=== PATIENT | male | born 1930 | race African-American/Black ===

== ENCOUNTER 2018-09-24 10:24 | Inpatient (IN) | payer MEDICARE, MEDICAID ==
[~2018-09-24] VITALS: Ht 175.3 cm; Wt 75.7 kg
[~2018-09-24 10:24] MED LIST: ALPHAGAN1 DROP BOTH EYES; ASPIRIN81 MG ORAL; ATENOLOL25 MG ORAL; AZOPT10 ML RIGHT EYE; COLACE100 MG ORAL; COMBIGAN EYE DRO5 ML OP; GLUCOPHAGE500 MG ORAL; PROTONIX40 MG ORAL; TIMOPTIC 0.5%1 DRO1 BOTH EYES; UNOBMED; ZESTRIL10 M1 ORAL
[2018-09-24 10:37] VITALS: BP 174/72
[2018-09-24] MEDS ORDERED: Sodium Chloride 500ML 500 ML IV ONE (10:48)
--- NOTE | 2018-09-24 10:51 | Emergency Room Report ---
History of Present Illness General Chief Complaint: Multiple Trauma/Fall Source: Patient, EMS Present Illness HPI Patient presents after he sustained a fall And had pain to the right hip area Patient reports this happened last night He is not able to report specifics of the incident Patient is blind He reports that he ambulate with a walker Currently denies any chest pain denies any abdominal pain Pain is localized to the right hip 8 out of 10 with attempts of movement Allergies: Coded Allergies: No Known Allergies (Verified , 04/05/09) Patient History Past Medical History: see triage record Pertinent Family History: none Reviewed Nursing Documentation: PMH: Agreed; PSxH: Agreed Nursing Documentation-PMH Past Medical History: No History, Except For Hx Hypertension: Yes Hx Pacemaker: No Hx Asthma: No Hx COPD: No Hx Diabetes: No Hx Cancer: No Hx Gastrointestinal Problems: No Hx Dialysis: No Hx Neurological Problems: Yes - Blind Hx Cerebrovascular Accident: No Hx Seizures: No Review of Systems All Other Systems: negative except mentioned in HPI Physical Exam Vital Signs Date Time Temp Pulse Resp B/P (MAP) Pulse Ox O2 Delivery O2 Flow Rate FiO2 09/24/18 10:18 98.1 88 16 168/80 97 Room Air Sp02 EP Interpretation: reviewed, normal General Appearance: no apparent distress Head: normocephalic, atraumatic Eyes: bilateral eye other - Blind in both eyes ENT: normal pharynx, no angioedema Neck: supple Respiratory: lungs clear, no respiratory distress, no retraction Cardiovascular #1: regular rate, rhythm Gastrointestinal: non tender, soft Musculoskeletal: other - Some swelling to the right proximal hip, tender on palpation, right leg appears to be externally rotated Neurologic: alert, oriented x3, responsive Skin: normal color, no rash Lymphatic: no adenopathy Medical Decision Making Diagnostic Impression: Primary Impression: Hip fracture Additional Impression: Legally blind ER Course Given the patient's history exam and presentation multiple differentials are considered blood work and imaging is initiated patient has evidence of right- sided hip fracture appears to be intertrochanteric Further preoperative workup is also initiated Patient remains nothing by mouth Pain is well-controlled did not require any initial medications and emergency room this was addressed with the patient Otherwise stable for further inpatient care Labs Test 09/24/18 11:30 09/24/18 12:51 09/25/18 05:05 White Blood Count 11.6 K/UL (4.8-10.8) Red Blood Count 4.37 M/UL (4.70-6.10) Hemoglobin 13.8 G/DL (14.2-18.0) Hematocrit 41.0 % (42.0-52.0) Mean Corpuscular Volume 94 FL (80-99) Mean Corpuscular Hemoglobin 31.6 PG (27.0-31.0) Mean Corpuscular Hemoglobin Concent 33.7 G/DL (32.0-36.0) Red Cell Distribution Width 11.5 % (11.6-14.8) Platelet Count 137 K/UL (150-450) Mean Platelet Volume 11.9 FL (6.5-10.1) Neutrophils (%) (Auto) % (45.0-75.0) Lymphocytes (%) (Auto) % (20.0-45.0) Monocytes (%) (Auto) % (1.0-10.0) Eosinophils (%) (Auto) % (0.0-3.0) Basophils (%) (Auto) % (0.0-2.0) Differential Total Cells Counted 100 Neutrophils % (Manual) 85 % (45-75) Lymphocytes % (Manual) 8 % (20-45) Monocytes % (Manual) 5 % (1-10) Eosinophils % (Manual) 0 % (0-3) Basophils % (Manual) 0 % (0-2) Band Neutrophils 2 % (0-8) Platelet Estimate Decreased Platelet Morphology Normal Ovalocytes Occasional Troponin I 0.007 ng/mL (0.000-0.056) Sodium Level 140 MMOL/L (136-145) Potassium Level 3.9 MMOL/L (3.5-5.1) Chloride Level 107 MMOL/L (98-107) Carbon Dioxide Level 25 MMOL/L (21-32) Anion Gap 9 mmol/L (5-15) Blood Urea Nitrogen 12 mg/dL (7-18) Creatinine 0.9 MG/DL (0.55-1.30) Estimat Glomerular Filtration Rate mL/min (>60) Glucose Level 148 MG/DL (74-106) Calcium Level 9.2 MG/DL (8.5-10.1) Total Bilirubin 1.8 MG/DL (0.2-1.0) Direct Bilirubin 0.5 MG/DL (0.0-0.3) Aspartate Amino Transf (AST/SGOT) 40 U/L (15-37) Alanine Aminotransferase (ALT/SGPT) 23 U/L (12-78) Alkaline Phosphatase 79 U/L (46-116) Total Creatine Kinase 214 U/L (26-308) Creatine Kinase MB 1.8 NG/ML (0.0-3.6) Creatine Kinase MB Relative Index 0.8 Total Protein 7.6 G/DL (6.4-8.2) Albumin 3.2 G/DL (3.4-5.0) Globulin 4.4 g/dL Albumin/Globulin Ratio 0.7 (1.0-2.7) Prothrombin Time 14.1 SEC (9.30-11.50) Prothromb Time International Ratio 1.4 (0.9-1.1) Activated Partial Thromboplast Time 27 SEC (23-33) Rhythm Strip Diag. Results EP Interpretation: yes Rate: 67 Rhythm: NSR, no PVC's, no ectopy Chest X-Ray Diagnostic Results Chest X-Ray Diagnostic Results : Chest X-Ray Ordered: Yes # of Views/Limited/Complete: 1 View Indication: Chest Pain EP Interpretation: Yes Interpretation: no consolidation, no effusion, no pneumothorax Impression: No acute disease Electronically Signed by: Quyen Stanley DO Other X-Ray Diagnostic Results Other X-Ray Diagnostic Results : X-Ray ordered: Pelvic # of Views/Limited Vs Complete: 1 View Indication: Pain EP Interpretation: Yes Interpretation: no soft tissue swelling, no sbo, other - Right-sided intertrochanteric fracture Impression: Other - Acute fracture, right hip, intertrochanteric Last Vital Signs Date Time Temp Pulse Resp B/P (MAP) Pulse Ox O2 Delivery O2 Flow Rate FiO2 09/24/18 10:37 97.9 79 15 174/72 99 Room Air Status: improved Disposition: ADMITTED INPATIENT Condition: Serious Quyen Stanley DO Sep 24, 2018 10:51
[2018-09-24] MEDS ORDERED: Morphine Sulfate 2mg/ml Inj IVP ONE (11:00)
[2018-09-24 11:50] LABS: HEMOGLOBIN 13.8 G/DL (14.2-18.0); MEAN CORPUSCULAR VOLUME 94 FL (80-99); PLATELET COUNT 137 K/UL (150-450); RED BLOOD COUNT 4.37 M/UL (4.70-6.10); RED CELL DISTRIBUTION WIDTH 11.5 % (11.6-14.8); WHITE BLOOD COUNT 11.6 K/UL (4.8-10.8)
[2018-09-24 12:00] VITALS: BP 118/56
[2018-09-24] MEDS ORDERED: Morphine Sulfate 2mg/ml Inj IVP PRN (13:00)
[2018-09-24] MEDS ORDERED: Mylanta II UD 30ml ORAL PRN (13:00)
[2018-09-24] MEDS ORDERED: Zolpidem 5mg tab ORAL PRN (13:00)
[2018-09-24] MEDS ORDERED: Miralax 17gm pkt ORAL PRN (13:00)
[2018-09-24] MEDS ORDERED: LORazepam Inj 2mg/ml 1ml IV PRN (13:00)
[2018-09-24] MEDS ORDERED: Morphine Sulfate 4mg/ml Inj (IV/IM USE ONLY) IVP PRN (13:00)
[2018-09-24 13:10] LABS: ANION GAP 9 mmol/L (5-15); BLOOD UREA NITROGEN 12 mg/dL (7-18); CALCIUM 9.2 MG/DL (8.5-10.1); CARBON DIOXIDE 25 MMOL/L (21-32); CHLORIDE 107 MMOL/L (98-107); CREATININE 0.9 MG/DL (0.55-1.30); POTASSIUM 3.9 MMOL/L (3.5-5.1); SODIUM 140 MMOL/L (136-145)
[2018-09-24 13:20] VITALS: BP 121/76
[2018-09-24 13:29] LABS: ALANINE AMINOTRANSFERASE 23 U/L (12-78); ALBUMIN 3.2 G/DL (3.4-5.0); ALBUMIN/GLOBULIN RATIO 0.7 (1.0-2.7); ALKALINE PHOSPHATASE 79 U/L (46-116); ASPARTATE AMINO TRANSFERASE 40 U/L (15-37); BILIRUBIN,TOTAL 1.8 MG/DL (0.2-1.0); CKMB 1.8 NG/ML (0.0-3.6); CREATINE KINASE 214 U/L (26-308)
[2018-09-24 13:33] LABS: BILIRUBIN,DIRECT 0.5 MG/DL (0.0-0.3)
--- NOTE | 2018-09-24 13:50 | Consultation ---
History of Present Illness General Chief Complaint: Multiple Trauma/Fall Present Illness Allergies: Coded Allergies: No Known Allergies (Verified , 04/05/09) Medication History Scheduled Aspirin* (Aspirin*), 81 MG ORAL DAILY Atenolol* (Tenormin*), 25 MG ORAL Q12HR Brimonidine Tartrate (Brimonidine Tartrate), 1 DROP BOTH EYES BID Brinzolamide (Azopt), 1 DROP RIGHT EYE THREE TIMES A DAY Docusate Sodium* (Colace*), 100 MG ORAL DAILY Lisinopril* (Zestril*), 5 MG ORAL DAILY Metformin Hcl* (Glucophage*), 500 MG ORAL DAILY Pantoprazole* (Protonix*), 40 MG ORAL DAILY Timolol Maleate (Timolol Maleate), 1 DROP BOTH EYES BID Miscellaneous Medications Brimonidine Tartrate/Timolol (Combigan Eye Drops), 1 DROP OP, (Reported) Patient History Healthcare decision maker Resuscitation status Advanced Directive on File Physical Exam Last 24 Hour Vital Signs Date Time Temp Pulse Resp B/P (MAP) Pulse Ox O2 Delivery O2 Flow Rate FiO2 09/24/18 13:20 98.6 72 16 121/76 100 Room Air 09/24/18 12:00 98.7 78 18 118/56 100 Room Air 09/24/18 10:37 97.9 79 15 174/72 99 Room Air 09/24/18 10:37 79 16 Room Air 09/24/18 10:18 98.1 88 16 168/80 97 Room Air Laboratory Tests Test 09/24/18 11:30 09/24/18 12:51 White Blood Count 11.6 K/UL (4.8-10.8) H Red Blood Count 4.37 M/UL (4.70-6.10) L Hemoglobin 13.8 G/DL (14.2-18.0) L Hematocrit 41.0 % (42.0-52.0) L Mean Corpuscular Volume 94 FL (80-99) Mean Corpuscular Hemoglobin 31.6 PG (27.0-31.0) H Mean Corpuscular Hemoglobin Concent 33.7 G/DL (32.0-36.0) Red Cell Distribution Width 11.5 % (11.6-14.8) L Platelet Count 137 K/UL (150-450) L Mean Platelet Volume 11.9 FL (6.5-10.1) H Neutrophils (%) (Auto) % (45.0-75.0) Lymphocytes (%) (Auto) % (20.0-45.0) Monocytes (%) (Auto) % (1.0-10.0) Eosinophils (%) (Auto) % (0.0-3.0) Basophils (%) (Auto) % (0.0-2.0) Differential Total Cells Counted 100 Neutrophils % (Manual) 85 % (45-75) H Lymphocytes % (Manual) 8 % (20-45) L Monocytes % (Manual) 5 % (1-10) Eosinophils % (Manual) 0 % (0-3) Basophils % (Manual) 0 % (0-2) Band Neutrophils 2 % (0-8) Platelet Estimate Decreased L Platelet Morphology Normal Ovalocytes Occasional Troponin I 0.007 ng/mL (0.000-0.056) Sodium Level 140 MMOL/L (136-145) Potassium Level 3.9 MMOL/L (3.5-5.1) Chloride Level 107 MMOL/L (98-107) Carbon Dioxide Level 25 MMOL/L (21-32) Anion Gap 9 mmol/L (5-15) Blood Urea Nitrogen 12 mg/dL (7-18) Creatinine 0.9 MG/DL (0.55-1.30) Estimat Glomerular Filtration Rate mL/min (>60) Glucose Level 148 MG/DL (74-106) H Calcium Level 9.2 MG/DL (8.5-10.1) Total Bilirubin 1.8 MG/DL (0.2-1.0) H Direct Bilirubin 0.5 MG/DL (0.0-0.3) H Aspartate Amino Transf (AST/SGOT) 40 U/L (15-37) H Alanine Aminotransferase (ALT/SGPT) 23 U/L (12-78) Alkaline Phosphatase 79 U/L (46-116) Total Creatine Kinase 214 U/L (26-308) Creatine Kinase MB 1.8 NG/ML (0.0-3.6) Creatine Kinase MB Relative Index 0.8 Total Protein 7.6 G/DL (6.4-8.2) Albumin 3.2 G/DL (3.4-5.0) L Globulin 4.4 g/dL Albumin/Globulin Ratio 0.7 (1.0-2.7) L Height (Feet): 6 Weight (Pounds): 168 Medications Current Medications Medications (Trade) Dose Ordered Sig/Tariq Route PRN Reason Start Time Stop Time Status Last Admin Dose Admin Acetaminophen (Tylenol) 650 mg Q4H PRN ORAL fever 09/24/18 13:00 10/24/18 12:59 Al Hydroxide/Mg Hydroxide (Mylanta II) 30 ml Q6H PRN ORAL dyspepsia 09/24/18 13:00 10/24/18 12:59 Atenolol (Tenormin) 25 mg Q12HR ORAL 09/24/18 21:00 10/24/18 20:59 Brimonidine Tartrate (Alphagan) 1 drop BID BOTH EYES 09/24/18 18:00 10/24/18 17:59 Dextrose (Dextrose 50%) 25 ml Q30M PRN IV Hypoglycemia 09/24/18 13:00 10/24/18 12:59 Dextrose (Dextrose 50%) 50 ml Q30M PRN IV Hypoglycemia 09/24/18 13:00 10/24/18 12:59 Dextrose/Sodium Chloride 1,000 ml @ 50 mls/hr Q20H IV 09/24/18 13:35 10/24/18 13:34 Heparin Sodium (Porcine) (Heparin 5000 units/ml) 5,000 units EVERY 12 HOURS SUBQ 09/24/18 21:00 10/24/18 20:59 Insulin Aspart (NovoLOG) BEFORE MEALS AND HS SUBQ 09/24/18 16:30 10/24/18 16:29 Lisinopril (Zestril) 5 mg DAILY ORAL 09/25/18 09:00 10/25/18 08:59 Lorazepam (Ativan 2mg/ml 1ml) 0.5 mg Q4H PRN IV For Anxiety 09/24/18 13:00 10/01/18 12:59 Morphine Sulfate (Morphine Sulfate) 2 mg Q4H PRN IVP For Pain 4-6 09/24/18 13:00 10/01/18 12:59 Morphine Sulfate (Morphine Sulfate) 4 mg Q4H PRN IVP For Pain 7-10 09/24/18 13:00 10/01/18 12:59 Ondansetron HCl (Zofran) 4 mg Q6H PRN IVP Nausea & Vomiting 09/24/18 13:00 10/24/18 12:59 Pantoprazole (Protonix) 40 mg DAILY ORAL 09/25/18 09:00 10/25/18 08:59 Polyethylene Glycol (Miralax) 17 gm HSPRN PRN ORAL Constipation 09/24/18 13:00 10/24/18 12:59 Timolol Maleate (Timoptic 0.5% Op Soln) 1 drop BID BOTH EYES 09/24/18 18:00 10/24/18 17:59 Zolpidem Tartrate (Ambien) 5 mg HSPRN PRN ORAL Insomnia 09/24/18 13:00 10/01/18 12:59 Moises Dennis MD Sep 24, 2018 13:50
[2018-09-24 14:00] VITALS: BP 141/66
[2018-09-24] MEDS: D5 1/2NS 1,000 ML IV SCH (15:01)
--- NOTE | 2018-09-24 15:44 | Diagnostic Imaging Report ---
Indication: Pain, status post fall Technique: One view of the pelvis Comparison: none Findings: There is slightly angulated right hip intertrochanteric fracture. There is a comminuted trochanter fracture of the right hip, mildly angulated. No associated pelvic fracture. No left hip fracture. Joint spaces are preserved. There are degenerative changes of the lumbosacral junction Impression: Positive for right hip intertrochanteric fracture This agrees with the findings reported by the emergency room physician in the electronic medical record
--- NOTE | 2018-09-24 15:45 | Diagnostic Imaging Report ---
Indication: Chest pain Technique: One view of the chest Comparison: 11/22/2015 Findings: No acute infiltrates, effusions, or congestion. Tortuous calcified aorta. Normal heart size. Upper mediastinum unremarkable. Impression: No acute process.
[2018-09-24 16:00] VITALS: BP 140/70
[2018-09-24] MEDS: NovoLOG Insulin Flexpen SUBQ SCH ×2 (16:30→21:00)
[2018-09-24] MEDS: Timolol 0.5% Op Soln 2.5ml BOTH EYES SCH (17:38)
[2018-09-24] MEDS: Brimonidine 0.2% Opth Sol BOTH EYES SCH (17:38)
--- NOTE | 2018-09-24 18:37 | History & Physical ---
History and Physical History & Physicial Dictated for Int Med-Dr Sanz no. [id number]. Jw Mills MD Sep 24, 2018 18:37
[2018-09-24 20:00] VITALS: BP 135/68
[2018-09-24] MEDS: Heparin 5000 units/ml inj SUBQ SCH (21:00)
[2018-09-24] MEDS: Atenolol 25mg tab ORAL SCH (21:00)
--- NOTE | 2018-09-24 21:30 | History and Physical Report ---
DATE OF ADMISSION: 09/24/2018 CHIEF COMPLAINT: The patient is a 88-year-old male who presents with chief complaint of right hip pain. HISTORY OF PRESENT ILLNESS: The patient states he was at home earlier today. The patient went to the bathroom and no witnessed him . The patient then went to go sit on the couch. The patient then heard a noise and was trying to get up from the couch. The patient fell. The patient states he did not lose consciousness. He just slipped and fell. The patient presented to [facility] emergency room. The patient was complaining of right hip pain. An x-ray demonstrated a right femoral intertrochanteric fracture. The patient is admitted with right femur intertrochanteric fracture. REVIEW OF SYSTEMS: CONSTITUTIONAL: The patient denies weight loss or weight gain. The patient denies fevers or chills. HEENT: The patient denies ear or throat pain. The patient denies headache. CARDIOVASCULAR: The patient denies palpitations or chest pain. CHEST: The patient denies wheezes or shortness of breath. ABDOMINAL: The patient denies nausea, vomiting, diarrhea, or constipation. GENITOURINARY: The patient denies dysuria or increased frequency of urination. NEUROMUSCULAR: The patient complains of right hip pain as above. The patient denies seizures or generalized weakness. PAST MEDICAL HISTORY: Significant for: 1. Prediabetes. 2. Legally blind. 3. Diabetes type 2. 4. Hypertension. 5. Glaucoma. PAST SURGICAL HISTORY: The patient denies. CURRENT MEDICATIONS: 1. Aspirin 81 mg p.o. daily. 2. Atenolol 25 mg p.o. twice daily. 3. Brimonidine one drop in both eyes twice daily. 4. Azopt one drop in the right eye three times daily. 5. Lisinopril 5 mg p.o. daily. 6. Metformin 500 mg p.o. daily. 7. Protonix 40 mg p.o. daily. 8. Timolol one drop in both eyes twice daily. ALLERGIES: No known drug allergies. SOCIAL HISTORY: The patient is single and lives alone. The patient denies tobacco use having quit 10 years ago. The patient admits to alcohol use of one drink daily. PHYSICAL EXAMINATION: VITAL SIGNS: Temperature 98.7, respirations 18, pulse 78, blood pressure 118/56. GENERAL: The patient is well-developed and well-nourished male, who is in moderate pain. HEENT: Eyes, pupils are equal and responsive to light and accommodation. Extraocular movements are intact. NECK: Supple without lymphadenopathy. CHEST: Lungs are clear to auscultation bilaterally without wheezes or rales. CARDIOVASCULAR: Regular rate. S1 and S2 normal without murmurs, rubs, or gallops. ABDOMEN: Soft, nontender, nondistended. Positive bowel sounds. No evidence of hepatosplenomegaly. Currently, no rebound or guarding noted. EXTREMITIES: Pain to palpation in right hip otherwise without clubbing or cyanosis. RECTAL/GENITAL: Refused. NEUROLOGIC: Cranial nerves II through XII are grossly intact without focal deficits. Motor strength is 5/5 bilaterally. Deep tendon reflexes are 2+ plantar. LABORATORY AND DIAGNOSTIC DATA: An x-ray of the pelvis revealed an angulated right hip intertrochanteric fracture. Laboratory studies, WBC 11.6, hemoglobin 13.8, hematocrit 41.0, platelets 137,000. Sodium 140, potassium 3.9, chloride 107, CO2 25, BUN 12, creatinine 0.9, glucose 148. Direct bilirubin elevated 0.5, total bilirubin elevated 1.8, AST elevated at 40. ASSESSMENT: This is an 88-year-old male. 1. Intertrochanteric fracture of the right femur. 2. Hypertension. 3. Diabetes type 2. 4. Glaucoma. 5. 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 TREATMENT: 1. Intertrochanteric fracture of the right femur. An Orthopedic consultation obtained with Dr. Mao Arrington. We will follow recommendations of Orthopedics. The patient will require right total hip arthroscopy. 2. Diabetes type 2. Continue metformin as above. A regular insulin sliding scale has been instituted. 3. Hypertension. Continue lisinopril and atenolol as above. 4. Blindness. 5. Glaucoma. Continue eye drops as above. Jw Mills M.D. DR: Karen JOB#: [id number] CC:
--- NOTE | 2018-09-24 23:07 | Consultation ---
History of Present Illness General Date patient seen: Sep 24, 2018 Chief Complaint: Multiple Trauma/Fall Present Illness HPI 88-year-old male who presents with chief complaint of right hip pain. the pt is restless and confused waxing and waning of consciousness Allergies: Coded Allergies: No Known Allergies (Verified , 04/05/09) Medication History Scheduled Aspirin* (Aspirin*), 81 MG ORAL DAILY Atenolol* (Tenormin*), 25 MG ORAL Q12HR Brimonidine Tartrate (Brimonidine Tartrate), 1 DROP BOTH EYES BID Brinzolamide (Azopt), 1 DROP RIGHT EYE THREE TIMES A DAY Docusate Sodium* (Colace*), 100 MG ORAL DAILY Lisinopril* (Zestril*), 5 MG ORAL DAILY Metformin Hcl* (Glucophage*), 500 MG ORAL DAILY Pantoprazole* (Protonix*), 40 MG ORAL DAILY Timolol Maleate (Timolol Maleate), 1 DROP BOTH EYES BID Miscellaneous Medications Brimonidine Tartrate/Timolol (Combigan Eye Drops), 1 DROP OP, (Reported) Patient History Limited by: medical condition History Provided By: Patient, Medical Record, PMD Healthcare decision maker patient Resuscitation status Full Code Advanced Directive on File pt does not have one Past Medical/Surgical History Past Medical/Surgical History: (1) Dizziness (2) Dizziness (3) Dizziness (4) ACS (acute coronary syndrome) (5) Syncope (6) Hypertension, accelerated (7) Blind left eye (8) Prediabetes (9) GERD (gastroesophageal reflux disease) (10) Diabetes (11) Hypercholesteremia (12) Constipation (13) Problem (14) Encounter for generalized patient complaints (15) Near syncope (16) Abdominal pain (17) Dizziness (18) Fracture (19) Multiple injuries due to trauma (20) Legally blind (21) Hip fracture (22) Blindness (23) Diabetes mellitus, type II (24) Glaucoma (25) HTN (hypertension) (26) Femur neck fracture (27) Right hip pain Review of Systems Psychiatric: Reports: anxiety, depressed feelings, emotional problems Physical Exam General Appearance: alert, confused, moderate distress, agitated Last 24 Hour Vital Signs Date Time Temp Pulse Resp B/P (MAP) Pulse Ox O2 Delivery O2 Flow Rate FiO2 09/24/18 21:00 Room Air 09/24/18 21:00 63 135/64 09/24/18 20:00 97.3 63 18 135/68 (90) 100 09/24/18 16:00 98.3 77 20 140/70 (93) 99 77 09/24/18 15:30 Room Air 09/24/18 14:00 97.3 71 18 141/66 (91) 99 71 09/24/18 13:50 98.6 72 16 121/76 100 Room Air 09/24/18 13:20 98.6 72 16 121/76 100 Room Air 09/24/18 12:00 98.7 78 18 118/56 100 Room Air 09/24/18 10:37 97.9 79 15 174/72 99 Room Air 09/24/18 10:37 79 16 Room Air 09/24/18 10:18 98.1 88 16 168/80 97 Room Air Laboratory Tests Test 09/24/18 11:30 09/24/18 12:51 White Blood Count 11.6 K/UL (4.8-10.8) H Red Blood Count 4.37 M/UL (4.70-6.10) L Hemoglobin 13.8 G/DL (14.2-18.0) L Hematocrit 41.0 % (42.0-52.0) L Mean Corpuscular Volume 94 FL (80-99) Mean Corpuscular Hemoglobin 31.6 PG (27.0-31.0) H Mean Corpuscular Hemoglobin Concent 33.7 G/DL (32.0-36.0) Red Cell Distribution Width 11.5 % (11.6-14.8) L Platelet Count 137 K/UL (150-450) L Mean Platelet Volume 11.9 FL (6.5-10.1) H Neutrophils (%) (Auto) % (45.0-75.0) Lymphocytes (%) (Auto) % (20.0-45.0) Monocytes (%) (Auto) % (1.0-10.0) Eosinophils (%) (Auto) % (0.0-3.0) Basophils (%) (Auto) % (0.0-2.0) Differential Total Cells Counted 100 Neutrophils % (Manual) 85 % (45-75) H Lymphocytes % (Manual) 8 % (20-45) L Monocytes % (Manual) 5 % (1-10) Eosinophils % (Manual) 0 % (0-3) Basophils % (Manual) 0 % (0-2) Band Neutrophils 2 % (0-8) Platelet Estimate Decreased L Platelet Morphology Normal Ovalocytes Occasional Troponin I 0.007 ng/mL (0.000-0.056) Sodium Level 140 MMOL/L (136-145) Potassium Level 3.9 MMOL/L (3.5-5.1) Chloride Level 107 MMOL/L (98-107) Carbon Dioxide Level 25 MMOL/L (21-32) Anion Gap 9 mmol/L (5-15) Blood Urea Nitrogen 12 mg/dL (7-18) Creatinine 0.9 MG/DL (0.55-1.30) Estimat Glomerular Filtration Rate mL/min (>60) Glucose Level 148 MG/DL (74-106) H Calcium Level 9.2 MG/DL (8.5-10.1) Total Bilirubin 1.8 MG/DL (0.2-1.0) H Direct Bilirubin 0.5 MG/DL (0.0-0.3) H Aspartate Amino Transf (AST/SGOT) 40 U/L (15-37) H Alanine Aminotransferase (ALT/SGPT) 23 U/L (12-78) Alkaline Phosphatase 79 U/L (46-116) Total Creatine Kinase 214 U/L (26-308) Creatine Kinase MB 1.8 NG/ML (0.0-3.6) Creatine Kinase MB Relative Index 0.8 Total Protein 7.6 G/DL (6.4-8.2) Albumin 3.2 G/DL (3.4-5.0) L Globulin 4.4 g/dL Albumin/Globulin Ratio 0.7 (1.0-2.7) L Height (Feet): 5 Height (Inches): 10.00 Weight (Pounds): 167 Medications Current Medications Medications (Trade) Dose Ordered Sig/Tariq Route PRN Reason Start Time Stop Time Status Last Admin Dose Admin Acetaminophen (Tylenol) 650 mg Q4H PRN ORAL fever 09/24/18 13:00 10/24/18 12:59 Al Hydroxide/Mg Hydroxide (Mylanta II) 30 ml Q6H PRN ORAL dyspepsia 09/24/18 13:00 10/24/18 12:59 Atenolol (Tenormin) 25 mg Q12HR ORAL 09/24/18 21:00 10/24/18 20:59 Brimonidine Tartrate (Alphagan) 1 drop BID BOTH EYES 09/24/18 18:00 10/24/18 17:59 09/24/18 17:38 Dextrose (Dextrose 50%) 25 ml Q30M PRN IV Hypoglycemia 09/24/18 13:00 10/24/18 12:59 Dextrose (Dextrose 50%) 50 ml Q30M PRN IV Hypoglycemia 09/24/18 13:00 10/24/18 12:59 Dextrose/Sodium Chloride 1,000 ml @ 50 mls/hr Q20H IV 09/24/18 13:35 10/24/18 13:34 09/24/18 15:01 Heparin Sodium (Porcine) (Heparin 5000 units/ml) 5,000 units EVERY 12 HOURS SUBQ 09/24/18 21:00 10/24/18 20:59 Insulin Aspart (NovoLOG) BEFORE MEALS AND HS SUBQ 09/24/18 16:30 10/24/18 16:29 Lisinopril (Zestril) 5 mg DAILY ORAL 09/25/18 09:00 10/25/18 08:59 Lorazepam (Ativan 2mg/ml 1ml) 0.5 mg Q4H PRN IV For Anxiety 09/24/18 13:00 10/01/18 12:59 Morphine Sulfate (Morphine Sulfate) 2 mg Q4H PRN IVP For Pain 4-6 09/24/18 13:00 10/01/18 12:59 Morphine Sulfate (Morphine Sulfate) 4 mg Q4H PRN IVP For Pain 7-10 09/24/18 13:00 10/01/18 12:59 Ondansetron HCl (Zofran) 4 mg Q6H PRN IVP Nausea & Vomiting 09/24/18 13:00 10/24/18 12:59 Pantoprazole (Protonix) 40 mg DAILY ORAL 09/25/18 09:00 10/25/18 08:59 Polyethylene Glycol (Miralax) 17 gm HSPRN PRN ORAL Constipation 09/24/18 13:00 10/24/18 12:59 Timolol Maleate (Timoptic 0.5% Op Soln) 1 drop BID BOTH EYES 09/24/18 18:00 12/29/18 17:59 09/24/18 17:38 Zolpidem Tartrate (Gilma) 5 mg HSPRN PRN ORAL Insomnia 09/24/18 13:00 10/01/18 12:59 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
[2018-09-25] VITALS (13 sets, daily range): BP systolic 112–153; BP diastolic 54–84
[2018-09-25] MEDS: NovoLOG Insulin Flexpen SUBQ SCH ×4 (06:30→20:44)
[2018-09-25 06:35] LABS: INR 1.4 (0.9-1.1)
[2018-09-25 07:28] LABS: ALANINE AMINOTRANSFERASE 22 U/L (12-78); ALBUMIN 2.7 G/DL (3.4-5.0); ALBUMIN/GLOBULIN RATIO 0.7 (1.0-2.7); ALKALINE PHOSPHATASE 62 U/L (46-116); ANION GAP 6 mmol/L (5-15); ASPARTATE AMINO TRANSFERASE 35 U/L (15-37); BILIRUBIN,TOTAL 1.8 MG/DL (0.2-1.0); BLOOD UREA NITROGEN 16 mg/dL (7-18); CALCIUM 8.5 MG/DL (8.5-10.1); CARBON DIOXIDE 26 MMOL/L (21-32); CHLORIDE 106 MMOL/L (98-107); CREATININE 0.9 MG/DL (0.55-1.30); POTASSIUM 4.4 MMOL/L (3.5-5.1); SODIUM 138 MMOL/L (136-145)
[2018-09-25 07:29] LABS: BILIRUBIN,DIRECT 0.4 MG/DL (0.0-0.3)
--- NOTE | 2018-09-25 08:16 | Consultation ---
Consult Note Consult Note 88 yo male with fall at home and rt hip IT fracture. ortho consult called from the ER. Dr. Arrington has already seen pt via Dr. 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 Will defer tx to Dr. Arrington who has already spoken to pt regarding recommendations. Dr. Arrington has consented pt for Rt hip ORIF which is appropriate. Further care to be provided by Dr. Arrington. Thank you Veronica Ricks Sep 25, 2018 08:16
[2018-09-25] MEDS: Lisinopril 2.5mg tab ORAL SCH (08:57)
[2018-09-25] MEDS: Timolol 0.5% Op Soln 2.5ml BOTH EYES SCH ×2 (08:57→18:34)
[2018-09-25] MEDS: Brimonidine 0.2% Opth Sol BOTH EYES SCH ×2 (08:58→18:33)
[2018-09-25] MEDS: Heparin 5000 units/ml inj SUBQ SCH ×2 (09:00→20:37)
[2018-09-25] MEDS: Atenolol 25mg tab ORAL SCH ×2 (09:01→20:38)
--- NOTE | 2018-09-25 09:09 | Consultation ---
History of Present Illness General Date patient seen: Sep 25, 2018 Present Illness Allergies: Coded Allergies: No Known Allergies (Verified , 04/05/09) Medication History Scheduled Aspirin* (Aspirin*), 81 MG ORAL DAILY Atenolol* (Tenormin*), 25 MG ORAL Q12HR Brimonidine Tartrate (Brimonidine Tartrate), 1 DROP BOTH EYES BID Brinzolamide (Azopt), 1 DROP RIGHT EYE THREE TIMES A DAY Docusate Sodium* (Colace*), 100 MG ORAL DAILY Lisinopril* (Zestril*), 5 MG ORAL DAILY Metformin Hcl* (Glucophage*), 500 MG ORAL DAILY Pantoprazole* (Protonix*), 40 MG ORAL DAILY Timolol Maleate (Timolol Maleate), 1 DROP BOTH EYES BID Miscellaneous Medications Brimonidine Tartrate/Timolol (Combigan Eye Drops), 1 DROP OP, (Reported) Patient History Healthcare decision maker patient Resuscitation status Full Code Advanced Directive on File pt does not have one Physical Exam Last 24 Hour Vital Signs Date Time Temp Pulse Resp B/P (MAP) Pulse Ox O2 Delivery O2 Flow Rate FiO2 09/25/18 09:01 81 143/84 09/25/18 08:57 143/84 09/25/18 08:42 97.3 81 18 143/84 (103) 99 09/25/18 03:58 98.4 74 20 144/68 (93) 96 09/25/18 00:00 99.4 73 19 147/66 (93) 96 09/24/18 21:00 Room Air 09/24/18 21:00 63 135/64 09/24/18 20:00 97.3 63 18 135/68 (90) 100 09/24/18 16:00 98.3 77 20 140/70 (93) 99 77 09/24/18 15:30 Room Air 09/24/18 14:00 97.3 71 18 141/66 (91) 99 71 09/24/18 13:50 98.6 72 16 121/76 100 Room Air 09/24/18 13:20 98.6 72 16 121/76 100 Room Air 09/24/18 12:00 98.7 78 18 118/56 100 Room Air 09/24/18 10:37 97.9 79 15 174/72 99 Room Air 09/24/18 10:37 79 16 Room Air 09/24/18 10:18 98.1 88 16 168/80 97 Room Air Intake and Output 09/24/18 09/25/18 19:00 07:00 Intake Total 700 ml 600 ml Output Total 450 ml Balance 700 ml 150 ml IV Total 700 ml 600 ml Output Urine Total 450 ml # Voids 1 2 Laboratory Tests Test 09/24/18 11:30 09/24/18 12:51 09/25/18 05:05 White Blood Count 11.6 K/UL (4.8-10.8) H Pending Red Blood Count 4.37 M/UL (4.70-6.10) L Pending Hemoglobin 13.8 G/DL (14.2-18.0) L Pending Hematocrit 41.0 % (42.0-52.0) L Pending Mean Corpuscular Volume 94 FL (80-99) Pending Mean Corpuscular Hemoglobin 31.6 PG (27.0-31.0) H Pending Mean Corpuscular Hemoglobin Concent 33.7 G/DL (32.0-36.0) Pending Red Cell Distribution Width 11.5 % (11.6-14.8) L Pending Platelet Count 137 K/UL (150-450) L Pending Mean Platelet Volume 11.9 FL (6.5-10.1) H Pending Neutrophils (%) (Auto) % (45.0-75.0) Pending Lymphocytes (%) (Auto) % (20.0-45.0) Pending Monocytes (%) (Auto) % (1.0-10.0) Pending Eosinophils (%) (Auto) % (0.0-3.0) Pending Basophils (%) (Auto) % (0.0-2.0) Pending Differential Total Cells Counted 100 Neutrophils % (Manual) 85 % (45-75) H Lymphocytes % (Manual) 8 % (20-45) L Monocytes % (Manual) 5 % (1-10) Eosinophils % (Manual) 0 % (0-3) Basophils % (Manual) 0 % (0-2) Band Neutrophils 2 % (0-8) Platelet Estimate Decreased L Platelet Morphology Normal Ovalocytes Occasional Troponin I 0.007 ng/mL (0.000-0.056) Sodium Level 140 MMOL/L (136-145) 138 MMOL/L (136-145) Potassium Level 3.9 MMOL/L (3.5-5.1) 4.4 MMOL/L (3.5-5.1) Chloride Level 107 MMOL/L (98-107) 106 MMOL/L (98-107) Carbon Dioxide Level 25 MMOL/L (21-32) 26 MMOL/L (21-32) Anion Gap 9 mmol/L (5-15) 6 mmol/L (5-15) Blood Urea Nitrogen 12 mg/dL (7-18) 16 mg/dL (7-18) Creatinine 0.9 MG/DL (0.55-1.30) 0.9 MG/DL (0.55-1.30) Estimat Glomerular Filtration Rate mL/min (>60) mL/min (>60) Glucose Level 148 MG/DL (74-106) H 198 MG/DL (74-106) H Calcium Level 9.2 MG/DL (8.5-10.1) 8.5 MG/DL (8.5-10.1) Total Bilirubin 1.8 MG/DL (0.2-1.0) H 1.8 MG/DL (0.2-1.0) H Direct Bilirubin 0.5 MG/DL (0.0-0.3) H 0.4 MG/DL (0.0-0.3) H Aspartate Amino Transf (AST/SGOT) 40 U/L (15-37) H 35 U/L (15-37) Alanine Aminotransferase (ALT/SGPT) 23 U/L (12-78) 22 U/L (12-78) Alkaline Phosphatase 79 U/L (46-116) 62 U/L (46-116) Total Creatine Kinase 214 U/L (26-308) Creatine Kinase MB 1.8 NG/ML (0.0-3.6) Creatine Kinase MB Relative Index 0.8 Total Protein 7.6 G/DL (6.4-8.2) 6.7 G/DL (6.4-8.2) Albumin 3.2 G/DL (3.4-5.0) L 2.7 G/DL (3.4-5.0) L Globulin 4.4 g/dL 4.0 g/dL Albumin/Globulin Ratio 0.7 (1.0-2.7) L 0.7 (1.0-2.7) L Prothrombin Time 14.1 SEC (9.30-11.50) H Prothromb Time International Ratio 1.4 (0.9-1.1) H Activated Partial Thromboplast Time 27 SEC (23-33) Thyroid Stimulating Hormone (TSH) 0.428 uiU/mL (0.358-3.740) Height (Feet): 5 Height (Inches): 10.00 Weight (Pounds): 167 Medications Current Medications Medications (Trade) Dose Ordered Sig/Tariq Route PRN Reason Start Time Stop Time Status Last Admin Dose Admin Acetaminophen (Tylenol) 650 mg Q4H PRN ORAL fever 09/24/18 13:00 10/24/18 12:59 Al Hydroxide/Mg Hydroxide (Mylanta II) 30 ml Q6H PRN ORAL dyspepsia 09/24/18 13:00 10/24/18 12:59 Atenolol (Tenormin) 25 mg Q12HR ORAL 09/24/18 21:00 10/24/18 20:59 09/25/18 09:01 Brimonidine Tartrate (Alphagan) 1 drop BID BOTH EYES 09/24/18 18:00 10/24/18 17:59 09/25/18 08:58 Dextrose (Dextrose 50%) 25 ml Q30M PRN IV Hypoglycemia 09/24/18 13:00 10/24/18 12:59 Dextrose (Dextrose 50%) 50 ml Q30M PRN IV Hypoglycemia 09/24/18 13:00 10/24/18 12:59 Dextrose/Sodium Chloride 1,000 ml @ 50 mls/hr Q20H IV 09/24/18 13:35 10/24/18 13:34 09/24/18 15:01 Heparin Sodium (Porcine) (Heparin 5000 units/ml) 5,000 units EVERY 12 HOURS SUBQ 09/24/18 21:00 10/24/18 20:59 Insulin Aspart (NovoLOG) BEFORE MEALS AND HS SUBQ 09/24/18 16:30 10/24/18 16:29 Lisinopril (Zestril) 5 mg DAILY ORAL 09/25/18 09:00 10/25/18 08:59 09/25/18 08:57 Lorazepam (Ativan 2mg/ml 1ml) 0.5 mg Q4H PRN IV For Anxiety 09/24/18 13:00 10/01/18 12:59 Morphine Sulfate (Morphine Sulfate) 2 mg Q4H PRN IVP For Pain 4-6 09/24/18 13:00 10/01/18 12:59 Morphine Sulfate (Morphine Sulfate) 4 mg Q4H PRN IVP For Pain 7-10 09/24/18 13:00 10/01/18 12:59 Ondansetron HCl (Zofran) 4 mg Q6H PRN IVP Nausea & Vomiting 09/24/18 13:00 10/24/18 12:59 Pantoprazole (Protonix) 40 mg DAILY ORAL 09/25/18 09:00 10/25/18 08:59 09/25/18 08:57 Polyethylene Glycol (Miralax) 17 gm HSPRN PRN ORAL Constipation 09/24/18 13:00 10/24/18 12:59 Timolol Maleate (Timoptic 0.5% Op Soln) 1 drop BID BOTH EYES 09/24/18 18:00 10/24/18 17:59 09/25/18 08:57 Zolpidem Tartrate (Ambien) 5 mg HSPRN PRN ORAL Insomnia 09/24/18 13:00 10/01/18 12:59 Assessment/Plan Assessment/Plan (1) Right hip pain (2) Right hip fracture (3) S/p fall seen dictated Vijay Shirley Sep 25, 2018 09:09
[2018-09-25] MEDS: D5 1/2NS 1,000 ML IV SCH (10:15)
[2018-09-25 11:33] LABS: HEMATOCRIT 25.6 % (42.0-52.0); HEMOGLOBIN 8.7 G/DL (14.2-18.0); MEAN CORPUSCULAR VOLUME 94 FL (80-99); PLATELET COUNT 95 K/UL (150-450); RED BLOOD COUNT 2.72 M/UL (4.70-6.10); WHITE BLOOD COUNT 8.7 K/UL (4.8-10.8)
--- NOTE | 2018-09-25 13:10 | Pulmonology Progress Note ---
Assessment/Plan Problems: (1) Femur neck fracture (2) Legally blind (3) Diabetes mellitus, type II (4) HTN (hypertension) Assessment/Plan dvt prophylaxis symptomatic treatment ortho f/u sliding scale diabetic diet monitor BP Subjective ROS Limited/Unobtainable: No Constitutional: Reports: no symptoms HEENT: Repors: no symptoms Allergies: Coded Allergies: No Known Allergies (Verified , 04/05/09) Objective Last 24 Hour Vital Signs Date Time Temp Pulse Resp B/P (MAP) Pulse Ox O2 Delivery O2 Flow Rate FiO2 09/25/18 09:01 81 143/84 09/25/18 09:00 Room Air 09/25/18 08:57 143/84 09/25/18 08:42 97.3 81 18 143/84 (103) 99 09/25/18 03:58 98.4 74 20 144/68 (93) 96 09/25/18 00:00 99.4 73 19 147/66 (93) 96 09/24/18 21:00 Room Air 09/24/18 21:00 63 135/64 09/24/18 20:00 97.3 63 18 135/68 (90) 100 09/24/18 16:00 98.3 77 20 140/70 (93) 99 77 09/24/18 15:30 Room Air 09/24/18 14:00 97.3 71 18 141/66 (91) 99 71 09/24/18 13:50 98.6 72 16 121/76 100 Room Air 09/24/18 13:20 98.6 72 16 121/76 100 Room Air Intake and Output 09/24/18 09/25/18 18:59 06:59 Intake Total 650 ml 600 ml Output Total 450 ml Balance 650 ml 150 ml IV Total 650 ml 600 ml Output Urine Total 450 ml # Voids 1 2 General Appearance: WD/WN HEENT: normocephalic Respiratory/Chest: chest wall non-tender, lungs clear Cardiovascular: normal peripheral pulses, normal rate Abdomen: normal bowel sounds, soft, non tender Laboratory Tests 09/25/18 05:05: Prothrombin Time 14.1H, Prothromb Time International Ratio 1.4H, Activated Partial Thromboplast Time 27, Sodium Level 138, Potassium Level 4.4, Chloride Level 106, Carbon Dioxide Level 26, Anion Gap 6, Blood Urea Nitrogen 16, Creatinine 0.9, Estimat Glomerular Filtration Rate , Glucose Level 198H, Calcium Level 8.5, Total Bilirubin 1.8H, Direct Bilirubin 0.4H, Aspartate Amino Transf (AST/SGOT) 35, Alanine Aminotransferase (ALT/SGPT) 22, Alkaline Phosphatase 62, Total Protein 6.7, Albumin 2.7L, Globulin 4.0, Albumin/Globulin Ratio 0.7L, Thyroid Stimulating Hormone (TSH) 0.428 09/25/18 11:10: White Blood Count 8.7, Red Blood Count 2.72L, Hemoglobin 8.7#L, Hematocrit 25.6# L, Mean Corpuscular Volume 94, Mean Corpuscular Hemoglobin 31.9H, Mean Corpuscular Hemoglobin Concent 33.9, Red Cell Distribution Width 12.0, Platelet Count 95L, Mean Platelet Volume 10.0, Neutrophils (%) (Auto) , Lymphocytes (%) ( Auto) , Monocytes (%) (Auto) , Eosinophils (%) (Auto) , Basophils (%) (Auto) , Differential Total Cells Counted 100, Neutrophils % (Manual) 71, Lymphocytes % ( Manual) 16L, Monocytes % (Manual) 13H, Eosinophils % (Manual) 0, Basophils % ( Manual) 0, Band Neutrophils 0, Platelet Estimate DecreasedL, Platelet Morphology Normal, Ovalocytes 3+ Current Medications Medications (Trade) Dose Ordered Sig/Tariq Route PRN Reason Start Time Stop Time Status Last Admin Dose Admin Acetaminophen (Tylenol) 650 mg Q4H PRN ORAL fever 09/24/18 13:00 10/24/18 12:59 Al Hydroxide/Mg Hydroxide (Mylanta II) 30 ml Q6H PRN ORAL dyspepsia 09/24/18 13:00 10/24/18 12:59 Atenolol (Tenormin) 25 mg Q12HR ORAL 09/24/18 21:00 10/24/18 20:59 09/25/18 09:01 Brimonidine Tartrate (Alphagan) 1 drop BID BOTH EYES 09/24/18 18:00 10/24/18 17:59 09/25/18 08:58 Dextrose (Dextrose 50%) 25 ml Q30M PRN IV Hypoglycemia 09/24/18 13:00 10/24/18 12:59 Dextrose (Dextrose 50%) 50 ml Q30M PRN IV Hypoglycemia 09/24/18 13:00 10/24/18 12:59 Dextrose/Sodium Chloride 1,000 ml @ 50 mls/hr Q20H IV 09/24/18 13:35 10/24/18 13:34 09/25/18 10:15 Heparin Sodium (Porcine) (Heparin 5000 units/ml) 5,000 units EVERY 12 HOURS SUBQ 09/24/18 21:00 10/24/18 20:59 Insulin Aspart (NovoLOG) BEFORE MEALS AND HS SUBQ 09/24/18 16:30 10/24/18 16:29 09/25/18 12:35 Lisinopril (Zestril) 5 mg DAILY ORAL 09/25/18 09:00 10/25/18 08:59 09/25/18 08:57 Lorazepam (Ativan 2mg/ml 1ml) 0.5 mg Q4H PRN IV For Anxiety 09/24/18 13:00 10/01/18 12:59 Morphine Sulfate (Morphine Sulfate) 2 mg Q4H PRN IVP For Pain 4-6 09/24/18 13:00 10/01/18 12:59 Morphine Sulfate (Morphine Sulfate) 4 mg Q4H PRN IVP For Pain 7-10 09/24/18 13:00 10/01/18 12:59 Ondansetron HCl (Zofran) 4 mg Q6H PRN IVP Nausea & Vomiting 09/24/18 13:00 10/24/18 12:59 Pantoprazole (Protonix) 40 mg DAILY ORAL 09/25/18 09:00 10/25/18 08:59 09/25/18 08:57 Polyethylene Glycol (Miralax) 17 gm HSPRN PRN ORAL Constipation 09/24/18 13:00 10/24/18 12:59 Timolol Maleate (Timoptic 0.5% Op Soln) 1 drop BID BOTH EYES 09/24/18 18:00 10/24/18 17:59 09/25/18 08:57 Zolpidem Tartrate (Ambien) 5 mg HSPRN PRN ORAL Insomnia 09/24/18 13:00 10/01/18 12:59 Moises Dennis MD Sep 25, 2018 13:10
[2018-09-25] MEDS ORDERED: LR 1000ml 1,000 ML IVLG SCH (14:08)
[2018-09-25] MEDS ORDERED: Propofol 1,000mg/ 100ml btl IV ONE (14:10)
[2018-09-25] MEDS ORDERED: LORazepam Inj 2mg/ml 1ml IV PRN (14:15)
[2018-09-25] MEDS ORDERED: Midazolam 2mg/2ml Inj IVP PRN (14:15)
[2018-09-25] MEDS ORDERED: fentaNYL 100 mcg/2 mL IV PRN (14:15)
[2018-09-25] MEDS ORDERED: Meperidine 50mg/ml Inj(FOR RIGORS ONLY) IVP PRN (14:15)
[2018-09-25] MEDS ORDERED: Metoclopramide 10mg/2ml Inj IVP PRN (14:15)
[2018-09-25] MEDS ORDERED: Hydromorphone 0.5mg/0.5ml inj IVP PRN (14:15)
[2018-09-25] MEDS ORDERED: oxyCODONE HCL/Acetaminophen 5/325mg ORAL PRN (14:15)
[2018-09-25] MEDS ORDERED: Atropine Sulfate 0.4mg/ml inj IVP PRN (14:15)
[2018-09-25] MEDS ORDERED: HYDROcodone/Acetamin 7.5/325 tab ORAL PRN (14:15)
[2018-09-25] MEDS ORDERED: DiphenhydrAMINE 50mg/ml Inj IVP PRN (14:15)
[2018-09-25] MEDS ORDERED: Norco 5mg/325mg tab ORAL PRN ×2 (14:15→16:30)
--- NOTE | 2018-09-25 14:16 | Anethesia Preoperative Eval ---
Anesthesia Pre-op PMH/ROS General Date of Evaluation: Sep 25, 2018 Time of Evaluation: 09:57 Anesthesiologist: Chris ASA Score: ASA 3 - Emergency Mallampati Score Class I : Soft palate, uvula, fauces, pillars visible Class II: Soft palate, uvula, fauces visible Class III: Soft palate, base of uvula visible Class IV: Only hard plate visible Mallampati Classification: Class II Surgeon: Murphy Diagnosis: R Hip Fx Surgical Procedure: R Hip ORIF Anesthesia History: none Social History: alcohol use - Abuse Family History: no anesthesia problems Allergies: Coded Allergies: No Known Allergies (Verified , 04/05/09) Medications: see eMAR Patient NPO?: Yes Past Medical History Cardiovascular: Reports: HTN, arrhythmia - Syncope, other - HL Gastrointestinal/Genitourinary: Reports: GERD Endocrine: Reports: DM HEENT: Reports: glaucoma, other - Blind Hematology/Immune: Reports: anemia Musculoskeletal/Integumentary: Reports: other - R Hip Fx Anesthesia Pre-op Phys. Exam Physician Exam Last Vital Signs Date Time Temp Pulse Resp B/P (MAP) Pulse Ox O2 Delivery O2 Flow Rate FiO2 09/25/18 12:00 99.7 66 18 123/62 (82) 100 09/25/18 09:00 Room Air Constitutional: NAD Neurologic: CN 2-12 intact Cardiovascular: RRR Respiratory: CTA Gastrointestinal: S/NT/ND Airway Exam Mallampati Score: Class II MO: limited ROM: limited Teeth: missing, intact Anesthesia Pre-op A/P Labs Hematology Test 09/25/18 11:10 09/25/18 13:10 White Blood Count 8.7 K/UL (4.8-10.8) Pending Red Blood Count 2.72 M/UL (4.70-6.10) L Pending Hemoglobin 8.7 G/DL (14.2-18.0) #L Pending Hematocrit 25.6 % (42.0-52.0) #L Pending Mean Corpuscular Volume 94 FL (80-99) Pending Mean Corpuscular Hemoglobin 31.9 PG (27.0-31.0) H Pending Mean Corpuscular Hemoglobin Concent 33.9 G/DL (32.0-36.0) Pending Red Cell Distribution Width 12.0 % (11.6-14.8) Pending Platelet Count 95 K/UL (150-450) L Pending Mean Platelet Volume 10.0 FL (6.5-10.1) Pending Neutrophils (%) (Auto) % (45.0-75.0) Pending Lymphocytes (%) (Auto) % (20.0-45.0) Pending Monocytes (%) (Auto) % (1.0-10.0) Pending Eosinophils (%) (Auto) % (0.0-3.0) Pending Basophils (%) (Auto) % (0.0-2.0) Pending Differential Total Cells Counted 100 Neutrophils % (Manual) 71 % (45-75) Lymphocytes % (Manual) 16 % (20-45) L Monocytes % (Manual) 13 % (1-10) H Eosinophils % (Manual) 0 % (0-3) Basophils % (Manual) 0 % (0-2) Band Neutrophils 0 % (0-8) Platelet Estimate Decreased L Platelet Morphology Normal Ovalocytes 3+ Coagulation Test 09/25/18 05:05 Prothrombin Time 14.1 SEC (9.30-11.50) H Prothromb Time International Ratio 1.4 (0.9-1.1) H Activated Partial Thromboplast Time 27 SEC (23-33) Chemistry Test 09/25/18 05:05 Sodium Level 138 MMOL/L (136-145) Potassium Level 4.4 MMOL/L (3.5-5.1) Chloride Level 106 MMOL/L (98-107) Carbon Dioxide Level 26 MMOL/L (21-32) Anion Gap 6 mmol/L (5-15) Blood Urea Nitrogen 16 mg/dL (7-18) Creatinine 0.9 MG/DL (0.55-1.30) Estimat Glomerular Filtration Rate mL/min (>60) Glucose Level 198 MG/DL (74-106) H Calcium Level 8.5 MG/DL (8.5-10.1) Total Bilirubin 1.8 MG/DL (0.2-1.0) H Direct Bilirubin 0.4 MG/DL (0.0-0.3) H Aspartate Amino Transf (AST/SGOT) 35 U/L (15-37) Alanine Aminotransferase (ALT/SGPT) 22 U/L (12-78) Alkaline Phosphatase 62 U/L (46-116) Total Protein 6.7 G/DL (6.4-8.2) Albumin 2.7 G/DL (3.4-5.0) L Globulin 4.0 g/dL Albumin/Globulin Ratio 0.7 (1.0-2.7) L Thyroid Stimulating Hormone (TSH) 0.428 uiU/mL (0.358-3.740) Risk Assessment & Plan Assessment: ASA 3E Plan: GA, Spinal Status Change Before Surgery: No Pre-Antibiotics Drug: Roberto García MD Sep 25, 2018 14:16
[2018-09-25 14:34] LABS: HEMOGLOBIN 9.2 G/DL (14.2-18.0); MEAN CORPUSCULAR VOLUME 94 FL (80-99); PLATELET COUNT 88 K/UL (150-450); RED BLOOD COUNT 2.87 M/UL (4.70-6.10); RED CELL DISTRIBUTION WIDTH 11.9 % (11.6-14.8); WHITE BLOOD COUNT 8.3 K/UL (4.8-10.8)
[2018-09-25] MEDS ORDERED: Midazolam 2mg/2ml Inj ONE (15:29)
[2018-09-25] MEDS ORDERED: Lidocaine 1% Plain 30 ml INJ ONE (15:29)
[2018-09-25] MEDS ORDERED: Sodium Chloride 10ml vial INJ ONE (15:33)
[2018-09-25] MEDS ORDERED: Bacitracin 50000 Units Vial ONE (15:35)
[2018-09-25] MEDS ORDERED: Bupivacaine w/Epi 0.25% 30ml Vial INJ ONE (15:35)
[2018-09-25] MEDS ORDERED: NeoSporin Gu Irrig 1ml Amp IRRIG ONE (15:35)
[2018-09-25] MEDS ORDERED: cloNIDine 1000mcg/10ml inj ONE (15:36)
[2018-09-25] MEDS ORDERED: Bupivacaine 0.5% Inj 30 ml vial INJ ONE (15:37)
[2018-09-25] MEDS ORDERED: EPINEPHrine 1mg/1ml Amp ONE (15:38)
[2018-09-25] MEDS ORDERED: LR 1000ml ONE (16:00)
[2018-09-25] MEDS ORDERED: NS Irrig 1000ml ONE (16:00)
[2018-09-25] MEDS ORDERED: Sterile Water Irrig 1000ml IRRIG ONE (16:00)
--- NOTE | 2018-09-25 16:00 | Consultation ---
DATE OF CONSULTATION: 09/25/2018 PAIN MANAGEMENT CONSULTATION CONSULTING PHYSICIAN: Marta Sun M.D. REFERRING PHYSICIAN: Moises Dennis M.D. PHYSICIAN ROOFING SUPERINTENDENT: OLAMIDE Pappas. CHIEF COMPLAINT: Right hip pain. HISTORY OF PRESENT ILLNESS: This is an 88-year-old male who has been seen on the Med/Surg floor of [facility] for initial pain management consultation. The patient has been complaining of right hip pain status post fall at home, found to have a right trochanteric fracture on x-ray in the emergency room. He has been admitted under the care of Dr. Sanz, was seen by Dr. Arrington who recommends an ORIF. At this time, the patient is on morphine 2 to 4 mg IV every 4 hours as needed for [id number] pain. He is comfortable and has not used any morphine since the ER and would like to discuss the surgery with the surgeon before signing consent. PAST MEDICAL HISTORY: Hypertension. PAST SURGICAL HISTORY: Denies. SOCIAL HISTORY: History of smoking tobacco. Denies alcohol abuse and IV drug abuse. ALLERGIES: No known drug allergies. MEDICATIONS: Aspirin, Tenormin, Azopt, Colace, Zestril, Glucophage, Protonix, and timolol. REVIEW OF SYSTEMS: Denies rash, fever, chills, sweating, dizziness, drowsiness, blurred vision, sore throat, or change in weight. No shortness of breath or chest pain. No nausea, vomiting, diarrhea, or blood in the stool or urine. No bowel or bladder incontinence. No dysuria. He is complaining of right hip pain. PHYSICAL EXAMINATION: GENERAL: Alert, awake, and oriented x3. VITAL SIGNS: Blood pressure 143/84, heart rate 81, oxygen saturation 99%, respiratory rate 18, temperature is 97.3 degrees Fahrenheit. HEENT: Nonreactive. NECK: Range of motion is full in all directions. No tenderness to paracervical muscles. No adenopathy. LUNGS: Decreased breath sounds bilaterally. HEART: S1 and S2, regular. ABDOMEN: Soft, nontender. BACK: Range of motion is decreased in flexion and extension due to the patient's condition. EXTREMITIES: Upper extremity range of motion is full in all directions. No cyanosis. No clubbing. No edema. Sensory is intact. Reflexes are not obtainable. No adenopathy. Lower extremity range of motion is decreased due to the patient's condition with tenderness to palpation of the right hip. No cyanosis. No clubbing. Sensory is intact. Reflexes are not obtainable. No adenopathy. ASSESSMENT AND PLAN: This is an 88-year-old male with right hip fracture, right hip pain, status post fall, scheduled for ORIF. The patient will continue morphine as needed. The patient was discussed with Dr. Sun and Dr. Sun concurred. We will follow up with the patient. Thank you very much for the courtesy of this consultation. Marta Sun M.D. OLAMIDE Alegria DR: Tera JOB#: [id number] CC:
--- NOTE | 2018-09-25 16:27 | Operative Note - PDOC ---
Operative Note Operative Note Pre-op Diagnosis: right hip fx Procedure: right hip orif Post-op Diagnosis: same as pre-op plus Operative Findings: consistent w/pre-op dx studies Anesthesia: general Specimen: none Complications: none Condition: stable Estimated Blood Loss: none Implant(s) used?: Yes Mao Arrington MD Sep 25, 2018 16:27
--- NOTE | 2018-09-25 16:27 | Pre-Procedure Note/Attestation ---
Pre-Procedure Note/Attestation Complete Prior to Procedure Planned Procedure: right Procedure Narrative: hip orif Indications for Procedure Pre-Operative Diagnosis: right hip fx Attestation I attest that I discussed the nature of the procedure; its benefits; risks and complications; and alternatives (and the risks and benefits of such alternatives ), prior to the procedure, with the patient (or the patient's legal assisted sales representative). I attest that, if there was a reasonable possibility of needing a blood transfusion, the patient (or the patient's legal assisted sales representative) was given the [facility] standardized written summary, pursuant to the Mathieu Ann Blood Safety Act ([place] Health and Safety Code # 1645, as amended). I attest that I re-evaluated the patient just prior to the surgery and that there has been no change in the patient's H&P, except as documented below: Mao Arrington MD Sep 25, 2018 16:27
[2018-09-25] MEDS ORDERED: Milk of Magnesia 30ml Ud ORAL PRN (16:30)
[2018-09-25] MEDS ORDERED: Morphine Sulfate 2mg/ml Inj IVP PRN ×2 (16:30)
[2018-09-25] MEDS ORDERED: ePHEDrine 50mg/ml Inj ONE (16:56)
--- NOTE | 2018-09-25 17:26 | Immediate Post-Op Evaluation ---
Immediate Post-Op Evalulation Immediate Post-Op Evalulation Procedure: ORIF R Hip Date of Evaluation: Sep 25, 2018 Time of Evaluation: 17:38 IV Fluids: 300 LR Blood Products: 0 Estimated Blood Loss: 50 Urinary Output: 250 Blood Pressure Systolic: 153 Blood Pressure Diastolic: 80 Pulse Rate: 73 Respiratory Rate: 16 O2 Sat by Pulse Oximetry: 100 Temperature (Fahrenheit): 97.7 Pain Score (1-10): 0 Nausea: No Vomiting: No Complications 0 Patient Status: awake, reacts, patent, none Hydration Status: adequate Dru gram Ancef IV Given Within 1 Hr of Incision: Yes Time Given: 17:37 Roberto Perez MD Sep 25, 2018 17:26
--- NOTE | 2018-09-25 18:31 | Internal Med Progress Note ---
Subjective Date of Service: Sep 25, 2018 Physician Name MillsJw Attending Physician Joshua Sanz MD Current Medications Medications (Trade) Dose Ordered Sig/Tariq Route PRN Reason Start Time Stop Time Status Last Admin Dose Admin Acetaminophen (Tylenol) 650 mg Q4H PRN ORAL fever 09/24/18 13:00 10/24/18 12:59 Acetaminophen/ Hydrocodone Bitart ([place] 5/325) 1 tab Q1H PRN ORAL Mild Pain (Pain Scale 1-3) 09/25/18 14:15 09/25/18 20:00 Acetaminophen/ Hydrocodone Bitart ([place] 5/325) 2 tab Q6H PRN ORAL Severe Pain (Pain Scale 7-10) 09/25/18 16:30 10/02/18 16:29 Acetaminophen/ Hydrocodone Bitart ([place] 7.5/325) 1 tab Q1H PRN ORAL Moderate Pain (Pain Scale 4-6) 09/25/18 14:15 09/25/18 20:00 Acetaminophen/ Hydrocodone Bitart ([place] 7.5/325) 1 tab Q4H PRN ORAL Moderate Pain (Pain Scale 4-6) 09/25/18 16:30 10/02/18 16:29 Al Hydroxide/Mg Hydroxide (Mylanta II) 30 ml Q6H PRN ORAL dyspepsia 09/24/18 13:00 10/24/18 12:59 Al Hydroxide/Mg Hydroxide (Mylanta) 15 ml Q1H PRN ORAL gi upset 09/25/18 14:15 09/25/18 20:00 Atenolol (Tenormin) 25 mg Q12HR ORAL 09/24/18 21:00 10/24/18 20:59 09/25/18 09:01 Atropine Sulfate (Atropine 0.4mg/ ml) 0.5 mg Q5M PRN IVP HR<40 09/25/18 14:15 09/25/18 20:00 Brimonidine Tartrate (Alphagan) 1 drop BID BOTH EYES 09/24/18 18:00 10/24/18 17:59 09/25/18 08:58 Cefazolin Sodium 2 gm/Dextrose 110 ml @ 220 mls/hr EVERY 8 HOURS IV 09/25/18 22:00 09/26/18 06:29 UNV Dextrose (Dextrose 50%) 25 ml Q30M PRN IV Hypoglycemia 09/24/18 13:00 10/24/18 12:59 Dextrose (Dextrose 50%) 50 ml Q30M PRN IV Hypoglycemia 09/24/18 13:00 10/24/18 12:59 Dextrose/ Electrolytes 1,000 ml @ 75 mls/hr [id number] IV 09/25/18 17:00 10/25/18 16:59 Dextrose/Sodium Chloride 1,000 ml @ 50 mls/hr Q20H IV 09/24/18 13:35 10/24/18 13:34 09/25/18 10:15 Diphenhydramine HCl (Benadryl) 25 mg Q15M PRN IVP Itching 09/25/18 14:15 09/25/18 20:00 Docusate Sodium (Colace) 100 mg THREE TIMES A DAY ORAL 09/25/18 18:00 10/25/18 17:59 Fentanyl Citrate (Sublimaze 100 mcg/2 mL) 25 mcg Q10M PRN IV Moderate Pain (Pain Scale 4-6) 09/25/18 14:15 09/25/18 20:00 Heparin Sodium (Porcine) (Heparin 5000 units/ml) 5,000 units EVERY 12 HOURS SUBQ 09/24/18 21:00 10/24/18 20:59 Hydralazine HCl (Apresoline) 5 mg Q30M PRN IV SBP>160 / DBP>90 09/25/18 14:15 09/25/18 20:00 Hydromorphone HCl (Dilaudid) 0.5 mg Q15M PRN IVP Severe Pain (Pain Scale 7-10) 09/25/18 14:15 09/25/18 20:00 Insulin Aspart (NovoLOG) BEFORE MEALS AND HS SUBQ 09/24/18 16:30 10/24/18 16:29 09/25/18 12:35 Lisinopril (Zestril) 5 mg DAILY ORAL 09/25/18 09:00 10/25/18 08:59 09/25/18 08:57 Lorazepam (Ativan 2mg/ml 1ml) 0.5 mg Q4H PRN IV For Anxiety 09/24/18 13:00 10/01/18 12:59 Lorazepam (Ativan 2mg/ml 1ml) 1 mg Q15M PRN IV For Anxiety 09/25/18 14:15 09/25/18 20:00 Magnesium Hydroxide (Mom) 30 ml DAILYPRN PRN ORAL Constipation 09/25/18 16:30 10/25/18 16:29 Meperidine HCl (Demerol) 25 mg Q5M PRN IVP Shivering.May repeat x 1 09/25/18 14:15 09/25/18 20:00 Metoclopramide HCl (Reglan) 10 mg Q1H PRN IVP Nausea & Vomiting 09/25/18 14:15 09/25/18 20:00 Midazolam HCl (Versed 2mg/2ml vial) 1 mg Q15M PRN IVP For Anxiety 09/25/18 14:15 09/25/18 20:00 Morphine Sulfate (Morphine Sulfate) 1 mg Q3H PRN IVP Pain scale 1-3 09/25/18 16:30 10/02/18 16:29 Morphine Sulfate (Morphine Sulfate) 2 mg Q3H PRN IVP Moderate Pain (Pain Scale 4-6) 09/25/18 16:30 10/02/18 16:29 Morphine Sulfate (Morphine Sulfate) 2 mg Q4H PRN IVP For Pain 4-6 09/24/18 13:00 10/01/18 12:59 Morphine Sulfate (Morphine Sulfate) 4 mg Q4H PRN IVP For Pain 7-10 09/24/18 13:00 10/01/18 12:59 Ondansetron HCl (Zofran) 4 mg Q1H PRN IVP Nausea & Vomiting 09/25/18 14:15 09/25/18 20:00 Ondansetron HCl (Zofran) 4 mg Q6H PRN IVP Nausea & Vomiting 09/24/18 13:00 10/24/18 12:59 Ondansetron HCl (Zofran) 4 mg Q6H PRN IVP Nausea & Vomiting 09/25/18 16:30 10/25/18 16:29 Oxycodone/ Acetaminophen (Percocet 5-325) 1 tab Q1H PRN ORAL Severe Pain (Pain Scale 7-10) 09/25/18 14:15 09/25/18 20:00 Pantoprazole (Protonix) 40 mg DAILY ORAL 09/25/18 09:00 10/25/18 08:59 09/25/18 08:57 Polyethylene Glycol (Miralax) 17 gm HSPRN PRN ORAL Constipation 09/24/18 13:00 10/24/18 12:59 Temazepam (Restoril) 7.5 mg DAILY PRN ORAL Insomnia 09/25/18 16:30 10/02/18 16:29 Timolol Maleate (Timoptic 0.5% Op Soln) 1 drop BID BOTH EYES 09/24/18 18:00 10/24/18 17:59 09/25/18 08:57 Zolpidem Tartrate (Ambien) 5 mg HSPRN PRN ORAL Insomnia 09/24/18 13:00 10/01/18 12:59 Allergies: Coded Allergies: No Known Allergies (Verified , 04/05/09) ROS Limited/Unobtainable: No Constitutional: Reports: no symptoms HEENT: Reports: no symptoms Cardiovascular: Reports: no symptoms Respiratory: Reports: no symptoms Gastrointestinal/Abdominal: Reports: no symptoms Genitourinary: Reports: no symptoms Neurologic/Psychiatric: Reports: no symptoms Subjective 88 YO M admitted with right femur intertrochanteric fracture. S/P ORIF right hip fracture 09/25/18. Cover for Int Med-Dr Sanz Objective Last Vital Signs Date Time Temp Pulse Resp B/P (MAP) Pulse Ox O2 Delivery O2 Flow Rate FiO2 09/25/18 18:00 98.0 65 16 141/62 100 Nasal Cannula 3 General Appearance: WD/WN, no apparent distress, alert EENT: PERRL/EOMI, normal ENT inspection Neck: non-tender, normal alignment, supple, normal inspection Cardiovascular: normal peripheral pulses, normal rate, regular rhythm, no gallop/murmur, no JVD Respiratory/Chest: chest wall non-tender, lungs clear, normal breath sounds, no respiratory distress, no accessory muscle use Abdomen: normal bowel sounds, non tender, soft, no organomegaly, no mass Extremities: normal inspection Neurologic: counter tender II-XII grossly normal, no motor/sensory deficits Skin: normal pigmentation, warm/dry Laboratory Tests Test 09/25/18 05:05 09/25/18 11:10 09/25/18 13:10 Prothrombin Time 14.1 SEC (9.30-11.50) H Prothromb Time International Ratio 1.4 (0.9-1.1) H Activated Partial Thromboplast Time 27 SEC (23-33) Sodium Level 138 MMOL/L (136-145) Potassium Level 4.4 MMOL/L (3.5-5.1) Chloride Level 106 MMOL/L (98-107) Carbon Dioxide Level 26 MMOL/L (21-32) Anion Gap 6 mmol/L (5-15) Blood Urea Nitrogen 16 mg/dL (7-18) Creatinine 0.9 MG/DL (0.55-1.30) Estimat Glomerular Filtration Rate mL/min (>60) Glucose Level 198 MG/DL (74-106) H Calcium Level 8.5 MG/DL (8.5-10.1) Total Bilirubin 1.8 MG/DL (0.2-1.0) H Direct Bilirubin 0.4 MG/DL (0.0-0.3) H Aspartate Amino Transf (AST/SGOT) 35 U/L (15-37) Alanine Aminotransferase (ALT/SGPT) 22 U/L (12-78) Alkaline Phosphatase 62 U/L (46-116) Total Protein 6.7 G/DL (6.4-8.2) Albumin 2.7 G/DL (3.4-5.0) L Globulin 4.0 g/dL Albumin/Globulin Ratio 0.7 (1.0-2.7) L Thyroid Stimulating Hormone (TSH) 0.428 uiU/mL (0.358-3.740) White Blood Count 8.7 K/UL (4.8-10.8) 8.3 K/UL (4.8-10.8) Red Blood Count 2.72 M/UL (4.70-6.10) L 2.87 M/UL (4.70-6.10) L Hemoglobin 8.7 G/DL (14.2-18.0) #L 9.2 G/DL (14.2-18.0) L Hematocrit 25.6 % (42.0-52.0) #L 27.0 % (42.0-52.0) L Mean Corpuscular Volume 94 FL (80-99) 94 FL (80-99) Mean Corpuscular Hemoglobin 31.9 PG (27.0-31.0) H 32.2 PG (27.0-31.0) H Mean Corpuscular Hemoglobin Concent 33.9 G/DL (32.0-36.0) 34.2 G/DL (32.0-36.0) Red Cell Distribution Width 12.0 % (11.6-14.8) 11.9 % (11.6-14.8) Platelet Count 95 K/UL (150-450) L 88 K/UL (150-450) L Mean Platelet Volume 10.0 FL (6.5-10.1) 7.8 FL (6.5-10.1) Neutrophils (%) (Auto) % (45.0-75.0) % (45.0-75.0) Lymphocytes (%) (Auto) % (20.0-45.0) % (20.0-45.0) Monocytes (%) (Auto) % (1.0-10.0) % (1.0-10.0) Eosinophils (%) (Auto) % (0.0-3.0) % (0.0-3.0) Basophils (%) (Auto) % (0.0-2.0) % (0.0-2.0) Differential Total Cells Counted 100 100 Neutrophils % (Manual) 71 % (45-75) 79 % (45-75) H Lymphocytes % (Manual) 16 % (20-45) L 10 % (20-45) L Monocytes % (Manual) 13 % (1-10) H 11 % (1-10) H Eosinophils % (Manual) 0 % (0-3) 0 % (0-3) Basophils % (Manual) 0 % (0-2) 0 % (0-2) Band Neutrophils 0 % (0-8) 0 % (0-8) Platelet Estimate Decreased L Decreased L Platelet Morphology Normal Normal Ovalocytes 3+ 2+ Intake and Output 09/24/18 09/25/18 18:59 06:59 Intake Total 650 ml 600 ml Output Total 450 ml Balance 650 ml 150 ml IV Total 650 ml 600 ml Output Urine Total 450 ml # Voids 1 2 Assessment/Plan Problem List: (1) Diabetes mellitus, type II Assessment & Plan: Continue novolog sliding scale. (2) HTN (hypertension) Assessment & Plan: Continue lisinopril when tolerating PO (3) Blindness (4) Right hip pain Assessment & Plan: Continue IV morphine (5) Femur neck fracture Assessment & Plan: Right intertrochanteric. S/P ORIF 09/25/18-See surgery note (6) Glaucoma Status: not improved Jw Mills MD Sep 25, 2018 18:31
[2018-09-25] MEDS: Docusate 100mg cap ORAL SCH (18:33)
[2018-09-25] MEDS: D5 1/2NS w/KCl 20mEq 1,000 ML IV SCH (18:33)
--- NOTE | 2018-09-25 20:15 | Consultation ---
DATE OF CONSULTATION: 09/24/2018 ORTHOPEDIC CONSULTATION: CONSULTING PHYSICIAN: Mao Arrington M.D. CHIEF COMPLAINT: Right hip pain. HISTORY OF PRESENT ILLNESS: The patient is a pleasant 88-year-old gentleman right intertrochanteric hip fracture. Orthopedic consultation obtained for further care and recommendations. PAST MEDICAL HISTORY: Prediabetes, blindness, hypertension, and glaucoma. PAST SURGICAL HISTORY: None. MEDICATIONS: Reviewed per the intake chart. SOCIAL HISTORY: The patient lives alone at home. Does not smoke or drink. FAMILY HISTORY: Noncontributory. PHYSICAL EXAMINATION: GENERAL: The patient is alert and oriented. He is resting comfortably in exam bed. VITAL SIGNS: Afebrile. Stable vital signs. EXTREMITIES: The right leg examination shows pain with internal and external rotation. There is no significant shortening. Posterior calf is soft. Neurovascular is normal. DIAGNOSTIC DATA: Imaging study showed two-part intertrochanteric fracture. ASSESSMENT: Right two-part intertrochanteric hip fracture. DISCUSSION: We will recommend is proceed with a right hip open reduction and internal fixation. Risks, limitations, expectations, and complications of procedure were discussed in detail. All questions addressed. We are going to make him NPO after midnight in anticipation of surgery tomorrow. Risks, limitations, expectations, and complications of procedure were discussed in detail with the patient. All questions were addressed. The possibility of complications particularly his diabetes including nonhealing infection, nerve vessel damage were all discussed in detail. Mao Arrington M.D. DR: ANNE MARIE JOB#: [id number] CC:
--- NOTE | 2018-09-25 21:00 | Operative Note - Dictated ---
DATE OF OPERATION: 09/24/2018 PREOPERATIVE DIAGNOSIS: Right intertrochanteric hip fracture. POSTOPERATIVE DIAGNOSIS: Right intertrochanteric hip fracture. PROCEDURE: Open reduction internal fixation of right intertrochanteric fracture with intramedullary device. SURGEON: Mao Arrington M.D. ANESTHESIA: Spinal. INDICATION FOR PROCEDURE: The patient is a pleasant gentleman, who sustained a mechanical fall, diagnosed with right intertrochanteric hip fracture fixation. Risks, limitations, expectations, and complications of the procedure were discussed in detail. All questions addressed. DESCRIPTION OF PROCEDURE: Informed consent was obtained. The patient was brought to the operative room and placed supine under spinal anesthesia. Ancef was administered. The patient was then carefully placed on the fracture table. Reduction of the fracture using fluoroscopic imaging was performed. The right hip was prepped and draped in a sterile manner. Time-out was performed. Ancef was administered. A standard lateral skin incision was then made. Guidewire placed in the proximal aspect of the femur. Short gamma nail was then selected and placed through a second stab incision. A 95 mm cannulated screw was then placed along with 32.5 distal locking screw. Once that was done, the internal devices were removed. The skin was closed with #1 Vicryl suture, 2-0 Vicryl suture, and 3-0 Monocryl sutures. ESTIMATED BLOOD LOSS: None. COMPLICATIONS: None. SPECIMENS: None. IMPLANTS: Include [place] short gamma nail. Mao Arrington M.D. DR: KATIE JOB#: [id number] CC:
--- NOTE | 2018-09-25 21:30 | General Progress Note ---
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 Status: not improved, unchanged Assessment/Plan seroquel prn dc ativan dc vanessaien Subjective Neurologic/Psychiatric: Reports: anxiety, depressed, emotional problems Allergies: Coded Allergies: No Known Allergies (Verified , 04/05/09) Objective Last 24 Hour Vital Signs Date Time Temp Pulse Resp B/P (MAP) Pulse Ox O2 Delivery O2 Flow Rate FiO2 09/25/18 21:00 Room Air 09/25/18 20:38 68 123/67 09/25/18 20:00 97.1 68 19 123/67 (85) 97 09/25/18 18:25 97.7 68 17 112/59 (76) 100 09/25/18 18:00 98.0 65 16 141/62 100 Nasal Cannula 3 09/25/18 17:45 70 16 133/67 100 Nasal Cannula 3 09/25/18 17:42 68 16 138/68 100 Nasal Cannula 3 09/25/18 17:37 70 16 133/59 100 Nasal Cannula 3 09/25/18 17:32 72 16 144/54 100 Nasal Cannula 3 09/25/18 17:27 97.7 73 16 153/80 100 Simple Mask 8 09/25/18 17:26 73 16 100 09/25/18 15:20 97.4 66 18 141/67 (91) 100 09/25/18 12:00 99.7 66 18 123/62 (82) 100 09/25/18 09:01 81 143/84 09/25/18 09:00 Room Air 09/25/18 08:57 143/84 09/25/18 08:42 97.3 81 18 143/84 (103) 99 09/25/18 03:58 98.4 74 20 144/68 (93) 96 09/25/18 00:00 99.4 73 19 147/66 (93) 96 Intake and Output 09/24/18 09/25/18 19:00 07:00 Intake Total 700 ml 600 ml Output Total 450 ml Balance 700 ml 150 ml IV Total 700 ml 600 ml Output Urine Total 450 ml # Voids 1 2 Laboratory Tests 09/25/18 05:05: Prothrombin Time 14.1H, Prothromb Time International Ratio 1.4H, Activated Partial Thromboplast Time 27, Sodium Level 138, Potassium Level 4.4, Chloride Level 106, Carbon Dioxide Level 26, Anion Gap 6, Blood Urea Nitrogen 16, Creatinine 0.9, Estimat Glomerular Filtration Rate , Glucose Level 198H, Calcium Level 8.5, Total Bilirubin 1.8H, Direct Bilirubin 0.4H, Aspartate Amino Transf (AST/SGOT) 35, Alanine Aminotransferase (ALT/SGPT) 22, Alkaline Phosphatase 62, Total Protein 6.7, Albumin 2.7L, Globulin 4.0, Albumin/Globulin Ratio 0.7L, Thyroid Stimulating Hormone (TSH) 0.428 09/25/18 11:10: White Blood Count 8.7, Red Blood Count 2.72L, Hemoglobin 8.7#L, Hematocrit 25.6# L, Mean Corpuscular Volume 94, Mean Corpuscular Hemoglobin 31.9H, Mean Corpuscular Hemoglobin Concent 33.9, Red Cell Distribution Width 12.0, Platelet Count 95L, Mean Platelet Volume 10.0, Neutrophils (%) (Auto) , Lymphocytes (%) ( Auto) , Monocytes (%) (Auto) , Eosinophils (%) (Auto) , Basophils (%) (Auto) , Differential Total Cells Counted 100, Neutrophils % (Manual) 71, Lymphocytes % ( Manual) 16L, Monocytes % (Manual) 13H, Eosinophils % (Manual) 0, Basophils % ( Manual) 0, Band Neutrophils 0, Platelet Estimate DecreasedL, Platelet Morphology Normal, Ovalocytes 3+ 09/25/18 13:10: White Blood Count 8.3, Red Blood Count 2.87L, Hemoglobin 9.2L, Hematocrit 27.0L , Mean Corpuscular Volume 94, Mean Corpuscular Hemoglobin 32.2H, Mean Corpuscular Hemoglobin Concent 34.2, Red Cell Distribution Width 11.9, Platelet Count 88L, Mean Platelet Volume 7.8, Neutrophils (%) (Auto) , Lymphocytes (%) ( Auto) , Monocytes (%) (Auto) , Eosinophils (%) (Auto) , Basophils (%) (Auto) , Differential Total Cells Counted 100, Neutrophils % (Manual) 79H, Lymphocytes % (Manual) 10L, Monocytes % (Manual) 11H, Eosinophils % (Manual) 0, Basophils % ( Manual) 0, Band Neutrophils 0, Platelet Estimate DecreasedL, Platelet Morphology Normal, Ovalocytes 2+ Height (Feet): 5 Height (Inches): 9.00 Weight (Pounds): 167 General Appearance: alert, confused, moderate distress, agitated Ángel Clemons MD Sep 25, 2018 21:30
[2018-09-26] VITALS (7 sets, daily range): BP systolic 108–145; BP diastolic 51–73
[2018-09-26] MEDS ORDERED: ceFAZolin sod 2 GM in D5W 110 ML IV SCH (02:00)
[2018-09-26] MEDS: NovoLOG Insulin Flexpen SUBQ SCH ×4 (05:32→22:02)
[2018-09-26] MEDS: D5 1/2NS w/KCl 20mEq 1,000 ML IV SCH ×2 (05:33→19:40)
--- NOTE | 2018-09-26 08:25 | Pulmonology Progress Note ---
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 PLAN OF CARE Med Surg floor start IVF abx, continue via IM route until access established Pain management as per pain specialist recs DVT prophylaxis post hip surgery precaution IS while in the bed O2 prn titrate as needed to keep pulse ox above 90% Fall precautions PT eval and Rx BP management with CANDICE and BB BS management with metformin and SSI/sensitive Bowel regimen Supportive care Psychiatrist follow case discussed and evaluated by supervising physician Subjective Allergies: Coded Allergies: No Known Allergies (Verified , 04/05/09) Subjective no leukocytosis, no fever no signs of resp distress no IV access , missed 2 doses of abx not eating Objective Last 24 Hour Vital Signs Date Time Temp Pulse Resp B/P (MAP) Pulse Ox O2 Delivery O2 Flow Rate FiO2 09/26/18 04:00 98.0 72 19 145/69 (94) 96 09/26/18 00:00 98.5 65 18 132/73 (92) 98 09/25/18 21:00 Room Air 09/25/18 20:38 68 123/67 09/25/18 20:00 97.1 68 19 123/67 (85) 97 09/25/18 18:25 97.7 68 17 112/59 (76) 100 09/25/18 18:00 98.0 65 16 141/62 100 Nasal Cannula 3 09/25/18 17:45 70 16 133/67 100 Nasal Cannula 3 09/25/18 17:42 68 16 138/68 100 Nasal Cannula 3 09/25/18 17:37 70 16 133/59 100 Nasal Cannula 3 09/25/18 17:32 72 16 144/54 100 Nasal Cannula 3 09/25/18 17:27 97.7 73 16 153/80 100 Simple Mask 8 09/25/18 17:26 73 16 100 09/25/18 15:20 97.4 66 18 141/67 (91) 100 09/25/18 12:00 99.7 66 18 123/62 (82) 100 09/25/18 09:01 81 143/84 09/25/18 09:00 Room Air 09/25/18 08:57 143/84 09/25/18 08:42 97.3 81 18 143/84 (103) 99 Intake and Output 09/25/18 09/26/18 19:00 07:00 Intake Total 1110 ml 600 ml Output Total 300 ml 300 ml Balance 810 ml 300 ml Intake Oral 360 ml 150 ml IV Total 750 ml 450 ml Output Urine Total 250 ml 300 ml Estimated Blood Loss 50 ml General Appearance: no acute distress, other - bedridden, pooly verbally responsive HEENT: normocephalic, atraumatic, mucous membranes moist Respiratory/Chest: lungs clear - with moderate air exchange, no respiratory distress Cardiovascular: normal rate Abdomen: soft, non tender Extremities: no edema Skin: other - R hip with dressign C/D/I Neurologic/Psychiatric: abnormal gait - bedridden , other - pootly responsive Musculoskeletal: atrophy - BLE Laboratory Tests 09/25/18 11:10: White Blood Count 8.7, Red Blood Count 2.72L, Hemoglobin 8.7#L, Hematocrit 25.6# L, Mean Corpuscular Volume 94, Mean Corpuscular Hemoglobin 31.9H, Mean Corpuscular Hemoglobin Concent 33.9, Red Cell Distribution Width 12.0, Platelet Count 95L, Mean Platelet Volume 10.0, Neutrophils (%) (Auto) , Lymphocytes (%) ( Auto) , Monocytes (%) (Auto) , Eosinophils (%) (Auto) , Basophils (%) (Auto) , Differential Total Cells Counted 100, Neutrophils % (Manual) 71, Lymphocytes % ( Manual) 16L, Monocytes % (Manual) 13H, Eosinophils % (Manual) 0, Basophils % ( Manual) 0, Band Neutrophils 0, Platelet Estimate DecreasedL, Platelet Morphology Normal, Ovalocytes 3+ 09/25/18 13:10: White Blood Count 8.3, Red Blood Count 2.87L, Hemoglobin 9.2L, Hematocrit 27.0L , Mean Corpuscular Volume 94, Mean Corpuscular Hemoglobin 32.2H, Mean Corpuscular Hemoglobin Concent 34.2, Red Cell Distribution Width 11.9, Platelet Count 88L, Mean Platelet Volume 7.8, Neutrophils (%) (Auto) , Lymphocytes (%) ( Auto) , Monocytes (%) (Auto) , Eosinophils (%) (Auto) , Basophils (%) (Auto) , Differential Total Cells Counted 100, Neutrophils % (Manual) 79H, Lymphocytes % (Manual) 10L, Monocytes % (Manual) 11H, Eosinophils % (Manual) 0, Basophils % ( Manual) 0, Band Neutrophils 0, Platelet Estimate DecreasedL, Platelet Morphology Normal, Ovalocytes 2+ Current Medications Medications (Trade) Dose Ordered Sig/Tariq Route PRN Reason Start Time Stop Time Status Last Admin Dose Admin Acetaminophen (Tylenol) 650 mg Q4H PRN ORAL fever 09/24/18 13:00 10/24/18 12:59 Acetaminophen/ Hydrocodone Bitart ([place] 5/325) 2 tab Q6H PRN ORAL Severe Pain (Pain Scale 7-10) 09/25/18 16:30 10/02/18 16:29 Acetaminophen/ Hydrocodone Bitart ([place] 7.5/325) 1 tab Q4H PRN ORAL Moderate Pain (Pain Scale 4-6) 09/25/18 16:30 10/02/18 16:29 Al Hydroxide/Mg Hydroxide (Mylanta II) 30 ml Q6H PRN ORAL dyspepsia 09/24/18 13:00 10/24/18 12:59 Atenolol (Tenormin) 25 mg Q12HR ORAL 09/24/18 21:00 10/24/18 20:59 09/25/18 20:38 Brimonidine Tartrate (Alphagan) 1 drop BID BOTH EYES 09/24/18 18:00 10/24/18 17:59 09/25/18 18:33 Cefazolin Sodium 2 gm/Dextrose 110 ml @ 220 mls/hr Q8H IV 09/26/18 02:00 09/26/18 10:29 Dextrose (Dextrose 50%) 25 ml Q30M PRN IV Hypoglycemia 09/24/18 13:00 10/24/18 12:59 Dextrose (Dextrose 50%) 50 ml Q30M PRN IV Hypoglycemia 09/24/18 13:00 10/24/18 12:59 Dextrose/ Electrolytes 1,000 ml @ 75 mls/hr [id number] IV 09/25/18 17:00 10/25/18 16:59 09/25/18 18:33 Docusate Sodium (Colace) 100 mg THREE TIMES A DAY ORAL 09/25/18 18:00 10/25/18 17:59 09/25/18 18:33 Heparin Sodium (Porcine) (Heparin 5000 units/ml) 5,000 units EVERY 12 HOURS SUBQ 09/24/18 21:00 10/24/18 20:59 Insulin Aspart (NovoLOG) BEFORE MEALS AND HS SUBQ 09/24/18 16:30 10/24/18 16:29 09/26/18 05:32 Lisinopril (Zestril) 5 mg DAILY ORAL 09/25/18 09:00 10/25/18 08:59 09/25/18 08:57 Magnesium Hydroxide (Mom) 30 ml DAILYPRN PRN ORAL Constipation 09/25/18 16:30 10/25/18 16:29 Morphine Sulfate (Morphine Sulfate) 1 mg Q3H PRN IVP Pain scale 1-3 09/25/18 16:30 10/02/18 16:29 Morphine Sulfate (Morphine Sulfate) 2 mg Q3H PRN IVP Moderate Pain (Pain Scale 4-6) 09/25/18 16:30 10/02/18 16:29 Morphine Sulfate (Morphine Sulfate) 2 mg Q4H PRN IVP For Pain 4-6 09/24/18 13:00 10/01/18 12:59 Morphine Sulfate (Morphine Sulfate) 4 mg Q4H PRN IVP For Pain 7-10 09/24/18 13:00 10/01/18 12:59 Ondansetron HCl (Zofran) 4 mg Q6H PRN IVP Nausea & Vomiting 09/24/18 13:00 10/24/18 12:59 Ondansetron HCl (Zofran) 4 mg Q6H PRN IVP Nausea & Vomiting 09/25/18 16:30 10/25/18 16:29 Pantoprazole (Protonix) 40 mg DAILY ORAL 09/25/18 09:00 10/25/18 08:59 09/25/18 08:57 Polyethylene Glycol (Miralax) 17 gm HSPRN PRN ORAL Constipation 09/24/18 13:00 10/24/18 12:59 Quetiapine Fumarate (SEROquel) 25 mg Q6H PRN ORAL For Anxiety 09/25/18 21:30 10/25/18 21:29 Temazepam (Restoril) 7.5 mg DAILY PRN ORAL Insomnia 09/25/18 16:30 10/02/18 16:29 Timolol Maleate (Timoptic 0.5% Op Soln) 1 drop BID BOTH EYES 09/24/18 18:00 10/24/18 17:59 09/25/18 18:34 Linda Wing NP Sep 26, 2018 08:25
[2018-09-26] MEDS: Heparin 5000 units/ml inj SUBQ SCH ×2 (09:00→21:00)
[2018-09-26] MEDS: Atenolol 25mg tab ORAL SCH ×2 (09:33→21:00)
[2018-09-26] MEDS: Lisinopril 2.5mg tab ORAL SCH (09:33)
[2018-09-26] MEDS: Docusate 100mg cap ORAL SCH ×3 (09:33→17:43)
[2018-09-26] MEDS: Timolol 0.5% Op Soln 2.5ml BOTH EYES SCH ×2 (09:34→17:43)
[2018-09-26] MEDS: Brimonidine 0.2% Opth Sol BOTH EYES SCH ×2 (09:34→17:43)
[2018-09-26] MEDS ORDERED: ceFAZolin 2gm/50ml Premix 50 ML IV SCH (10:00)
--- NOTE | 2018-09-26 13:06 | Internal Med Progress Note ---
Subjective Date of Service: Sep 26, 2018 Physician Name Mills,Jw Attending Physician Joshua Sanz MD Current Medications Medications (Trade) Dose Ordered Sig/Tariq Route PRN Reason Start Time Stop Time Status Last Admin Dose Admin Acetaminophen (Tylenol) 650 mg Q4H PRN ORAL fever 09/24/18 13:00 10/24/18 12:59 Acetaminophen/ Hydrocodone Bitart ([place] 5/325) 2 tab Q6H PRN ORAL Severe Pain (Pain Scale 7-10) 09/25/18 16:30 10/02/18 16:29 Acetaminophen/ Hydrocodone Bitart ([place] 7.5/325) 1 tab Q4H PRN ORAL Moderate Pain (Pain Scale 4-6) 09/25/18 16:30 10/02/18 16:29 Al Hydroxide/Mg Hydroxide (Mylanta II) 30 ml Q6H PRN ORAL dyspepsia 09/24/18 13:00 10/24/18 12:59 Atenolol (Tenormin) 25 mg Q12HR ORAL 09/24/18 21:00 10/24/18 20:59 09/26/18 09:33 Brimonidine Tartrate (Alphagan) 1 drop BID BOTH EYES 09/24/18 18:00 10/24/18 17:59 09/26/18 09:34 Cefazolin Sodium (Ancef) 1 gm Q8H IM 09/26/18 12:30 09/26/18 20:31 Dextrose (Dextrose 50%) 25 ml Q30M PRN IV Hypoglycemia 09/24/18 13:00 10/24/18 12:59 Dextrose (Dextrose 50%) 50 ml Q30M PRN IV Hypoglycemia 09/24/18 13:00 10/24/18 12:59 Dextrose/ Electrolytes 1,000 ml @ 75 mls/hr [id number] IV 09/25/18 17:00 10/25/18 16:59 09/25/18 18:33 Docusate Sodium (Colace) 100 mg THREE TIMES A DAY ORAL 09/25/18 18:00 10/25/18 17:59 09/26/18 12:20 Heparin Sodium (Porcine) (Heparin 5000 units/ml) 5,000 units EVERY 12 HOURS SUBQ 09/24/18 21:00 10/24/18 20:59 Insulin Aspart (NovoLOG) BEFORE MEALS AND HS SUBQ 09/24/18 16:30 10/24/18 16:29 09/26/18 12:16 Lisinopril (Zestril) 5 mg DAILY ORAL 09/25/18 09:00 10/25/18 08:59 09/26/18 09:33 Magnesium Hydroxide (Mom) 30 ml DAILYPRN PRN ORAL Constipation 09/25/18 16:30 10/25/18 16:29 Morphine Sulfate (Morphine Sulfate) 1 mg Q3H PRN IVP Pain scale 1-3 09/25/18 16:30 10/02/18 16:29 Morphine Sulfate (Morphine Sulfate) 2 mg Q3H PRN IVP Moderate Pain (Pain Scale 4-6) 09/25/18 16:30 10/02/18 16:29 Morphine Sulfate (Morphine Sulfate) 2 mg Q4H PRN IVP For Pain 4-6 09/24/18 13:00 10/01/18 12:59 Morphine Sulfate (Morphine Sulfate) 4 mg Q4H PRN IVP For Pain 7-10 09/24/18 13:00 10/01/18 12:59 Ondansetron HCl (Zofran) 4 mg Q6H PRN IVP Nausea & Vomiting 09/24/18 13:00 10/24/18 12:59 Ondansetron HCl (Zofran) 4 mg Q6H PRN IVP Nausea & Vomiting 09/25/18 16:30 10/25/18 16:29 Pantoprazole (Protonix) 40 mg DAILY ORAL 09/25/18 09:00 10/25/18 08:59 09/26/18 09:32 Polyethylene Glycol (Miralax) 17 gm HSPRN PRN ORAL Constipation 09/24/18 13:00 10/24/18 12:59 Quetiapine Fumarate (SEROquel) 25 mg Q6H PRN ORAL For Anxiety 09/25/18 21:30 10/25/18 21:29 Sodium Chloride 1,000 ml @ 100 mls/hr Q10H IV 09/26/18 15:00 10/26/18 14:59 Temazepam (Restoril) 7.5 mg DAILY PRN ORAL Insomnia 09/25/18 16:30 10/02/18 16:29 Timolol Maleate (Timoptic 0.5% Op Soln) 1 drop BID BOTH EYES 09/24/18 18:00 10/24/18 17:59 09/26/18 09:34 Allergies: Coded Allergies: No Known Allergies (Verified , 04/05/09) ROS Limited/Unobtainable: No Constitutional: Reports: no symptoms HEENT: Reports: no symptoms Cardiovascular: Reports: no symptoms Respiratory: Reports: no symptoms Gastrointestinal/Abdominal: Reports: no symptoms Genitourinary: Reports: no symptoms Neurologic/Psychiatric: Reports: no symptoms Subjective 88 YO M admitted with right femur intertrochanteric fracture. S/P ORIF right hip fracture 09/25/18. Cover for Int Bunny-Dr Sanz Objective Last Vital Signs Date Time Temp Pulse Resp B/P (MAP) Pulse Ox O2 Delivery O2 Flow Rate FiO2 09/26/18 12:25 99.2 70 18 141/59 (86) 97 09/26/18 09:00 Room Air 09/25/18 18:00 3 Laboratory Tests Test 09/25/18 13:10 White Blood Count 8.3 K/UL (4.8-10.8) Red Blood Count 2.87 M/UL (4.70-6.10) L Hemoglobin 9.2 G/DL (14.2-18.0) L Hematocrit 27.0 % (42.0-52.0) L Mean Corpuscular Volume 94 FL (80-99) Mean Corpuscular Hemoglobin 32.2 PG (27.0-31.0) H Mean Corpuscular Hemoglobin Concent 34.2 G/DL (32.0-36.0) Red Cell Distribution Width 11.9 % (11.6-14.8) Platelet Count 88 K/UL (150-450) L Mean Platelet Volume 7.8 FL (6.5-10.1) Neutrophils (%) (Auto) % (45.0-75.0) Lymphocytes (%) (Auto) % (20.0-45.0) Monocytes (%) (Auto) % (1.0-10.0) Eosinophils (%) (Auto) % (0.0-3.0) Basophils (%) (Auto) % (0.0-2.0) Differential Total Cells Counted 100 Neutrophils % (Manual) 79 % (45-75) H Lymphocytes % (Manual) 10 % (20-45) L Monocytes % (Manual) 11 % (1-10) H Eosinophils % (Manual) 0 % (0-3) Basophils % (Manual) 0 % (0-2) Band Neutrophils 0 % (0-8) Platelet Estimate Decreased L Platelet Morphology Normal Ovalocytes 2+ Intake and Output 09/25/18 09/26/18 19:00 07:00 Intake Total 1110 ml 600 ml Output Total 300 ml 300 ml Balance 810 ml 300 ml Intake Oral 360 ml 150 ml IV Total 750 ml 450 ml Output Urine Total 250 ml 300 ml Estimated Blood Loss 50 ml Objective General Appearance: WD/WN, no apparent distress, alert EENT: PERRL/EOMI, normal ENT inspection Neck: non-tender, normal alignment, supple, normal inspection Cardiovascular: normal peripheral pulses, normal rate, regular rhythm, no gallop/murmur, no JVD Respiratory/Chest: chest wall non-tender, lungs clear, normal breath sounds, no respiratory distress, no accessory muscle use Abdomen: normal bowel sounds, non tender, soft, no organomegaly, no mass Extremities: normal inspection 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 (2) HTN (hypertension) Assessment & Plan: Continue lisinopril when tolerating PO (3) Blindness (4) Right hip pain Assessment & Plan: Continue IV morphine (5) Femur neck fracture Assessment & Plan: Right intertrochanteric. S/P ORIF 09/25/18-See surgery note (6) Glaucoma Status: progressing Assessment/Plan Discharge planning Jw Mills MD Sep 26, 2018 13:06
[2018-09-26] MEDS: HYDROcodone/Acetamin 7.5/325 tab ORAL PRN (15:17)
[2018-09-27] VITALS (7 sets, daily range): BP systolic 108–138; BP diastolic 49–65
[2018-09-27] MEDS: HYDROcodone/Acetamin 7.5/325 tab ORAL PRN (05:09)
[2018-09-27] MEDS: NovoLOG Insulin Flexpen SUBQ SCH ×4 (05:46→20:31)
[2018-09-27 08:18] LABS: HEMATOCRIT 23.2 % (42.0-52.0); HEMOGLOBIN 7.8 G/DL (14.2-18.0); MEAN CORPUSCULAR VOLUME 95 FL (80-99); PLATELET COUNT 99 K/UL (150-450); RED BLOOD COUNT 2.43 M/UL (4.70-6.10); WHITE BLOOD COUNT 11.5 K/UL (4.8-10.8)
--- NOTE | 2018-09-27 08:44 | Pulmonology Progress Note ---
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 Anemia PLAN OF CARE Med Surg floor continue IVF s/p abx, transfuse 1 u today , unable to obtain IV access will check CBC in am and if need tarmsfusion, will need PICC placement dressing C/D/I, source of bleeding not a surgical site check stool OB , CEA anemia w/up Pain management as per pain specialist recs DVT prophylaxis post hip surgery precaution IS while in the bed O2 prn titrate as needed to keep pulse ox above 90% Fall precautions PT eval and Rx BP management with CANDICE and BB BS management with metformin and SSI/sensitive Bowel regimen Supportive care Psychiatrist follow case discussed and evaluated by supervising physician Subjective Allergies: Coded Allergies: No Known Allergies (Verified , 04/05/09) Subjective mild leukocytosis, no fever no signs of resp distress sign drop in Hg to 7.8 no signs of bleeding Objective Last 24 Hour Vital Signs Date Time Temp Pulse Resp B/P (MAP) Pulse Ox O2 Delivery O2 Flow Rate FiO2 09/27/18 04:00 97.2 68 17 138/57 (84) 98 09/27/18 00:00 97.9 65 18 124/62 (82) 100 09/26/18 21:00 Room Air 09/26/18 21:00 65 108/51 09/26/18 20:00 98.1 65 17 108/51 (70) 95 09/26/18 16:00 99.6 68 18 122/57 (78) 98 09/26/18 15:47 99.2 09/26/18 12:25 99.2 70 18 141/59 (86) 97 09/26/18 09:33 139/59 09/26/18 09:33 78 139/59 09/26/18 09:00 Room Air Intake and Output 09/26/18 09/27/18 19:00 07:00 Intake Total 840 ml Output Total 295 ml 250 ml Balance -295 ml 590 ml Intake Oral 840 ml Output Urine Total 295 ml 250 ml Objective General Appearance: no acute distress, bedridden, poorly verbally responsive HEENT: normocephalic, atraumatic, mucous membranes moist Respiratory/Chest: lungs clear with moderate air exchange, no respiratory distress Cardiovascular: normal rate Abdomen: soft, non tender Extremities: no edema Skin: other - R hip with dressing C/D/I Neurologic/Psychiatric: abnormal gait - bedridden , poorly responsive Musculoskeletal: atrophy - BLE Laboratory Tests 09/27/18 06:10: White Blood Count 11.5H, Red Blood Count 2.43L, Hemoglobin 7.8L, Hematocrit 23.2L, Mean Corpuscular Volume 95, Mean Corpuscular Hemoglobin 32.0H, Mean Corpuscular Hemoglobin Concent 33.5, Red Cell Distribution Width 12.0, Platelet Count 99L, Mean Platelet Volume 9.3, Neutrophils (%) (Auto) , Lymphocytes (%) ( Auto) , Monocytes (%) (Auto) , Eosinophils (%) (Auto) , Basophils (%) (Auto) , Neutrophils % (Manual) [Pending], Lymphocytes % (Manual) [Pending], Platelet Estimate [Pending], Platelet Morphology [Pending], Sodium Level [Pending], Potassium Level [Pending], Chloride Level [Pending], Carbon Dioxide Level [ Pending], Blood Urea Nitrogen [Pending], Creatinine [Pending], Estimat Glomerular Filtration Rate [Pending], Glucose Level [Pending], Calcium Level [ Pending] Current Medications Medications (Trade) Dose Ordered Sig/Tariq Route PRN Reason Start Time Stop Time Status Last Admin Dose Admin Acetaminophen (Tylenol) 650 mg Q4H PRN ORAL fever 09/24/18 13:00 10/24/18 12:59 Acetaminophen/ Hydrocodone Bitart ([place] 5/325) 2 tab Q6H PRN ORAL Severe Pain (Pain Scale 7-10) 09/25/18 16:30 10/02/18 16:29 Acetaminophen/ Hydrocodone Bitart ([place] 7.5/325) 1 tab Q4H PRN ORAL Moderate Pain (Pain Scale 4-6) 09/25/18 16:30 10/02/18 16:29 09/27/18 05:09 Al Hydroxide/Mg Hydroxide (Mylanta II) 30 ml Q6H PRN ORAL dyspepsia 09/24/18 13:00 10/24/18 12:59 Atenolol (Tenormin) 25 mg Q12HR ORAL 09/24/18 21:00 10/24/18 20:59 09/26/18 09:33 Brimonidine Tartrate (Alphagan) 1 drop BID BOTH EYES 09/24/18 18:00 10/24/18 17:59 09/26/18 17:43 Dextrose (Dextrose 50%) 25 ml Q30M PRN IV Hypoglycemia 09/24/18 13:00 10/24/18 12:59 Dextrose (Dextrose 50%) 50 ml Q30M PRN IV Hypoglycemia 09/24/18 13:00 10/24/18 12:59 Dextrose/ Electrolytes 1,000 ml @ 75 mls/hr [id number] IV 09/25/18 17:00 10/25/18 16:59 09/25/18 18:33 Docusate Sodium (Colace) 100 mg THREE TIMES A DAY ORAL 09/25/18 18:00 10/25/18 17:59 09/26/18 17:43 Heparin Sodium (Porcine) (Heparin 5000 units/ml) 5,000 units EVERY 12 HOURS SUBQ 09/24/18 21:00 10/24/18 20:59 Insulin Aspart (NovoLOG) BEFORE MEALS AND HS SUBQ 09/24/18 16:30 10/24/18 16:29 09/27/18 05:46 Lisinopril (Zestril) 5 mg DAILY ORAL 09/25/18 09:00 10/25/18 08:59 09/26/18 09:33 Magnesium Hydroxide (Mom) 30 ml DAILYPRN PRN ORAL Constipation 09/25/18 16:30 10/25/18 16:29 Morphine Sulfate (Morphine Sulfate) 1 mg Q3H PRN IVP Pain scale 1-3 09/25/18 16:30 10/02/18 16:29 Morphine Sulfate (Morphine Sulfate) 2 mg Q3H PRN IVP Moderate Pain (Pain Scale 4-6) 09/25/18 16:30 10/02/18 16:29 Morphine Sulfate (Morphine Sulfate) 4 mg Q4H PRN IVP For Pain 7-10 09/24/18 13:00 10/01/18 12:59 Ondansetron HCl (Zofran) 4 mg Q6H PRN IVP Nausea & Vomiting 09/25/18 16:30 10/25/18 16:29 Pantoprazole (Protonix) 40 mg DAILY ORAL 09/25/18 09:00 10/25/18 08:59 12/1/18 09:32 Polyethylene Glycol (Miralax) 17 gm HSPRN PRN ORAL Constipation 09/24/18 13:00 10/24/18 12:59 Quetiapine Fumarate (SEROquel) 25 mg Q6H PRN ORAL For Anxiety 09/25/18 21:30 10/25/18 21:29 Sodium Chloride 1,000 ml @ 100 mls/hr Q10H IV 09/26/18 15:00 10/26/18 14:59 Temazepam (Restoril) 7.5 mg DAILY PRN ORAL Insomnia 09/25/18 16:30 10/02/18 16:29 Timolol Maleate (Timoptic 0.5% Op Soln) 1 drop BID BOTH EYES 09/24/18 18:00 10/24/18 17:59 09/26/18 17:43 Linda Wing NP Sep 27, 2018 08:44
[2018-09-27] MEDS: Atenolol 25mg tab ORAL SCH ×2 (08:48→20:27)
[2018-09-27] MEDS: Lisinopril 2.5mg tab ORAL SCH (08:49)
[2018-09-27] MEDS: D5 1/2NS w/KCl 20mEq 1,000 ML IV SCH ×2 (08:50→22:20)
[2018-09-27] MEDS: Heparin 5000 units/ml inj SUBQ SCH ×2 (09:00→20:42)
[2018-09-27 09:08] LABS: ANION GAP 7 mmol/L (5-15); BLOOD UREA NITROGEN 23 mg/dL (7-18); CALCIUM 8.2 MG/DL (8.5-10.1); CARBON DIOXIDE 27 MMOL/L (21-32); CHLORIDE 101 MMOL/L (98-107); POTASSIUM 3.7 MMOL/L (3.5-5.1); SODIUM 135 MMOL/L (136-145)
[2018-09-27] MEDS: Brimonidine 0.2% Opth Sol BOTH EYES SCH ×2 (09:10→18:57)
[2018-09-27] MEDS: Docusate 100mg cap ORAL SCH ×3 (09:12→18:59)
[2018-09-27] MEDS: Timolol 0.5% Op Soln 2.5ml BOTH EYES SCH ×2 (09:15→19:02)
--- NOTE | 2018-09-27 10:29 | 48 Hour Post Anesthesia Eval ---
Post Anesthesia Evaluation Procedure: ORIF R Hip Date of Evaluation: Sep 27, 2018 Time of Evaluation: 10:29 Blood Pressure Systolic: 103 0: 55 Pulse Rate: 70 Respiratory Rate: 14 O2 Sat by Pulse Oximetry: 98 Airway: patent Nausea: No Vomiting: No Pain Intensity: 5 Hydration Status: adequate Cardiopulmonary Status: stable Mental Status/LOC: patient returned to baseline Post-Anesthesia Complications: none Follow-up care needed: N/A Sherin Paredes CRNA Sep 27, 2018 10:29
[2018-09-27 12:04] LABS: FERRITIN 127 NG/ML (8-388)
--- NOTE | 2018-09-27 12:32 | General Progress Note ---
Assessment/Plan Assessment/Plan (1) Right hip pain (2) Right hip fracture (3) S/p fall and ORIF Patient to be continued on [place] 7.5/325mg Q4H PRN and Morphine 1mg IV Q3H PRN. D/w Dr. Sun and he concurred. Subjective Date patient seen: Sep 27, 2018 Time patient seen: 10:15 - am Allergies: Coded Allergies: No Known Allergies (Verified , 04/05/09) Subjective REVIEW OF SYSTEMS: Denies rash, fever, chills, sweating, dizziness, drowsiness, blurred vision, sore throat, or change in weight. No shortness of breath or chest pain. No nausea, vomiting, diarrhea, or blood in the stool or urine. No bowel or bladder incontinence. No dysuria. He is complaining of right hip pain. SUBJECTIVE: Patient is in bed s/p ORIF. No signs of pain. He reports pain is aggravated with PT. Objective Last 24 Hour Vital Signs Date Time Temp Pulse Resp B/P (MAP) Pulse Ox O2 Delivery O2 Flow Rate FiO2 09/27/18 10:29 70 14 98 09/27/18 09:18 Room Air 09/27/18 08:49 108/51 09/27/18 08:48 65 108/51 09/27/18 08:47 65 108/51 (70) 09/27/18 08:00 98.6 70 15 125/49 (74) 100 09/27/18 04:00 97.2 68 17 138/57 (84) 98 09/27/18 00:00 97.9 65 18 124/62 (82) 100 09/26/18 21:00 Room Air 09/26/18 21:00 65 108/51 09/26/18 20:00 98.1 65 17 108/51 (70) 95 09/26/18 16:00 99.6 68 18 122/57 (78) 98 09/26/18 15:47 99.2 Intake and Output 09/26/18 09/27/18 19:00 07:00 Intake Total 840 ml Output Total 295 ml 250 ml Balance -295 ml 590 ml Intake Oral 840 ml Output Urine Total 295 ml 250 ml Laboratory Tests 09/27/18 06:10: White Blood Count 11.5H, Red Blood Count 2.43L, Hemoglobin 7.8L, Hematocrit 23.2L, Mean Corpuscular Volume 95, Mean Corpuscular Hemoglobin 32.0H, Mean Corpuscular Hemoglobin Concent 33.5, Red Cell Distribution Width 12.0, Platelet Count 99L, Mean Platelet Volume 9.3, Neutrophils (%) (Auto) , Lymphocytes (%) ( Auto) , Monocytes (%) (Auto) , Eosinophils (%) (Auto) , Basophils (%) (Auto) , Differential Total Cells Counted 100, Neutrophils % (Manual) 67, Lymphocytes % ( Manual) 18L, Monocytes % (Manual) 15H, Eosinophils % (Manual) 0, Basophils % ( Manual) 0, Band Neutrophils 0, Platelet Estimate DecreasedL, Platelet Morphology Normal, Polychromasia 1+, Hypochromasia 1+, Ovalocytes Rare, Sodium Level 135L, Potassium Level 3.7, Chloride Level 101, Carbon Dioxide Level 27, Anion Gap 7, Blood Urea Nitrogen 23H, Creatinine 1.0, Estimat Glomerular Filtration Rate , Glucose Level 181H, Calcium Level 8.2L, Iron Level [Pending], Unsaturated Iron Binding [Pending], Ferritin [Pending], Carcinoembryonic Antigen [Pending], Vitamin B12 Level [Pending], Folate [Pending] Height (Feet): 5 Height (Inches): 9.00 Weight (Pounds): 167 Objective GENERAL: Alert, awake, and oriented x3. LUNGS: Decreased breath sounds bilaterally. HEART: S1 and S2, regular. ABDOMEN: Soft, nontender. EXTREMITIES: No cyanosis. No clubbing. Bandages applied to right hip. NEURO: No changes. Vijay Shirley Sep 27, 2018 12:32
[2018-09-27 13:04] LABS: % IRON SATURATION 13 % (15-50); IRON 24 ug/dL (50-175); TOTAL IRON BINDING CAPACITY 188 ug/dL (250-450)
--- NOTE | 2018-09-27 14:23 | Internal Med Progress Note ---
Subjective Date of Service: Sep 27, 2018 Physician Name Jw Mills Attending Physician Joshua Sanz MD Current Medications Medications (Trade) Dose Ordered Sig/Tariq Route PRN Reason Start Time Stop Time Status Last Admin Dose Admin Acetaminophen (Tylenol) 650 mg Q4H PRN ORAL fever 09/24/18 13:00 10/24/18 12:59 Acetaminophen/ Hydrocodone Bitart ([place] 7.5/325) 1 tab Q4H PRN ORAL Moderate Pain (Pain Scale 4-6) 09/25/18 16:30 10/02/18 16:29 09/27/18 05:09 Al Hydroxide/Mg Hydroxide (Mylanta II) 30 ml Q6H PRN ORAL dyspepsia 09/24/18 13:00 10/24/18 12:59 Atenolol (Tenormin) 25 mg Q12HR ORAL 09/24/18 21:00 10/24/18 20:59 09/26/18 09:33 Brimonidine Tartrate (Alphagan) 1 drop BID BOTH EYES 09/24/18 18:00 10/24/18 17:59 09/27/18 09:10 Dextrose (Dextrose 50%) 25 ml Q30M PRN IV Hypoglycemia 09/24/18 13:00 10/24/18 12:59 Dextrose (Dextrose 50%) 50 ml Q30M PRN IV Hypoglycemia 09/24/18 13:00 10/24/18 12:59 Dextrose/ Electrolytes 1,000 ml @ 75 mls/hr [id number] IV 09/25/18 17:00 10/25/18 16:59 09/25/18 18:33 Docusate Sodium (Colace) 100 mg THREE TIMES A DAY ORAL 09/25/18 18:00 10/25/18 17:59 09/27/18 13:34 Heparin Sodium (Porcine) (Heparin 5000 units/ml) 5,000 units EVERY 12 HOURS SUBQ 09/24/18 21:00 10/24/18 20:59 Insulin Aspart (NovoLOG) BEFORE MEALS AND HS SUBQ 09/24/18 16:30 10/24/18 16:29 09/27/18 11:59 Lisinopril (Zestril) 5 mg DAILY ORAL 09/25/18 09:00 10/25/18 08:59 09/26/18 09:33 Magnesium Hydroxide (Mom) 30 ml DAILYPRN PRN ORAL Constipation 09/25/18 16:30 10/25/18 16:29 Morphine Sulfate (Morphine Sulfate) 1 mg Q3H PRN IVP Pain scale 1-3 09/25/18 16:30 10/02/18 16:29 Ondansetron HCl (Zofran) 4 mg Q6H PRN IVP Nausea & Vomiting 09/25/18 16:30 10/25/18 16:29 Pantoprazole (Protonix) 40 mg DAILY ORAL 09/25/18 09:00 10/25/18 08:59 09/27/18 09:12 Polyethylene Glycol (Miralax) 17 gm HSPRN PRN ORAL Constipation 09/24/18 13:00 10/24/18 12:59 Quetiapine Fumarate (SEROquel) 25 mg Q6H PRN ORAL For Anxiety 09/25/18 21:30 10/25/18 21:29 Sodium Chloride 1,000 ml @ 100 mls/hr Q10H IV 09/26/18 15:00 10/26/18 14:59 Temazepam (Restoril) 7.5 mg DAILY PRN ORAL Insomnia 09/25/18 16:30 10/02/18 16:29 Timolol Maleate (Timoptic 0.5% Op Soln) 1 drop BID BOTH EYES 09/24/18 18:00 10/24/18 17:59 09/27/18 09:15 Allergies: Coded Allergies: No Known Allergies (Verified , 04/05/09) ROS Limited/Unobtainable: No Constitutional: Reports: no symptoms HEENT: Reports: no symptoms Cardiovascular: Reports: no symptoms Respiratory: Reports: no symptoms Gastrointestinal/Abdominal: Reports: no symptoms Genitourinary: Reports: no symptoms Neurologic/Psychiatric: Reports: no symptoms Subjective 88 YO M admitted with right femur intertrochanteric fracture. S/P ORIF right hip fracture 09/25/18. Cover for Javon Sanz Objective Last Vital Signs Date Time Temp Pulse Resp B/P (MAP) Pulse Ox O2 Delivery O2 Flow Rate FiO2 09/27/18 10:29 70 14 98 09/27/18 09:18 Room Air 09/27/18 08:49 108/51 09/27/18 08:00 98.6 09/25/18 18:00 3 Laboratory Tests Test 09/27/18 06:10 White Blood Count 11.5 K/UL (4.8-10.8) H Red Blood Count 2.43 M/UL (4.70-6.10) L Hemoglobin 7.8 G/DL (14.2-18.0) L Hematocrit 23.2 % (42.0-52.0) L Mean Corpuscular Volume 95 FL (80-99) Mean Corpuscular Hemoglobin 32.0 PG (27.0-31.0) H Mean Corpuscular Hemoglobin Concent 33.5 G/DL (32.0-36.0) Red Cell Distribution Width 12.0 % (11.6-14.8) Platelet Count 99 K/UL (150-450) L Mean Platelet Volume 9.3 FL (6.5-10.1) Neutrophils (%) (Auto) % (45.0-75.0) Lymphocytes (%) (Auto) % (20.0-45.0) Monocytes (%) (Auto) % (1.0-10.0) Eosinophils (%) (Auto) % (0.0-3.0) Basophils (%) (Auto) % (0.0-2.0) Differential Total Cells Counted 100 Neutrophils % (Manual) 67 % (45-75) Lymphocytes % (Manual) 18 % (20-45) L Monocytes % (Manual) 15 % (1-10) H Eosinophils % (Manual) 0 % (0-3) Basophils % (Manual) 0 % (0-2) Band Neutrophils 0 % (0-8) Platelet Estimate Decreased L Platelet Morphology Normal Polychromasia 1+ Hypochromasia 1+ Ovalocytes Rare Sodium Level 135 MMOL/L (136-145) L Potassium Level 3.7 MMOL/L (3.5-5.1) Chloride Level 101 MMOL/L (98-107) Carbon Dioxide Level 27 MMOL/L (21-32) Anion Gap 7 mmol/L (5-15) Blood Urea Nitrogen 23 mg/dL (7-18) H Creatinine 1.0 MG/DL (0.55-1.30) Estimat Glomerular Filtration Rate mL/min (>60) Glucose Level 181 MG/DL (74-106) H Calcium Level 8.2 MG/DL (8.5-10.1) L Iron Level 24 ug/dL (50-175) L Total Iron Binding Capacity 188 ug/dL (250-450) L Percent Iron Saturation 13 % (15-50) L Unsaturated Iron Binding 164 ug/dL (112-346) Ferritin 127 NG/ML (8-388) Carcinoembryonic Antigen Pending Vitamin B12 Level Pending Folate 8.1 NG/ML (8.6-58.9) L Intake and Output 09/26/18 09/27/18 19:00 07:00 Intake Total 840 ml Output Total 295 ml 250 ml Balance -295 ml 590 ml Intake Oral 840 ml Output Urine Total 295 ml 250 ml Objective General Appearance: WD/WN, no apparent distress, alert EENT: PERRL/EOMI, normal ENT inspection Neck: non-tender, normal alignment, supple, normal inspection Cardiovascular: normal peripheral pulses, normal rate, regular rhythm, no gallop/murmur, no JVD Respiratory/Chest: chest wall non-tender, lungs clear, normal breath sounds, no respiratory distress, no accessory muscle use Abdomen: normal bowel sounds, non tender, soft, no organomegaly, no mass Extremities: normal inspection 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 (2) HTN (hypertension) Assessment & Plan: Continue lisinopril when tolerating PO (3) Blindness (4) Right hip pain Assessment & Plan: Continue IV morphine (5) Femur neck fracture Assessment & Plan: Right intertrochanteric. S/P ORIF 09/25/18-See surgery note (6) Glaucoma Assessment/Plan Discharge planning [facility] [place] [facility] Jw Mills MD Sep 27, 2018 14:23
[2018-09-27 17:03] LABS: HEMATOCRIT 23.6 % (42.0-52.0); HEMOGLOBIN 8.1 G/DL (14.2-18.0); MEAN CORPUSCULAR VOLUME 94 FL (80-99); PLATELET COUNT 99 K/UL (150-450); WHITE BLOOD COUNT 10.6 K/UL (4.8-10.8)
[2018-09-27 17:05] LABS: EOSINOPHILS % (AUTO) 0.6 % (0.0-3.0); LYMPHOCYTES % (AUTO) 12.3 % (20.0-45.0); NEUTROPHILS % (AUTO) 73.5 % (45.0-75.0)
[2018-09-27 17:06] LABS: BASOPHILS % (AUTO) 1.6 % (0.0-2.0)
[2018-09-28] VITALS (7 sets, daily range): BP systolic 124–133; BP diastolic 51–84
[2018-09-28] MEDS: NovoLOG Insulin Flexpen SUBQ SCH ×5 (06:09→20:59)
[2018-09-28 07:38] LABS: BASOPHILS % (AUTO) 2.2 % (0.0-2.0); EOSINOPHILS % (AUTO) 0.9 % (0.0-3.0); HEMATOCRIT 23.5 % (42.0-52.0); HEMOGLOBIN 8.1 G/DL (14.2-18.0); LYMPHOCYTES % (AUTO) 11.8 % (20.0-45.0); MEAN CORPUSCULAR VOLUME 95 FL (80-99); MONOCYTES % (AUTO) 10.2 % (1.0-10.0); NEUTROPHILS % (AUTO) 74.9 % (45.0-75.0); PLATELET COUNT 107 K/UL (150-450); RED BLOOD COUNT 2.48 M/UL (4.70-6.10); RED CELL DISTRIBUTION WIDTH 12.4 % (11.6-14.8); WHITE BLOOD COUNT 9.4 K/UL (4.8-10.8)
[2018-09-28 07:55] LABS: ANION GAP 6 mmol/L (5-15); BLOOD UREA NITROGEN 23 mg/dL (7-18); CALCIUM 8.3 MG/DL (8.5-10.1); CARBON DIOXIDE 27 MMOL/L (21-32); CHLORIDE 101 MMOL/L (98-107); CREATININE 0.9 MG/DL (0.55-1.30); SODIUM 134 MMOL/L (136-145)
[2018-09-28] MEDS: Timolol 0.5% Op Soln 2.5ml BOTH EYES SCH ×2 (08:38→17:58)
[2018-09-28] MEDS: Brimonidine 0.2% Opth Sol BOTH EYES SCH ×2 (08:38→17:58)
[2018-09-28] MEDS: Lisinopril 2.5mg tab ORAL SCH (08:39)
[2018-09-28] MEDS: Atenolol 25mg tab ORAL SCH ×2 (08:39→20:57)
[2018-09-28] MEDS: Docusate 100mg cap ORAL SCH ×3 (08:39→17:58)
[2018-09-28] MEDS: Heparin 5000 units/ml inj SUBQ SCH ×2 (08:43→20:58)
--- NOTE | 2018-09-28 08:55 | General Progress Note ---
Assessment/Plan Assessment/Plan (1) Right hip pain (2) Right hip fracture (3) S/p fall and ORIF Patient to be continued on [place] and Morphine. D/w Dr. Sun and he concurred. Subjective Date patient seen: Sep 28, 2018 Time patient seen: 07:30 - am Allergies: Coded Allergies: No Known Allergies (Verified , 04/05/09) Subjective REVIEW OF SYSTEMS: Denies rash, fever, chills, sweating, dizziness, drowsiness, blurred vision, sore throat, or change in weight. No shortness of breath or chest pain. No nausea, vomiting, diarrhea, or blood in the stool or urine. No bowel or bladder incontinence. No dysuria. He is complaining of right hip pain. SUBJECTIVE: Patient is in bed reports pain with repositioning and PT. It has been tolerated on the [place] 2 doses in the last 24hrs. No new complaints at this time. Objective Last 24 Hour Vital Signs Date Time Temp Pulse Resp B/P (MAP) Pulse Ox O2 Delivery O2 Flow Rate FiO2 09/28/18 08:39 132/64 09/28/18 08:39 69 132/64 09/28/18 04:35 98.6 72 18 132/61 (84) 100 09/28/18 00:12 98.2 70 18 131/57 (81) 100 09/27/18 21:00 Room Air 09/27/18 20:27 72 132/61 09/27/18 19:49 98.6 72 18 132/61 (84) 100 09/27/18 16:00 98.3 69 18 135/56 (82) 100 09/27/18 12:00 98.1 65 14 120/65 (83) 100 09/27/18 10:29 70 14 98 09/27/18 09:18 Room Air Intake and Output 09/27/18 09/28/18 19:00 07:00 Output Total 250 ml 200 ml Balance -250 ml -200 ml Output Urine Total 250 ml 200 ml Laboratory Tests 09/27/18 16:15: White Blood Count 10.6, Red Blood Count 2.50L, Hemoglobin 8.1L, Hematocrit 23.6L , Mean Corpuscular Volume 94, Mean Corpuscular Hemoglobin 32.3H, Mean Corpuscular Hemoglobin Concent 34.3, Red Cell Distribution Width 12.0, Platelet Count 99L, Mean Platelet Volume 7.0, Neutrophils (%) (Auto) 73.5, Lymphocytes (% ) (Auto) 12.3L, Monocytes (%) (Auto) 12.0H, Eosinophils (%) (Auto) 0.6, Basophils (%) (Auto) 1.6 09/28/18 07:00: White Blood Count 9.4, Red Blood Count 2.48L, Hemoglobin 8.1L, Hematocrit 23.5L , Mean Corpuscular Volume 95, Mean Corpuscular Hemoglobin 32.6H, Mean Corpuscular Hemoglobin Concent 34.3, Red Cell Distribution Width 12.4, Platelet Count 107L, Mean Platelet Volume 7.5, Neutrophils (%) (Auto) 74.9, Lymphocytes ( %) (Auto) 11.8L, Monocytes (%) (Auto) 10.2H, Eosinophils (%) (Auto) 0.9, Basophils (%) (Auto) 2.2H, Sodium Level 134L, Potassium Level 4.0, Chloride Level 101, Carbon Dioxide Level 27, Anion Gap 6, Blood Urea Nitrogen 23H, Creatinine 0.9, Estimat Glomerular Filtration Rate , Glucose Level 151H, Calcium Level 8.3L Height (Feet): 5 Height (Inches): 9.00 Weight (Pounds): 167 Objective GENERAL: Alert, awake, and oriented x3. LUNGS: Decreased breath sounds bilaterally. HEART: S1 and S2, regular. ABDOMEN: Soft, nontender. EXTREMITIES: No cyanosis. No clubbing. Bandages applied to right hip. NEURO: No changes. Vijay Shirley Sep 28, 2018 08:55
[2018-09-28] MEDS: D5 1/2NS w/KCl 20mEq 1,000 ML IV SCH (11:40)
[2018-09-28] MEDS: HYDROcodone/Acetamin 7.5/325 tab ORAL PRN (13:23)
--- NOTE | 2018-09-28 13:40 | Pulmonology Progress Note ---
Assessment/Plan Problems: (1) Femur neck fracture (2) Legally blind (3) Diabetes mellitus, type II (4) HTN (hypertension) Assessment/Plan dc planning in [place] dvt prophylaxis symptomatic treatment ortho f/u sliding scale diabetic diet monitor BP Subjective ROS Limited/Unobtainable: No Constitutional: Reports: no symptoms HEENT: Repors: no symptoms Respiratory: Reports: wheezing Allergies: Coded Allergies: No Known Allergies (Verified , 04/05/09) Objective Last 24 Hour Vital Signs Date Time Temp Pulse Resp B/P (MAP) Pulse Ox O2 Delivery O2 Flow Rate FiO2 09/28/18 11:56 97.6 65 18 124/51 (75) 97 09/28/18 09:19 98.4 69 18 132/64 (86) 100 09/28/18 09:00 Room Air 09/28/18 08:39 132/64 09/28/18 08:39 69 132/64 09/28/18 08:00 98.4 69 18 132/64 (86) 100 09/28/18 04:35 98.6 72 18 132/61 (84) 100 09/28/18 00:12 98.2 70 18 131/57 (81) 100 09/27/18 21:00 Room Air 09/27/18 20:27 72 132/61 09/27/18 19:49 98.6 72 18 132/61 (84) 100 09/27/18 16:00 98.3 69 18 135/56 (82) 100 Intake and Output 09/27/18 09/28/18 19:00 07:00 Output Total 250 ml 200 ml Balance -250 ml -200 ml Output Urine Total 250 ml 200 ml General Appearance: WD/WN HEENT: normocephalic, mucous membranes moist Respiratory/Chest: chest wall non-tender, normal breath sounds Cardiovascular: normal rate, regular rhythm Abdomen: normal bowel sounds, soft, non tender, no organomegaly Laboratory Tests 09/27/18 16:15: White Blood Count 10.6, Red Blood Count 2.50L, Hemoglobin 8.1L, Hematocrit 23.6L , Mean Corpuscular Volume 94, Mean Corpuscular Hemoglobin 32.3H, Mean Corpuscular Hemoglobin Concent 34.3, Red Cell Distribution Width 12.0, Platelet Count 99L, Mean Platelet Volume 7.0, Neutrophils (%) (Auto) 73.5, Lymphocytes (% ) (Auto) 12.3L, Monocytes (%) (Auto) 12.0H, Eosinophils (%) (Auto) 0.6, Basophils (%) (Auto) 1.6 09/28/18 07:00: White Blood Count 9.4, Red Blood Count 2.48L, Hemoglobin 8.1L, Hematocrit 23.5L , Mean Corpuscular Volume 95, Mean Corpuscular Hemoglobin 32.6H, Mean Corpuscular Hemoglobin Concent 34.3, Red Cell Distribution Width 12.4, Platelet Count 107L, Mean Platelet Volume 7.5, Neutrophils (%) (Auto) 74.9, Lymphocytes ( %) (Auto) 11.8L, Monocytes (%) (Auto) 10.2H, Eosinophils (%) (Auto) 0.9, Basophils (%) (Auto) 2.2H, Sodium Level 134L, Potassium Level 4.0, Chloride Level 101, Carbon Dioxide Level 27, Anion Gap 6, Blood Urea Nitrogen 23H, Creatinine 0.9, Estimat Glomerular Filtration Rate , Glucose Level 151H, Calcium Level 8.3L Current Medications Medications (Trade) Dose Ordered Sig/Tariq Route PRN Reason Start Time Stop Time Status Last Admin Dose Admin Acetaminophen (Tylenol) 650 mg Q4H PRN ORAL fever 09/24/18 13:00 10/24/18 12:59 Acetaminophen/ Hydrocodone Bitart ([place] 7.5/325) 1 tab Q4H PRN ORAL Moderate Pain (Pain Scale 4-6) 09/25/18 16:30 10/02/18 16:29 09/28/18 13:23 Al Hydroxide/Mg Hydroxide (Mylanta II) 30 ml Q6H PRN ORAL dyspepsia 09/24/18 13:00 10/24/18 12:59 Atenolol (Tenormin) 25 mg Q12HR ORAL 09/24/18 21:00 10/24/18 20:59 09/28/18 08:39 Brimonidine Tartrate (Alphagan) 1 drop BID BOTH EYES 09/24/18 18:00 10/24/18 17:59 09/28/18 08:38 Dextrose (Dextrose 50%) 25 ml Q30M PRN IV Hypoglycemia 09/24/18 13:00 10/24/18 12:59 Dextrose (Dextrose 50%) 50 ml Q30M PRN IV Hypoglycemia 09/24/18 13:00 10/24/18 12:59 Dextrose/ Electrolytes 1,000 ml @ 75 mls/hr [id number] IV 09/25/18 17:00 10/25/18 16:59 09/25/18 18:33 Docusate Sodium (Colace) 100 mg THREE TIMES A DAY ORAL 09/25/18 18:00 10/25/18 17:59 09/28/18 13:22 Heparin Sodium (Porcine) (Heparin 5000 units/ml) 5,000 units EVERY 12 HOURS SUBQ 09/24/18 21:00 10/24/18 20:59 09/28/18 08:43 Insulin Aspart (NovoLOG) BEFORE MEALS AND HS SUBQ 09/24/18 16:30 10/24/18 16:29 09/28/18 12:09 Lisinopril (Zestril) 5 mg DAILY ORAL 09/25/18 09:00 10/25/18 08:59 09/28/18 08:39 Magnesium Hydroxide (Mom) 30 ml DAILYPRN PRN ORAL Constipation 09/25/18 16:30 10/25/18 16:29 09/28/18 13:24 Morphine Sulfate (Morphine Sulfate) 1 mg Q3H PRN IVP Pain scale 1-3 09/25/18 16:30 10/02/18 16:29 Ondansetron HCl (Zofran) 4 mg Q6H PRN IVP Nausea & Vomiting 09/25/18 16:30 10/25/18 16:29 Pantoprazole (Protonix) 40 mg DAILY ORAL 09/25/18 09:00 10/25/18 08:59 09/28/18 08:39 Polyethylene Glycol (Miralax) 17 gm HSPRN PRN ORAL Constipation 09/24/18 13:00 10/24/18 12:59 Quetiapine Fumarate (SEROquel) 25 mg Q6H PRN ORAL For Anxiety 09/25/18 21:30 10/25/18 21:29 Sodium Chloride 1,000 ml @ 100 mls/hr Q10H IV 09/26/18 15:00 10/26/18 14:59 Temazepam (Restoril) 7.5 mg DAILY PRN ORAL Insomnia 09/25/18 16:30 10/02/18 16:29 Timolol Maleate (Timoptic 0.5% Op Soln) 1 drop BID BOTH EYES 09/24/18 18:00 10/24/18 17:59 09/28/18 08:38 Moises Dennis MD Sep 28, 2018 13:40
[2018-09-28] MEDS ORDERED: Fleet's Enema 133ml RECTAL ONE (15:45)
--- NOTE | 2018-09-28 18:26 | Internal Med Progress Note ---
Subjective Date of Service: Sep 28, 2018 Physician Name Jw Mills Attending Physician Joshua Sanz MD Current Medications Medications (Trade) Dose Ordered Sig/Tariq Route PRN Reason Start Time Stop Time Status Last Admin Dose Admin Acetaminophen (Tylenol) 650 mg Q4H PRN ORAL fever 09/24/18 13:00 10/24/18 12:59 Acetaminophen/ Hydrocodone Bitart ([place] 7.5/325) 1 tab Q4H PRN ORAL Moderate Pain (Pain Scale 4-6) 09/25/18 16:30 10/02/18 16:29 09/28/18 13:23 Al Hydroxide/Mg Hydroxide (Mylanta II) 30 ml Q6H PRN ORAL dyspepsia 09/24/18 13:00 10/24/18 12:59 Atenolol (Tenormin) 25 mg Q12HR ORAL 09/24/18 21:00 10/24/18 20:59 09/28/18 08:39 Brimonidine Tartrate (Alphagan) 1 drop BID BOTH EYES 09/24/18 18:00 10/24/18 17:59 09/28/18 08:38 Dextrose (Dextrose 50%) 25 ml Q30M PRN IV Hypoglycemia 09/24/18 13:00 10/24/18 12:59 Dextrose (Dextrose 50%) 50 ml Q30M PRN IV Hypoglycemia 09/24/18 13:00 10/24/18 12:59 Dextrose/ Electrolytes 1,000 ml @ 75 mls/hr [id number] IV 09/25/18 17:00 10/25/18 16:59 09/25/18 18:33 Docusate Sodium (Colace) 100 mg THREE TIMES A DAY ORAL 09/25/18 18:00 10/25/18 17:59 09/28/18 13:22 Heparin Sodium (Porcine) (Heparin 5000 units/ml) 5,000 units EVERY 12 HOURS SUBQ 09/24/18 21:00 10/24/18 20:59 09/28/18 08:43 Insulin Aspart (NovoLOG) BEFORE MEALS AND HS SUBQ 09/24/18 16:30 10/24/18 16:29 09/28/18 12:09 Lisinopril (Zestril) 5 mg DAILY ORAL 09/25/18 09:00 10/25/18 08:59 09/28/18 08:39 Magnesium Hydroxide (Mom) 30 ml DAILYPRN PRN ORAL Constipation 09/25/18 16:30 10/25/18 16:29 09/28/18 13:24 Morphine Sulfate (Morphine Sulfate) 1 mg Q3H PRN IVP Pain scale 1-3 09/25/18 16:30 10/02/18 16:29 Ondansetron HCl (Zofran) 4 mg Q6H PRN IVP Nausea & Vomiting 09/25/18 16:30 10/25/18 16:29 Pantoprazole (Protonix) 40 mg DAILY ORAL 09/25/18 09:00 10/25/18 08:59 09/28/18 08:39 Polyethylene Glycol (Miralax) 17 gm HSPRN PRN ORAL Constipation 09/24/18 13:00 10/24/18 12:59 Quetiapine Fumarate (SEROquel) 25 mg Q6H PRN ORAL For Anxiety 09/25/18 21:30 10/25/18 21:29 Sodium Chloride 1,000 ml @ 100 mls/hr Q10H IV 09/26/18 15:00 10/26/18 14:59 Temazepam (Restoril) 7.5 mg DAILY PRN ORAL Insomnia 09/25/18 16:30 10/02/18 16:29 Timolol Maleate (Timoptic 0.5% Op Soln) 1 drop BID BOTH EYES 09/24/18 18:00 10/24/18 17:59 09/28/18 08:38 Allergies: Coded Allergies: No Known Allergies (Verified , 04/05/09) ROS Limited/Unobtainable: No Constitutional: Reports: no symptoms HEENT: Reports: no symptoms Cardiovascular: Reports: no symptoms Respiratory: Reports: no symptoms Gastrointestinal/Abdominal: Reports: no symptoms Genitourinary: Reports: no symptoms Neurologic/Psychiatric: Reports: no symptoms Subjective 88 YO M admitted with right femur intertrochanteric fracture. S/P ORIF right hip fracture 09/25/18. Cover for Int Med-Dr Sanz. Await acceptance to acute rehab Objective Last Vital Signs Date Time Temp Pulse Resp B/P (MAP) Pulse Ox O2 Delivery O2 Flow Rate FiO2 09/28/18 16:00 98.1 69 18 132/54 (80) 99 09/28/18 09:00 Room Air 09/25/18 18:00 3 Laboratory Tests Test 09/28/18 07:00 White Blood Count 9.4 K/UL (4.8-10.8) Red Blood Count 2.48 M/UL (4.70-6.10) L Hemoglobin 8.1 G/DL (14.2-18.0) L Hematocrit 23.5 % (42.0-52.0) L Mean Corpuscular Volume 95 FL (80-99) Mean Corpuscular Hemoglobin 32.6 PG (27.0-31.0) H Mean Corpuscular Hemoglobin Concent 34.3 G/DL (32.0-36.0) Red Cell Distribution Width 12.4 % (11.6-14.8) Platelet Count 107 K/UL (150-450) L Mean Platelet Volume 7.5 FL (6.5-10.1) Neutrophils (%) (Auto) 74.9 % (45.0-75.0) Lymphocytes (%) (Auto) 11.8 % (20.0-45.0) L Monocytes (%) (Auto) 10.2 % (1.0-10.0) H Eosinophils (%) (Auto) 0.9 % (0.0-3.0) Basophils (%) (Auto) 2.2 % (0.0-2.0) H Sodium Level 134 MMOL/L (136-145) L Potassium Level 4.0 MMOL/L (3.5-5.1) Chloride Level 101 MMOL/L (98-107) Carbon Dioxide Level 27 MMOL/L (21-32) Anion Gap 6 mmol/L (5-15) Blood Urea Nitrogen 23 mg/dL (7-18) H Creatinine 0.9 MG/DL (0.55-1.30) Estimat Glomerular Filtration Rate mL/min (>60) Glucose Level 151 MG/DL (74-106) H Calcium Level 8.3 MG/DL (8.5-10.1) L Intake and Output 09/27/18 09/28/18 19:00 07:00 Output Total 250 ml 200 ml Balance -250 ml -200 ml Output Urine Total 250 ml 200 ml Objective General Appearance: WD/WN, no apparent distress, alert EENT: PERRL/EOMI, normal ENT inspection Neck: non-tender, normal alignment, supple, normal inspection Cardiovascular: normal peripheral pulses, normal rate, regular rhythm, no gallop/murmur, no JVD Respiratory/Chest: chest wall non-tender, lungs clear, normal breath sounds, no respiratory distress, no accessory muscle use Abdomen: normal bowel sounds, non tender, soft, no organomegaly, no mass Extremities: normal inspection 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 (2) HTN (hypertension) Assessment & Plan: Continue lisinopril when tolerating PO (3) Femur neck fracture Assessment & Plan: Right intertrochanteric. S/P ORIF 09/25/18-See surgery note Assessment/Plan [place]charge planning [facility] [place] [facility]F Jw Mills MD Sep 28, 2018 18:26
--- NOTE | 2018-09-28 21:45 | General Progress Note ---
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 Status: stable, progressing Assessment/Plan seroquel prn dc ativan dc ambien Subjective Date patient seen: Sep 28, 2018 Neurologic/Psychiatric: Reports: anxiety, depressed, emotional problems Allergies: Coded Allergies: No Known Allergies (Verified , 04/05/09) Objective Last 24 Hour Vital Signs Date Time Temp Pulse Resp B/P (MAP) Pulse Ox O2 Delivery O2 Flow Rate FiO2 09/28/18 21:26 Room Air 09/28/18 20:57 72 133/84 09/28/18 20:14 98.3 72 20 133/84 (100) 96 09/28/18 16:00 98.1 69 18 132/54 (80) 99 09/28/18 11:56 97.6 65 18 124/51 (75) 97 09/28/18 09:19 98.4 69 18 132/64 (86) 100 09/28/18 09:00 Room Air 09/28/18 08:39 132/64 09/28/18 08:39 69 132/64 09/28/18 08:00 98.4 69 18 132/64 (86) 100 09/28/18 04:35 98.6 72 18 132/61 (84) 100 09/28/18 00:12 98.2 70 18 131/57 (81) 100 Intake and Output 09/27/18 09/28/18 19:00 07:00 Output Total 250 ml 200 ml Balance -250 ml -200 ml Output Urine Total 250 ml 200 ml Laboratory Tests 09/28/18 07:00: White Blood Count 9.4, Red Blood Count 2.48L, Hemoglobin 8.1L, Hematocrit 23.5L , Mean Corpuscular Volume 95, Mean Corpuscular Hemoglobin 32.6H, Mean Corpuscular Hemoglobin Concent 34.3, Red Cell Distribution Width 12.4, Platelet Count 107L, Mean Platelet Volume 7.5, Neutrophils (%) (Auto) 74.9, Lymphocytes ( %) (Auto) 11.8L, Monocytes (%) (Auto) 10.2H, Eosinophils (%) (Auto) 0.9, Basophils (%) (Auto) 2.2H, Sodium Level 134L, Potassium Level 4.0, Chloride Level 101, Carbon Dioxide Level 27, Anion Gap 6, Blood Urea Nitrogen 23H, Creatinine 0.9, Estimat Glomerular Filtration Rate , Glucose Level 151H, Calcium Level 8.3L Height (Feet): 5 Height (Inches): 9.00 Weight (Pounds): 167 General Appearance: no apparent distress, alert, confused, agitated Ángel Clemons MD Sep 28, 2018 21:44
[2018-09-29] VITALS: BP 126/78
[2018-09-29] MEDS: D5 1/2NS w/KCl 20mEq 1,000 ML IV SCH (00:50)
[2018-09-29 04:00] VITALS: BP 140/61
[2018-09-29] MEDS: NovoLOG Insulin Flexpen SUBQ SCH ×3 (05:52→17:00)
[2018-09-29 08:00] VITALS: BP 163/101
[2018-09-29] MEDS: Timolol 0.5% Op Soln 2.5ml BOTH EYES SCH ×2 (08:51→17:34)
[2018-09-29] MEDS: Lisinopril 2.5mg tab ORAL SCH (08:51)
[2018-09-29] MEDS: Atenolol 25mg tab ORAL SCH (08:51)
[2018-09-29] MEDS: Brimonidine 0.2% Opth Sol BOTH EYES SCH ×2 (08:51→17:34)
[2018-09-29] MEDS: Heparin 5000 units/ml inj SUBQ SCH (08:52)
[2018-09-29] MEDS: Docusate 100mg cap ORAL SCH ×4 (08:54→17:35)
[2018-09-29 12:00] VITALS: BP 134/57
[2018-09-29 12:57] LABS: EOSINOPHILS % (AUTO) 0.7 % (0.0-3.0); HEMATOCRIT 24.9 % (42.0-52.0); HEMOGLOBIN 8.3 G/DL (14.2-18.0); LYMPHOCYTES % (AUTO) 11.8 % (20.0-45.0); MEAN CORPUSCULAR VOLUME 94 FL (80-99); MONOCYTES % (AUTO) 8.5 % (1.0-10.0); NEUTROPHILS % (AUTO) 78.1 % (45.0-75.0); PLATELET COUNT 184 K/UL (150-450); RED BLOOD COUNT 2.66 M/UL (4.70-6.10); RED CELL DISTRIBUTION WIDTH 12.2 % (11.6-14.8); WHITE BLOOD COUNT 10.6 K/UL (4.8-10.8)
[2018-09-29 13:10] LABS: INR 1.2 (0.9-1.1)
[2018-09-29 13:27] LABS: ANION GAP 5 mmol/L (5-15); BLOOD UREA NITROGEN 25 mg/dL (7-18); CALCIUM 8.5 MG/DL (8.5-10.1); CARBON DIOXIDE 27 MMOL/L (21-32); CHLORIDE 102 MMOL/L (98-107); POTASSIUM 3.9 MMOL/L (3.5-5.1); SODIUM 134 MMOL/L (136-145)
[2018-09-29 13:33] LABS: LACTATE DEHYDROGENASE 349 U/L (81-234)
[2018-09-29 13:57] LABS: % IRON SATURATION 23 % (15-50); IRON 43 ug/dL (50-175); TOTAL IRON BINDING CAPACITY 187 ug/dL (250-450)
[2018-09-29 16:00] VITALS: BP 126/58
--- NOTE | 2018-09-29 17:00 | Internal Med Progress Note ---
Subjective Date of Service: Sep 29, 2018 Physician Name Jw Mills Attending Physician Joshau Sanz MD Current Medications Medications (Trade) Dose Ordered Sig/Tariq Route PRN Reason Start Time Stop Time Status Last Admin Dose Admin Acetaminophen (Tylenol) 650 mg Q4H PRN ORAL fever 09/24/18 13:00 10/24/18 12:59 Acetaminophen/ Hydrocodone Bitart ([place] 7.5/325) 1 tab Q4H PRN ORAL Moderate Pain (Pain Scale 4-6) 09/25/18 16:30 10/02/18 16:29 09/28/18 13:23 Al Hydroxide/Mg Hydroxide (Mylanta II) 30 ml Q6H PRN ORAL dyspepsia 09/24/18 13:00 10/24/18 12:59 Atenolol (Tenormin) 25 mg Q12HR ORAL 09/24/18 21:00 10/24/18 20:59 09/29/18 08:51 Brimonidine Tartrate (Alphagan) 1 drop BID BOTH EYES 09/24/18 18:00 10/24/18 17:59 09/29/18 08:51 Dextrose (Dextrose 50%) 25 ml Q30M PRN IV Hypoglycemia 09/24/18 13:00 10/24/18 12:59 Dextrose (Dextrose 50%) 50 ml Q30M PRN IV Hypoglycemia 09/24/18 13:00 10/24/18 12:59 Docusate Sodium (Colace) 100 mg THREE TIMES A DAY ORAL 09/25/18 18:00 10/25/18 17:59 09/28/18 13:22 Heparin Sodium (Porcine) (Heparin 5000 units/ml) 5,000 units EVERY 12 HOURS SUBQ 09/24/18 21:00 10/24/18 20:59 09/28/18 08:43 Insulin Aspart (NovoLOG) BEFORE MEALS AND HS SUBQ 09/24/18 16:30 10/24/18 16:29 09/29/18 12:20 Lisinopril (Zestril) 5 mg DAILY ORAL 09/25/18 09:00 10/25/18 08:59 09/29/18 08:51 Magnesium Hydroxide (Mom) 30 ml DAILYPRN PRN ORAL Constipation 09/25/18 16:30 10/25/18 16:29 09/28/18 13:24 Morphine Sulfate (Morphine Sulfate) 1 mg Q3H PRN IVP Pain scale 1-3 09/25/18 16:30 10/02/18 16:29 Ondansetron HCl (Zofran) 4 mg Q6H PRN IVP Nausea & Vomiting 09/25/18 16:30 10/25/18 16:29 Pantoprazole (Protonix) 40 mg DAILY ORAL 09/25/18 09:00 10/25/18 08:59 09/29/18 08:50 Polyethylene Glycol (Miralax) 17 gm HSPRN PRN ORAL Constipation 09/24/18 13:00 10/24/18 12:59 Quetiapine Fumarate (SEROquel) 25 mg Q6H PRN ORAL For Anxiety 09/25/18 21:30 10/25/18 21:29 Sodium Chloride 1,000 ml @ 100 mls/hr Q10H IV 09/26/18 15:00 10/26/18 14:59 Temazepam (Restoril) 7.5 mg DAILY PRN ORAL Insomnia 09/25/18 16:30 10/02/18 16:29 Timolol Maleate (Timoptic 0.5% Op Soln) 1 drop BID BOTH EYES 09/24/18 18:00 10/24/18 17:59 09/29/18 08:51 Allergies: Coded Allergies: No Known Allergies (Verified , 04/05/09) ROS Limited/Unobtainable: No Constitutional: Reports: no symptoms HEENT: Reports: no symptoms Cardiovascular: Reports: no symptoms Respiratory: Reports: no symptoms Gastrointestinal/Abdominal: Reports: no symptoms Genitourinary: Reports: no symptoms Neurologic/Psychiatric: Reports: no symptoms Subjective 88 YO M admitted with right femur intertrochanteric fracture. S/P ORIF right hip fracture 09/25/18. Cover for Int [facility]-Dr Sanz. Await transfer to [facility] @ [place] acute rehab Objective Last Vital Signs Date Time Temp Pulse Resp B/P (MAP) Pulse Ox O2 Delivery O2 Flow Rate FiO2 09/29/18 12:00 98.3 70 19 134/57 (82) 98 09/29/18 08:16 Room Air 09/25/18 18:00 3 Laboratory Tests Test 09/29/18 12:50 White Blood Count 10.6 K/UL (4.8-10.8) Red Blood Count 2.66 M/UL (4.70-6.10) L Hemoglobin 8.3 G/DL (14.2-18.0) L Hematocrit 24.9 % (42.0-52.0) L Mean Corpuscular Volume 94 FL (80-99) Mean Corpuscular Hemoglobin 31.4 PG (27.0-31.0) H Mean Corpuscular Hemoglobin Concent 33.6 G/DL (32.0-36.0) Red Cell Distribution Width 12.2 % (11.6-14.8) Platelet Count 184 K/UL (150-450) # Mean Platelet Volume 9.4 FL (6.5-10.1) Neutrophils (%) (Auto) 78.1 % (45.0-75.0) H Lymphocytes (%) (Auto) 11.8 % (20.0-45.0) L Monocytes (%) (Auto) 8.5 % (1.0-10.0) Eosinophils (%) (Auto) 0.7 % (0.0-3.0) Basophils (%) (Auto) 1.0 % (0.0-2.0) Differential Total Cells Counted 100 Neutrophils % (Manual) 82 % (45-75) H Lymphocytes % (Manual) 11 % (20-45) L Monocytes % (Manual) 7 % (1-10) Eosinophils % (Manual) 0 % (0-3) Basophils % (Manual) 0 % (0-2) Band Neutrophils 0 % (0-8) Platelet Estimate Adequate Platelet Morphology Normal Poikilocytosis 1+ Ovalocytes 2+ Erythrocyte Sedimentation Rate 103 MM/HR (0-20) H Reticulocyte Count 7.5 % (0.0-2.0) H Prothrombin Time 12.1 SEC (9.30-11.50) H Prothromb Time International Ratio 1.2 (0.9-1.1) H Activated Partial Thromboplast Time 27 SEC (23-33) Sodium Level 134 MMOL/L (136-145) L Potassium Level 3.9 MMOL/L (3.5-5.1) Chloride Level 102 MMOL/L (98-107) Carbon Dioxide Level 27 MMOL/L (21-32) Anion Gap 5 mmol/L (5-15) Blood Urea Nitrogen 25 mg/dL (7-18) H Creatinine 1.0 MG/DL (0.55-1.30) Estimat Glomerular Filtration Rate mL/min (>60) Glucose Level 217 MG/DL (74-106) H Calcium Level 8.5 MG/DL (8.5-10.1) Iron Level 43 ug/dL (50-175) L Total Iron Binding Capacity 187 ug/dL (250-450) L Percent Iron Saturation 23 % (15-50) Unsaturated Iron Binding 144 ug/dL (112-346) Lactate Dehydrogenase 349 U/L (81-234) H Carcinoembryonic Antigen Pending Vitamin B12 Level 759 PG/ML (193-986) Folate 12.0 NG/ML (8.6-58.9) Intake and Output 09/28/18 09/29/18 19:00 07:00 Intake Total 300 ml 360 ml Balance 300 ml 360 ml Intake Oral 360 ml Other 300 ml # Voids 3 4 # Bowel Movements 2 3 Objective General Appearance: WD/WN, no apparent distress, alert EENT: PERRL/EOMI, normal ENT inspection Neck: non-tender, normal alignment, supple, normal inspection Cardiovascular: normal peripheral pulses, normal rate, regular rhythm, no gallop/murmur, no JVD Respiratory/Chest: chest wall non-tender, lungs clear, normal breath sounds, no respiratory distress, no accessory muscle use Abdomen: normal bowel sounds, non tender, soft, no organomegaly, no mass Extremities: normal inspection 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 (2) HTN (hypertension) Assessment & Plan: Continue lisinopril when tolerating PO (3) Femur neck fracture Assessment & Plan: Right intertrochanteric. S/P ORIF 09/25/18-See surgery note Assessment/Plan Discharge to [facility] @ [place] Acute rehab today Jw Mills MD Sep 29, 2018 17:00
--- NOTE | 2018-09-29 17:14 | General Progress Note ---
Assessment/Plan Assessment/Plan (1) Right hip pain (2) Right hip fracture (3) S/p fall and ORIF Patient to be continued on [place] and Morphine. D/w Dr. Sun and he concurred. Subjective Date patient seen: Sep 29, 2018 Time patient seen: 04:15 - pm Allergies: Coded Allergies: No Known Allergies (Verified , 04/05/09) Subjective REVIEW OF SYSTEMS: Denies rash, fever, chills, sweating, dizziness, drowsiness, blurred vision, sore throat, or change in weight. No shortness of breath or chest pain. No nausea, vomiting, diarrhea, or blood in the stool or urine. No bowel or bladder incontinence. No dysuria. He is complaining of right hip pain. SUBJECTIVE: Patient is in bed no signs of pain or distress. Objective Last 24 Hour Vital Signs Date Time Temp Pulse Resp B/P (MAP) Pulse Ox O2 Delivery O2 Flow Rate FiO2 09/29/18 12:00 98.3 70 19 134/57 (82) 98 09/29/18 08:51 163/70 09/29/18 08:51 70 163/70 09/29/18 08:16 Room Air 09/29/18 08:00 98.0 70 18 163/101 (121) 09/29/18 04:00 98.1 76 19 140/61 (87) 09/29/18 00:00 98.2 77 19 126/78 (94) 96 09/28/18 21:26 Room Air 09/28/18 20:57 72 133/84 09/28/18 20:14 98.3 72 20 133/84 (100) 96 Intake and Output 09/28/18 09/29/18 19:00 07:00 Intake Total 300 ml 360 ml Balance 300 ml 360 ml Intake Oral 360 ml Other 300 ml # Voids 3 4 # Bowel Movements 2 3 Laboratory Tests 09/29/18 12:50: White Blood Count 10.6, Red Blood Count 2.66L, Hemoglobin 8.3L, Hematocrit 24.9L , Mean Corpuscular Volume 94, Mean Corpuscular Hemoglobin 31.4H, Mean Corpuscular Hemoglobin Concent 33.6, Red Cell Distribution Width 12.2, Platelet Count 184#, Mean Platelet Volume 9.4, Neutrophils (%) (Auto) 78.1H, Lymphocytes (%) (Auto) 11.8L, Monocytes (%) (Auto) 8.5, Eosinophils (%) (Auto) 0.7, Basophils (%) (Auto) 1.0, Differential Total Cells Counted 100, Neutrophils % ( Manual) 82H, Lymphocytes % (Manual) 11L, Monocytes % (Manual) 7, Eosinophils % ( Manual) 0, Basophils % (Manual) 0, Band Neutrophils 0, Platelet Estimate Adequate, Platelet Morphology Normal, Poikilocytosis 1+, Ovalocytes 2+, Erythrocyte Sedimentation Rate 103H, Reticulocyte Count 7.5H, Prothrombin Time 12.1H, Prothromb Time International Ratio 1.2H, Activated Partial Thromboplast Time 27, Sodium Level 134L, Potassium Level 3.9, Chloride Level 102, Carbon Dioxide Level 27, Anion Gap 5, Blood Urea Nitrogen 25H, Creatinine 1.0, Estimat Glomerular Filtration Rate , Glucose Level 217H, Calcium Level 8.5, Iron Level 43L, Total Iron Binding Capacity 187L, Percent Iron Saturation 23, Unsaturated Iron Binding 144, Lactate Dehydrogenase 349H, Carcinoembryonic Antigen [Pending] , Vitamin B12 Level 759, Folate 12.0 Height (Feet): 5 Height (Inches): 9.00 Weight (Pounds): 167 Objective GENERAL: Alert, awake, and oriented x3. LUNGS: Decreased breath sounds bilaterally. HEART: S1 and S2, regular. ABDOMEN: Soft, nontender. EXTREMITIES: No cyanosis. No clubbing. Bandages applied to right hip. NEURO: No changes. Vijay Shirley Sep 29, 2018 17:14
--- NOTE | 2018-09-29 23:49 | General Progress Note ---
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 Status: stable, progressing Assessment/Plan seroquel prn dc at dc vanessaien Subjective Neurologic/Psychiatric: Reports: anxiety, depressed, emotional problems Allergies: Coded Allergies: No Known Allergies (Verified , 04/05/09) Objective Last 24 Hour Vital Signs Date Time Temp Pulse Resp B/P (MAP) Pulse Ox O2 Delivery O2 Flow Rate FiO2 09/29/18 16:00 97.9 63 18 126/58 (80) 98 09/29/18 12:00 98.3 70 19 134/57 (82) 98 09/29/18 08:51 163/70 09/29/18 08:51 70 163/70 09/29/18 08:16 Room Air 09/29/18 08:00 98.0 70 18 163/101 (121) 09/29/18 04:00 98.1 76 19 140/61 (87) 09/29/18 00:00 98.2 77 19 126/78 (94) 96 Intake and Output 09/28/18 09/29/18 19:00 07:00 Intake Total 300 ml 360 ml Balance 300 ml 360 ml Intake Oral 360 ml Other 300 ml # Voids 3 4 # Bowel Movements 2 3 Laboratory Tests 09/29/18 12:50: White Blood Count 10.6, Red Blood Count 2.66L, Hemoglobin 8.3L, Hematocrit 24.9L , Mean Corpuscular Volume 94, Mean Corpuscular Hemoglobin 31.4H, Mean Corpuscular Hemoglobin Concent 33.6, Red Cell Distribution Width 12.2, Platelet Count 184#, Mean Platelet Volume 9.4, Neutrophils (%) (Auto) 78.1H, Lymphocytes (%) (Auto) 11.8L, Monocytes (%) (Auto) 8.5, Eosinophils (%) (Auto) 0.7, Basophils (%) (Auto) 1.0, Differential Total Cells Counted 100, Neutrophils % ( Manual) 82H, Lymphocytes % (Manual) 11L, Monocytes % (Manual) 7, Eosinophils % ( Manual) 0, Basophils % (Manual) 0, Band Neutrophils 0, Platelet Estimate Adequate, Platelet Morphology Normal, Poikilocytosis 1+, Ovalocytes 2+, Erythrocyte Sedimentation Rate 103H, Reticulocyte Count 7.5H, Prothrombin Time 12.1H, Prothromb Time International Ratio 1.2H, Activated Partial Thromboplast Time 27, Sodium Level 134L, Potassium Level 3.9, Chloride Level 102, Carbon Dioxide Level 27, Anion Gap 5, Blood Urea Nitrogen 25H, Creatinine 1.0, Estimat Glomerular Filtration Rate , Glucose Level 217H, Calcium Level 8.5, Iron Level 43L, Total Iron Binding Capacity 187L, Percent Iron Saturation 23, Unsaturated Iron Binding 144, Lactate Dehydrogenase 349H, Carcinoembryonic Antigen [Pending] , Vitamin B12 Level 759, Folate 12.0 Height (Feet): 5 Height (Inches): 9.00 Weight (Pounds): 167 General Appearance: no apparent distress, alert, agitated Ángel Clemons MD Sep 29, 2018 23:49
--- NOTE | 2018-10-01 16:31 | Diagnostic Imaging Report ---
INDICATION: Pain, intraoperative TECHNIQUE: Intraoperative imaging Fluoroscopy time: 32 seconds Total dose: 4.7 mGy Total number of images: 4 COMPARISON: Pelvic radiograph 09/24/2018 FINDINGS: Intraoperative images document surgical repair of previously demonstrated right hip intertrochanteric fracture with medullary kevon and compression screw. IMPRESSION: Intraoperative imaging, as described
--- NOTE | 2018-10-01 20:16 | Cardiology Report ---
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
--- NOTE | 2018-10-02 11:59 | Discharge Summary ---
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 Patient reported pain in the right hip area. Upon evaluation in the emergency department x-ray of the pelvis revealed right hip intertrochanteric fracture. Patient was admitted for further management. CONSULTANTS: pulmonary Dr. Dennis orthopedic surgery Dr. Arrington pain specialist Dr. Sun psychiatrist [facility] COURSE: Patient admitted to medical surgical floor. Orthopedic surgery and pain specialist consults were requested Patient subsequently on 09/24 undergone open reduction internal fixation of right intertrochanteric fracture with intramedullary device. Course of recovery was uneventful. Pain management was provided as per pain specialist recommendations. DVT prophylaxis provided. Hip surgery precautions instituted. Incentive spirometry was encouraged while patient was in the bed. Supplemental oxygen provided as needed and titrated to keep pulse oximetry above 90%. Fall precautions were maintained. Patient was working with physical and occupational therapists. Patient noted to be anemic with hemoglobin 7.8 hematocrit 23.2. The next day hemoglobin up to 8.1 and hematocrit 23.6. No transfusion was necessary . Prior to discharge hemoglobin 8.3 hematocrit 24.9. Anemia workup revealed anemia of chronic disease . CEA was within normal limits. Incision was clean ,dry and intact ; clearly not a source of bleeding. Stool for occult blood not collected, to be done at the facility. Patient noted to have low folate level and started on folic acid supplement. Blood pressure was managed with CANDICE inhibitor and beta-bhumika. Blood sugar was managed with metformin and sliding scale of sensitive insulin. Bowel regimen instituted . Supportive care provided. Psychiatrist seen and evaluated patient. Per psychiatrist ,patient had encephalopathy due to metabolic disorder. Psychiatric medication regimen optimized as per psychiatrist recommendation . Patient clinically stabilized and was ready for discharge to [facility] facility for continuation of care. 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 DISCHARGE INSTRUCTIONS: Patient was discharged to the [facility] facility. Follow up with medical doctor at the facility. Linda Wing NP Oct 02, 2018 11:59
== END 2018-09-29 18:22 | disposition short-term general hospital (02) | DRG 480 ==
LOC: EDBD 10:24 → EMR 11:42 → 3E 11:50 → EDBEDREQ 13:19 → 3E 09-26 10:14
PROC: 0QS606Z Reposition Right Upper Femur with Intramedullary Internal Fixation Device, Open Approach (ICD-10-PCS; principal; 2018-09-24)
DX: S72.141A Displaced intertrochanteric fracture of right femur, initial encounter for closed fracture (principal); G93.41 Metabolic encephalopathy; I10 Essential (primary) hypertension; W01.0XXA Fall on same level from slipping, tripping and stumbling without subsequent striking against object, initial encounter; Y92.008 Other place in unspecified non-institutional (private) residence as the place of occurrence of the external cause; H54.8 Legal blindness, as defined in USA; H40.9 Unspecified glaucoma; Z79.84 Long term (current) use of oral hypoglycemic drugs; Z79.82 Long term (current) use of aspirin; E11.9 Type 2 diabetes mellitus without complications; K21.9 Gastro-esophageal reflux disease without esophagitis; D64.9 Anemia, unspecified
CPT/HCPCS: 36415; 71045; 72170; 76001; 80048; 80053; 82248; 82378; 82550; 82553; 82607; 82728; 82746; 82962; 83540; 83550; 83615; 84443; 84484; 85007; 85025; 85044; 85060; 85610; 85651; 85730; 86850; 86900; 86901; 86920; 93005; 94003; 94150; 96374; 96375; 99285; J1815; J2250; J2405

== ENCOUNTER 2020-07-26 05:00 | Inpatient (IN) | payer MEDICAID, MEDICARE ==
[~2020-07-26] VITALS: Ht 172.7 cm; Wt 68.8 kg
--- NOTE | 2020-07-26 05:00 | NUR ---
ED Nurse Note: brought in by leland lofton 83Jenelle from [facility] c/o vomitting onset today x2 with no blood. changed into gown; attached to monitor. patient ao2 with no acute distress. vitals stable. ekg done at bedside; NSR. abdomen noted to be round firm and distended. all safety measures met.
--- NOTE | 2020-07-26 05:12 | Emergency Room Report ---
History of Present Illness General Chief Complaint: Vomiting Present Illness HPI 89-year-old male with history of diabetes, hypertension, GERD, ACS, no relevant past surgical history, here with abdominal distention. Patient has history of COPD and is chronically on 2 L nasal cannula. Patient has dementia and is a poor historian but says he believes that the abdominal distention has been ongoing for 2 days. He vomited earlier tonight nonbilious nonbloody. He is passing gas but is unable to recall when his last bowel movement was. No fevers, chills, chest pain, palpitations, shortness of breath, back pain, diarrhea, dysuria. Allergies: Coded Allergies: No Known Allergies (Verified , 04/05/09) COVID-19 Screening Contact w/high risk pt: No Experienced COVID-19 symptoms?: No COVID-19 Testing performed ENERGY EFFICIENCY ENGINEER: No Nursing Documentation-PMH Hx Cardiac Problems: Yes - hypertension Hx Hypertension: Yes Hx Pacemaker: No Hx Asthma: No Hx COPD: No Hx Diabetes: No Hx Cancer: No Hx Gastrointestinal Problems: No Hx Dialysis: No Hx Neurological Problems: No Hx Cerebrovascular Accident: No Hx Seizures: No Review of Systems All Other Systems: negative except mentioned in HPI Physical Exam Vital Signs Date Time Temp Pulse Resp B/P (MAP) Pulse Ox O2 Delivery O2 Flow Rate FiO2 07/26/20 04:53 98.4 80 18 134/72 (92) 100 Nasal Cannula 2.0 Sp02 EP Interpretation: reviewed, normal General Appearance: no apparent distress, alert, non-toxic Head: normocephalic, atraumatic Eyes: bilateral eye normal inspection, bilateral eye PERRL ENT: hearing grossly normal, normal pharynx, no angioedema, normal voice Neck: full range of motion, supple/symm/no masses Respiratory: chest non-tender, lungs clear, normal breath sounds, speaking full sentences Cardiovascular #1: regular rate, rhythm, other - 3+ pitting edema of the bilateral lower extremities below the knees Cardiovascular #2: 2+ carotid (R), 2+ carotid (L), 2+ radial (R), 2+ radial (L), 2+ dorsalis pedis (R), 2+ dorsalis pedis (L) Gastrointestinal: normal bowel sounds, soft, no guarding, no rebound, other - Prominent diffuse abdominal distention, hypertympanic. No focal tenderness on palpation. No rebound or guarding Rectal: deferred Genitourinary: normal inspection, no CVA tenderness Musculoskeletal: back normal, normal range of motion, calf tenderness, gait/station normal, non-tender Neurologic: alert, motor strength/tone normal, oriented x3, sensory intact, responsive, speech normal Psychiatric: judgement/insight normal, memory normal, mood/affect normal, no suicidal/homicidal ideation Reflexes: 3+ bicep (R), 3+ bicep (L), 3+ tricep (R), 3+ tricep (L), 3+ knee (R), 3+ knee (L) Lymphatic: no adenopathy Medical Decision Making ER Course EKG: NSR, no ischemia, intervals WNL. No ectopy. Right bundle branch block, left anterior fascicular block Rhythm strip: patient monitored for arrhythmias - no malignant dysrhythmias, runs of PVCs, nor pauses noted NG tube inserted. 200 cc of bloody contents drained Total critical care time: Approximately 45 minutes Due to a high probability of clinically significant, life threatening deterioration, the patient required the highest level of preparedness to intervene emergently and I personally spent this critical care time directly and personally managing the patient. This critical care time included obtaining a history, examining the patient, pulse oximetry, ordering and reviewing studies, ordering treatments, evaluating response to treatment and updating management plan as needed, frequent reassessment and discussion with other providers as well as arranging for ultimate disposition. This critical to care time was performed to assess and manage the high probability of life-threatening deterioration that could result in multiorgan failure. This critical care time is separate from the separately billable procedures and treating other patients. 89-year-old male here with abdominal pain and abdominal distention and vomiting. Patient had a severe abdominal distention suspicious of possible bowel obstruction. NG tube was placed in 200 cc of bloody output was drained. Type and screen sent. Patient at this time is hemodynamically stable. 80 mg of Protonix IV was ordered. Chest x-ray shows diffuse pulmonary infiltrates. COVID test pending at this time. Patient given vancomycin and Zosyn for treatment of pneumonia. Given 10 mg of Decadron IV for treatment of possible covid-19 infection. The patient will not be given Lovenox due to the GI bleed. Currently awaiting lab results and CT abdomen/pelvis. Signed out to oncoming physician. Laboratory Tests Test 07/26/20 05:15 White Blood Count 7.4 K/UL (4.8-10.8) Red Blood Count 3.41 M/UL (4.70-6.10) L Hemoglobin 10.8 G/DL (14.2-18.0) L Hematocrit 33.1 % (42.0-52.0) L Mean Corpuscular Volume 97 FL (80-99) Mean Corpuscular Hemoglobin 31.6 PG (27.0-31.0) H Mean Corpuscular Hemoglobin Concent 32.6 G/DL (32.0-36.0) Red Cell Distribution Width 14.8 % (11.6-14.8) Platelet Count 177 K/UL (150-450) Mean Platelet Volume 5.4 FL (6.5-10.1) L Neutrophils (%) (Auto) 78.9 % (45.0-75.0) H Lymphocytes (%) (Auto) 11.4 % (20.0-45.0) L Monocytes (%) (Auto) 7.5 % (1.0-10.0) Eosinophils (%) (Auto) 0.1 % (0.0-3.0) Basophils (%) (Auto) 2.1 % (0.0-2.0) H D-Dimer Pending Urine Color Brown Urine Appearance Clear Urine pH 5 (4.5-8.0) Urine Specific [place] 1.025 (1.005-1.035) Urine Protein 2+ (NEGATIVE) H Urine Glucose (UA) 1+ (NEGATIVE) H Urine Ketones 2+ (NEGATIVE) H Urine Blood 4+ (NEGATIVE) H Urine Nitrite Positive (NEGATIVE) H Urine Bilirubin 1+ (NEGATIVE) H Urine Ictotest Negative (NEGATIVE) Urine Urobilinogen 4 MG/DL (0.0-1.0) H Urine Leukocyte Esterase 2+ (NEGATIVE) H Urine RBC 2-4 /HPF (0 - 0) H Urine WBC 5-10 /HPF (0 - 0) H Urine Squamous Epithelial Cells Occasional /LPF Urine Bacteria Few /HPF (NONE) Sodium Level 140 MMOL/L (136-145) Potassium Level 5.0 MMOL/L (3.5-5.1) Chloride Level 105 MMOL/L (98-107) Carbon Dioxide Level 24 MMOL/L (21-32) Anion Gap 11 mmol/L (5-15) Blood Urea Nitrogen 33 mg/dL (7-18) H Creatinine 1.0 MG/DL (0.55-1.30) Estimated Glomerular Filtration Rate > 60 mL/min (>60) Glucose Level 159 MG/DL (74-106) H Lactic Acid Level Pending Calcium Level 9.1 MG/DL (8.5-10.1) Ferritin Pending Total Bilirubin Pending Aspartate Amino Transferase (AST) Pending Alanine Aminotransferase (ALT) Pending Alkaline Phosphatase Pending Lactate Dehydrogenase Pending Troponin I Pending C-Reactive Protein, Quantitative Pending Total Protein Pending Albumin Pending Globulin Pending Lipase Pending Microbiology Date/Time Source Procedure Growth Status 07/26/20 05:15 Nasopharynx SARS-CoV-2 RdRp Gene Assay - Final Complete Last Vital Signs Date Time Temp Pulse Resp B/P (MAP) Pulse Ox O2 Delivery O2 Flow Rate FiO2 07/26/20 04:53 98.4 80 18 134/72 (92) 100 Nasal Cannula 2.0 Marques Vazquez M.D. Jul 26, 2020 05:12
[2020-07-26 05:15] VITALS: BP 134/72
[2020-07-26] MEDS ORDERED: Omnipaque-300 100ml vial INJ PRN (05:15)
--- NOTE | 2020-07-26 05:15 | NUR ---
ED Nurse Note: angel inserted per ermd; dark urine output noted. ngt inserted on right nare; 65 cm; attached to intermittent suction; dark brown output noted. iv access established. blood, initial lactic, blood cultures, covid mrsa cre vre swab collected; sent down to lab.
[2020-07-26] MEDS ORDERED: CALCIUM CARBON500 M1 PO (05:26)
[2020-07-26] MEDS ORDERED: OCUFLOX5 ML BOTH EYES (05:26)
[2020-07-26] MEDS ORDERED: BENGAY GREASELE57 GM TP (05:26)
[2020-07-26] MEDS ORDERED: BRIMONIDINE TART5 ML BOTH EYES (05:26)
[2020-07-26] MEDS ORDERED: ZOFRAN4 M3 ORAL (05:26)
[2020-07-26] MEDS ORDERED: BETIMOL5 M2 OP (05:26)
[2020-07-26 05:49] LABS: APPEARANCE,URINE CLEAR; BILIRUBIN, URINE 1+ (NEGATIVE); COLOR,URINE BROWN; GLUCOSE, URINE (UA) 1+ (NEGATIVE); KETONES,URINE 2+ (NEGATIVE); LEUKOCYTE ESTERASE ,URINE 2+ (NEGATIVE); NITRITE,URINE POSITIVE (NEGATIVE); PH,URINE 5 (4.5-8.0); PROTEIN,URINE 2+ (NEGATIVE); UROBILINOGEN,URINE 4 MG/DL (0.0-1.0)
[2020-07-26 05:52] LABS: BASOPHILS % (AUTO) 2.1 % (0.0-2.0); EOSINOPHILS % (AUTO) 0.1 % (0.0-3.0); HEMATOCRIT 33.1 % (42.0-52.0); HEMOGLOBIN 10.8 G/DL (14.2-18.0); LYMPHOCYTES % (AUTO) 11.4 % (20.0-45.0); MEAN CORPUSCULAR VOLUME 97 FL (80-99); MONOCYTES % (AUTO) 7.5 % (1.0-10.0); NEUTROPHILS % (AUTO) 78.9 % (45.0-75.0); PLATELET COUNT 177 K/UL (150-450); RED BLOOD COUNT 3.41 M/UL (4.70-6.10); RED CELL DISTRIBUTION WIDTH 14.8 % (11.6-14.8); WHITE BLOOD COUNT 7.4 K/UL (4.8-10.8)
[2020-07-26] MEDS ORDERED: dexAMETHasone 10mg/ml Inj IV ONE (06:00)
[2020-07-26] MEDS ORDERED: Piperacillin/Tazobactam 3.375 GM in NS 110 ML IV ONE (06:00)
[2020-07-26] MEDS ORDERED: Pantoprazole Inj IVP ONE (06:00)
[2020-07-26] MEDS ORDERED: Vancomycin 1 GM in NS 275 ML IVPB ONE (06:00)
--- NOTE | 2020-07-26 06:00 | NUR ---
ED Nurse Note: 200 ml of coffee ground emesis collected for NGT.
[2020-07-26 06:06] LABS: ANION GAP 11 mmol/L (5-15); BLOOD UREA NITROGEN 33 mg/dL (7-18); CALCIUM 9.1 MG/DL (8.5-10.1); CARBON DIOXIDE 24 MMOL/L (21-32); CHLORIDE 105 MMOL/L (98-107); SODIUM 140 MMOL/L (136-145)
[2020-07-26 06:24] LABS: ALANINE AMINOTRANSFERASE 19 U/L (12-78); ALBUMIN 2.3 G/DL (3.4-5.0); ALBUMIN/GLOBULIN RATIO 0.4 (1.0-2.7); ALKALINE PHOSPHATASE 64 U/L (46-116); ASPARTATE AMINO TRANSFERASE 84 U/L (15-37); BILIRUBIN,TOTAL 2.7 MG/DL (0.2-1.0)
--- NOTE | 2020-07-26 06:28 | NUR ---
ED Nurse Note: patient down to imaging via gurney with radiology interventional physician.
[2020-07-26 06:39] LABS: BILIRUBIN,DIRECT 0.4 MG/DL (0.0-0.3)
--- NOTE | 2020-07-26 06:58 | NUR ---
ED Nurse Note: pt back from imaging via gurney with plant facilities technician. reattached to monitor. patient presents with no acute distress. lactic reflex drawn; sent down to lab.
--- NOTE | 2020-07-26 07:00 | NUR ---
HAND-OFF: Report given to jillian hayden. endorsed pending admission.
--- NOTE | 2020-07-26 07:02 | NUR ---
ED Nurse Note: Recieved report from Miguel Lowery RN. Patient resting in the bed, VSS at this time, patien aware of admission.
[2020-07-26 07:04] VITALS: BP 158/76
--- NOTE | 2020-07-26 07:07 | Diagnostic Imaging Report ---
EXAM: CT Abdomen and Pelvis With Intravenous Contrast CLINICAL HISTORY: PAIN TECHNIQUE: Axial computed tomography images of the abdomen and pelvis with intravenous contrast. CTDI is 10.80 mGy and DLP is 563.30 mGy-cm. One or more of the following dose reduction techniques were used: automated exposure control, adjustment of the mA and/or kV according to patient size, use of iterative reconstruction technique. COMPARISON: No relevant prior studies available. FINDINGS: Lung bases: See below. Pleural space: Small bilateral pleural effusions with mild bibasilar atelectasis. Mediastinum: Mild sliding type hiatal hernia. ABDOMEN: Liver: There is advanced cirrhosis with a markedly shrunken and nodular liver. 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 Gallbladder and bile ducts: Cholelithiasis without cholecystitis. No ductal dilation. Pancreas: Unremarkable. No mass. No ductal dilation. Spleen: Unremarkable. No splenomegaly. Adrenals: Unremarkable. No mass. Kidneys and ureters: Unremarkable. No solid mass. No hydronephrosis. Stomach and bowel: Unremarkable. No obstruction. No mucosal thickening. PELVIS: Appendix: No findings to suggest acute appendicitis. Bladder: Kwan catheter in decompressed bladder. Reproductive: Unremarkable as visualized. ABDOMEN and PELVIS: Intraperitoneal space: There is severe large volume abdominal and pelvic ascites. No free air. Bones/joints: No acute fracture. No dislocation. Soft tissues: There is a left inguinal hernia containing a portion of the anterior left bladder which contains gas from recent Kwan catheter placement. Vasculature: See above. Lymph nodes: Unremarkable. No enlarged lymph nodes. Tubes, lines and devices: There is an NG tube in good position with its tip in the mid stomach. IMPRESSION: Advanced cirrhosis with severe large volume abdominal and pelvic ascites.
[2020-07-26 08:25] VITALS: BP 124/85
--- NOTE | 2020-07-26 08:25 | NUR ---
ED Nurse Note: Patient was admited to TELE due to upper GI bleed. Patient was transfered to the unit via gurney, by ACLS protocol, with all belongings. Patient AAO x3, VSS at this time, skin is intact warm to touch. Patient was transfered with angel catheter 16F, and NG tube in the right nares.
--- NOTE | 2020-07-26 08:26 | NUR ---
NURSE NOTES: Patient transferred from ED via [place], A/O x3, Able to make needs known, denies pain at this time. ice cream dipper placed, changed to hospital gown. oriented to room, TV, and restroom. Updated communication board. Patient stated a little uncomfortable from NG tube. On room air, no acute distress/SOB noted at this time. Kwan intact and draining well to gravity, urine is dark dylan color. IV site patent and intact. Belonging check done with transferring nurse. Skin assessment done, Skin is intact. Bed in low position and locked, Call light within reach, Encouraged to use call light when needed. Will contact primary MD for admission order.
--- NOTE | 2020-07-26 08:57 | Emergency Room Report ---
History of Present Illness General Chief Complaint: Vomiting Present Illness Allergies: Coded Allergies: No Known Allergies (Verified , 04/05/09) COVID-19 Screening Contact w/high risk pt: No Experienced COVID-19 symptoms?: No COVID-19 Testing performed APPEALS RN: No Nursing Documentation-PMH Hx Cardiac Problems: Yes - LEGALLY BLIND, Hx Hypertension: Yes Hx Pacemaker: No Hx Asthma: No Hx COPD: No Hx Diabetes: Yes - GLAUCOMA Hx Cancer: No Hx Gastrointestinal Problems: No - bph, OSTEOARTHRITIS, GERD, Hx Dialysis: No History Of Psychiatric Problem: Yes - ANXIETY, Hx Neurological Problems: No Hx Cerebrovascular Accident: No Hx Seizures: No Physical Exam Vital Signs Date Time Temp Pulse Resp B/P (MAP) Pulse Ox O2 Delivery O2 Flow Rate FiO2 07/26/20 04:53 98.4 80 18 134/72 (92) 100 Nasal Cannula 2.0 Medical Decision Making Diagnostic Impression: Primary Impression: UGIB (upper gastrointestinal bleed) Additional Impression: Pneumonia Qualified Codes: J18.9 - Pneumonia, unspecified organism ER Course Hospital Course 89-year-old male presents with coffee-ground emesis Clinical course Patient initially seen and evaluated by Dr. Vazquez; please see his note for full history and physical Labs - no leukocytosis, Hb/Hct stable. BUN elevated. lactic 2.7 Chest x-ray shows bilateral infiltrates Abdomen distended. CT ordered which shows cirrhosis with ascites NG tube placed Antibiotics given. COVID swab negative Case discussed with Dr. Nichole and he agreed to accept the patient to his service for further care and support I feel this is a highly complex case requiring extensive working including EKG/Rhythm strip, Xray/CT/US, Blood/urine lab work, repeat exams while in ED, and administration of strong opiates/narcotics for pain control, admission to hospital or close patient follow up. Diagnosis - UGIB, pneumonia Patient admitted to telemetry in serious condition Laboratory Tests Test 07/26/20 05:15 07/26/20 06:30 White Blood Count 7.4 K/UL (4.8-10.8) Red Blood Count 3.41 M/UL (4.70-6.10) L Hemoglobin 10.8 G/DL (14.2-18.0) L Hematocrit 33.1 % (42.0-52.0) L Mean Corpuscular Volume 97 FL (80-99) Mean Corpuscular Hemoglobin 31.6 PG (27.0-31.0) H Mean Corpuscular Hemoglobin Concent 32.6 G/DL (32.0-36.0) Red Cell Distribution Width 14.8 % (11.6-14.8) Platelet Count 177 K/UL (150-450) Mean Platelet Volume 5.4 FL (6.5-10.1) L Neutrophils (%) (Auto) 78.9 % (45.0-75.0) H Lymphocytes (%) (Auto) 11.4 % (20.0-45.0) L Monocytes (%) (Auto) 7.5 % (1.0-10.0) Eosinophils (%) (Auto) 0.1 % (0.0-3.0) Basophils (%) (Auto) 2.1 % (0.0-2.0) H D-Dimer 12.78 mg/L FEU (0.00-0.49) H Urine Color Brown Urine Appearance Clear Urine pH 5 (4.5-8.0) Urine Specific [place] 1.025 (1.005-1.035) Urine Protein 2+ (NEGATIVE) H Urine Glucose (UA) 1+ (NEGATIVE) H Urine Ketones 2+ (NEGATIVE) H Urine Blood 4+ (NEGATIVE) H Urine Nitrite Positive (NEGATIVE) H Urine Bilirubin 1+ (NEGATIVE) H Urine Ictotest Negative (NEGATIVE) Urine Urobilinogen 4 MG/DL (0.0-1.0) H Urine Leukocyte Esterase 2+ (NEGATIVE) H Urine RBC 2-4 /HPF (0 - 0) H Urine WBC 5-10 /HPF (0 - 0) H Urine Squamous Epithelial Cells Occasional /LPF Urine Bacteria Few /HPF (NONE) Sodium Level 140 MMOL/L (136-145) Potassium Level 5.0 MMOL/L (3.5-5.1) Chloride Level 105 MMOL/L (98-107) Carbon Dioxide Level 24 MMOL/L (21-32) Anion Gap 11 mmol/L (5-15) Blood Urea Nitrogen 33 mg/dL (7-18) H Creatinine 1.0 MG/DL (0.55-1.30) Estimat Glomerular Filtration Rate > 60 mL/min (>60) Glucose Level 159 MG/DL (74-106) H Lactic Acid Level 2.70 mmol/L (0.4-2.0) H 2.70 mmol/L (0.66-2.22) H Calcium Level 9.1 MG/DL (8.5-10.1) Ferritin 520 NG/ML (8-388) H Total Bilirubin 2.7 MG/DL (0.2-1.0) H Direct Bilirubin 0.4 MG/DL (0.0-0.3) H Aspartate Amino Transf (AST/SGOT) 84 U/L (15-37) H Alanine Aminotransferase (ALT/SGPT) 19 U/L (12-78) Alkaline Phosphatase 64 U/L (46-116) Lactate Dehydrogenase 747 U/L (81-234) H Troponin I 0.016 ng/mL (0.000-0.056) C-Reactive Protein, Quantitative 6.2 mg/dL (0.00-0.90) H Total Protein 8.0 G/DL (6.4-8.2) Albumin 2.3 G/DL (3.4-5.0) L Globulin 5.7 g/dL Albumin/Globulin Ratio 0.4 (1.0-2.7) L Lipase 67 U/L (73-393) L Chest X-Ray Diagnostic Results Chest X-Ray Diagnostic Results : Chest X-Ray Ordered: Yes # of Views/Limited/Complete: 1 View Indication: Other EP Interpretation: Yes Interpretation: no pneumothorax, other - bilateral infiltrates Impression: Other - pneumonia Electronically Signed by: Electronically signed by Leo Singer MD CT/MRI/US Diagnostic Results CT/MRI/US Diagnostic Results : Imaging Test Ordered: CT A/P Impression Procedure: CT Abdomen Pelvis w/Contrast EXAM: CT Abdomen and Pelvis With Intravenous Contrast CLINICAL HISTORY: PAIN TECHNIQUE: Axial computed tomography images of the abdomen and pelvis with intravenous contrast. CTDI is 10.80 mGy and DLP is 563.30 mGy-cm. One or more of the following dose reduction techniques were used: automated exposure control, adjustment of the mA and/or kV according to patient size, use of iterative reconstruction technique. COMPARISON: No relevant prior studies available. FINDINGS: Lung bases: See below. Pleural space: Small bilateral pleural effusions with mild bibasilar atelectasis. Mediastinum: Mild sliding type hiatal hernia. ABDOMEN: Liver: There is advanced cirrhosis with a markedly shrunken and nodular liver. 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 Gallbladder and bile ducts: Cholelithiasis without cholecystitis. No ductal dilation. Pancreas: Unremarkable. No mass. No ductal dilation. Spleen: Unremarkable. No splenomegaly. Adrenals: Unremarkable. No mass. Kidneys and ureters: Unremarkable. No solid mass. No hydronephrosis. Stomach and bowel: Unremarkable. No obstruction. No mucosal thickening. PELVIS: Appendix: No findings to suggest acute appendicitis. Bladder: Kwan catheter in decompressed bladder. Reproductive: Unremarkable as visualized. ABDOMEN and PELVIS: Intraperitoneal space: There is severe large volume abdominal and pelvic ascites. No free air. Bones/joints: No acute fracture. No dislocation. Soft tissues: There is a left inguinal hernia containing a portion of the anterior left bladder which contains gas from recent Kwan catheter placement. Vasculature: See above. Lymph nodes: Unremarkable. No enlarged lymph nodes. Tubes, lines and devices: There is an NG tube in good position with its tip in the mid stomach. IMPRESSION: Advanced cirrhosis with severe large volume abdominal and pelvic ascites. Last Vital Signs Date Time Temp Pulse Resp B/P (MAP) Pulse Ox O2 Delivery O2 Flow Rate FiO2 07/26/20 07:04 98.4 76 18 158/76 98 Room Air 2.0 Status: improved Disposition: ADMITTED INPATIENT Condition: Serious Referrals: NON PHYSICIAN (PCP) Leo Singer MD Jul 26, 2020 08:57
[2020-07-26 12:00] VITALS: BP 156/79
--- NOTE | 2020-07-26 14:27 | NUR ---
CASE MANAGEMENT:REVIEW 89 YR OLD MALE BIBA FROM [facility] CC: VOMITING SI: UGIB. PNA 98.5 80 18 134/72 100% ON 2L/NC H/H-10.8/33.1 BUN+33 LACTIC ACID+2.70 TBILI+2.7 DBILI+0.4 AST+84 IS: 1L NS BOLUS IV VANCOMYCIN IV DECADRON IV ZOSYN IV PROTONIX BLOOD CX CT ABD/PELVIS CHEST XRAY COVID SWAB NPO : TO TELEMETRY
--- NOTE | 2020-07-26 15:36 | Diagnostic Imaging Report ---
Indication: Shortness of breath Technique: One view of the chest Comparison: 09/24/2018 Findings: There is mild bilateral interstitial disease and hazy airspace opacities. There is suggestion of small bilateral pleural effusions. The heart is borderline enlarged. There is a nasogastric tube Impression: Bilateral mild interstitial and airspace edema versus infiltrates Suspect small bilateral pleural effusions Borderline cardiomegaly
[2020-07-26 16:00] VITALS: BP 133/73
--- NOTE | 2020-07-26 16:45 | History and Physical Report ---
DATE OF ADMISSION: 07/26/2020 CHIEF COMPLAINT: Hematemesis and vomiting. HISTORY OF PRESENT ILLNESS: This is an 89-year-old male from [facility], who is under the care of Dr. May Murdock. The patient was transferred via paramedics to this hospital emergency room due to hematemesis and vomiting. I am admitting the patient for Dr. May Murdock as she does not come to this hospital. The patient is confused and unable to give any further information. PAST MEDICAL HISTORY: 1. Liver cirrhosis, etiology unclear. 2. Blindness. 3. Diabetes mellitus. 4. Benign prostatic hypertrophy. 5. Hypertensive cardiovascular disease. 6. Osteoporosis. 7. Osteoarthritis. 8. Status post right hip fracture, status post hip fracture repair. 9. Gastroesophageal reflux. 10. Glaucoma. MEDICATIONS: Vitamin D3, sodium docusate, tube feeding Glucerna, milk of magnesia, multivitamins, timolol eyedrops, Zofran pr.n., Maalox p.r.n., baby aspirin, atenolol, brimonidine eyedrops, Azopt eyedrops, calcium carbonate, lisinopril, metformin, Ocuflox eyedrops, Protonix, and Timoptic eyedrops, ALLERGIES: No known drug allergies. FAMILY HISTORY: Unable to obtain due to mental status. SOCIAL HISTORY: Unable to obtain due to mental status. REVIEW OF SYSTEMS: Unable to obtain due to mental status. PHYSICAL EXAMINATION: GENERAL: This is an elderly male, who is in no acute distress. VITAL SIGNS: Blood pressure 156/79, pulse 81 and regular, respirations 18, and temperature 98.1 degrees Fahrenheit oral. HEENT: He is blind. NECK: Supple. Trachea midline. There was no lymphadenopathy or thyromegaly. LUNGS: Clear to auscultation and percussion. HEART: Regular rate and rhythm without rubs, murmurs, or gallops. ABDOMEN: Soft and nontender. There is equivocal signs of ascites. Bowel sounds were active. EXTREMITIES: No clubbing, cyanosis, or edema. NEUROLOGICAL: He is alert, but confused. There were no gross focal findings. LABORATORY AND ANCILLARY DATA: CBC, hemoglobin 10.8, platelet count 177,000, otherwise within normal limits. Chemistry, sodium 140, potassium 5, BUN 33, creatinine 1, glucose 159. Lactic acid 2.7. Total bilirubin 2.7, AST 84, ALT 19, alkaline phosphatase 64, LDH 747, albumin 2.3. D-dimer 12.78. Urinalysis, 4+ of the hemoglobin in the urine, sediment shows 5-10 white blood cells and 2-[address] scan of the abdomen and pelvis with contrast shows advanced cirrhosis with severe large volume abdominal and pelvic ascites. ASSESSMENT: 1. Advanced ascites with liver cirrhosis, etiology unclear. 2. Blindness. 3. Diabetes mellitus. 4. Benign prostatic hypertrophy. 5. Hypertensive cardiovascular disease. 6. Osteoporosis. 7. Osteoarthritis. 8. Status post right hip fracture, status post hip fracture repair. 9. Gastroesophageal reflux. 10. Glaucoma. PLAN: 1. Slow IV fluid rehydration. 2. Keep NPO. 3. Rule out septicemia. 4. Hold snf medications. Rafaela Lima M.D. DR: Melanie JOB#: [id number] CC:
--- NOTE | 2020-07-26 19:10 | NUR ---
NURSE HAND-OFF REPORT: Important Events on Shift: NA Patient Status: Stable Diet: NPO Pending Orders: NA Pending Results/Labs:Morning labs Pending MD notification:NA Latest Vital Signs: Temperature 98.3 , Pulse 77 , B/P 133 /73 , Respiratory Rate 18 , O2 SAT 96 , Room Air, O2 Flow Rate 2.0 . Vital Sign Comment: Stable EKG Rhythm: Sinus Rhythm Rhythm change?: Johanne JUARES Notified?: Johanne Hodges MD Response: Latest Strauss Fall Score: 45 Fall Risk: High Risk Safety Measures: Call light Within Reach, Bed Alarm Zone 1, Side Rails Side Rails x2, Bed position Low and Locked. Fall Precautions: Yellow Socks Yellow Gown Door Sign Patient Fall Education Report given to Adriane/CYRUS.
--- NOTE | 2020-07-26 19:50 | NUR ---
NURSE NOTES: Received pt from CYRUS Seaman. Pt asleep but easily aroused. NG tube in place. Bed in lowest position. Call light within reach. Will continue to monitor.
[2020-07-26 20:00] VITALS: BP 159/79
[2020-07-26] MEDS: Heparin 5000 units/ml inj SUBQ SCH (21:34)
--- NOTE | 2020-07-26 21:38 | NUR ---
NURSE NOTES: Pt removed IV line and NG tube and is refusing vitals and medication. Emergency bilateral soft restraints placed on bilateral upper extremities. Will call Dr. Lima for order. Will continue to monitor.
--- NOTE | 2020-07-26 22:00 | NUR ---
NURSE NOTES: Called and left a message with Dr. Lima asking for restraints. Awaiting call back.
[2020-07-27] VITALS: BP 116/59
[2020-07-27 04:00] VITALS: BP 120/56
--- NOTE | 2020-07-27 07:00 | NUR ---
NURSE NOTES: NG tube placed in at 65 miah. Awaiting stat kub staff
--- NOTE | 2020-07-27 07:27 | NUR ---
NURSE HAND-OFF REPORT: Important Events on Shift: pt observed removing devices. Restraint order obtained. New IV site intact and wrapped Patient Status: stable Diet: npo Pending Orders: y Pending Results/Labs:y Pending notification:y Latest Vital Signs: Temperature 98.6 , Pulse 77 , B/P 120 /56 , Respiratory Rate 18 , O2 SAT 93 , Room Air, O2 Flow Rate 2.0 . Vital Sign Comment: stable EKG Rhythm: Sinus Rhythm Rhythm change?: N Notified?: Johanne Hodges MD Response: Latest Strauss Fall Score: 45 Fall Risk: High Risk Safety Measures: Call light Within Reach, Bed Alarm Zone 1, Side Rails Side Rails x2, Bed position Low and Locked. Fall Precautions: y Yellow Socks Yellow Gown Door Sign Patient Fall Education Report given to CYRUS Marin.
[2020-07-27 08:00] VITALS: BP 138/76
--- NOTE | 2020-07-27 08:16 | NUR ---
NURSE NOTES: Received report from Adriane Dinh RN. Patient sitting in semil-Ivy's position, sleeping, bed in lowest position, call light within reach, on room air, nasogastric tube in left nostril, NPO, IV patent in [id number], runngin 1/2 NS @60cc/hour, in no apparent distress.
[2020-07-27 09:02] LABS: HEMATOCRIT 25.6 % (42.0-52.0); HEMOGLOBIN 8.4 G/DL (14.2-18.0); LYMPHOCYTES % (AUTO) 11.4 % (20.0-45.0); MEAN CORPUSCULAR VOLUME 96 FL (80-99); MONOCYTES % (AUTO) 8.9 % (1.0-10.0); NEUTROPHILS % (AUTO) 78.6 % (45.0-75.0); PLATELET COUNT 153 K/UL (150-450); RED BLOOD COUNT 2.66 M/UL (4.70-6.10)
[2020-07-27] MEDS ORDERED: GLUCERNA1500 ML PO (09:04)
[2020-07-27] MEDS ORDERED: [UNRECOGNIZED DRUG - OTHER] PO (09:04)
[2020-07-27] MEDS ORDERED: ALUM PO (09:04)
[2020-07-27] MEDS ORDERED: MILK OF MA400 MG/51 ORAL (09:04)
[2020-07-27] MEDS ORDERED: MULTIVITAMINS1 EAC8 ORAL (09:04)
[2020-07-27] MEDS ORDERED: cholecalciferol PO (09:04)
[2020-07-27] MEDS: Pantoprazole Inj IVP SCH (09:12)
[2020-07-27] MEDS: Heparin 5000 units/ml inj SUBQ SCH ×2 (09:12→21:48)
[2020-07-27 09:30] LABS: ANION GAP 8 mmol/L (5-15); BLOOD UREA NITROGEN 40 mg/dL (7-18); CALCIUM 8.5 MG/DL (8.5-10.1); CARBON DIOXIDE 26 MMOL/L (21-32); CHLORIDE 109 MMOL/L (98-107); CHOLESTEROL 110 MG/DL (< 200); CREATININE 1.2 MG/DL (0.55-1.30); HDL CHOLESTEROL 30 MG/DL (40-60); POTASSIUM 3.8 MMOL/L (3.5-5.1); SODIUM 143 MMOL/L (136-145); TRIGLYCERIDES 64 MG/DL (30-150)
[2020-07-27 09:33] LABS: AMMONIA 34 umol/L (11-32)
--- NOTE | 2020-07-27 10:58 | Diagnostic Imaging Report ---
Indication: Post nasogastric tube placement Technique: Supine view of the abdomen Comparison: none Findings: There is a nasogastric tube in place, tip projected at the level of the gastric antrum. The bowel gas pattern is unremarkable Impression: Satisfactory nasogastric tube placement
[2020-07-27 12:00] VITALS: BP 141/65
--- NOTE | 2020-07-27 14:18 | NUR ---
NURSE NOTES: Paged Dr. Rafaela Lima to report temperature of 99.5 axillary
[2020-07-27 16:00] VITALS: BP 151/61
--- NOTE | 2020-07-27 16:27 | NUR ---
SKILL TRAINING PROGRAM COORDINATOR NOTE SW received a notification to screen any family welfare social work professor concern. SW met w/ pt to discuss any family welfare social work professor concerns. PT is from [facility]. PT presents as A&O 3-4x. Pt reports all his family members are that he does not have any family emergency contact. Emergency contact listed as his friend, Abi Ceballos [phone]. Pt does not share any family welfare social work professor concern at this time. SW to F/U as needed.
--- NOTE | 2020-07-27 17:05 | General Progress Note ---
Subjective Allergies: Coded Allergies: No Known Allergies (Verified , 04/05/09) Subjective Very confused Objective Last 24 Hour Vital Signs Date Time Temp Pulse Resp B/P (MAP) Pulse Ox O2 Delivery O2 Flow Rate FiO2 07/27/20 16:00 99.3 74 16 151/61 (91) 93 07/27/20 12:00 74 07/27/20 12:00 99.5 79 18 141/65 (90) 93 07/27/20 09:00 Room Air 07/27/20 08:00 73 07/27/20 08:00 97.1 77 18 138/76 (96) 98 07/27/20 04:00 77 07/27/20 04:00 Room Air 07/27/20 04:00 98.6 73 18 120/56 (77) 93 07/27/20 00:00 78 07/27/20 00:00 98.9 78 18 116/59 (78) 93 07/26/20 21:00 Room Air 07/26/20 20:00 81 07/26/20 20:00 105 159/79 (105) Intake and Output 07/26/20 07/27/20 19:00 07:00 Output Total 300 ml 200 ml Balance -300 ml -200 ml Output Urine Total 300 ml 200 ml # Bowel Movements 2 2 Laboratory Tests 07/27/20 08:25: White Blood Count 9.0, Red Blood Count 2.66L, Hemoglobin 8.4L, Hematocrit 25.6L, Mean Corpuscular Volume 96, Mean Corpuscular Hemoglobin 31.6H, Mean Corpuscular Hemoglobin Concent 32.8, Red Cell Distribution Width 15.0H, Platelet Count 153, Mean Platelet Volume 4.8L, Neutrophils (%) (Auto) 78.6H, Lymphocytes (%) (Auto) 11.4L, Monocytes (%) (Auto) 8.9, Eosinophils (%) (Auto) 0.0, Basophils (%) (Auto) 1.0, Sodium Level 143, Potassium Level 3.8, Chloride Level 109H, Carbon Dioxide Level 26, Anion Gap 8, Blood Urea Nitrogen 40H, Creatinine 1.2, Estimat Glomerular Filtration Rate > 60, Glucose Level 129H, Calcium Level 8.5, Magnesium Level 2.0, Ammonia 34H, Triglycerides Level 64, Cholesterol Level 110, LDL Cholesterol 69, HDL Cholesterol 30L, Cholesterol/HDL Ratio 3.7, Hepatitis A IgM Antibody [Pending], Hepatitis B Surface Antigen [Pending], Hepatitis B Core IgM Antibody [Pending], Hepatitis C Antibody [Pending] Height (Feet): 5 Height (Inches): 10.00 Weight (Pounds): 170 Objective CV RR Lungs CTA Abd Tense Ascites E No CCE Assessment/Plan Assessment/Plan: HCT drop noted m/p due to IVF hydration. GI consult requested. Liver Cirrhosis etiology unknown. Hepatitis panel pending. Rafaela Lima MD Jul 27, 2020 17:05
[2020-07-27] MEDS ORDERED: Varibar Pudding 230ml MC PRN (18:30)
[2020-07-27] MEDS ORDERED: Varibar Nectar 240ml MC PRN (18:30)
[2020-07-27] MEDS ORDERED: Varibar Thin Liquid powder 148gm MC PRN (18:30)
[2020-07-27] MEDS ORDERED: Varibar Honey 250ml MC PRN (18:30)
--- NOTE | 2020-07-27 18:46 | NUR ---
NURSE NOTES: Axillary temperature=97.5. Cooling measures were applied, remove blankets, turn on air conditioning, close shades to windows.
--- NOTE | 2020-07-27 18:59 | NUR ---
NURSE HAND-OFF REPORT: Important Events on Shift:Patient ran a temperature that was treated by removing blankets, turning on air conditioning. Resolved. Patient Status: Stable Diet: Strict NPO Pending Orders: Swallow Evaluation Pending Results/Labs:AM labs ordered. Pending MD notification:N/A Latest Vital Signs: Temperature 99.3 , Pulse 73 , B/P 151 /61 , Respiratory Rate 16 , O2 SAT 93 , Room Air, O2 Flow Rate 2.0 . Vital Sign Comment: Stable EKG Rhythm: SR BBB Rhythm change?: Johanne JUARES Notified?: Boom Hodges MD Response: Latest Strauss Fall Score: 45 Fall Risk: High Risk Safety Measures: Call light Within Reach, Bed Alarm Zone 1, Side Rails Side Rails x2, Bed position Low and Locked. Fall Precautions: Yellow Socks Yellow Gown Door Sign Patient Fall Education Report given to Shruthi Goddard RN.
[2020-07-27 20:00] VITALS: BP 152/69
--- NOTE | 2020-07-27 20:33 | NUR ---
NURSE NOTES: Received patient report from CYRUS Marin. Patient is AO x 4 and shows no signs of distress or pain at the time. Patient is on soft wrist restraints. There skin is intact on bilateral wrists. Patient is on room air. and shows no signs of respiratory distress noted. Patient has angel patent and draining. IV is patent and flushed. Running 1/2 ns @ 60cc/hr. There are no signs of erythema, infiltration, or bleeding. Bed is in the lowest position, call light is within reach, side rails up x3. Will continue to monitor.
[2020-07-28] VITALS: BP 140/65
[2020-07-28 04:00] VITALS: BP 127/64
[2020-07-28 07:33] LABS: BASOPHILS % (AUTO) 4.8 % (0.0-2.0); EOSINOPHILS % (AUTO) 0.7 % (0.0-3.0); HEMATOCRIT 25.6 % (42.0-52.0); HEMOGLOBIN 8.7 G/DL (14.2-18.0); LYMPHOCYTES % (AUTO) 15.9 % (20.0-45.0); MEAN CORPUSCULAR VOLUME 96 FL (80-99); MONOCYTES % (AUTO) 10.9 % (1.0-10.0); NEUTROPHILS % (AUTO) 67.7 % (45.0-75.0); PLATELET COUNT 149 K/UL (150-450); RED BLOOD COUNT 2.66 M/UL (4.70-6.10); RED CELL DISTRIBUTION WIDTH 16.7 % (11.6-14.8); WHITE BLOOD COUNT 6.4 K/UL (4.8-10.8)
[2020-07-28 07:39] LABS: INR 1.4 (0.9-1.1)
--- NOTE | 2020-07-28 07:40 | NUR ---
NURSE HAND-OFF REPORT: Important Events on Shift:[None] Patient Status: [Stable] Diet: [NPO] Pending Orders: [] Pending Results/Labs:[] Pending MD notification:[] Latest Vital Signs: Temperature 97.9 , Pulse 72 , B/P 127 /64 , Respiratory Rate 20 , O2 SAT 91 , Room Air, O2 Flow Rate 2.0 . Vital Sign Comment: [] EKG Rhythm: SR BBB Rhythm change?: N Notified?: Boom Hodges MD Response: Latest Strauss Fall Score: 45 Fall Risk: High Risk Safety Measures: Call light Within Reach, Bed Alarm Zone 1, Side Rails Side Rails x2, Bed position Low and Locked. Fall Precautions: Yellow Socks Yellow Gown Door Sign Patient Fall Education Report given to [Armin RN].
[2020-07-28 07:49] LABS: ALANINE AMINOTRANSFERASE 14 U/L (12-78); ALBUMIN 1.9 G/DL (3.4-5.0); ALBUMIN/GLOBULIN RATIO 0.4 (1.0-2.7); ALKALINE PHOSPHATASE 50 U/L (46-116); ANION GAP 9 mmol/L (5-15); ASPARTATE AMINO TRANSFERASE 35 U/L (15-37); BILIRUBIN,TOTAL 1.4 MG/DL (0.2-1.0); BLOOD UREA NITROGEN 37 mg/dL (7-18); CALCIUM 8.4 MG/DL (8.5-10.1); CARBON DIOXIDE 25 MMOL/L (21-32); CHLORIDE 109 MMOL/L (98-107); POTASSIUM 3.6 MMOL/L (3.5-5.1); SODIUM 143 MMOL/L (136-145)
[2020-07-28 07:55] LABS: BILIRUBIN,DIRECT 0.6 MG/DL (0.0-0.3)
[2020-07-28 08:00] VITALS: BP 159/73
--- NOTE | 2020-07-28 08:02 | General Progress Note ---
Subjective Allergies: Coded Allergies: No Known Allergies (Verified , 04/05/09) Objective Last 24 Hour Vital Signs Date Time Temp Pulse Resp B/P (MAP) Pulse Ox O2 Delivery O2 Flow Rate FiO2 07/28/20 04:00 68 07/28/20 04:00 97.9 72 20 127/64 (85) 91 07/28/20 00:00 68 07/28/20 00:00 97.9 67 20 140/65 (90) 93 07/27/20 21:00 Room Air 07/27/20 20:00 68 07/27/20 20:00 98.1 71 20 152/69 (96) 93 07/27/20 16:00 99.3 74 16 151/61 (91) 93 07/27/20 16:00 73 07/27/20 12:00 74 07/27/20 12:00 99.5 79 18 141/65 (90) 93 07/27/20 09:00 Room Air 07/27/20 08:00 73 07/27/20 08:00 97.1 77 18 138/76 (96) 98 Intake and Output 07/27/20 07/28/20 19:00 07:00 Intake Total 660 ml Output Total 300 ml 300 ml Balance 360 ml -300 ml Intake IV Total 660 ml Output Urine Total 300 ml 300 ml # Voids 1 # Bowel Movements 1 1 Laboratory Tests 07/27/20 08:25: White Blood Count 9.0, Red Blood Count 2.66L, Hemoglobin 8.4L, Hematocrit 25.6L, Mean Corpuscular Volume 96, Mean Corpuscular Hemoglobin 31.6H, Mean Corpuscular Hemoglobin Concent 32.8, Red Cell Distribution Width 15.0H, Platelet Count 153, Mean Platelet Volume 4.8L, Neutrophils (%) (Auto) 78.6H, Lymphocytes (%) (Auto) 11.4L, Monocytes (%) (Auto) 8.9, Eosinophils (%) (Auto) 0.0, Basophils (%) (Auto) 1.0, Sodium Level 143, Potassium Level 3.8, Chloride Level 109H, Carbon Dioxide Level 26, Anion Gap 8, Blood Urea Nitrogen 40H, Creatinine 1.2, Estimat Glomerular Filtration Rate > 60, Glucose Level 129H, Calcium Level 8.5, Magnesium Level 2.0, Ammonia 34H, Triglycerides Level 64, Cholesterol Level 110, LDL Cholesterol 69, HDL Cholesterol 30L, Cholesterol/HDL Ratio 3.7, Hepatitis A IgM Antibody [Pending], Hepatitis B Surface Antigen [Pending], Hepatitis B Core IgM Antibody [Pending], Hepatitis C Antibody [Pending] 07/28/20 06:09: White Blood Count 6.4, Red Blood Count 2.66L, Hemoglobin 8.7L, Hematocrit 25.6L, Mean Corpuscular Volume 96, Mean Corpuscular Hemoglobin 32.8H, Mean Corpuscular Hemoglobin Concent 34.2, Red Cell Distribution Width 16.7H, Platelet Count 149L , Mean Platelet Volume 6.8, Neutrophils (%) (Auto) 67.7, Lymphocytes (%) (Auto) 15.9L, Monocytes (%) (Auto) 10.9H, Eosinophils (%) (Auto) 0.7, Basophils (%) (Auto) 4.8H, Sodium Level 143, Potassium Level 3.6, Chloride Level 109H, Carbon Dioxide Level 25, Anion Gap 9, Blood Urea Nitrogen 37H, Creatinine 1.0, Estimat Glomerular Filtration Rate > 60, Glucose Level 79, Calcium Level 8.4L, Magnesium Level 2.0, Prothrombin Time 15.4H, Prothromb Time International Ratio 1.4H, Activated Partial Thromboplast Time 28, Total Bilirubin 1.4H, Direct Bilirubin 0.6H, Aspartate Amino Transf (AST/SGOT) 35, Alanine Aminotransferase (ALT/SGPT) 14, Alkaline Phosphatase 50, Total Protein 6.6, Albumin 1.9L, Globulin 4.7, Albumin/Globulin Ratio 0.4L Height (Feet): 5 Height (Inches): 10.00 Weight (Pounds): 170 Assessment/Plan Assessment/Plan: GI Consult Dictated Assessment - Cirrhosis, ? etiology - large ascites - ? UGIB - H&H drop, but now at prior year baseline - NGT output clear mucous Recommendations - paracentesis - PPI - follow CBC - ,EGD at later date - check AFP Thank you Adrian Louis MD Jul 28, 2020 08:02
--- NOTE | 2020-07-28 08:34 | NUR ---
Speech Pathology Note (Dysphagia Evaluation) Indication of Evaluation: aspiration risk due to large amount of ascites Brief Note: Mr. Sneed is an 89 year old male admitted from [facility] due to distended abdomen and emesis. At ED, NG for suction was placed with 200cc bloody content removed, labs H/H/platelet are 10.8/33.1/177, Coagulation pending, lactic acid 2.7, Chem 7 is fairly within normal limits. BP is 134/72, SPO2 100% on [address] A/P revealed liver cirrhosis with large amount of ascites. Currently he is NPO, NG is in placed for suction, US Paracentesis and necessary labs work up is pending. I discussed with RN about swallow evaluation to touch base patient's care. Findings: Mr. Sneed is alert, oriented to self year, place "hospital", month and year, and situation "Nausea" to be in hospital. He was unable to see the objects or even lights, he stated " I can't see much" His speech is clear and voice is intact. The oral exam revealed adequate facial, lingual and palate movement, and mucosa is moist and clear. He did not have majority of his teeth. Pt indicated he wanted to drink water. He tolerated a sip of water without overt s.s of aspiration. He stated me that it harts his throat, by stating" there is something in my throat,,like plastic,," I informed me that he has NG tube for suction, he understood why it is painful. Further PO trial was declined by him due to pain with swallow. Impression: 1. Functional oropharyngeal swallow 2. Aspiration risk due to regurgitation 3. Adequate cognitive function with good insights 4. Adequate air way protection based on voice and type of cough Plan: 1. PO diet with full liquid diet and advance as tolerate, perhaps after paracentesis without NG 2. Check residue if ok remove NG, perhaps after paracentesis 3. Routine cognitive check 4. Positioning upright as need SP/SW follow up early next week to check his status, and if all improves Kelsey Frank
[2020-07-28] MEDS: Pantoprazole Inj IVP SCH (09:00)
[2020-07-28] MEDS: Heparin 5000 units/ml inj SUBQ SCH ×2 (09:00→21:00)
[2020-07-28 12:00] VITALS: BP 165/86
--- NOTE | 2020-07-28 13:20 | General Progress Note ---
Subjective Allergies: Coded Allergies: No Known Allergies (Verified , 04/05/09) Subjective No c/o Objective Last 24 Hour Vital Signs Date Time Temp Pulse Resp B/P (MAP) Pulse Ox O2 Delivery O2 Flow Rate FiO2 07/28/20 12:00 74 07/28/20 08:54 Room Air 07/28/20 08:00 72 07/28/20 08:00 97.9 72 17 159/73 (101) 93 07/28/20 04:00 68 07/28/20 04:00 97.9 72 20 127/64 (85) 91 07/28/20 00:00 68 07/28/20 00:00 97.9 67 20 140/65 (90) 93 07/27/20 21:00 Room Air 07/27/20 20:00 68 07/27/20 20:00 98.1 71 20 152/69 (96) 93 07/27/20 16:00 99.3 74 16 151/61 (91) 93 07/27/20 16:00 73 Intake and Output 07/27/20 07/28/20 19:00 07:00 Intake Total 660 ml Output Total 300 ml 300 ml Balance 360 ml -300 ml Intake IV Total 660 ml Output Urine Total 300 ml 300 ml # Voids 1 # Bowel Movements 1 1 Laboratory Tests 07/28/20 06:09: White Blood Count 6.4, Red Blood Count 2.66L, Hemoglobin 8.7L, Hematocrit 25.6L, Mean Corpuscular Volume 96, Mean Corpuscular Hemoglobin 32.8H, Mean Corpuscular Hemoglobin Concent 34.2, Red Cell Distribution Width 16.7H, Platelet Count 149L, Mean Platelet Volume 6.8, Neutrophils (%) (Auto) 67.7, Lymphocytes (%) (Auto) 15.9L, Monocytes (%) (Auto) 10.9H, Eosinophils (%) (Auto) 0.7, Basophils (%) (Auto) 4.8H, Prothrombin Time 15.4H, Prothromb Time International Ratio 1.4H, Activated Partial Thromboplast Time 28, Sodium Level 143, Potassium Level 3.6, Chloride Level 109H, Carbon Dioxide Level 25, Anion Gap 9, Blood Urea Nitrogen 37H, Creatinine 1.0, Estimat Glomerular Filtration Rate > 60, Glucose Level 79, Calcium Level 8.4L, Magnesium Level 2.0, Total Bilirubin 1.4H, Direct Bilirubin 0.6H, Aspartate Amino Transf (AST/SGOT) 35, Alanine Aminotransferase (ALT/SGPT) 14, Alkaline Phosphatase 50, Total Protein 6.6, Albumin 1.9L, Globulin 4.7, Albumin/Globulin Ratio 0.4L Height (Feet): 5 Height (Inches): 10.00 Weight (Pounds): 170 Objective More alert CV RR Lungs CTA Abd Tense Ascites E No CCE Assessment/Plan Assessment/Plan: HCT drop noted m/p due to IVF hydration? GI consult noted + appreciated. Liver Cirrhosis etiology unknown. Hepatitis panel results pending. Abd paracentesis + bedside swallow eval pending. Rafaela Lima MD Jul 28, 2020 13:20
--- NOTE | 2020-07-28 14:12 | NUR ---
CASE MANAGEMENT:REVIEW 07/28/20 SI: ADVANCED ASCITES W/LIVER CIRRHOSIS 97.9 72 17 159/73 93% ON RA H/H-8.7/25.6 PLT-149 BUN+37 IS: IV PROTONIX QD HEPARIN SQ Q12 IVF@60/HR NPO NGT TO SUCTION : TELEMETRY STATUS DCP: [facility] PLAN: EGD ST EVAL US PARACENTESIS
--- NOTE | 2020-07-28 15:15 | NUR ---
NURSE NOTES: Pt taken to ultrasound for paracentesis
[2020-07-28 15:48] VITALS: BP 170/92
--- NOTE | 2020-07-28 17:21 | Pre-Procedure Note/Attestation ---
Pre-Procedure Note/Attestation Complete Prior to Procedure Planned Procedure: not applicable Procedure Narrative: paracentesis Indications for Procedure Pre-Operative Diagnosis: ascites Attestation I attest that I discussed the nature of the procedure; its benefits; risks and complications; and alternatives (and the risks and benefits of such alternatives), prior to the procedure, with the patient (or the patient's legal automobile rental representative). I attest that, if there was a reasonable possibility of needing a blood cote sfusion, the patient (or the patient's legal automobile rental representative) was given the [facility] standardized written summary, pursuant to the Mathieu Ann Blood Safety Act ([place] Health and Safety Code # 1645, as amended). I attest that I re-evaluated the patient just prior to the surgery and that there has been no change in the patient's H&P, except as documented below: Watson Perez MD Jul 28, 2020 17:21
--- NOTE | 2020-07-28 17:22 | Brief Operative Note ---
Immediate Post Operative Note Operative Note Pre-op Diagnosis: ascites Procedure: paracentesis Post-op Diagnosis: same as pre-op Surgeon: Lissy Baires Specimen: none Complications: none Fluids: none Implant(s) used?: No Watson Baires MD Jul 28, 2020 17:22
--- NOTE | 2020-07-28 18:05 | Diagnostic Imaging Report ---
Indications: Ascites Technique: Ultrasound used to localize optimal puncture site. Sterile prepping and draping right lower quadrant. Local anesthesia with 1% lidocaine. Under real-time ultrasound guidance, puncture peritoneal space using paracentesis needle. Stylet removed. Catheter placed to vacuum bottle suction. Total 8.3 liters of fluid aspirated. Patient tolerated procedure well, without immediate complication. Findings: Followup sonography demonstrates complete resolution of peritoneal fluid. Impression: Successful ultrasound-guided paracentesis, yielding 8.3 liters of fluid
--- NOTE | 2020-07-28 19:35 | NUR ---
NURSE NOTES: Patient received from Armin BRIDGES. Patient in bed sleeping at this time. No signs of distress noted at this time. No pain reported. Patient is Alert and oriented x 3 but is confused and is able to make needs know. Patient IV site left hand running 60ml/hr of 1/2 NS as ordered. Patent and flushed. No bleeding or erythema noted. Iv is wrapped for protectin. Patient also has an ng tube with low intermit suction for decompression of the stomach. Patient is on Bilateral wrist restrains. No bruising,no swelling, pules are palatable, and sensation is in tack. Bed is low and locked. Call light within reach. Patient was educated to use call light to call for assistance and before trying to get up. Will continue plan of care.
[2020-07-28 20:00] VITALS: BP_SYST 147; BP_SYST 155; BP_DIAS 64; BP_DIAS 78
--- NOTE | 2020-07-28 20:30 | Consultation ---
DATE OF CONSULTATION: 07/28/2020 GASTROENTEROLOGY CONSULTATION CONSULTING PHYSICIAN: Adrian Leiva MD. CHIEF COMPLAINT: I was asked to see this patient by Dr. Rafaela Lima for evaluation of cirrhosis and possible gastrointestinal bleeding. HISTORY OF PRESENT ILLNESS: The patient is an 89-year-old man who was brought into the hospital with the chart report as hematemesis and vomiting, although none has been reported in this hospital. The patient himself states that he came to the hospital mainly because of abdominal distention and discomfort. He actually denies any abdominal pain to me right now, but he does say his abdomen is distended. He does have cirrhosis and ascites seen on CT scan, but there are no further details are available for the etiology of cirrhosis. The patient also had a drop in his blood level over the first night of admission, although there has been no reports of any hematemesis or melena in the hospital. No stool occult has been obtained. The patient denies drinking any alcohol or having had any chronic liver disease. He does have a mild level of lactic acidosis on his admission examination. His creatinine was normal. The patient does not recall having had any endoscopy or colonoscopy in the past. He resides in the [facility]. There is a chart indication of the gastroesophageal reflux disease. PAST MEDICAL HISTORY: History of cirrhosis of unclear etiology, blindness, diabetes mellitus, prostatic hypertrophy, hypertensive cardiovascular disease, osteoporosis, osteoarthritis, history of right hip fracture status post repair, gastroesophageal reflux, and glaucoma. FAMILY HISTORY: Noncontributory. SOCIAL HISTORY: The patient denies drinking alcohol. He has been a resident of [facility]. REVIEW OF SYSTEMS: Otherwise negative. PHYSICAL EXAMINATION: GENERAL: Elderly man seen in his room. HEENT: Normocephalic and atraumatic. NECK: Supple. CHEST: Clear to auscultation. CARDIOVASCULAR: Revealed a regular rate. ABDOMEN: Distended with fluid wave. EXTREMITIES: Bilateral lower extremities shows edema, 2 to 3+. LABORATORY DATA: Noted. ASSESSMENT: This patient presents with abdominal distention and discomfort, which is presumably due to the ascites both from a diagnostic and therapeutic standpoint. I will send to try to determine the cause of his liver disease. appear cirrhotic, therefore a viral hepatitis will be highly essential. In addition, tumor markers including alpha fetoprotein should be checked. The drop in hematocrit is most likely due to volume and fluid shift since he has not had any melena or hematemesis in the hospital. The stool occult blood should be checked to be verified. He should undergo endoscopy at some point to evaluate his upper GI tract and also screen for varices. However, at this time, I am still waiting for the coagulation parameters to return. RECOMMENDATIONS: Per above discussion and per orders written in the chart. Thank you for asking me to participate in the care of this patient. Adrian Leiva M.D. DR: Eris JOB#: [id number] CC:
--- NOTE | 2020-07-28 21:50 | NUR ---
NURSE NOTES: Patient NG Tub had to be replaces as patient pulled it out. Patient is stable. No acute distress noted. Will resume low intermit suction once ABD xray verifies placement. Will continue to monitor.
--- NOTE | 2020-07-28 22:21 | NUR ---
NURSE NOTES: Patient Addendum: 07/28/20 at 2223 by Jodi Hope RN Patients Abdominal X-ray was taken for placement of NG-tube awaiting results.
--- NOTE | 2020-07-28 22:41 | Diagnostic Imaging Report ---
EXAM: XR Abdomen, 1 View CLINICAL HISTORY: NGT TECHNIQUE: Single supine view of the abdomen. COMPARISON: KUB 07/27/2020. FINDINGS/IMPRESSION: Tip of the nasogastric tube projecting over the stomach. Paucity of small bowel gas limits evaluation. Gas is present within the colon. The pelvis is collimated from view.
[2020-07-29] VITALS: BP_SYST 137; BP_SYST 152; BP_DIAS 67; BP_DIAS 72
[2020-07-29 04:00] VITALS: BP 147/67
--- NOTE | 2020-07-29 07:29 | General Progress Note ---
Subjective ROS Limited/Unobtainable: No Allergies: Coded Allergies: No Known Allergies (Verified , 04/05/09) Objective Last 24 Hour Vital Signs Date Time Temp Pulse Resp B/P (MAP) Pulse Ox O2 Delivery O2 Flow Rate FiO2 07/29/20 04:00 70 07/29/20 04:00 96.2 73 20 147/67 (93) 91 07/29/20 00:00 98.1 76 20 152/67 (95) 92 07/29/20 00:00 73 07/28/20 21:55 Room Air 07/28/20 21:00 Room Air 07/28/20 20:00 98.1 73 21 147/64 (91) 92 07/28/20 20:00 72 07/28/20 16:00 74 07/28/20 15:48 100.2 80 17 170/92 (118) 92 07/28/20 12:00 74 07/28/20 12:00 98.8 76 18 165/86 (112) 92 07/28/20 08:54 Room Air 07/28/20 08:00 72 07/28/20 08:00 97.9 72 17 159/73 (101) 93 Intake and Output 07/28/20 07/29/20 19:00 07:00 Output Total 400 ml Balance -400 ml Output Urine Total 400 ml Height (Feet): 5 Height (Inches): 10.00 Weight (Pounds): 170 General Appearance: no apparent distress Neck: supple Cardiovascular: normal rate Respiratory/Chest: decreased breath sounds Abdomen: normal bowel sounds, non tender, soft Extremities: non-tender Assessment/Plan Assessment/Plan: cirrhosis ascites 8 lit paracentesis anemia DM clamp NGT start lasix and aldactone fu ammonia level fu hepatitis panel fu stool ob EGD on hold Jony Egan MD Jul 29, 2020 07:29
--- NOTE | 2020-07-29 07:55 | NUR ---
NURSE HAND-OFF REPORT: Important Events on Shift: Patient pull out NG-tube. NG-tube was replaced on right side marked at 62. Patient abd was massured at 101.5cm/ 40in. Dr. Egan would like to clamp NG-tube from low intermit suction to see how patient tolerants. Patient Status: Stable Diet: NPO no caffeine no chocolate Pending Orders: Patient need OB stool collection Pending Results/Labs: Pending MD notification: Latest Vital Signs: Temperature 96.2 , Pulse 73 , B/P 147 /67 , Respiratory Rate 20 , O2 SAT 91 , Room Air, O2 Flow Rate 2.0 . Vital Sign Comment: EKG Rhythm: Sinus Rhythm With BBB Rhythm change?: N Notified?: Boom Hodges MD Response: Latest Strauss Fall Score: 20 Fall Risk: Low Risk Safety Measures: Call light Within Reach, Bed Alarm Zone 1, Side Rails Side Rails x2, Bed position Low and Locked. Fall Precautions: Yellow Socks Yellow Gown Door Sign Patient Fall Education Report given to Bridgett BRIDGES.
[2020-07-29 08:00] VITALS: BP 138/64
--- NOTE | 2020-07-29 08:02 | NUR ---
NURSE NOTES: Received report from CYRUS Zapata. Pt awake, a/o x3, denies any pain, no s/sx of acute distress, breathing even and unlabored in RA. IV site patent and asymptomatic. NGT noted to be on 62cm, currently clamped per Dr Egan's order. Per , aby to give meds thru NGT. Pt on B soft wrist restraints, pulses are present, no edema noted. Bed on lowest position, call light within reach. Will continue plan of care.
[2020-07-29] MEDS: Heparin 5000 units/ml inj SUBQ SCH (09:00)
[2020-07-29] MEDS: Spironolactone 50mg tab ORAL SCH (09:09)
[2020-07-29] MEDS: Pantoprazole Inj IVP SCH (09:09)
[2020-07-29] MEDS: Phytonadione 10 mg/mL 1ml amp SUBQ SCH (09:10)
[2020-07-29 09:14] LABS: BASOPHILS % (AUTO) 1.2 % (0.0-2.0); EOSINOPHILS % (AUTO) 0.6 % (0.0-3.0); HEMATOCRIT 25.7 % (42.0-52.0); HEMOGLOBIN 8.5 G/DL (14.2-18.0); LYMPHOCYTES % (AUTO) 13.8 % (20.0-45.0); MEAN CORPUSCULAR VOLUME 97 FL (80-99); MONOCYTES % (AUTO) 9.3 % (1.0-10.0); NEUTROPHILS % (AUTO) 75.1 % (45.0-75.0); PLATELET COUNT 152 K/UL (150-450); RED BLOOD COUNT 2.64 M/UL (4.70-6.10); RED CELL DISTRIBUTION WIDTH 16.3 % (11.6-14.8)
[2020-07-29 09:48] LABS: ALANINE AMINOTRANSFERASE 10 U/L (12-78); ALBUMIN 1.6 G/DL (3.4-5.0); ALBUMIN/GLOBULIN RATIO 0.4 (1.0-2.7); ALKALINE PHOSPHATASE 43 U/L (46-116); ANION GAP 8 mmol/L (5-15); ASPARTATE AMINO TRANSFERASE 34 U/L (15-37); BILIRUBIN,TOTAL 1.7 MG/DL (0.2-1.0); BLOOD UREA NITROGEN 28 mg/dL (7-18); CARBON DIOXIDE 24 MMOL/L (21-32); CHLORIDE 110 MMOL/L (98-107); CREATININE 0.9 MG/DL (0.55-1.30); POTASSIUM 3.6 MMOL/L (3.5-5.1); SODIUM 142 MMOL/L (136-145)
[2020-07-29 10:02] LABS: BILIRUBIN,DIRECT 0.7 MG/DL (0.0-0.3)
--- NOTE | 2020-07-29 10:27 | General Progress Note ---
Subjective ROS Limited/Unobtainable: Yes Allergies: Coded Allergies: No Known Allergies (Verified , 04/05/09) Objective Last 24 Hour Vital Signs Date Time Temp Pulse Resp B/P (MAP) Pulse Ox O2 Delivery O2 Flow Rate FiO2 07/29/20 08:00 96.4 73 18 138/64 (88) 94 07/29/20 07:52 75 07/29/20 04:00 70 07/29/20 04:00 96.2 73 20 147/67 (93) 91 07/29/20 00:00 98.1 76 20 152/67 (95) 92 07/29/20 00:00 73 07/28/20 21:55 Room Air 07/28/20 21:00 Room Air 07/28/20 20:00 98.1 73 21 147/64 (91) 92 07/28/20 20:00 72 07/28/20 16:00 74 07/28/20 15:48 100.2 80 17 170/92 (118) 92 07/28/20 12:00 74 07/28/20 12:00 98.8 76 18 165/86 (112) 92 Intake and Output 07/28/20 07/29/20 19:00 07:00 Output Total 400 ml 600 ml Balance -400 ml -600 ml Output Urine Total 400 ml 600 ml Laboratory Tests 07/29/20 08:05: White Blood Count 7.0, Red Blood Count 2.64L, Hemoglobin 8.5L, Hematocrit 25.7L, Mean Corpuscular Volume 97, Mean Corpuscular Hemoglobin 32.0H, Mean Corpuscular Hemoglobin Concent 32.9, Red Cell Distribution Width 16.3H, Platelet Count 152, Mean Platelet Volume 6.3L, Neutrophils (%) (Auto) 75.1H, Lymphocytes (%) (Auto) 13.8L, Monocytes (%) (Auto) 9.3, Eosinophils (%) (Auto) 0.6, Basophils (%) (Auto) 1.2, Sodium Level 142, Potassium Level 3.6, Chloride Level 110H, Carbon Dioxide Level 24, Anion Gap 8, Blood Urea Nitrogen 28H, Creatinine 0.9, Estimat Glomerular Filtration Rate > 60, Glucose Level 68L, Calcium Level 8.0L, Total Bilirubin 1.7H, Direct Bilirubin 0.7H, Aspartate Amino Transf (AST/SGOT) 34, Alanine Aminotransferase (ALT/SGPT) 10L, Alkaline Phosphatase 43L, Total Protein 5.9L, Albumin 1.6L, Globulin 4.3, Albumin/Globulin Ratio 0.4L Height (Feet): 5 Height (Inches): 10.00 Weight (Pounds): 170 General Appearance: lethargic, confused, thin EENT: normal ENT inspection Cardiovascular: regular rhythm Respiratory/Chest: lungs clear Abdomen: non tender Edema: no edema noted Arm (L), no edema noted Arm (R), no edema noted Leg (L), no edema noted Leg (R), no edema noted Pedal (L), no edema noted Pedal (R), no edema noted Generalized Neurologic: disoriented Assessment/Plan Problem List: (1) Vomiting ICD Codes: R11.10 - Vomiting, unspecified SNOMED: 445070389 (2) UGIB (upper gastrointestinal bleed) ICD Codes: K92.2 - Gastrointestinal hemorrhage, unspecified SNOMED: 19206888 (3) 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
[2020-07-29 12:00] VITALS: BP 135/67
[2020-07-29] MEDS: D5W w/KCl 20mEq 1,000 ML IV SCH (12:25)
[2020-07-29] MEDS ORDERED: 1/2 NS 1000ml IV ONE (12:53)
--- NOTE | 2020-07-29 12:53 | NUR ---
NURSE NOTES: Pt denies feeling nauseous, and keeps on asking if he can get food. Asked Dr Egan if pt's diet can be changed. Awaiting for response.
[2020-07-29 16:00] VITALS: BP 124/62
--- NOTE | 2020-07-29 16:30 | NUR ---
NURSE NOTES: Tried to obtain consent from the pt for EGD on Friday, but pt wanted to speak with MD first.
--- NOTE | 2020-07-29 18:45 | NUR ---
NURSE HAND-OFF REPORT: Important Events on Shift: NGT was DC'ed, pt tolerating clear liquids. Pt wanted to talk to the MD before signing the consent for EGD that is scheduled on Friday. OBS sample sent to the lab, awaiting for result. Patient Status: stable Diet: clear liquid Pending Orders: Pending Results/Labs: Pending MD notification: Latest Vital Signs: Temperature 97.9 , Pulse 76 , B/P 124 /62 , Respiratory Rate 18 , O2 SAT 93 , Room Air, O2 Flow Rate 2.0 . Vital Sign Comment: EKG Rhythm: Sinus Rhythm With BBB Rhythm change?: N Notified?: Boom Hodges MD Response: Latest Strauss Fall Score: 35 Fall Risk: Medium Risk Safety Measures: Call light Within Reach, Bed Alarm Zone 1, Side Rails Side Rails x2, Bed position Low and Locked. Fall Precautions: Yellow Socks Yellow Gown Door Sign Patient Fall Education Addendum: 07/29/20 at 1934 by Bridgett Cortez RN Report given to CYRUS Angela.
--- NOTE | 2020-07-29 19:00 | NUR ---
NURSE NOTES: Received report from Bridgett BRIDGES. Pt awake, a/o x3, denies any pain, no s/sx of acute distress, breathing even and unlabored on RA. IV site patent and asymptomatic. on clear liquid diet. Pt on B soft wrist restraints, pulses are present, no edema noted. Bed in lowest position, call light within reach. Will continue plan of care.
[2020-07-29 20:00] VITALS: BP 129/66
[2020-07-30] VITALS: BP 132/73
[2020-07-30 04:00] VITALS: BP 127/62
--- NOTE | 2020-07-30 07:44 | NUR ---
NURSE HAND-OFF REPORT: Important Events on Shift: IV was not patent, reinserted 20 gauge on L wrist peripheral IV, reconnected to fluids, tolerated clear liquids Patient Status: stable Diet: clear liquid EKG Rhythm: Sinus Rhythm With BBB Rhythm change?: N Latest Strauss Fall Score: 35 Fall Risk: Medium Risk Safety Measures: Call light Within Reach, Bed Alarm Zone 1, Side Rails Side Rails x2, Bed position Low and Locked. Fall Precautions: Yellow Socks Yellow Gown Door Sign Patient Fall Education report given to Bridgett Cortez RN
--- NOTE | 2020-07-30 07:51 | NUR ---
NURSE NOTES: Received report from CYRUS Angela. Pt awake, A/O x3, denies any pain or discomfort, no s/sx of acute distress, breathing even and unlabored in RA. IV site on L wrist patent and asymptomatic, running IVF as ordered. Pt on B soft wrist restraints, pulses are present and no edema noted. Bed on lowest position, call light within reach, will continue plan of care.
[2020-07-30 08:00] VITALS: BP 133/71
[2020-07-30 08:14] LABS: EOSINOPHILS % (AUTO) 0.9 % (0.0-3.0); HEMATOCRIT 26.5 % (42.0-52.0); HEMOGLOBIN 8.7 G/DL (14.2-18.0); LYMPHOCYTES % (AUTO) 15.5 % (20.0-45.0); MEAN CORPUSCULAR VOLUME 98 FL (80-99); MONOCYTES % (AUTO) 9.9 % (1.0-10.0); NEUTROPHILS % (AUTO) 71.7 % (45.0-75.0); PLATELET COUNT 157 K/UL (150-450); RED BLOOD COUNT 2.71 M/UL (4.70-6.10); RED CELL DISTRIBUTION WIDTH 16.1 % (11.6-14.8); WHITE BLOOD COUNT 6.9 K/UL (4.8-10.8)
--- NOTE | 2020-07-30 08:25 | General Progress Note ---
Subjective ROS Limited/Unobtainable: Yes Allergies: Coded Allergies: No Known Allergies (Verified , 04/05/09) Objective Last 24 Hour Vital Signs Date Time Temp Pulse Resp B/P (MAP) Pulse Ox O2 Delivery O2 Flow Rate FiO2 07/30/20 08:00 97.0 80 20 133/71 (91) 94 07/30/20 04:00 80 07/30/20 04:00 98.8 82 15 127/62 (83) 95 07/30/20 00:00 98.9 86 18 132/73 (92) 97 07/30/20 00:00 83 07/29/20 21:00 Room Air 07/29/20 20:00 80 07/29/20 20:00 99.7 80 16 129/66 (87) 94 07/29/20 16:00 97.9 76 18 124/62 (82) 93 07/29/20 15:43 75 07/29/20 12:00 98.1 75 20 135/67 (89) 93 07/29/20 12:00 75 07/29/20 09:00 Room Air 07/29/20 09:00 Room Air Intake and Output 07/29/20 07/30/20 19:00 07:00 Intake Total 100 ml Output Total 1600 ml 300 ml Balance -1500 ml -300 ml Intake Oral 100 ml Output Urine Total 1600 ml 300 ml # Bowel Movements 1 Laboratory Tests 07/29/20 14:50: Stool Occult Blood [Pending] 07/30/20 07:35: White Blood Count [Pending], Red Blood Count [Pending], Hemoglobin [Pending], H ematocrit [Pending], Mean Corpuscular Volume [Pending], Mean Corpuscular Hemoglobin [Pending], Mean Corpuscular Hemoglobin Concent [Pending], Red Cell Distribution Width [Pending], Platelet Count [Pending], Mean Platelet Volume [Pending], Neutrophils (%) (Auto) [Pending], Lymphocytes (%) (Auto) [Pending], Monocytes (%) (Auto) [Pending], Eosinophils (%) (Auto) [Pending], Basophils (%) (Auto) [Pending], Sodium Level [Pending], Potassium Level [Pending], Chloride Level [Pending], Carbon Dioxide Level [Pending], Blood Urea Nitrogen [Pending], Creatinine [Pending], Estimat Glomerular Filtration Rate [Pending], Glucose Level [Pending], Calcium Level [Pending], Total Bilirubin [Pending], Aspartate Amino Transf (AST/SGOT) [Pending], Alanine Aminotransferase (ALT/SGPT) [Pending], Alkaline Phosphatase [Pending], Ammonia [Pending], Total Protein [Pending], Albumin [Pending], Globulin [Pending] Height (Feet): 5 Height (Inches): 10.00 Weight (Pounds): 170 General Appearance: no apparent distress EENT: normal ENT inspection Neck: supple Cardiovascular: normal rate Respiratory/Chest: decreased breath sounds Abdomen: hypoactive bowel sounds, distended Extremities: non-tender Assessment/Plan Assessment/Plan: cirrhosis ascites 8 lit paracentesis anemia DM off NGT start lasix and aldactone fu hepatitis panel fu stool ob EGD on hold Jony Egan MD Jul 30, 2020 08:25
[2020-07-30 08:30] LABS: AMMONIA 38 umol/L (11-32)
[2020-07-30 08:43] LABS: ALANINE AMINOTRANSFERASE 12 U/L (12-78); ALBUMIN 1.6 G/DL (3.4-5.0); ALBUMIN/GLOBULIN RATIO 0.4 (1.0-2.7); ALKALINE PHOSPHATASE 43 U/L (46-116); ANION GAP 7 mmol/L (5-15); ASPARTATE AMINO TRANSFERASE 32 U/L (15-37); BILIRUBIN,TOTAL 1.5 MG/DL (0.2-1.0); BLOOD UREA NITROGEN 25 mg/dL (7-18); CALCIUM 7.8 MG/DL (8.5-10.1); CARBON DIOXIDE 24 MMOL/L (21-32); CHLORIDE 108 MMOL/L (98-107); POTASSIUM 3.8 MMOL/L (3.5-5.1); SODIUM 139 MMOL/L (136-145)
[2020-07-30 08:47] LABS: BILIRUBIN,DIRECT 0.2 MG/DL (0.0-0.3)
[2020-07-30] MEDS: Phytonadione 10 mg/mL 1ml amp SUBQ SCH (09:04)
[2020-07-30] MEDS: Pantoprazole Inj IVP SCH (09:04)
[2020-07-30] MEDS: Spironolactone 50mg tab ORAL SCH (09:04)
[2020-07-30] MEDS: D5W w/KCl 20mEq 1,000 ML IV SCH (09:08)
--- NOTE | 2020-07-30 09:51 | NUR ---
NURSE NOTES: Dr Egan came and informed RN that pt does not need EGD and to DC the order.
[2020-07-30 12:00] VITALS: BP 144/76
--- NOTE | 2020-07-30 12:05 | Cardiology Report ---
APPROVED REPORT EKG Measurement Heart [id number] [id number] <Conclusion> Normal sinus rhythm Right bundle branch block Left anterior fascicular block Bifascicular block Septal infarct, age undetermined Abnormal ECG
--- NOTE | 2020-07-30 14:12 | General Progress Note ---
Subjective ROS Limited/Unobtainable: Yes Allergies: Coded Allergies: No Known Allergies (Verified , 04/05/09) Objective Last 24 Hour Vital Signs Date Time Temp Pulse Resp B/P (MAP) Pulse Ox O2 Delivery O2 Flow Rate FiO2 07/30/20 12:00 97.7 85 20 144/76 (98) 93 07/30/20 09:00 Room Air 07/30/20 08:00 97.0 80 20 133/71 (91) 94 07/30/20 07:47 78 07/30/20 04:00 80 07/30/20 04:00 98.8 82 15 127/62 (83) 95 07/30/20 00:00 98.9 86 18 132/73 (92) 97 07/30/20 00:00 83 07/29/20 21:00 Room Air 07/29/20 20:00 80 07/29/20 20:00 99.7 80 16 129/66 (87) 94 07/29/20 16:00 97.9 76 18 124/62 (82) 93 07/29/20 15:43 75 Intake and Output 07/29/20 07/30/20 19:00 07:00 Intake Total 100 ml Output Total 1600 ml 300 ml Balance -1500 ml -300 ml Intake Oral 100 ml Output Urine Total 1600 ml 300 ml # Bowel Movements 1 Laboratory Tests 07/29/20 14:50: Stool Occult Blood [Pending] 07/30/20 07:35: White Blood Count 6.9, Red Blood Count 2.71L, Hemoglobin 8.7L, Hematocrit 26.5L, Mean Corpuscular Volume 98, Mean Corpuscular Hemoglobin 32.0H, Mean Corpuscular Hemoglobin Concent 32.8, Red Cell Distribution Width 16.1H, Platelet Count 157, Mean Platelet Volume 7.3, Neutrophils (%) (Auto) 71.7, Lymphocytes (%) (Auto) 15.5L, Monocytes (%) (Auto) 9.9, Eosinophils (%) (Auto) 0.9, Basophils (%) (Auto) 2.0, Sodium Level 139, Potassium Level 3.8, Chloride Level 108H, Carbon Dioxide Level 24, Anion Gap 7, Blood Urea Nitrogen 25H, Creatinine 1.0, Estimat Glomerular Filtration Rate > 60, Glucose Level 111H, Calcium Level 7.8L, Total Bilirubin 1.5H, Direct Bilirubin 0.2, Aspartate Amino Transf (AST/SGOT) 32, Alanine Aminotransferase (ALT/SGPT) 12, Alkaline Phosphatase 43L, Ammonia 38H, Total Protein 5.7L, Albumin 1.6L, Globulin 4.1, Albumin/Globulin Ratio 0.4L Height (Feet): 5 Height (Inches): 10.00 Weight (Pounds): 170 General Appearance: lethargic, confused Neck: normal inspection Cardiovascular: regular rhythm Respiratory/Chest: lungs clear Abdomen: non tender, soft Edema: no edema noted Arm (L), no edema noted Arm (R), no edema noted Leg (L), no edema noted Leg (R), no edema noted Pedal (L), no edema noted Pedal (R), no edema noted Generalized Neurologic: 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
[2020-07-30 16:00] VITALS: BP 118/56
--- NOTE | 2020-07-30 17:32 | NUR ---
NURSE NOTES: Dr Egan made aware that pt OBS positive
--- NOTE | 2020-07-30 19:28 | NUR ---
NURSE HAND-OFF REPORT: Important Events on Shift: OBS result positive, Dr Egan aware. Patient Status: stable Diet: clears Pending Orders: Pending Results/Labs: Pending MD notification: Latest Vital Signs: Temperature 97.7 , Pulse 79 , B/P 118 /56 , Respiratory Rate 20 , O2 SAT 95 , Room Air, O2 Flow Rate 2.0 . Vital Sign Comment: EKG Rhythm: SR with BBB Rhythm change?: N Notified?: Boom Hodges MD Response: Latest Strauss Fall Score: 35 Fall Risk: Medium Risk Safety Measures: Call light Within Reach, Bed Alarm Zone 1, Side Rails Side Rails x2, Bed position Low and Locked. Fall Precautions: Yellow Socks Yellow Gown Door Sign Patient Fall Education Report given to CYRUS Keller
--- NOTE | 2020-07-30 19:35 | NUR ---
NURSE NOTES: RECEIVED REPORT FROM CYRUS TELLEZ. PATIENT AWAKE IN BED, OX3 WITH CONFUSION, VERBALLY RESPONSIVE, AND ABLE TO MAKE NEEDS KNOWN. NO COMPLAINTS OF PAIN OR DISCOMFORT. BREATHING EVEN AND UNLABORED ON ROOM AIR, NO S/SX OF DISTRESS. PATIENT NOTED TO HAVE REMOVED IV LINE. BILATERAL SOFT WRIST RESTRAINTS CURRENTLY OFF. FALL AND ASPIRATION PRECAUTIONS IN PLACE. BED LOCKED AND IN LOWEST POSITION, SIDERAILS UP X 3. CALL LIGHT WITHIN REACH. WILL CONTINUE TO MONITOR.
[2020-07-30 20:00] VITALS: BP 113/62
--- NOTE | 2020-07-30 20:30 | NUR ---
NURSE NOTES: PATIENT'S ORAL TEMP 99.0- COOLING MEASURES APPLIED. NOW 98.6F. SAO2 WHEN SUPINE 90%; HOB ELEVATED, SAO2 95%.
--- NOTE | 2020-07-30 22:44 | NUR ---
NURSE NOTES: CONTACTED DR. CHAPPELL TO VERIFY PATIENT'S DIET ORDER. AWAITING CALL BACK.
[2020-07-31] VITALS (10 sets, daily range): BP systolic 115–156; BP diastolic 54–81
--- NOTE | 2020-07-31 01:00 | NUR ---
NURSE NOTES: IV ACCESS ESTABLISHED ON RIGHT HAND 22G.
--- NOTE | 2020-07-31 05:15 | NUR ---
NURSE NOTES: COMPLETE SPONGE BATH GIVEN, PARTIAL LINEN CHANGED, ORAL CARE PROVIDED- PATIENT TOLERATED WELL. WILL CONTINUE TO MONITOR.
[2020-07-31 07:16] LABS: BASOPHILS % (AUTO) 1.1 % (0.0-2.0); EOSINOPHILS % (AUTO) 1.1 % (0.0-3.0); HEMATOCRIT 27.9 % (42.0-52.0); HEMOGLOBIN 9.2 G/DL (14.2-18.0); LYMPHOCYTES % (AUTO) 15.4 % (20.0-45.0); MEAN CORPUSCULAR VOLUME 98 FL (80-99); MONOCYTES % (AUTO) 11.8 % (1.0-10.0); NEUTROPHILS % (AUTO) 70.6 % (45.0-75.0); PLATELET COUNT 169 K/UL (150-450); RED BLOOD COUNT 2.85 M/UL (4.70-6.10); RED CELL DISTRIBUTION WIDTH 15.6 % (11.6-14.8); WHITE BLOOD COUNT 6.7 K/UL (4.8-10.8)
--- NOTE | 2020-07-31 07:22 | NUR ---
NURSE NOTES: Received report from CYRUS Keller. Pt awake, A/O x 2. No SOB or acute distress noted and on RA. No pain noted. Pt is on clear liquid diet which only took a few bites of food. Bed on lowest position, call light within reach, will continue plan of care.
--- NOTE | 2020-07-31 07:30 | NUR ---
NURSE HAND-OFF REPORT: Important Events on Shift: D/C RESTRAINTS Patient Status: STABLE Diet: CLEAR LIQUIDS, NECTAR-THICK Pending Orders: N/A Pending Results/Labs:10/5 AM LABS Pending MD notification:N/A Latest Vital Signs: Temperature 97.9 , Pulse 73 , B/P 120 /59 , Respiratory Rate 18 , O2 SAT 92 , Room Air, O2 Flow Rate 2.0 . Vital Sign Comment: STABLE EKG Rhythm: SR with BBB Rhythm change?: N Notified?: Boom Hodges MD Response: Latest Strauss Fall Score: 55 Fall Risk: High Risk Safety Measures: Call light Within Reach, Bed Alarm Zone 1, Side Rails Side Rails x3, Bed position Low and Locked. Fall Precautions: Yellow Socks Yellow Gown Door Sign Patient Fall Education Report given to CYRUS MARIN.
[2020-07-31 08:18] LABS: ALBUMIN 1.6 G/DL (3.4-5.0); ALBUMIN/GLOBULIN RATIO 0.4 (1.0-2.7); ALKALINE PHOSPHATASE 45 U/L (46-116); ANION GAP 5 mmol/L (5-15); ASPARTATE AMINO TRANSFERASE 34 U/L (15-37); BILIRUBIN,TOTAL 1.6 MG/DL (0.2-1.0); BLOOD UREA NITROGEN 21 mg/dL (7-18); CALCIUM 8.1 MG/DL (8.5-10.1); CARBON DIOXIDE 26 MMOL/L (21-32); CHLORIDE 108 MMOL/L (98-107); CREATININE 0.9 MG/DL (0.55-1.30); POTASSIUM 3.8 MMOL/L (3.5-5.1); SODIUM 139 MMOL/L (136-145)
[2020-07-31 08:22] LABS: BILIRUBIN,DIRECT 0.7 MG/DL (0.0-0.3)
[2020-07-31] MEDS: Phytonadione 10 mg/mL 1ml amp SUBQ SCH (09:25)
[2020-07-31] MEDS: Pantoprazole Inj IVP SCH (09:25)
[2020-07-31] MEDS: Spironolactone 50mg tab ORAL SCH (09:25)
[2020-07-31 10:31] LABS: ALANINE AMINOTRANSFERASE 14 U/L (12-78)
[2020-07-31] MEDS ORDERED: fentaNYL 100 mcg/2 mL IV ONE (11:13)
--- NOTE | 2020-07-31 11:46 | Anethesia Preoperative Eval ---
Anesthesia Pre-op PMH/ROS General Date of Evaluation: Jul 31, 2020 Time of Evaluation: 11:42 Anesthesiologist: Glenroy ASA Score: ASA 4 Mallampati Score Class I : Soft palate, uvula, fauces, pillars visible Class II: Soft palate, uvula, fauces visible Class III: Soft palate, base of uvula visible Class IV: Only hard plate visible Mallampati Classification: Class II Surgeon: Joanna Diagnosis: Liver cirrosis Surgical Procedure: EGD Anesthesia History: none Social History: alcohol use - h/o abuse Allergies: Coded Allergies: No Known Allergies (Verified , 04/05/09) Patient NPO?: Yes Past Medical History Cardiovascular: Reports: HTN; Denies: CAD, MO, valve dz, arrhythmia, other Pulmonary: Denies: asthma, COPD, ABHISHEK, other Gastrointestinal/Genitourinary: 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 Exam Physician Exam Last Vital Signs Date Time Temp Pulse Resp B/P (MAP) Pulse Ox O2 Delivery O2 Flow Rate FiO2 07/31/20 09:00 Room Air 07/31/20 08:00 74 07/31/20 08:00 97.7 18 122/63 (82) 92 07/26/20 09:00 2.0 Constitutional: NAD Neurologic: other - unable to obtaine Cardiovascular: RRR Respiratory: CTA Gastrointestinal: other - distended Airway Exam Mallampati Score: Class II MO: limited Neck: stiff ROM: limited Teeth: missing Dentures: no upper, no lower Anesthesia Pre-op A/P Labs Hematology Test 07/31/20 05:59 White Blood Count 6.7 K/UL (4.8-10.8) Red Blood Count 2.85 M/UL (4.70-6.10) L Hemoglobin 9.2 G/DL (14.2-18.0) L Hematocrit 27.9 % (42.0-52.0) L Mean Corpuscular Volume 98 FL (80-99) Mean Corpuscular Hemoglobin 32.2 PG (27.0-31.0) H Mean Corpuscular Hemoglobin Concent 32.9 G/DL (32.0-36.0) Red Cell Distribution Width 15.6 % (11.6-14.8) H Platelet Count 169 K/UL (150-450) Mean Platelet Volume 7.5 FL (6.5-10.1) Neutrophils (%) (Auto) 70.6 % (45.0-75.0) Lymphocytes (%) (Auto) 15.4 % (20.0-45.0) L Monocytes (%) (Auto) 11.8 % (1.0-10.0) H Eosinophils (%) (Auto) 1.1 % (0.0-3.0) Basophils (%) (Auto) 1.1 % (0.0-2.0) Chemistry Test 07/31/20 05:59 Sodium Level 139 MMOL/L (136-145) Potassium Level 3.8 MMOL/L (3.5-5.1) Chloride Level 108 MMOL/L (98-107) H Carbon Dioxide Level 26 MMOL/L (21-32) Anion Gap 5 mmol/L (5-15) Blood Urea Nitrogen 21 mg/dL (7-18) H Creatinine 0.9 MG/DL (0.55-1.30) Estimat Glomerular Filtration Rate > 60 mL/min (>60) Glucose Level 99 MG/DL (74-106) Calcium Level 8.1 MG/DL (8.5-10.1) L Total Bilirubin 1.6 MG/DL (0.2-1.0) H Direct Bilirubin 0.7 MG/DL (0.0-0.3) H Aspartate Amino Transf (AST/SGOT) 34 U/L (15-37) Alanine Aminotransferase (ALT/SGPT) 14 U/L (12-78) Alkaline Phosphatase 45 U/L (46-116) L Total Protein 5.8 G/DL (6.4-8.2) L Albumin 1.6 G/DL (3.4-5.0) L Globulin 4.2 g/dL Albumin/Globulin Ratio 0.4 (1.0-2.7) L Studies Pre-op Studies: EKG - SR Risk Assessment & Plan Assessment: ASA 4 Plan: MAC Status Change Before Surgery: No Bryan Tim MD Jul 31, 2020 11:46
--- NOTE | 2020-07-31 11:50 | NUR ---
NURSES NOTES: Dr Schultz came to the floor and informed me that pt order for EGD was not on hold and he was going to take him down. Informed Dr. Schultz that he had 3 spoons of NTL juice and 2 spoons of chicken broth for breakfast. He stated is was fine. [facility] fellow that pt would b e having the EGD.
--- NOTE | 2020-07-31 11:55 | General Progress Note ---
Subjective Allergies: Coded Allergies: No Known Allergies (Verified , 04/05/09) Subjective above noted scheduled for EGD @ noon LFT still elevated hepatitis serologies pending Objective Last 24 Hour Vital Signs Date Time Temp Pulse Resp B/P (MAP) Pulse Ox O2 Delivery O2 Flow Rate FiO2 07/31/20 09:00 Room Air 07/31/20 08:00 74 07/31/20 08:00 97.7 76 18 122/63 (82) 92 07/31/20 04:00 76 07/31/20 04:00 97.9 73 18 120/59 (79) 92 07/31/20 00:00 77 07/31/20 00:00 98.0 78 18 123/68 (86) 92 07/30/20 21:00 Room Air 07/30/20 20:00 77 07/30/20 20:00 99.0 81 18 113/62 (79) 95 07/30/20 16:00 97.7 79 20 118/56 (76) 95 07/30/20 15:44 76 07/30/20 12:00 97.7 85 20 144/76 (98) 93 Intake and Output 07/30/20 07/31/20 19:00 07:00 Intake Total 360 ml 100 ml Output Total 150 ml 375 ml Balance 210 ml -275 ml Intake Oral 360 ml 100 ml Output Urine Total 150 ml 375 ml # Bowel Movements 1 Laboratory Tests 07/31/20 05:59: White Blood Count 6.7, Red Blood Count 2.85L, Hemoglobin 9.2L, Hematocrit 27.9L, Mean Corpuscular Volume 98, Mean Corpuscular Hemoglobin 32.2H, Mean Corpuscular Hemoglobin Concent 32.9, Red Cell Distribution Width 15.6H, Platelet Count 169, Mean Platelet Volume 7.5, Neutrophils (%) (Auto) 70.6, Lymphocytes (%) (Auto) 15.4L, Monocytes (%) (Auto) 11.8H, Eosinophils (%) (Auto) 1.1, Basophils (%) (Auto) 1.1, Sodium Level 139, Potassium Level 3.8, Chloride Level 108H, Carbon Dioxide Level 26, Anion Gap 5, Blood Urea Nitrogen 21H, Creatinine 0.9, Estimat Glomerular Filtration Rate > 60, Glucose Level 99, Calcium Level 8.1L, Total Bilirubin 1.6H, Direct Bilirubin 0.7H, Aspartate Amino Transf (AST/SGOT) 34, Alanine Aminotransferase (ALT/SGPT) 14, Alkaline Phosphatase 45L, Total Protein 5.8L, Albumin 1.6L, Globulin 4.2, Albumin/Globulin Ratio 0.4L Height (Feet): 5 Height (Inches): 8.00 Weight (Pounds): 150 Objective Thin elderly man NCAT supple CTA RR abd soft NT no edema Assessment/Plan Assessment/Plan: Assessment - Cirrhosis, ? etiology - large ascites - s/p 8.3 liter paracentesis - ? UGIB - NGT clear - OB (+) stools Recommendations - f/u paracentesis results - PPI - follow CBC - EGD today - check AFP LaithorrAdrian rich MD Jul 31, 2020 11:55
--- NOTE | 2020-07-31 11:56 | Pre-Procedure Note/Attestation ---
Pre-Procedure Note/Attestation Complete Prior to Procedure Planned Procedure: not applicable Procedure Narrative: EGD Indications for Procedure Pre-Operative Diagnosis: Heme (+), anemia Attestation I attest that I discussed the nature of the procedure; its benefits; risks and complications; and alternatives (and the risks and benefits of such alternatives), prior to the procedure, with the patient (or the patient's legal medical collections representative). I attest that, if there was a reasonable possibility of needing a blood tra nsfusion, the patient (or the patient's legal medical collections representative) was given the [facility] standardized written summary, pursuant to the Mathieu Ann Blood Safety Act ([place] Health and Safety Code # 1645, as amended). I attest that I re-evaluated the patient just prior to the surgery and that there has been no change in the patient's H&P, except as documented below: Adrian Leiva MD Jul 31, 2020 11:56
[2020-07-31] MEDS ORDERED: NS 500ML IVPB ONE (12:00)
--- NOTE | 2020-07-31 12:10 | NUR ---
NURSES NOTES: pt leaving the floor via gurney to GI lab.
--- NOTE | 2020-07-31 12:20 | Endoscopy Procedure Note ---
Endoscopy Procedure Note General Indication for Procedure: GIB Procedures Performed: EGD Operative Findings/Diagnosis: HH, PHG, Bleeding vessel--> clip, Early Vx Specimen: none Pt Tolerated Procedure Well: Yes Estimated Blood Loss: none Anesthesia Anesthesiologist: Geovanna Anesthesia: MAC Inserted Devices Implant(s) used?: No GI Core Measures 50 yrs or older w/o bx or poly: Not Applicable 10yrs. F/U recommended: Not Applicable Adrian Leiva MD Jul 31, 2020 12:20
--- NOTE | 2020-07-31 12:21 | Brief Operative Note ---
Immediate Post Operative Note Operative Note Chief Complaint: gib Pre-op Diagnosis: Heme (+), anemia Procedure: EGD Clip Surgeon: gabo Specimen: none Complications: none Condition: stable Fluids: per anesthesia Implant(s) used?: No Adrian Leiva MD Jul 31, 2020 12:21
--- NOTE | 2020-07-31 12:34 | Immediate Post-Op Evaluation ---
Immediate Post-Op Evalulation Immediate Post-Op Evalulation Procedure: EGD Clipping of bleeding blood vessel Date of Evaluation: Jul 31, 2020 Time of Evaluation: 12:33 IV Fluids: 300 Blood Products: none Estimated Blood Loss: none Urinary Output: none Blood Pressure Systolic: 149 Blood Pressure Diastolic: 74 Pulse Rate: 72 Respiratory Rate: 18 O2 Sat by Pulse Oximetry: 99 Temperature (Fahrenheit): 97.6 Pain Score (1-10): 1 Nausea: No Vomiting: No Complications none Patient Status: reacts, patent, none Hydration Status: adequate Bryan Tim MD Jul 31, 2020 12:34
--- NOTE | 2020-07-31 13:15 | NUR ---
NURSES NOTES: Pt back from GL lab from EGD. Was informed there was a bleed which was clipped and he would resume a regular renal diet. Will continue to monitor.
--- NOTE | 2020-07-31 13:15 | General Progress Note ---
Subjective Allergies: Coded Allergies: No Known Allergies (Verified , 04/05/09) Subjective No c/o Objective Last 24 Hour Vital Signs Date Time Temp Pulse Resp B/P (MAP) Pulse Ox O2 Delivery O2 Flow Rate FiO2 07/31/20 12:38 75 17 151/73 100 Nasal Cannula 3 07/31/20 12:34 72 18 99 07/31/20 12:33 74 13 142/68 100 Nasal Cannula 3 07/31/20 12:28 98.4 75 15 143/81 100 Nasal Cannula 3 07/31/20 12:00 98.2 78 19 118/64 (82) 92 07/31/20 09:00 Room Air 07/31/20 08:00 74 07/31/20 08:00 97.7 76 18 122/63 (82) 92 07/31/20 04:00 76 07/31/20 04:00 97.9 73 18 120/59 (79) 92 07/31/20 00:00 77 07/31/20 00:00 98.0 78 18 123/68 (86) 92 07/30/20 21:00 Room Air 07/30/20 20:00 77 07/30/20 20:00 99.0 81 18 113/62 (79) 95 07/30/20 16:00 97.7 79 20 118/56 (76) 95 07/30/20 15:44 76 Intake and Output 07/30/20 07/31/20 18:59 06:59 Intake Total 360 ml 100 ml Output Total 150 ml 375 ml Balance 210 ml -275 ml Intake Oral 360 ml 100 ml Output Urine Total 150 ml 375 ml # Bowel Movements 1 Laboratory Tests 07/31/20 05:59: White Blood Count 6.7, Red Blood Count 2.85L, Hemoglobin 9.2L, Hematocrit 27.9L, Mean Corpuscular Volume 98, Mean Corpuscular Hemoglobin 32.2H, Mean Corpuscular Hemoglobin Concent 32.9, Red Cell Distribution Width 15.6H, Platelet Count 169, Mean Platelet Volume 7.5, Neutrophils (%) (Auto) 70.6, Lymphocytes (%) (Auto) 15.4L, Monocytes (%) (Auto) 11.8H, Eosinophils (%) (Auto) 1.1, Basophils (%) (Auto) 1.1, Sodium Level 139, Potassium Level 3.8, Chloride Level 108H, Carbon Dioxide Level 26, Anion Gap 5, Blood Urea Nitrogen 21H, Creatinine 0.9, Estimat Glomerular Filtration Rate > 60, Glucose Level 99, Calcium Level 8.1L, Total Bilirubin 1.6H, Direct Bilirubin 0.7H, Aspartate Amino Transf (AST/SGOT) 34, Alanine Aminotransferase (ALT/SGPT) 14, Alkaline Phosphatase 45L, Total Protein 5.8L, Albumin 1.6L, Globulin 4.2, Albumin/Globulin Ratio 0.4L Height (Feet): 5 Height (Inches): 8.00 Weight (Pounds): 150 Objective More alert CV RR Lungs CTA Abd Tense Ascites E No CCE Assessment/Plan Assessment/Plan: HCT drop noted m/p due to IVF hydration? GI consult noted + appreciated. Liver Cirrhosis etiology unknown. Hepatitis panel results pending. Abd paracentesis + bedside swallow eval pending. For paracentesis today. Patient confused and cannot sign. No family or DPOA available. Paracentesis is urgent to achieve comfort breathing. 2 MDs to sign for it: myself and Dr. Leiva. Rafaela Lima MD Jul 31, 2020 13:15
--- NOTE | 2020-07-31 14:22 | NUR ---
CASE MANAGEMENT: REVIEW SI: GIB . LIVER CIRRHOSIS . ABDOMINAL DISTENTION . CONFUSED . EGD w/CLIPPING OF BLEEDING BLOOD VESSEL 07/31 T 98.0 HR 74 RR 21 BP 156/80 SAT 100% NC/3L H/H 9.2/27.9 ALK PHOS 456 ALBUMIN 1.6 IS: NS IVF 550ML X1 FENTANYL 100MCG IV X1 VITAMIN K 10MG SUBQ QD PROTONIX IV QD ZOFRAN IV Q6HR PRN CLD ADVANCE TOLERATED ABD PARACENTESIS & BEDSIDE SWALLOW EVAL PENDING TELEMETRY UNIT STATUS DCP: PATIENT IS FROM [facility]
--- NOTE | 2020-07-31 14:32 | NUR ---
Speech Pathology Note (Dysphagia rx) Underwent the EGD and clipping with successful hemostat, bx, earlier today. 07/28/2020: 8.3 liter paracentesis via US Labs and vital signs are stable. His diet was advanced renal diet. Tolerating on clear liquid diet. No PO trial was given due to pt declined. Pt presents with functional swallow at SNF and upon admission. A/P 1. Functional swallow - Advance diet as tolerate - Speech/Swallow check up during meal this week. Kelsey Frank
[2020-07-31] MEDS: Propranolol 10mg tab ORAL SCH ×2 (14:47→21:15)
--- NOTE | 2020-07-31 19:35 | NUR ---
NURSE HAND-OFF REPORT: Important Events on Shift: EGD done today with a bleed that was clipped. Patient Status: Stable Diet: Renal Diet but pt cannot tolerate. Please contact dr to maybe down grade. Pending Orders: Pending Results/Labs: Pending MD notification: Latest Vital Signs: Temperature 97.7 , Pulse 89 , B/P 116 /54 , Respiratory Rate 20 , O2 SAT 95 , Nasal Cannula, O2 Flow Rate 3 . Vital Sign Comment: EKG Rhythm: SR w BBB Rhythm change?: N Notified?: Boom Hodges MD Response: Latest Strauss Fall Score: 55 Fall Risk: High Risk Safety Measures: Call light Within Reach, Bed Alarm Zone 1, Side Rails Side Rails x3, Bed position Low and Locked. Fall Precautions: Yellow Socks Yellow Gown Door Sign Patient Fall Education Report given to
--- NOTE | 2020-07-31 19:45 | NUR ---
NURSE NOTES: Pt received from Kendra BRIDGES. Pt is resting comfortably in bed and denies any pain. 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 Pt is on cardiac monitoring SR w BBB and asymptomatic. Pt is breathing unlabored on RA. Pt has FC 16fr patent and draining well to gravity. Bed is locked and in lowest position. Will continue to monitor.
[2020-08-01] VITALS: BP 109/65
[2020-08-01 04:00] VITALS: BP 111/62
--- NOTE | 2020-08-01 04:45 | Operative Note - Dictated ---
DATE OF OPERATION: 07/31/2020 PROCEDURE: Upper gastrointestinal endoscopy with Endoclip placement for hemostasis. SURGEON: Adrian Leiva MD. ANESTHESIOLOGIST: Bryan Tim MD. PRE-ENDOSCOPY DIAGNOSIS: Upper gastrointestinal bleeding. POST-ENDOSCOPY DIAGNOSES: 1. Mild esophageal varices, not felt to be the source of the patient's bleeding. 2. 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 3. Focus of active bleeding from the erosive change in the mid body of the stomach, status post Endoclip placement . PROCEDURE: The procedure, its risks, indications, alternatives, and possible complications could not be explained since the patient has confusion and unable to understand. Family was also not available. The patient has no next of kin. The discussion was held with the patient's attending physician who felt that the patient requires an endoscopy on an emergency basis to help identify the bleeding problem in order to avoid the patient demise. The patient's procedure was therefore placed on 2 physician consent. The patient was then sedated in the left lateral decubitus position and a diagnostic upper endoscope was introduced into oropharynx and advanced to the duodenum without difficulty. The endoscope was then gradually withdrawn and the mucosa was examined carefully. The patient had some mild esophageal varices. These were felt not to be the cause of his bleeding. There was a 3 cm hiatal hernia. The stomach however was diffusely involved with portal hypertensive gastropathy. There was in the mid body of the stomach where there were an active bleeding from this erosion. The Endoclip device was placed on the lesion and the clip was released with excellent hemostasis. The remainder of the upper gastrointestinal examination was unremarkable. The endoscope was removed. The patient was sent to recovery in good condition. COMPLICATIONS: None. RECOMMENDATIONS: 1. Monitor CBC. 2. Resume oral diet. Adrian Leiva M.D. DR: ROJAS JOB#: [id number] CC:
[2020-08-01] MEDS: Propranolol 10mg tab ORAL SCH ×3 (05:18→22:00)
--- NOTE | 2020-08-01 07:24 | NUR ---
NURSE NOTES: Pt received from Chalino BRIDGES. Pt in bed sleeping, side rails up x 3, bed low and locked, call light within reach. breakfast at bedside. Talked to dietary about downgrading him to puree as pt has no teeth and is on renal regular chew. No sign of distress at this time. Kwan draining, slight redness noted.
--- NOTE | 2020-08-01 07:24 | NUR ---
NURSE HAND-OFF REPORT: Important Events on Shift:Pt legs elevated for bilateral lower extremity edema. Pt had no BM. Patient Status: Stable Diet: Renal Diet Pending Results/Labs:AM Labs Latest Vital Signs: Temperature 98.2 , Pulse 68 , B/P 113 /72 , Respiratory Rate 16 , O2 SAT 92 , Room Air, O2 Flow Rate 3 . Vital Sign Comment: VSS EKG Rhythm: SR w BBB Rhythm change?: N Notified?: Boom Hodges MD Response: Latest Strauss Fall Score: 55 Fall Risk: High Risk Safety Measures: Call light Within Reach, Bed Alarm Zone 1, Side Rails Side Rails x3, Bed position Low and Locked. Fall Precautions: Yellow Socks Yellow Gown Door Sign Patient Fall Education Report given to CYRUS Be.
[2020-08-01 08:00] VITALS: BP 122/57
--- NOTE | 2020-08-01 08:15 | 48 Hour Post Anesthesia Eval ---
Post Anesthesia Evaluation Procedure: EGD Clipping of bleeding blood vessel Date of Evaluation: Aug 01, 2020 Time of Evaluation: 08:14 Blood Pressure Systolic: 116 0: 72 Pulse Rate: 86 Respiratory Rate: 22 Temperature (Fahrenheit): 97.6 O2 Sat by Pulse Oximetry: 98 Airway: patent Nausea: No Vomiting: No Pain Intensity: 2 Hydration Status: adequate Cardiopulmonary Status: stable Mental Status/LOC: patient returned to baseline Follow-up Care/Observations: n/a Post-Anesthesia Complications: none Follow-up care needed: N/A Bryan Tim MD Aug 01, 2020 08:15
--- NOTE | 2020-08-01 08:34 | NUR ---
RD ASSESSMENT & RECOMMENDATIONS SEE CARE ACTIVITY FOR COMPLETE ASSESSMENT DAILY ESTIMATED NEEDS: Needs based on Cirrhosis/ 67.6kg 25-30 kcals/kg 5833-7905 total kcals 1-1.5 g protein/kg 67-100 g total protein 20-25 mL/kg 7479-2416 total fluid mLs NUTRITION DIAGNOSIS: Altered nutrition related lab values R/T cirrhosis and ascites as evidenced by elev T bili (2.7->1.6), elev NH3, s/p paracentesis, 8.3 liters of fluid removed. CURRENT DIET:RENAL, regular texture diet (will provide pureed moist texture w/ NTL until re-evaluated by WEATHERIZATION COORDINATOR. Kitchen informed) PO DIET RECOMMENDATIONS: LOW NA/ texture per WEATHERIZATION COORDINATOR ADDITIONAL RECOMMENDATIONS: * Daily calibrated bedscale wt * WEATHERIZATION COORDINATOR re-evaluation for appropriate texture -> per RN, pt unable to tolerate current texture of regular, w/ difficulty chewing and swallowing. Will provide pureed w/ NTL per RN request until re-evaluated by WEATHERIZATION COORDINATOR * Ensure Enlive BID * Monitor for hypoglycemia while w/ poor PO
[2020-08-01] MEDS: Pantoprazole Inj IVP SCH (09:01)
[2020-08-01] MEDS: Spironolactone 50mg tab ORAL SCH (09:02)
[2020-08-01] MEDS: Phytonadione 10 mg/mL 1ml amp SUBQ SCH (09:03)
--- NOTE | 2020-08-01 09:23 | NUR ---
Speech Pathology Note (Dysphagia Rx) Hospital Day: #6 UGIB, Cirrhosis of liver with Ascites POD: #4 (Paracentesis 8.3liter) POD: #1 (EGD with clipping; diffused hypertensive gastropathy) S: Pt received his breakfast tray with regular solid (scrambled egg, bread and coffee/juice). Pt needed to be fed by me due to blindness. O: 1. Swallow safety: Pt was able to indicate what he wants to eat and what he does not want to eat. I fed him scrambled egg, Oat meal, coffee/cranberry juice. He tolerated them all well. I did not offer bread, because it's just too hard and dry. A: 1. Swallow function is at his baseline. Missing his teeth. P: 1. Mechanical soft (Easy chew diet) and thin liquid -Readjust his diet at his [facility] home where his staff is more familiar with him I will sign off from skilled Speech service at this time. Kelsey Frank
[2020-08-01 12:00] VITALS: BP 132/60
--- NOTE | 2020-08-01 13:32 | General Progress Note ---
Subjective Allergies: Coded Allergies: No Known Allergies (Verified , 04/05/09) Subjective No c/o Objective Last 24 Hour Vital Signs Date Time Temp Pulse Resp B/P (MAP) Pulse Ox O2 Delivery O2 Flow Rate FiO2 08/01/20 12:00 98.0 61 20 132/60 (84) 98 08/01/20 12:00 61 08/01/20 09:00 Room Air 08/01/20 08:15 86 22 98 08/01/20 08:00 98.0 59 18 122/57 (78) 97 59 08/01/20 08:00 59 08/01/20 05:18 68 113/72 08/01/20 04:00 61 08/01/20 04:00 98.2 67 16 111/62 (78) 92 08/01/20 00:00 97.9 60 17 109/65 (80) 91 08/01/20 00:00 63 07/31/20 21:15 64 115/58 07/31/20 21:00 Room Air 07/31/20 20:00 99.0 64 15 115/58 (77) 92 07/31/20 20:00 64 07/31/20 16:00 70 07/31/20 16:00 97.7 89 20 116/54 (74) 95 07/31/20 14:47 74 156/80 Intake and Output 07/31/20 08/01/20 19:00 07:00 Intake Total 450 ml 20 ml Output Total 400 ml 70 ml Balance 50 ml -50 ml Intake Oral 20 ml IV Total 450 ml Output Urine Total 400 ml 70 ml # Voids 1 1 # Bowel Movements 1 2 Laboratory Tests 08/01/20 05:39: Alpha Fetoprotein [Pending] Height (Feet): 5 Height (Inches): 8.00 Weight (Pounds): 150 Objective More alert CV RR Lungs CTA Abd Tense Ascites E No CCE Assessment/Plan Assessment/Plan: HCT drop noted m/p due to IVF hydration? GI consult noted + appreciated. Liver Cirrhosis etiology unknown. Hepatitis panel results pending. Abd paracentesis + bedside swallow eval done. Pt on oral diet. Abd paracentesis done. 8 L removed! If stable DC to SNF tomorrow. Rafaela Lima MD Aug 01, 2020 13:32
--- NOTE | 2020-08-01 15:19 | NUR ---
NURSE NOTES: 1400 beta blocked held as bp was 125/66 and hr was 66, pt asked for vitals and stated that he doesn't want BP meds. Charted "parameters out of reach" by mistake but should be "pt refused". However vitals are stable and he has another dose due later tonight should the BP increase.
[2020-08-01 16:00] VITALS: BP 125/66
--- NOTE | 2020-08-01 16:20 | NUR ---
CASE MANAGEMENT: REVIEW SI: GIB . LIVER CIRRHOSIS . ABDOMINAL DISTENTION . EGD w/CLIPPING OF BLEEDING BLOOD VESSEL 07/31 T 97.5 HR 61 RR 19 BP 122/57 SAT 97% ROOM AIR IS: VITAMIN K 10MG SUBQ QD PROTONIX IV QD ZOFRAN IV Q6HR PRN START SOFT DIET TELEMETRY UNIT STATUS DCP: PATIENT IS FROM [facility]
--- NOTE | 2020-08-01 19:44 | NUR ---
NURSE HAND-OFF REPORT: Important Events on Shift:[complained of some pain in throat as a result of ng tube he perviously had. Pt told that liver is dying by Dr. Marshall, this caused him some anxiety, he was withdrawn for some time after this.] Patient Status: [in bed awake and alert, stable] Diet: [soft easy chew. ] Pending Orders: [] Pending Results/Labs:[] Pending MD notification:[] Latest Vital Signs: Temperature 97.5 , Pulse 68 , B/P 125 /66 , Respiratory Rate 19 , O2 SAT 99 , Room Air, O2 Flow Rate 3 . Vital Sign Comment: [stable] EKG Rhythm: SR w BBB Rhythm change?: N Notified?: Boom Hodges MD Response: Latest Strauss Fall Score: 55 Fall Risk: High Risk Safety Measures: Call light Within Reach, Bed Alarm Zone 1, Side Rails Side Rails x3, Bed position Low and Locked. Fall Precautions: Yellow Socks Yellow Gown Door Sign Patient Fall Education Report given to [Jodi RN].
--- NOTE | 2020-08-01 19:46 | General Progress Note ---
Subjective Allergies: Coded Allergies: No Known Allergies (Verified , 04/05/09) Subjective above noted d/w patient re results d/w patient re cirrhosis advised re poor Px advised to assign a DPOA Objective Last 24 Hour Vital Signs Date Time Temp Pulse Resp B/P (MAP) Pulse Ox O2 Delivery O2 Flow Rate FiO2 08/01/20 16:00 61 08/01/20 16:00 97.5 68 19 125/66 (85) 99 08/01/20 12:00 98.0 61 20 132/60 (84) 98 08/01/20 12:00 61 08/01/20 09:00 Room Air 08/01/20 08:15 86 22 98 08/01/20 08:00 98.0 59 18 122/57 (78) 97 59 08/01/20 08:00 59 08/01/20 05:18 68 113/72 08/01/20 04:00 61 08/01/20 04:00 98.2 67 16 111/62 (78) 92 08/01/20 00:00 97.9 60 17 109/65 (80) 91 08/01/20 00:00 63 07/31/20 21:15 64 115/58 07/31/20 21:00 Room Air 07/31/20 20:00 99.0 64 15 115/58 (77) 92 07/31/20 20:00 64 Intake and Output 07/31/20 08/01/20 19:00 07:00 Intake Total 450 ml 20 ml Output Total 400 ml 70 ml Balance 50 ml -50 ml Intake Oral 20 ml IV Total 450 ml Output Urine Total 400 ml 70 ml # Voids 1 1 # Bowel Movements 1 2 Laboratory Tests 08/01/20 05:39: Alpha Fetoprotein [Pending] Height (Feet): 5 Height (Inches): 8.00 Weight (Pounds): 150 Objective Thin elderly man NCAT supple CTA RR abd soft NT no edema Assessment/Plan Assessment/Plan: Assessment - Cirrhosis, ? etiology - large ascites - s/p 8.3 liter paracentesis - Gastritis - OB (+) stools - poor PX Recommendations - f/u paracentesis results --> cytology negative - PPI - follow CBC - check AFP Adrian Leiva MD Aug 01, 2020 19:46
--- NOTE | 2020-08-01 19:56 | NUR ---
NURSE NOTES: Received patient form Ani RN. Patient is in bed awake calmly in semi-gross. No acute distress noted at this time. Patient is reporting throat pain that is causing everything to taste bad. Patient is A/O x4. IV site is right hand 22G S/L as ordered. Patient is blind and unable to see call light. Patient was educated on how to use call light. Bed is in lowest position and locked, bedside rales up X3, Call light is in reach. Fall precautions in place. Will continue plane of care.
[2020-08-01 20:00] VITALS: BP 106/50
--- NOTE | 2020-08-01 22:00 | NUR ---
NURSE NOTES: Held patients Propranolol do to patient Blood Pressure of 106/50 with a normal heart rate of 79bpm.
[2020-08-02] VITALS: BP 127/57
[2020-08-02 04:00] VITALS: BP 120/54
[2020-08-02] MEDS: Propranolol 10mg tab ORAL SCH ×2 (06:57→14:00)
--- NOTE | 2020-08-02 07:30 | NUR ---
NURSE HAND-OFF REPORT: Important Events on Shift: Held patients PM (22:00) Propranolol d/t patients BP of 106/50 HR of 79. Patient Status: Patient is stable Diet: Soft easy chew. thin liquid whole pill. Pending Orders: Pending Results/Labs: Pending MD notification: Latest Vital Signs: Temperature 96.6 , Pulse 66 , B/P 125 /59 , Respiratory Rate 18 , O2 SAT 96 , Room Air, O2 Flow Rate 3 . Vital Sign Comment: EKG Rhythm: SR w BBB Rhythm change?: N Notified?: Boom Hodges MD Response: Latest Strauss Fall Score: 55 Fall Risk: High Risk Safety Measures: Call light Within Reach, Bed Alarm Zone 1, Side Rails Side Rails x3, Bed position Low and Locked. Fall Precautions: Yellow Socks Yellow Gown Door Sign Patient Fall Education Report given to [place] BRIDGES.
--- NOTE | 2020-08-02 07:39 | NUR ---
NURSE NOTES: Pt received from Jodi BRIDGES. Pt in bed resting, side rails up x 3, bed low and locked, call light within reach with a education trainer call button so he can feel it as he is blind. breakfast at bedside. No sign of distress at this time. Kwan draining, slight redness noted.
[2020-08-02 08:00] VITALS: BP 125/59
--- NOTE | 2020-08-02 09:29 | CDS Physician Query ---
Clarification is required for compliance, coding accuracy, and to reflect severity of illness for this patient Dear Dr. Rafaela Lima M.D. Date: 08/02/20 CDI/ CDS Name:Tyler Pearce Clinical Documentation States: 89-year-old male from [facility], who is under the care of Dr. May Murdock. The patient was transferred via paramedics to this hospital emergency room due to hematemesis and vomiting. ASSESSMENT:Advanced ascites with liver cirrhosis, etiology unclear, Blindness, Diabetes mellitus. Benign prostatic hypertrophy,Hypertensive cardiovascular disease, Osteoporosis. Osteoarthritis, Status post right hip fracture, status post hip fracture repair.Gastroesophageal reflux, Glaucoma. [ H&P Rafaela Lima M.D. 07/26] HCT drop noted m/p due to IVF hydration. GI consult requested. Anemia [PN 07/27] Procedure: EGD Clipping of bleeding blood vessel Clinical Finding Show: 07/26 07/27 07/28 07/29 RBC: 3.41 2.66 2.66 2.64 Hgb: 10.8 8.4 8.7 8.5 Hct: 33.1 25.6 25.6 25.7 Please clarify the specific type of anemia below: Acuity []Acute [X]Acute on Chronic []Chronic Etiology [] Blood loss [] ESRD [] Neoplastic disease [] Iron deficiency [] GI Bleeding [X] Anemia of chronic disease [] Dilutional [] Postoperative [] Unable to determine [] Other: Present on Admission: [] Yes [] No [] Clinically Undetermined Physician signature Date Please also document in your Progress Notes and/or Discharge Summary and indicate if the condition was present on admission. MTDD
--- NOTE | 2020-08-02 09:35 | CDS Physician Query ---
Clarification is required for compliance, coding accuracy, and to reflect severity of illness for this patient Dear Dr. Rafaela Lima M.D. Date: 08/02/20 CDI/ CDS Name:Tyler Pearce Clinical Documentation States: 89-year-old male from [facility], who is under the care of Dr. May Murdock. The patient was transferred via paramedics to this hospital ER due to hematemesis and vomiting. ASSESSMENT:Advanced ascites with liver cirrhosis, etiology unclear, Blindness, Diabetes mellitus. Benign prostatic hypertrophy,Hypertensive cardiovascular disease, Osteoporosis. Osteoarthritis, Status post right hip fracture, status post hip fracture repair.Gastroesophageal reflux, Glaucoma. [ H&P Rafaela Lima M.D. 07/26] HCT drop noted m/p due to IVF hydration. GI consult requested. Anemia [PN 07/27] Procedure: EGD Clipping of bleeding blood vessel NUTRITION DIAGNOSIS: Altered nutrition related lab values R/T cirrhosis and ascites as evidenced by elev T bili (2.7->1.6), elev NH3, s/p paracentesis, 8.3 liters of fluid removed. Clinical Finding Show: BMI: 23.1kg/m2 LAB (07/26) : Chem: Albumin 2.3 [3.4-5.0], Calcium lv. 9.1 Please select the most appropriate option: [ ] Protein/Calorie Malnutrition [ ] Mild [x ] Moderate [ ] Severe [ ] Other [ ] Unable to determine [ ] Not Applicable Present on Admission: [] Yes [] No [] Clinically Undetermined Physician signature Date Please also document in your Progress Notes and/or Discharge Summary and indicate if the condition was present on admission. MTDD
--- NOTE | 2020-08-02 09:53 | CDS Physician Query ---
PLEASE COMPLETE DOCUMENT BEFORE SIGNING Dear Dr. Rafaela Lima M.D. Date: 08/02/20 CDI/ CDS Name:Tyler Pearce Clinical Documentation States: 89-year-old male from [facility], who is under the care of Dr. May Murdock. The patient was transferred via paramedics to this hospital emergency room due to hematemesis and vomiting. ASSESSMENT:Advanced ascites with liver cirrhosis, etiology unclear, Blindness, Diabetes mellitus. Benign prostatic hypertrophy,Hypertensive cardiovascular disease, Osteoporosis. Osteoarthritis, Status post right hip fracture, status post hip fracture repair.Gastroesophageal reflux, Glaucoma. [ H&P Rafaela Lima M.D. 07/26] HCT drop noted m/p due to IVF hydration. GI consult requested. Anemia [PN 07/27] PROCEDURE: Upper gastrointestinal endoscopy with Endoclip placement for hemostasis. Clinical Finding Show: 07/26 07/27 07/28 07/29 RBC: 3.41 2.66 2.66 2.64 Hgb: 10.8 8.4 8.7 8.5 Hct: 33.1 25.6 25.6 25.7 PRE-ENDOSCOPY DIAGNOSIS: Upper gastrointestinal bleeding. POST-ENDOSCOPY DIAGNOSES: 1. Mild esophageal varices, not felt to be the source of the patient's bleeding. 2. 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 3. Focus of active bleeding from the erosive change in the mid body of the stomach, status post Endoclip placement [Adrian Leiva M.D. 07/31/2020 22:41] PHYSICIAN RESPONSE: Please clarify the Acuity and Etiology of the condition along with associated Anemia as applicable: 1) Acuity [ ] Acute [ ]Acute on Chronic [ ] Chonic 2) Etiology [ ] Erosive esophagitis [ ] Duodenal Ulcer [ ] Gastric Ulcer [ ] Varices [ ] Unable to determine [ ] Other: Condition Present on Admission: [] Yes [] No []Clinically Undeterminable Physician signature Date Please also document in your Progress Notes and/or Discharge Summary and indicate if the condition was present on admission. NICANOR
--- NOTE | 2020-08-02 10:10 | CDS Physician Query ---
Clarification is required for compliance, coding accuracy, and to reflect severity of illness for this patient Dear Dr. Rafaela Lima M.D. Date: 08/02/20 CDI/ CDS Name:Tyler Pearce Clinical Documentation States: 89-year-old male from [facility], who is under the care of Dr. May Murdock. The patient was transferred via paramedics to this hospital emergency room due to hematemesis and vomiting. ASSESSMENT:Advanced ascites with liver cirrhosis, etiology unclear, Blindness, Diabetes mellitus. Benign prostatic hypertrophy,Hypertensive cardiovascular disease, Osteoporosis. Osteoarthritis, Status post right hip fracture, status post hip fracture repair.Gastroesophageal reflux, Glaucoma. The patient is confused and unable to give any further information. [ H&P Rafaela Lima M.D. 07/26] NEUROLOGICAL: He is alert, but confused. There were no gross focal findings. Problem List: encephalopathy due to metabolic disorder [ Camilo Asif MD 07/30] Clinical Findings Show: Labs (07/26): Chem:BUN 33, Glucose 159 ,T.Bilirubin 2.7, Alb 2.3, Urine : Ur. Bacteria "Few" , Ur.Esterase 2+ Medication: Sodium Chloride 1000ml IV Procedure: large ascites - s/p 8.3 liter paracentesis Please indicate the nature and chronicity of the condition below: [ ] Hepatic Encephalopathy [ x] Metabolic Encephalopathy [ ] Toxic Encephalopathy [ ] Toxic - Metabolic Encephalopathy [ ] Progressive Encephalopathy [ ] Encephalopathy, Other [ ] Other: [ ] Not Applicable Severity: [ ] Acute [ ] Chronic [ ] Acute on Chronic [ ] Unable to determine Present on Admission: [] Yes [] No [] Clinically Undetermined Physician signature Date Please also document in your Progress Notes and/or Discharge Summary and indicate if the condition was present on admission. MTDD
[2020-08-02] MEDS: Pantoprazole Inj IVP SCH (10:49)
[2020-08-02] MEDS: Spironolactone 50mg tab ORAL SCH (10:50)
[2020-08-02 12:00] VITALS: BP 118/51
--- NOTE | 2020-08-02 13:47 | General Progress Note ---
Subjective Allergies: Coded Allergies: No Known Allergies (Verified , 04/05/09) Subjective No c/o Objective Last 24 Hour Vital Signs Date Time Temp Pulse Resp B/P (MAP) Pulse Ox O2 Delivery O2 Flow Rate FiO2 08/02/20 12:00 69 08/02/20 12:00 98.2 59 20 118/51 (73) 95 08/02/20 09:00 Room Air 08/02/20 08:00 96.6 66 18 125/59 (81) 96 08/02/20 08:00 65 08/02/20 06:57 69 120/54 08/02/20 04:00 98.5 76 18 120/54 (76) 91 08/02/20 04:00 69 08/02/20 00:00 98.8 83 18 127/57 (80) 92 08/02/20 00:00 73 08/01/20 22:00 79 106/50 08/01/20 21:00 Room Air 08/01/20 20:00 70 08/01/20 20:00 98.1 79 17 106/50 (68) 92 08/01/20 16:00 61 08/01/20 16:00 97.5 68 19 125/66 (85) 99 Intake and Output 08/01/20 08/02/20 19:00 07:00 Intake Total 358 ml Output Total 300 ml 400 ml Balance 58 ml -400 ml Intake Oral 358 ml Output Urine Total 300 ml 400 ml # Voids 1 # Bowel Movements 1 Height (Feet): 5 Height (Inches): 8.00 Weight (Pounds): 150 Objective More alert CV RR Lungs CTA Abd Tense Ascites E No CCE Assessment/Plan Assessment/Plan: HCT drop noted m/p due to IVF hydration? GI consult noted + appreciated. Hct now stable. Liver Cirrhosis etiology unknown. Hepatitis panel results pending. Abd paracentesis + bedside swallow eval done. Pt on oral diet. Abd paracentesis done. 8 L removed! Liver Cirrhosis m/p Alcoholic! DC to SNF . Will need periodic paracentesis. Rafaela Lima MD Aug 02, 2020 13:47
[2020-08-02] MEDS ORDERED: Pantoprazole IVP (13:50)
[2020-08-02] MEDS ORDERED: ZOFRAN 4 MG4 MG/2 ML PO (13:50)
[2020-08-02] MEDS ORDERED: PROPRANOLOL HCL10 MG ORAL (13:50)
[2020-08-02] MEDS ORDERED: ALDACTONE50 MG ORAL (13:50)
--- NOTE | 2020-08-02 13:53 | NUR ---
NURSE NOTES:WOUND ASSESSMENT REQUESTED BY PATIENT'S NURSE TO EXAMINE HIS BUTTOCK/SACRAL AREA. PATIENT ALERT AND RESPONSIVE. PER NURSE, HE IS BLIND BUT ABLE TO ASSIST WITH REPOSITIONING IN BED. LEFT BUTTOCK -SKIN TEAR MEASURING 1.6X1.6X0.1CM. SACRUM- STAGE II PRESSURE ULCER MEASURING 0.5X0.4X0.2CM. MINIMAL SEROSANGUINEOUS DRAINAGE NOTED RECOMMEND- CLEAN WITH SALINE, PAT DRY. APPLY TRIAD AND COVER WITH OPTIFOAM DRESSING. REPLACE DAILY AND PRN
--- NOTE | 2020-08-02 14:15 | NUR ---
NURSE NOTES: BP 123/64 HR 61, given HR being borderline and BP stable held the beta-bhumika.
--- NOTE | 2020-08-02 14:30 | NUR ---
NURSE NOTES: Report given to Krzysztof Rivera at [facility]. Transport still not arranged.
--- NOTE | 2020-08-02 14:50 | NUR ---
*-*DISCHARGE PLANNING*-* PATIENT HAS BEEN REFERRED BACK TO: [facility] P: [phone] S/W RADHA, WILL CALL BACK WITH ROOM NUMBER.
--- NOTE | 2020-08-02 15:57 | NUR ---
*-*DISCHARGE PLANNING*-* PATIENT HAS BEEN REFERRED BACK TO: [facility] P: [phone] S/W RADHA, REQUESTING A NEGATIVE COVID TEST WITH IN THE LAST 48 HOURS. ~~~~~~~~~~ NURSES AND NURSES CORDWOOD CUTTER HAS BEEN NOTIFIED~~~~~
[2020-08-02 16:00] VITALS: BP 124/65
--- NOTE | 2020-08-02 16:03 | NUR ---
*-*DISCHARGE PLANNING*-* PATIENT HAS BEEN REFERRED BACK TO: [facility] P: [phone] ROOM# 230.BED.3 SKILLED S/W RADHA, REQUESTING A NEGATIVE COVID TEST WITH IN THE LAST 48 HOURS. ~~~~~~~~~~ NURSES AND NURSES CAR AUDIO INSTALLER HAS BEEN NOTIFIED~~~~~ Addendum: 08/02/20 at 1604 by MARISA PYLE CM ~~~PENDING COVID TEST~~~~~
--- NOTE | 2020-08-02 17:06 | NUR ---
*-*DISCHARGE PLANNED*-* PATIENT HAS BEEN ACCEPTED AND WILL BE DISCHARGED BACK TO: [facility] P: [phone] FOR NURSE REPORT ROOM# 230.BED.3 SKILLED [facility] TRANSPORTATION SET FOR 6:15PM/ 1815PM S/W TOMAS [id number]. S/W PATIENTS GOD DAUGHTER JOE RAHMAN, WHO IS IN AGREEMENT WITH DISCHARGE PLAN.
--- NOTE | 2020-08-02 19:00 | NUR ---
NURSE NOTES: Pt picked up by [facility], report given to EMS. Pt stable, no distress or pain or sob. Belongings accounted for and sent with pt. Wrist band removed. Sent with angel and IV as he has Iv protonix prescribed. Angel draining well, rigo richardson MD aware. Vitals stable.
--- NOTE | 2020-08-02 19:28 | General Progress Note ---
Subjective Allergies: Coded Allergies: No Known Allergies (Verified , 04/05/09) Subjective above noted feels OK no abdominal pain Objective Last 24 Hour Vital Signs Date Time Temp Pulse Resp B/P (MAP) Pulse Ox O2 Delivery O2 Flow Rate FiO2 08/02/20 16:00 96.9 65 19 124/65 (84) 96 08/02/20 16:00 63 08/02/20 12:00 69 08/02/20 12:00 98.2 59 20 118/51 (73) 95 08/02/20 09:00 Room Air 08/02/20 08:00 96.6 66 18 125/59 (81) 96 08/02/20 08:00 65 08/02/20 06:57 69 120/54 08/02/20 04:00 98.5 76 18 120/54 (76) 91 08/02/20 04:00 69 08/02/20 00:00 98.8 83 18 127/57 (80) 92 08/02/20 00:00 73 08/01/20 22:00 79 106/50 08/01/20 21:00 Room Air 08/01/20 20:00 70 08/01/20 20:00 98.1 79 17 106/50 (68) 92 Intake and Output 08/01/20 08/02/20 19:00 07:00 Intake Total 358 ml Output Total 300 ml 400 ml Balance 58 ml -400 ml Intake Oral 358 ml Output Urine Total 300 ml 400 ml # Voids 1 # Bowel Movements 1 Height (Feet): 5 Height (Inches): 8.00 Weight (Pounds): 150 Objective Thin elderly man NCAT supple CTA RR abd soft NT no edema Assessment/Plan Assessment/Plan: Assessment - Cirrhosis, ? etiology - large ascites - s/p 8.3 liter paracentesis - Gastritis - OB (+) stools - poor PX Recommendations - f/u paracentesis results --> cytology negative - PPI - follow CBC - check AFP Adrian Leiva MD Aug 02, 2020 19:28
--- NOTE | 2020-08-03 21:22 | Discharge Summary ---
Discharge Summary Discharge Summary _ DATE OF ADMISSION: 07/26/2020 DATE OF DISCHARGE: 08/02/2020 DISCHARGED BY: Dr. Rafaela Lima CONSULTANTS: Dr. Adrian Leiva BRIEF HOSPITAL COURSE: Patient is an 89-year-old male from [facility], who is under the care of Dr. May Murdock. Patient was transferred to the emergency room due to hematemesis and vomiting. He has medical history of liver cirrhosis, diabetes mellitus, BPH, hypertensive cardiovascular disease, osteoporosis, osteoarthritis, GERD, glaucoma, blindness, and right hip fracture, status post repair. Upon evaluation at ED, vital signs were stable. Abdomen was severely distended. NG tube was inserted and 200 cc of bloody contents were drained. Blood work did not show any leukocytosis. Hemoglobin 10.8, hematocrit 33. Platelet count 177. NG tube was inserted and 200 cc of bloody contents were drained. D-dimer was elevated to 12. COVID-19 test was negative. He was given IV vancomycin and Zosyn. He was given IV Protonix. CT of the abdomen and pelvis showed ascites and liver cirrhosis. Patient was then admitted for evaluation of GI bleed. Patient was placed on n.p.o. He was given slow IV fluid rehydration. GI was consulted. CBC was trended. He was continued on proton pump inhibitors. He underwent paracentesis yielding 8.3 L of fluid. He was eventually given Lasix and Aldactone. NGT was removed. He was started on clear liquid diet. On July 31, 2020, he underwent EGD. Findings showed mild esophageal varices, not felt to be source of patient's bleeding. He had diffuse portal hypertensive gastropathy, which was mild. Focus of active bleeding from the erosive change in the mid body of the stomach, status post Endo Clip placement. Hepatitis panel pending. Cytology result from paracentesis did not show any malignant cells. Blood culture did not isolate any growth. Rapid COVID-19 testing was negative. Patient was discharged back to retirement. FINAL DIAGNOSES: Liver cirrhosis, most probably alcoholic Metabolic encephalopathy Moderate protein calorie malnutrition Chronic anemia Status post paracenteses Status post EGD with findings of mild esophageal varices, diffuse portal hypertensive gastropathy, and active bleeding from erosive changes in the mid body of the stomach, status post Endo Clipping. DISPOSITION: Patient was discharged back to retirement. DISCHARGE MEDICATIONS: Refer to Discharge Medication List. I have been assigned to complete a discharge summary on this account, I was not involved with the patient's management.--ARJUN Shaikh Jacqueline Robles NP Aug 03, 2020 21:22
== END 2020-08-02 21:29 | DRG 377 ==
LOC: EDBD 05:00 → EMR 05:23 → 2E 05:27 → EDBEDREQ 06:06
PROC: 0W9G3ZZ Drainage of Peritoneal Cavity, Percutaneous Approach (ICD-10-PCS; 2020-07-28)
PROC: 0W3P8ZZ Control Bleeding in Gastrointestinal Tract, Via Natural or Artificial Opening Endoscopic (ICD-10-PCS; principal; 2020-07-31 12:10)
DX: K25.4 Chronic or unspecified gastric ulcer with hemorrhage (principal); G93.41 Metabolic encephalopathy; E87.2 Acidosis; K76.6 Portal hypertension; R18.8 Other ascites; E44.0 Moderate protein-calorie malnutrition; I85.00 Esophageal varices without bleeding; N40.0 Benign prostatic hyperplasia without lower urinary tract symptoms; E11.39 Type 2 diabetes mellitus with other diabetic ophthalmic complication; M81.8 Other osteoporosis without current pathological fracture; M19.90 Unspecified osteoarthritis, unspecified site; H54.8 Legal blindness, as defined in USA; K21.9 Gastro-esophageal reflux disease without esophagitis; N40.1 Benign prostatic hyperplasia with lower urinary tract symptoms; M81.0 Age-related osteoporosis without current pathological fracture; K70.30 Alcoholic cirrhosis of liver without ascites; D63.8 Anemia in other chronic diseases classified elsewhere; I25.10 Atherosclerotic heart disease of native coronary artery without angina pectoris; K31.89 Other diseases of stomach and duodenum; K44.9 Diaphragmatic hernia without obstruction or gangrene; H40.9 Unspecified glaucoma; K29.70 Gastritis, unspecified, without bleeding
CPT/HCPCS: 36415; 71045; 74018; 74177; 76942; 80048; 80053; 80061; 81003; 82105; 82140; 82248; 82270; 82728; 83605; 83615; 83690; 83735; 84484; 85025; 85379; 85610; 85730; 86140; 86705; 86709; 86803; 86850; 86900; 86901; 87040; 87081; 87340; 93005; 94003; 94150; 96361; 96365; 96366; 96368; 96375; 99285; J7030; U0002

== ENCOUNTER 2020-08-13 06:18 | Inpatient (IN) | payer MEDICARE ==
[~2020-08-13] VITALS: Ht 185.4 cm; Wt 72.3 kg
[~2020-08-13 06:18] MED LIST changes: +ALDACTONE50 MG ORAL; +ALUM PO; +BENGAY GREASELE57 GM TP; +BETIMOL5 M2 OP; +BRIMONIDINE TART5 ML BOTH EYES; +CALCIUM CARBON500 M1 PO; +GLUCERNA1500 ML PO; +MILK OF MA400 MG/51 ORAL; +MULTIVITAMINS1 EAC8 ORAL; +OCUFLOX5 ML BOTH EYES; +PROPRANOLOL HCL10 MG ORAL; +Pantoprazole IVP; +ZOFRAN 4 MG4 MG/2 ML PO; +ZOFRAN4 M3 ORAL; +[UNRECOGNIZED DRUG - OTHER] PO; +cholecalciferol PO
--- NOTE | 2020-08-13 06:20 | NUR ---
ED Nurse Note: Patient brought into the ED by ambulance RA 26 from [facility] conv home due to respiratory distress. Per EMS o2 sat at facility is 88% RA, pt hooked to 15L simple mask satting 98%. Patient was seen vomiting coffee ground emesis. Patient has angel catheter hooked outside. PAtient is AAOX4 and full code and cooperative to care. PAtient denies any fever and chills, chest pain. pt was placed on bed, hooked to registered nurse cardiac, VSS, afebrile on triage.
[2020-08-13] MEDS ORDERED: MULTIPLE VITAM1 EAC5 PO (06:30)
[2020-08-13] MEDS ORDERED: SPIRONOLACTONE100 MG ORAL (06:30)
[2020-08-13] MEDS ORDERED: [UNRECOGNIZED DRUG - OTHER] TOPIC (06:30)
[2020-08-13] MEDS ORDERED: ZOFRAN4 M3 ORAL (06:30)
[2020-08-13] MEDS ORDERED: GLUCERNA237 ML PO (06:30)
[2020-08-13] MEDS ORDERED: VITAMIN C500 M1 ORAL (06:30)
--- NOTE | 2020-08-13 06:36 | NUR ---
ED Nurse Note: ERMD at bedside
--- NOTE | 2020-08-13 06:45 | NUR ---
ED Nurse Note: Blood, urine, rapid covid test sent to lab
--- NOTE | 2020-08-13 06:46 | NUR ---
ED Nurse Note: Xray done RT at bedside
[2020-08-13 07:01] LABS: APPEARANCE,URINE SLIGHTLY CLOUDY; BILIRUBIN, URINE 1+ (NEGATIVE); COLOR,URINE BROWN; GLUCOSE, URINE (UA) 1+ (NEGATIVE); KETONES,URINE 1+ (NEGATIVE); LEUKOCYTE ESTERASE ,URINE 3+ (NEGATIVE); NITRITE,URINE POSITIVE (NEGATIVE); PH,URINE 5 (4.5-8.0); PROTEIN,URINE 3+ (NEGATIVE); UROBILINOGEN,URINE 8 MG/DL (0.0-1.0)
--- NOTE | 2020-08-13 07:12 | Diagnostic Imaging Report ---
EXAM: XR Chest, 1 View CLINICAL HISTORY: SOB TECHNIQUE: Frontal view of the chest. COMPARISON: Chest reading of July 26, 2020 FINDINGS/IMPRESSION: Small bilateral pleural effusions, left greater than right. Mild vascular congestion. Overall, mild improvement when compared to July 26, 2020. Interval removal of enteric feeding tube. Cardiomegaly. Calcified aorta.
[2020-08-13 07:14] LABS: BASOPHILS % (AUTO) 1.4 % (0.0-2.0); HEMATOCRIT 34.6 % (42.0-52.0); HEMOGLOBIN 11.5 G/DL (14.2-18.0); LYMPHOCYTES % (AUTO) 11.8 % (20.0-45.0); MEAN CORPUSCULAR VOLUME 96 FL (80-99); NEUTROPHILS % (AUTO) 81.8 % (45.0-75.0); PLATELET COUNT 155 K/UL (150-450); RED CELL DISTRIBUTION WIDTH 14.9 % (11.6-14.8); WHITE BLOOD COUNT 8.1 K/UL (4.8-10.8)
[2020-08-13 07:16] LABS: INR 1.4 (0.9-1.1)
[2020-08-13 07:17] VITALS: BP 149/81
[2020-08-13] MEDS ORDERED: Piperacillin/Tazobactam 3.375 GM in NS 110 ML IVPB ONE (07:30)
--- NOTE | 2020-08-13 08:00 | NUR ---
ED Nurse Note: Received report from CYRUS Ambrosio for continuity of care. Pt on bed, awake and alert x4, satting at 100% on 15L via NRB; pt denies any pain nor discomfort as of now. will continue to monitor.
--- NOTE | 2020-08-13 08:15 | NUR ---
ED Nurse Note: lactic rflex collected.
[2020-08-13 08:28] LABS: ANION GAP 10 mmol/L (5-15); BLOOD UREA NITROGEN 22 mg/dL (7-18); CALCIUM 8.7 MG/DL (8.5-10.1); CARBON DIOXIDE 23 MMOL/L (21-32); CHLORIDE 103 MMOL/L (98-107); CREATININE 1.3 MG/DL (0.55-1.30); POTASSIUM 4.3 MMOL/L (3.5-5.1); SODIUM 136 MMOL/L (136-145)
--- NOTE | 2020-08-13 08:33 | NUR ---
ED Nurse Note: Pt still on semi-fowlers position; vomited 2x with small amount of coffee-ground emesis, aspiration precautions observed. Will continue to monitor pt. RN attempted to place pt on 6L via NC, now satting at 96-100%. Will continue to monitor.
[2020-08-13 08:41] LABS: ALANINE AMINOTRANSFERASE 18 U/L (12-78); ALBUMIN 2.1 G/DL (3.4-5.0); ALBUMIN/GLOBULIN RATIO 0.4 (1.0-2.7); ALKALINE PHOSPHATASE 81 U/L (46-116); ASPARTATE AMINO TRANSFERASE 40 U/L (15-37); BILIRUBIN,DIRECT 0.7 MG/DL (0.0-0.3); BILIRUBIN,TOTAL 1.8 MG/DL (0.2-1.0); CKMB 1.6 NG/ML (0.0-3.6); CREATINE KINASE 50 U/L (26-308); FERRITIN 702 NG/ML (8-388); LACTATE DEHYDROGENASE 404 U/L (81-234)
--- NOTE | 2020-08-13 09:03 | Emergency Room Report ---
History of Present Illness General Chief Complaint: Dyspnea/Respdistress Source: Patient, Medical Record, EMS Present Illness HPI 89-year-old male presents with for evaluation. Brought in by EMS from [facility]. Patient had vomiting today and felt short of breath after immediately. O2 sats were low. Placed on nasal cannula is on oxygen. On arrival patient denies chest pain. Denies fevers or chills. No other aggravating relieving factors. 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 COVID-19 Screening: Negative COVID-19 COVID-19 Testing Source: [employer] 08/02/2020 Patient History Past Medical History: DM, HTN, CAD, GERD, other - Cirrhosis Past Surgical History: none Pertinent Family History: none Social History: Denies: smoking, alcohol use, drug use Immunizations: UTD Reviewed Nursing Documentation: PMH: Agreed; PSxH: Agreed Nursing Documentation-PMH Past Medical History: No History, Except For Hx Cardiac Problems: Yes - ISCHEMIC HEART DISEASE Hx Hypertension: Yes Hx Pacemaker: No Hx Asthma: No Hx COPD: No - PLEURAL EFFUSION Hx Diabetes: Yes Hx Cancer: No Hx Gastrointestinal Problems: Yes - DYSPHAGIA, CIRRHOSIS, ASCITES, GERD Hx Dialysis: No Hx Neurological Problems: Yes - METABOLIC ENCEPHALOPATHY Hx Cerebrovascular Accident: No Hx Seizures: No Review of Systems All Other Systems: negative except mentioned in HPI Physical Exam Vital Signs Date Time Temp Pulse Resp B/P (MAP) Pulse Ox O2 Delivery O2 Flow Rate FiO2 08/13/20 06:12 108 20 132/80 (97) 98 08/13/20 07:17 98.0 Sp02 EP Interpretation: reviewed, normal General Appearance: no apparent distress, alert, GCS 15, non-toxic, cachetic Head: normocephalic, atraumatic Eyes: bilateral eye normal inspection, bilateral eye PERRL ENT: hearing grossly normal, normal pharynx, no angioedema, normal voice Neck: full range of motion, supple/symm/no masses Respiratory: chest non-tender, lungs clear, normal breath sounds, speaking full sentences Cardiovascular #1: regular rate, rhythm, no edema Cardiovascular #2: 2+ carotid (R), 2+ carotid (L), 2+ radial (R), 2+ radial (L), 2+ dorsalis pedis (R), 2+ dorsalis pedis (L) Gastrointestinal: normal bowel sounds, soft, distended Rectal: deferred Genitourinary: normal inspection, no CVA tenderness Musculoskeletal: back normal, normal range of motion, gait/station normal, non- tender Neurologic: alert, motor strength/tone normal, oriented x3, sensory intact, responsive, speech normal Psychiatric: judgement/insight normal, memory normal, mood/affect normal, no suicidal/homicidal ideation Reflexes: 3+ bicep (R), 3+ bicep (L), 3+ tricep (R), 3+ tricep (L), 3+ knee (R), 3+ knee (L) Skin: other - See nursing notes Lymphatic: no adenopathy Procedures Critical Care Time Critical Care Time i. I feel this is a highly complex case requiring extensive working including EKG/Rhythm strip, Xray/CT/US, Blood/urine lab work, repeat exams while in ED, and administration of strong opiates/narcotics for pain control, admission to [facility] or close patient follow up. Total time: 45 min bedside evaluation and treatment excludes procedures (EKG). Reason for critical care: Respiratory distress, upper GI bleed Possible complications: hypotension, hypertension, PR, shock, arrhythmias, metabolic acidosis, end organ damage, respiratory failure. Interventions: Labs, EKG, chest x-ray, oxygen, COVID swab, Pepcid, Zofran, Protonix, broad-spectrum antibiotics, 30 cc/kg fluid bolus Course: Presenting with shortness of breath after vomiting. History of cirrhosis. History of GERD. Placed on oxygen. COVID swab negative. Has UTI. LFTs elevated. Hemoglobin/hematocrit stable. Given Protonix. Given Zofran. Given Pepcid. Given broad-spectrum antibiotics. O2 sats improved on oxygen. Consultations: nursing staff, EMS, family Performed by: Dr Singer Tolerated well condition = serious j. because of unstable vital signs this patient had a condition that could potentially threaten life or limb. I feel this is a critical patient who required my full attention while patient was considered critical. Total Critical Care Time excluding procedures was greater than 45 minutes Medical Decision Making Diagnostic Impression: Primary Impression: Upper GI bleed Additional Impressions: UTI (urinary tract infection) Qualified Codes: N39.0 - Urinary tract infection, site not specified Sepsis Qualified Codes: A41.9 - Sepsis, unspecified organism Pleural effusion ER Course Hospital Course 89-year-old male presents with shortness of breath after vomiting Differential diagnoses include: Upper GI bleed, pneumonia, sepsis, COVID Clinical course Patient placed on stretcher in isolation. I wore full PPE.. classroom monitor. After initial history and physical I ordered labs, IV fluids, EKG, chest x-ray, Pepcid, Zofran Labs - no leukocytosis, Hb/Hct stable. Left he is elevated, lactate greater than 3, has UTI EKGnormal sinus rhythm no acute ischemic changes interpreted by me X-raybilateral pleural effusions improved from prior visits COVID swab negative Given 30 cc/kg fluid bolus. Given broad-spectrum antibiotics. Protonix. O2 sats improved on oxygen. Resting comfortably Case discussed with Dr. Alicea and he agreed to accept the patient to his service for further care and support I feel this is a highly complex case requiring extensive working including EKG/Rhythm strip, Xray/CT/US, Blood/urine lab work, repeat exams while in ED, and administration of strong opiates/narcotics for pain control, admission to hospital or close patient follow up. Diagnosis - UGIB, UTI, sepsis, pleural effusion Patient admitted to telemetry in serious condition Laboratory Tests Test 08/13/20 06:45 08/13/20 08:00 White Blood Count 8.1 K/UL (4.8-10.8) Red Blood Count 3.60 M/UL (4.70-6.10) L Hemoglobin 11.5 G/DL (14.2-18.0) L Hematocrit 34.6 % (42.0-52.0) L Mean Corpuscular Volume 96 FL (80-99) Mean Corpuscular Hemoglobin 31.8 PG (27.0-31.0) H Mean Corpuscular Hemoglobin Concent 33.1 G/DL (32.0-36.0) Red Cell Distribution Width 14.9 % (11.6-14.8) H Platelet Count 155 K/UL (150-450) Mean Platelet Volume 4.9 FL (6.5-10.1) L Neutrophils (%) (Auto) 81.8 % (45.0-75.0) H Lymphocytes (%) (Auto) 11.8 % (20.0-45.0) L Monocytes (%) (Auto) 5.0 % (1.0-10.0) Eosinophils (%) (Auto) 0.0 % (0.0-3.0) Basophils (%) (Auto) 1.4 % (0.0-2.0) Prothrombin Time 14.8 SEC (9.30-11.50) H Prothromb Time International Ratio 1.4 (0.9-1.1) H Activated Partial Thromboplast Time 27 SEC (23-33) D-Dimer 9.67 mg/L FEU (0.00-0.49) H Urine Color Brown Urine Appearance Slightly cloudy Urine pH 5 (4.5-8.0) Urine Specific [place] 1.025 (1.005-1.035) Urine Protein 3+ (NEGATIVE) H Urine Glucose (UA) 1+ (NEGATIVE) H Urine Ketones 1+ (NEGATIVE) H Urine Blood 5+ (NEGATIVE) H Urine Nitrite Positive (NEGATIVE) H Urine Bilirubin 1+ (NEGATIVE) H Urine Ictotest Negative (NEGATIVE) Urine Urobilinogen 8 MG/DL (0.0-1.0) H Urine Leukocyte Esterase 3+ (NEGATIVE) H Urine RBC 30-40 /HPF (0 - 0) H Urine WBC 20-30 /HPF (0 - 0) H Urine Squamous Epithelial Cells Few /LPF (NONE/OCC) Urine Bacteria Moderate /HPF (NONE) H Urine Mucus Few /LPF (NONE/OCC) H Sodium Level 136 MMOL/L (136-145) Potassium Level 4.3 MMOL/L (3.5-5.1) Chloride Level 103 MMOL/L (98-107) Carbon Dioxide Level 23 MMOL/L (21-32) Anion Gap 10 mmol/L (5-15) Blood Urea Nitrogen 22 mg/dL (7-18) H Creatinine 1.3 MG/DL (0.55-1.30) Estimat Glomerular Filtration Rate > 60 mL/min (>60) Glucose Level 172 MG/DL (74-106) H Lactic Acid Level 3.70 mmol/L (0.4-2.0) H 3.60 mmol/L (0.66-2.22) H Calcium Level 8.7 MG/DL (8.5-10.1) Ferritin 702 NG/ML (8-388) H Total Bilirubin 1.8 MG/DL (0.2-1.0) H Direct Bilirubin 0.7 MG/DL (0.0-0.3) H Aspartate Amino Transf (AST/SGOT) 40 U/L (15-37) H Alanine Aminotransferase (ALT/SGPT) 18 U/L (12-78) Alkaline Phosphatase 81 U/L (46-116) Lactate Dehydrogenase 404 U/L (81-234) H Total Creatine Kinase 50 U/L (26-308) Creatine Kinase MB 1.6 NG/ML (0.0-3.6) Creatine Kinase MB Relative Index 3.2 Troponin I 0.005 ng/mL (0.000-0.056) C-Reactive Protein, Quantitative 6.5 mg/dL (0.00-0.90) H Pro-B-Type Natriuretic Peptide 355 pg/mL (0-125) H Total Protein 7.9 G/DL (6.4-8.2) Albumin 2.1 G/DL (3.4-5.0) L Globulin 5.8 g/dL Albumin/Globulin Ratio 0.4 (1.0-2.7) L Lipase 64 U/L (73-393) L EKG Diagnostic Results Troponin ordered: Yes Rate: normal Rhythm: NSR ST Segments: no acute changes ASA given to the pt in ED: No Rhythm Strip Diag. Results EP Interpretation: yes Rhythm: NSR, no PVC's, no ectopy Chest X-Ray Diagnostic Results Chest X-Ray Diagnostic Results : Chest X-Ray Ordered: Yes # of Views/Limited/Complete: 1 View Indication: Shortness of Breath EP Interpretation: Yes Interpretation: no consolidation, no pneumothorax, other - Bilateral pleural effusion Impression: Other - Bilateral pleural effusion Electronically Signed by: Electronically signed by Leo Singer MD Last Vital Signs Date Time Temp Pulse Resp B/P (MAP) Pulse Ox O2 Delivery O2 Flow Rate FiO2 08/13/20 07:17 98.0 84 20 149/81 98 Status: improved Disposition: ADMITTED INPATIENT Condition: Serious Referrals: NON PHYSICIAN (PCP) Leo Singer MD Aug 13, 2020 09:03
[2020-08-13] MEDS: Pantoprazole Inj IVP SCH (09:28)
--- NOTE | 2020-08-13 10:10 | NUR ---
ED Nurse Note: pt was transferred to Telemetry Unit under the care of Dr. Nichole. Report for transfer was given to CYRUS Zuniga in Telemetry Unit. Pt was cleaned, transferred on stable condition, VSS.
[2020-08-13 11:00] VITALS: BP 134/77
--- NOTE | 2020-08-13 12:26 | NUR ---
NURSE NOTES: Received pt from MANAGEMENT DEVELOPERCYRUS Keller at 1020,all admission assessmnets and instructions done and pt verbally confirmed to understand all. pt is awake and alert, pt has NC 6Lit. pt has intact iv access RAC and LFA 22g SL. Pt is on continues heart monitoring. pt is vomiting coffee ground emesis. pt has sacral open wound, took pictures and will uploaded. Dr Lima is aware about admission SOB and SPO2 and coffee ground emesis wound and other lab results and V/S and bi legs swollen, all orders noted and carried out. ordered to continue home meds, RN called SNF and clarified all home meds with GAVIN Almodovar, pt only have vit c, multi vit with min, and spironolactone QD. Pt has Kwan cath in place from SNF with cloudy Urin, MD is aware. All needs attended, bed is locked and is in the lowest position. call light within easy reach. will continue to monitor.
--- NOTE | 2020-08-13 13:06 | NUR ---
NURSE NOTES: Dr Lima visited pt and is aware bladimir duplex is positive, ordered to D/C [facility] and ordered Lovenox/pharmacy, noted and carried out. will continue to monitor.
--- NOTE | 2020-08-13 13:13 | Diagnostic Imaging Report ---
EXAM: US Duplex Bilateral Lower Extremities Veins CLINICAL HISTORY: DVT TECHNIQUE: Real-time duplex ultrasound scan of the bilateral lower extremity veins integrating B-mode two-dimensional vascular structure, Doppler spectral analysis, color flow Doppler imaging and compression. COMPARISON: None FINDINGS: Right deep veins: Occlusive thrombus in the right common femoral vein and deep femoral vein. Nonocclusive thrombus in the right superficial femoral vein. Patent right popliteal vein. Right superficial veins: Unremarkable. No thrombus in the visualized right great saphenous vein. Left deep veins: Nonocclusive thrombus in the left superficial femoral vein and deep femoral vein. Patent left common femoral vein. Patent left popliteal vein. Left superficial veins: Unremarkable. No thrombus in the visualized left great saphenous vein. Soft tissues: No acute findings. No popliteal cyst. IMPRESSION: 1. Occlusive thrombus in the right common femoral vein and deep femoral vein. 2. Nonocclusive thrombus in the right superficial femoral vein. 3. Nonocclusive thrombus in the left superficial femoral vein and deep femoral vein. <MYCVCSECTION> Communications: 08/13/20 14:00 Call Doctor Regarding Acute DVT, called Roger URBINA on 08/13 14:00 (-07:00) 08/13/20 14:02 Call From [facility] Dr Lima on 08/13 14:03 (-07:00)
[2020-08-13] MEDS: D5 1/2NS w/KCl 20mEq 1,000 ML IV SCH (13:51)
--- NOTE | 2020-08-13 14:08 | Diagnostic Imaging Report ---
EXAM: US Abdomen Complete CLINICAL HISTORY: ABD DIST TECHNIQUE: Real-time ultrasound of the abdomen with image documentation. COMPARISON: CT abdomen/pelvis on 07/26/2020 FINDINGS: Liver: Small cirrhotic liver. No intrahepatic bile duct dilation. Gallbladder: Cholelithiasis in an underdistended gallbladder. No significant gallbladder wall thickening or pericholecystic fluid. Common bile duct: Normal common bile duct measuring 3.1 mm. No stones. No dilation. Pancreas: Unremarkable as visualized. Kidneys: Right kidney measures 9.5 cm in length. No hydronephrosis or stone. Left kidney measures 9.7 cm in length. No hydronephrosis or stone. Spleen: Spleen measures 9.7 cm. No focal lesion. Aorta: Visualized portions of the aorta are grossly unremarkable. Inferior vena cava: Unremarkable. Free fluid: Large amount of ascites. Pancreas is not visualized due to overlying bowel gas and ascites. IMPRESSION: 1. Small cirrhotic liver. 2. Cholelithiasis in an underdistended gallbladder. No significant gallbladder wall thickening or pericholecystic fluid. 3. Large amount of ascites.
--- NOTE | 2020-08-13 15:15 | History and Physical Report ---
DATE OF ADMISSION: 08/13/2020 CHIEF COMPLAINT: Shortness of breath. HISTORY OF PRESENT ILLNESS: This is an 89-year-old male from [facility], brought in by paramedics. The patient was discharged by me about a week ago from this hospital. 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 He was sent to [facility] after a prolonged admission to this hospital after being stabilized. The patient underwent large volume abdominal paracentesis with removal of more than 8 liters of the transudate. The patient is blind and demented, and unable to give any further information. [facility] and has been refusing to take his few medications that he was left on mainly vitamins. PAST MEDICAL HISTORY: 1. 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 2. Type 2 diabetes mellitus. 3. Hypertensive cardiovascular disease. 4. Coronary artery disease. 5. Severe anemia, most likely due to recurrent bleeding and anemia of chronic disease. MEDICATIONS: The patient is not taking any medications according to the patient's attending physician in the [facility]. ALLERGIES: No known drug allergies. FAMILY HISTORY: Unable to obtain due to mental status. SOCIAL HISTORY: Unable to obtain due to mental status. REVIEW OF SYSTEMS: Unable to obtain due to his mental status. PHYSICAL EXAMINATION: GENERAL: This is an elderly male, who is moaning. VITAL SIGNS: Blood pressure is 134/77, pulse 98, respirations 24 and labored, temperature 96.8. HEENT: The head is normocephalic and atraumatic. Pupils are equal, round, and reactive to light. NECK: Supple. Trachea midline. There was no lymphadenopathy or thyromegaly. LUNGS: Clear to auscultation and percussion. HEART: Regular rate and rhythm without rubs, murmurs, or gallops. ABDOMEN: Distended and tense with ascites. Bowel sounds were active. EXTREMITIES: Notable for advanced muscle wasting. NEUROLOGIC: He is confused. He is blind. There were no gross focal findings. LABORATORY AND ANCILLARY DATA: CBC essentially within normal limits. Chemistry, electrolytes within normal limits. BUN 22, creatinine 1.3. Alkaline phosphatase 81, ALT 18, AST 40, total bilirubin 1.8, and albumin 2.1. SARS COVID serology negative. Urine, 30 to 40 rbc's and 20 to 30 white blood cells. IMAGING: Chest x-ray, calcified aorta, small bilateral pleural effusions. ASSESSMENT: 1. Volume depletion, most likely related to tense ascites. 2. Tense ascites. 3. End-stage liver disease due to alcoholic liver cirrhosis. 4. Bilateral acute DVTs distal both legs confirmed by venous duplex. 5. Severe volume depletion. 6. Intractable nausea and vomiting secondary to the above. PLAN: 1. Slow rehydration as it may feed the ascites. 2. Stat abdominal ultrasound. 3. Abdominal paracentesis. 4. IV antibiotics. Rafaela Lima M.D. DR: DAVION JOB#: [id number] CC: NICANOR
[2020-08-13] MEDS: Piperacillin/Tazobactam 3.375 GM in NS 110 ML IVPB SCH (15:23)
[2020-08-13 16:00] VITALS: BP 114/66
--- NOTE | 2020-08-13 17:27 | NUR ---
NURSE NOTES: Pt is blind, RN and CN Roger are bed side and explained procedure to pt and verbal and written consent for US thoracentesis done. will continue to monitor.
--- NOTE | 2020-08-13 19:29 | NUR ---
NURSE HAND-OFF REPORT: Important Events on Shift: Patient Status: Diet: Pending Orders: Pending Results/Labs: Pending MD notification: Latest Vital Signs: Temperature 97.9 , Pulse 92 , B/P 114 /66 , Respiratory Rate 22 , O2 SAT 95 , , O2 Flow Rate 4.0 . Vital Sign Comment: EKG Rhythm: SR with BBB Rhythm change?: Y Notified?: Y -Dr Clarence JUARES Response: No New Orders Received Latest Strauss Fall Score: 45 Fall Risk: High Risk Safety Measures: Call light Within Reach, Bed Alarm Zone 1, Side Rails Side Rails x3, Bed position Low and Locked. Fall Precautions: Yellow Socks Yellow Gown Door Sign Patient Fall Education Report given to . Pt is awake and stable, no stress noted. Endorsed plan of care. Endorsed to keep pt NPO due to US paracentesis and monitor N/V. SPO2 99% now.
--- NOTE | 2020-08-13 19:47 | NUR ---
NURSE NOTES: Report received from Efrain BRIDGES. Patient is noted to be awake and alert x 4. 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 Patient is noted to be on 6 liters of oxygen via nasal canula with an oxygen saturation of 96 %. Patient has no complaints of shortness of breath or chest pain at this time. Was endorsed to Nilesh BRIDGES that patient has frequent coffee ground emesis. Zofran is noted to be ordered every 8 hours PRN. Patient has no complaints of nausea at this time. Was endorsed that patient is positive for DVT in right femoral vein. MD is aware per Efrain BRIDGES. Patient is noted to have left forearm 22 robert IV access with fluids running per MD orders. Patient is noted to have indwelling Kwan catheter draining dark cloudy yellow urine. Bed is locked, in lowest position, and call light in reach. Will continue to follow plan of care.
[2020-08-13 20:00] VITALS: BP 115/62
[2020-08-13] MEDS: Enoxaparin 80mg Inj SUBQ SCH (20:40)
--- NOTE | 2020-08-13 23:27 | NUR ---
NURSE NOTES: Nilesh BRIDGES attempted to titrate patient down to 4 liters of oxygen from 6 liters. Patient was found to have an oxygen saturation of 88 % on 4 liters of oxygen. Nilesh BRIDGES increased oxygen to 5 liters of oxygen via nasal. Patient currently has oxygen saturation of 94 % on 5 liters of oxygen via nasal canula.
[2020-08-14] VITALS: BP 102/62
[2020-08-14] MEDS: Piperacillin/Tazobactam 3.375 GM in NS 110 ML IVPB SCH ×4 (00:21→23:43)
[2020-08-14 04:00] VITALS: BP 104/56
--- NOTE | 2020-08-14 04:45 | NUR ---
NURSE NOTES: Bed bath given. wound care done. dressing changed.
--- NOTE | 2020-08-14 05:10 | NUR ---
NURSE NOTES: Bed alarm found to be going off. Patient found to be trying to get up out of bed. With assist of staff, Nilesh BRIDGES and staff were able to get patient safely readjusted in bed. Nilesh BRIDGES assess the mental status of the patient. Patient was able to state name, date of , year, and knew he was at the hospital, but, did not know which hospital. Nilesh BRIDGES asked the patient why he was getting up. Patient stated that he had been in bed too long. Nilesh BRIDGES educated the patient on fall safety, and the proper use of the call light. Nilesh BRIDGES placed the call light in the patients hand and witness the patient able to find and it the the call button. Patient verbalized understanding. Nilesh BRIDGES placed bed alarm on zone 2. Nilesh BRIDGES made doctor of nursing practice and charge Nurse Bhavya aware.
--- NOTE | 2020-08-14 06:26 | NUR ---
NURSE NOTES: Nilesh BRIDGES attempted oral care with the patient. Patient did not tolerate oral care long until he requested Nilesh BRIDGES to stop. Patient stated that the staff has been bothering him all morning and that he would like to sleep now.
[2020-08-14 06:43] LABS: BASOPHILS % (AUTO) 1.3 % (0.0-2.0); EOSINOPHILS % (AUTO) 0.1 % (0.0-3.0); HEMATOCRIT 27.6 % (42.0-52.0); HEMOGLOBIN 9.2 G/DL (14.2-18.0); LYMPHOCYTES % (AUTO) 12.6 % (20.0-45.0); MEAN CORPUSCULAR VOLUME 96 FL (80-99); MONOCYTES % (AUTO) 8.4 % (1.0-10.0); NEUTROPHILS % (AUTO) 77.7 % (45.0-75.0); PLATELET COUNT 133 K/UL (150-450); RED BLOOD COUNT 2.87 M/UL (4.70-6.10); RED CELL DISTRIBUTION WIDTH 15.2 % (11.6-14.8)
[2020-08-14 06:58] LABS: CREATININE 1.8 MG/DL (0.55-1.30); POTASSIUM 4.5 MMOL/L (3.5-5.1)
--- NOTE | 2020-08-14 07:15 | NUR ---
NURSE HAND-OFF REPORT: Important Events on Shift: Patient attempted to get out of bed. fall education given. verbalized understanding. failed to titrate oxygen down, patient continues to be on 6 liters via nasal canula. patient NPO since midnight Patient Status: DNR Diet: NPO Pending Orders: paracentesis Pending Results/Labs:none Pending MD notification:none Latest Vital Signs: Temperature 98.5 , Pulse 86 , B/P 104 /56 , Respiratory Rate 18 , O2 SAT 95 , Nasal Cannula, O2 Flow Rate 6.0 . Vital Sign Comment: patient continues to need oxygen EKG Rhythm: SR with BBB Rhythm change?: N MD Notified?: MD Response: Latest Strauss Fall Score: 40 Fall Risk: Medium Risk Safety Measures: Call light Within Reach, Bed Alarm Zone 1, Side Rails Side Rails x2, Bed position Low and Locked. Fall Precautions: Yellow Socks Yellow Gown Door Sign Patient Fall Education Report given to Efrain BRIDGES.
--- NOTE | 2020-08-14 07:30 | NUR ---
NURSE NOTES: Received pt from CYRUS Galloway, pt is awake and alert, pt has NC 6Lit. pt has intact iv access RAC SL and LFA 22g is running well. Pt is on continues heart monitoring. Pt has Kwan cath in place is working well. pt is NPO due to paracentesis today. no complain of pain or N/V at this moment. All needs attended, bed is locked and is in the lowest position. call light within easy reach. will continue to monitor.
[2020-08-14 08:00] VITALS: BP 101/51
[2020-08-14] MEDS: D5 1/2NS w/KCl 20mEq 1,000 ML IV SCH (08:23)
[2020-08-14] MEDS: Pantoprazole Inj IVP SCH (08:24)
[2020-08-14] MEDS: Enoxaparin 80mg Inj SUBQ SCH ×2 (08:25→22:01)
[2020-08-14] MEDS: Ascorbic Acid 500mg tab ORAL SCH (08:25)
[2020-08-14] MEDS: Multivitamin w/Minerals tab ORAL SCH (08:25)
[2020-08-14] MEDS: Spironolactone 50mg tab ORAL SCH (08:25)
--- NOTE | 2020-08-14 09:00 | NUR ---
NURSE NOTES: Dr Lima ordered to hold Lovenox before paracentesis now, noted and carried out. will continue to monitor.
[2020-08-14 12:00] VITALS: BP 98/49
--- NOTE | 2020-08-14 13:07 | General Progress Note ---
Subjective Allergies: Coded Allergies: No Known Allergies (Verified , 04/05/09) Subjective Obtunded Objective Last 24 Hour Vital Signs Date Time Temp Pulse Resp B/P (MAP) Pulse Ox O2 Delivery O2 Flow Rate FiO2 08/14/20 12:00 97.5 86 20 98/49 (65) 94 08/14/20 11:44 82 08/14/20 09:00 Nasal Cannula 6.0 08/14/20 08:00 97.5 83 18 101/51 (68) 97 08/14/20 07:42 81 08/14/20 04:00 86 08/14/20 04:00 98.5 85 18 104/56 (72) 95 08/14/20 00:00 96 08/14/20 00:00 97.9 96 18 102/62 (75) 97 08/13/20 21:00 Nasal Cannula 5.0 08/13/20 20:00 98.3 106 20 115/62 (79) 97 08/13/20 20:00 106 08/13/20 16:05 92 08/13/20 16:00 97.9 105 22 114/66 (82) 95 Intake and Output 08/13/20 08/14/20 19:00 07:00 Intake Total 332.5 ml 627.5 ml Output Total 100 ml 50 ml Balance 232.5 ml 577.5 ml Intake IV Total 332.5 ml 627.5 ml Output Urine Total 100 ml 50 ml # Voids 1 Laboratory Tests 08/14/20 06:20: White Blood Count 10.0, Red Blood Count 2.87L, Hemoglobin 9.2L, Hematocrit 27.6L , Mean Corpuscular Volume 96, Mean Corpuscular Hemoglobin 31.9H, Mean Corpusc ular Hemoglobin Concent 33.2, Red Cell Distribution Width 15.2H, Platelet Count 133L, Mean Platelet Volume 6.6, Neutrophils (%) (Auto) 77.7H, Lymphocytes (%) (Auto) 12.6L, Monocytes (%) (Auto) 8.4, Eosinophils (%) (Auto) 0.1, Basophils (%) (Auto) 1.3, Sodium Level 137, Potassium Level 4.5, Chloride Level 107, Carbon Dioxide Level 23, Anion Gap 7, Blood Urea Nitrogen 30H, Creatinine 1.8H, Estimat Glomerular Filtration Rate 43.4, Glucose Level 183H, Calcium Level 8.0L, Magnesium Level 1.6L Height (Feet): 6 Height (Inches): 1.00 Weight (Pounds): 158 Objective Cachectic CV RR Lungs CTA Abd Tense Ascites E +3 B edema Assessment/Plan Assessment/Plan: B leg DVT - Lovenox Tense Ascites - paracentesis. Swallow eval when ascites is drained. Rafaela Lima MD Aug 14, 2020 13:07
--- NOTE | 2020-08-14 13:26 | NUR ---
NURSE NOTES: pt refused US paracentesis, RN explained risks and benefits but pt refused. God daughter Abi is aware and asking me to hold procedure till Abi reach hospital in one hour. Dr Lima is aware. will continue to monitor.
--- NOTE | 2020-08-14 13:59 | NUR ---
NURSE NOTES: Dr Lima called back and stated pt is not in a clear mind, give him Haldol 2.5 mg IM and then do it after 30min, God daughter Abi is called, left massage to calling back. will continue to monitor.
--- NOTE | 2020-08-14 14:14 | NUR ---
NURSE NOTES: RN called Abi again x2 to get consent for procedure, left massage, waiting to call back. will continue to monitor.
[2020-08-14] MEDS ORDERED: Haloperidol 5mg/ml Inj IM ONE (14:15)
--- NOTE | 2020-08-14 14:15 | NUR ---
NURSE NOTES: Radiologist yari Thrashermi is aware about Dr Clarence landeros, stated she has to speak with his MD, and will call back me. will continue to monitor.
--- NOTE | 2020-08-14 14:31 | NUR ---
NURSE NOTES: RN again called Dr Estefanía camp still waiting to call back. Helen from radiology department called back and stated let Dr Gloria know to call Dr Galvan, Dr gloria notified.
--- NOTE | 2020-08-14 15:22 | NUR ---
NURSE NOTES: God daughter Abi is here and asking to speak with pt, she is in the room and speaking with pt, will F/U.
--- NOTE | 2020-08-14 15:33 | NUR ---
NURSE NOTES: Dr Galvan from Radiology department called and asked to speak with God daughter Abi, after speaking, Dr asked RN to give consent form for US Paracentesis to Abi to sign. noted and carried out and Abi signed consent form. will continue to monitor.
[2020-08-14 15:57] VITALS: BP 112/55
--- NOTE | 2020-08-14 16:02 | NUR ---
CASE MANAGEMENT:REVIEW BIS FROM [facility] CC: SAT 88% ON ROOM AIR SI: UGIB. SOB. BILATERAL DVT 98.0 108 20 132/80 98% ON 15L VIA MASK H/H-11.5/34.6 BUN+22 IS: 1L NS BOLUS IV PEPCID IV ZOFRAN' IV ZOSYN URINE CX CXR BLOOD CX : TO TELEMETRY IS: LOVENOX SQ Q12
--- NOTE | 2020-08-14 16:11 | Pre-Procedure Note/Attestation ---
Pre-Procedure Note/Attestation Complete Prior to Procedure Planned Procedure: not applicable Procedure Narrative: paracentesis Indications for Procedure Pre-Operative Diagnosis: tense ascites Attestation Request made by primary team for paracentesis. Was told by RN that patient refusing. This was conveyed to the patient's primary MD by the RN. RN informed me that primary MD noted patient not in normal state on mind and does not understand consequences of refusing paracentesis. Went to see patient. He is blind. I introduced myself but he did not respond. I gently touched his knee and he responded "get your hands off me." I tried to speak to him about the procedure but he did not respond appropriately. He could not tell me his name or date of when asked. He was not cooperating at all. Patient with no known family members. Next of kin/emergency contact (- goddaughter Abi) came to the hospital in the afternoon. She confirmed that the patient wasn't in his usual state of mind. She reported he cussed at her, which he never does. Discussed with the emergency contact the role of paracentesis, technical aspects of the precedure as well as risks vs benefits. She understood asking appropriate questions. She signed informed consent. Elias Bnudy M.D. Aug 14, 2020 16:11
--- NOTE | 2020-08-14 16:39 | Post Operative Note (Narrative ---
Progress Note Post-Op Note US guided paracentesis done at the bedside. Approx 3.8L ascites removed, with specimen sent for requested studies. Elias Bundy M.D. Aug 14, 2020 16:38
--- NOTE | 2020-08-14 16:41 | NUR ---
NURSE NOTES: paracentesis finished now in pt's room with 3700ml out put. Dr Lima ordered don't sent these fluid to lab. pt is awake BP 97/30 HR 82 RR 22 SPO2 98% MD is aware. No complain of pain at this moment. will continue to monitor.
--- NOTE | 2020-08-14 16:45 | Diagnostic Imaging Report ---
Indications: Ascites Technique: Ultrasound used to localize optimal puncture site. Sterile prepping and draping right lower quadrant. Local anesthesia with 1% lidocaine. Under real-time ultrasound guidance, puncture peritoneal space using paracentesis needle. Stylet removed. Catheter placed to vacuum bottle suction. Total 3.7 liters of fluid aspirated. Patient tolerated procedure well, without immediate complication. Findings: Followup sonography demonstrates mild to moderate residual fluid after paracentesis. Impression: Successful ultrasound-guided paracentesis, yielding 3.7 liters of fluid
--- NOTE | 2020-08-14 19:34 | NUR ---
NURSE HAND-OFF REPORT: Important Events on Shift: Patient Status: Diet: Pending Orders: Pending Results/Labs: Pending MD notification: Latest Vital Signs: Temperature 97.8 , Pulse 67 , B/P 112 /55 , Respiratory Rate 21 , O2 SAT 98 , Nasal Cannula, O2 Flow Rate 6.0 . Vital Sign Comment: EKG Rhythm: SR with BBB Rhythm change?: N MD Notified?: Y -Dr Clarence JUARES Response: No New Orders Received Latest Strauss Fall Score: 55 Fall Risk: High Risk Safety Measures: Call light Within Reach, Bed Alarm Zone 1, Side Rails Side Rails x2, Bed position Low and Locked. Fall Precautions: Yellow Socks Yellow Gown Door Sign Patient Fall Education Report given to . Pt is sleeping and stable, no stress noted. endorsed plan of care. Endorsed to F/U feeding.
--- NOTE | 2020-08-14 19:40 | NUR ---
NURSES NOTES: Received report from CYRUS Zuniga. Pt is A/O x 4. Pt is Blind and verbal. PT is able to make needs known. PT is sleeping at this time with NC 3L sating at 92%. No pain noted. No SOB or acute distress noted. PT IV site is left forearm 22G running D5 1/2NS with 20mEq at 50ml/hr. Patent and flushed. No bleeding or erythema noted. Kwan is patent and draining well to gravity. Bed in lowest position and locked with bed alarm on. Call light with in reach. PT understand to use call light when needing assistance. Will continue plan of care.
[2020-08-14 20:00] VITALS: BP 94/48
[2020-08-14] MEDS ORDERED: SPIRONOLACTONE50 MG ORAL (20:58)
[2020-08-14] MEDS ORDERED: MEDIHONEY15 ML TP (20:58)
--- NOTE | 2020-08-14 21:00 | NUR ---
NURSE NOTES: Patient i8s refusing to have his abdomen measured at this time. He wants to be left alone. Will continue to attempt to measure abdomen.
--- NOTE | 2020-08-14 21:18 | NUR ---
NURSE NOTES: Left a massage for Dr. Lima regarding the concern for the Enoxaparin being given to the patient with an upper GI bleed, plt level of 133, and the patient having a paracentesis today. Asked the doctor if he would still like the medication to be given or held? waiting answer. Will continue to monitor the patient.
--- NOTE | 2020-08-14 21:39 | NUR ---
NURSE NOTES: Dr. Lima is advising to give the patient the Enoxaparin.
--- NOTE | 2020-08-14 21:54 | NUR ---
NURSE NOTES: Patient is not wanting to take the Enoxaparin. Patient wants to be left alone. Told Dr. Lima that patient is refusing. Dr. Lima is advising that the patient must have the medication as patient have extensive DVT. Noted and carried out.
[2020-08-15] VITALS: BP 98/47
[2020-08-15 04:00] VITALS: BP 104/51
[2020-08-15] MEDS: D5 1/2NS w/KCl 20mEq 1,000 ML IV SCH (06:43)
--- NOTE | 2020-08-15 07:28 | NUR ---
NURSE HAND-OFF REPORT: Important Events on Shift:Dr. Lima knows of patient plt level and GI bleed and is still ordering patients Enoxaparin d/t to patient extensive DVT. Patient Status: Stable Diet: NPO Pending Orders: Pending Results/Labs: Pending MD notification: Latest Vital Signs: Temperature 97.7 , Pulse 75 , B/P 104 /51 , Respiratory Rate 16 , O2 SAT 97 , Nasal Cannula, O2 Flow Rate 6.0 . Vital Sign Comment: EKG Rhythm: SR with BBB Rhythm change?: N MD Notified?: Y -Dr Clarence JUARES Response: No New Orders Received Latest Strauss Fall Score: 55 Fall Risk: High Risk Safety Measures: Call light Within Reach, Bed Alarm Zone 1, Side Rails Side Rails x2, Bed position Low and Locked. Fall Precautions: Yellow Socks Yellow Gown Door Sign Patient Fall Education Report given to Daniela BRIDGES.
--- NOTE | 2020-08-15 07:32 | NUR ---
NURSE NOTES: Received report from Jodi/RN. Pt sleeping sleeping, in semi-gross position. On 3L nasal cannula, no distress or SOB noted. IV on right AC 22G SL, patent and clean and left FA 22G running D5 1/2NS + 20Meq Kcl @50ml/hr, patent and clean. Bed in the lowest position and locked. Call light within reach, side rails upx3. Will continue plan of care.
[2020-08-15 08:00] VITALS: BP 98/50
[2020-08-15] MEDS: Piperacillin/Tazobactam 3.375 GM in NS 110 ML IVPB SCH ×2 (08:38→15:55)
[2020-08-15] MEDS: Spironolactone 50mg tab ORAL SCH (08:39)
[2020-08-15] MEDS: Ascorbic Acid 500mg tab ORAL SCH (08:39)
[2020-08-15] MEDS: Multivitamin w/Minerals tab ORAL SCH (08:39)
[2020-08-15] MEDS: Enoxaparin 80mg Inj SUBQ SCH ×2 (08:40→21:51)
--- NOTE | 2020-08-15 10:36 | NUR ---
NURSE NOTES: Called Dr Lima regarding pt having pain 7/10 in the legs and groin area, no orders for pain meds. Waiting for a call back.
[2020-08-15 12:00] VITALS: BP 111/51
[2020-08-15] MEDS ORDERED: Varibar Thin Liquid powder 148gm MC PRN (12:45)
[2020-08-15] MEDS ORDERED: Varibar Nectar 240ml MC PRN (12:45)
[2020-08-15] MEDS ORDERED: Varibar Pudding 230ml MC PRN (12:45)
[2020-08-15] MEDS ORDERED: Varibar Honey 250ml MC PRN (12:45)
--- NOTE | 2020-08-15 14:05 | General Progress Note ---
Subjective Allergies: Coded Allergies: No Known Allergies (Verified , 04/05/09) Subjective Obtunded. More alert. Objective Last 24 Hour Vital Signs Date Time Temp Pulse Resp B/P (MAP) Pulse Ox O2 Delivery O2 Flow Rate FiO2 08/15/20 12:00 75 08/15/20 12:00 97.6 72 20 111/51 (71) 98 08/15/20 08:53 Nasal Cannula 3.0 08/15/20 08:00 97.9 78 20 98/50 (66) 100 08/15/20 08:00 71 08/15/20 04:00 74 08/15/20 04:00 97.7 75 16 104/51 (68) 97 08/15/20 00:00 76 08/15/20 00:00 97.7 79 16 98/47 (64) 97 08/14/20 21:00 Nasal Cannula 6.0 08/14/20 20:00 96.6 79 15 94/48 (63) 96 08/14/20 20:00 80 08/14/20 15:57 97.8 67 21 112/55 (74) 98 08/14/20 15:25 80 Intake and Output 08/14/20 08/15/20 19:00 07:00 Intake Total 1115.0 ml Output Total 200 ml 350 ml Balance 915.0 ml -350 ml Intake IV Total 1115.0 ml Output Urine Total 200 ml 350 ml # Voids 3 # Bowel Movements 1 Height (Feet): 6 Height (Inches): 1.00 Weight (Pounds): 158 Objective Cachectic CV RR Lungs CTA Abd less Ascites E +3 B edema Assessment/Plan Assessment/Plan: B leg DVT - Lovenox Tense Ascites - s/p paracentesis 3.8 L removed. Swallow eval when ascites is drained.To be done soon. Rafaela Lima MD Aug 15, 2020 14:05
--- NOTE | 2020-08-15 15:09 | NUR ---
Speech Pathology Note (Bedside Dysphagia Evaluation) Indication of evaluation: Aspiration risk Previous Hospitalization at [facility]: 07/26/2020~08/02/2020 for Ascites-paracentesis ( -8.3liter) on 07/28/2020, UGIB- EGD with clipping and bx on 07/31/2020 Swallow evaluation on , Speech service dc on 08/01/2020 with soft diet and thin liquid DCP: [facility] on 08/02/2020 Re-Admission to [facility]: 08/13/2020 for nausea, vomiting and desaturation. 08/14/2020 Paracentesis (-3.7 liter) Brief Note: Mr. Sneed is an 89 year old male who is known to my self from previous hospitalization at [facility]. I served speech swallow service from 07/28/2020 through 08/01/2020 and [facility] on 08/02/2020 with soft solid diet and thin liquid. Mr. 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 The BUN creatine had been stable at 22/1.3 on this arrival. The swallow evaluation was ordered today to initiate PO diet for possible discharge planning to SNF. Findings: Mr. Sneed is alert and oriented to 2. He is blind. He follows commands well. The dental is missing teeth as known. Given him soft, and thin liquid he tolerated without overt s.s of aspiration or vomiting. He consumed about 200 cc volume. These findings are similar to what I had evidenced during previous admission. Pt remains at risk of aspiration due to end stage liver cirrhosis. Interpretation: 1. Functional and baseline swallow function 2. Aspiration risk Plan: 1. Clear liquid for tonight and advance to soft solid diet in AM 2. Aspiration precaution at all time I will check his status, follow up with RN on 08/16/2020 Kelsey Frank
[2020-08-15 16:00] VITALS: BP 125/71
--- NOTE | 2020-08-15 19:22 | NUR ---
NURSE HAND-OFF REPORT: Important Events on Shift:None Patient Status: Stable Diet: Clear liquid diet Pending Orders: Pending Results/Labs: Pending MD notification: Latest Vital Signs: Temperature 97.7 , Pulse 80 , B/P 125 /71 , Respiratory Rate 20 , O2 SAT 98 , Nasal Cannula, O2 Flow Rate 3.0 . Vital Sign Comment: Stable EKG Rhythm: SR with BBB Rhythm change?: N MD Notified?: Johanne Lima MD Response: No New Orders Received Latest Strauss Fall Score: 55 Fall Risk: High Risk Safety Measures: Call light Within Reach, Bed Alarm Zone 1, Side Rails Side Rails x2, Bed position Low and Locked. Fall Precautions: Yellow Socks Yellow Gown Door Sign Patient Fall Education Report given to Cain/CYRUS.
--- NOTE | 2020-08-15 19:30 | NUR ---
NURSE NOTES: Received report from Daniela BRIDGES. Pt resting in bed comfortably no s/s of distress or discomfort noted. Pt on 3L nasal cannula, no SOB noted. Pt has IV on right AC 22G SL, patent and intact and left FA 22G running D5 1/2NS 20meq Kcl @50ml/hr. {t is bedbound. Pt has angel catheter intact draining to gravity. Pt is blind A+Ox3-4 weakness noted. Bed in low and locked position, call light within reach, bedside table within reach. Continue to monitor.
[2020-08-15 20:00] VITALS: BP 126/60
[2020-08-16] VITALS: BP 116/60
[2020-08-16] MEDS: D5 1/2NS w/KCl 20mEq 1,000 ML IV SCH ×2 (01:47→20:13)
[2020-08-16 04:00] VITALS: BP 127/67
[2020-08-16 07:14] LABS: EOSINOPHILS % (AUTO) 1.1 % (0.0-3.0); HEMATOCRIT 25.7 % (42.0-52.0); LYMPHOCYTES % (AUTO) 13.9 % (20.0-45.0); MEAN CORPUSCULAR VOLUME 104 FL (80-99); MONOCYTES % (AUTO) 7.5 % (1.0-10.0); NEUTROPHILS % (AUTO) 76.6 % (45.0-75.0); PLATELET COUNT 110 K/UL (150-450); RED BLOOD COUNT 2.47 M/UL (4.70-6.10); RED CELL DISTRIBUTION WIDTH 15.8 % (11.6-14.8); WHITE BLOOD COUNT 7.8 K/UL (4.8-10.8)
--- NOTE | 2020-08-16 07:20 | NUR ---
NURSE HAND-OFF REPORT: Important Events on Shift:[] Patient Status: [] Diet: [] Pending Orders: [] Pending Results/Labs:[] Pending MD notification:[] Latest Vital Signs: Temperature 97.9 , Pulse 77 , B/P 127 /67 , Respiratory Rate 16 , O2 SAT 98 , Nasal Cannula, O2 Flow Rate 3.0 . Vital Sign Comment: [] EKG Rhythm: SR w/BBB Rhythm change?: N MD Notified?: Y -Dr Clarence JUARES Response: No New Orders Received Latest Strauss Fall Score: 55 Fall Risk: High Risk Safety Measures: Call light Within Reach, Bed Alarm Zone 1, Side Rails Side Rails x2, Bed position Low and Locked. Fall Precautions: Yellow Socks Yellow Gown Door Sign Patient Fall Education Report given to [Katie BRIDGES].
[2020-08-16 07:24] LABS: CALCIUM 7.9 MG/DL (8.5-10.1); CREATININE 1.4 MG/DL (0.55-1.30); POTASSIUM 4.2 MMOL/L (3.5-5.1)
[2020-08-16 08:00] VITALS: BP 102/56
--- NOTE | 2020-08-16 08:28 | NUR ---
Speech Pathology Note (Dysphagia follow up) H/H, and platelet flow from 08/13~08/16 noted. Pt denied nausea, abdominal pain at this time. Pt received his breakfast consists with pancake, scrambled egg, bread, oatmeal, milk and juice. There was jello from overnight. S: Pt. asked cereal. Pt received during meal time. I fed him this morning. O: 1. Aspiration precaution/Swallow safety: Pt was positioned upright 90 degree. I fed him jello, pancake, scrambled egg, cereal with milk, juice and water. During meal intermittent belching with cough is noted. He is known to be high risk of aspiration with regurgitation. He consumed about 20%of the meal. He stated he had enough. Aspiration precaution was carefully monitored through out meal time. 2. Diet texture: Mechanical soft (esophageal soft diet) is appropriate for him from Swallow/GI perspective. If his H/H continues to drop H/H, reconsider to clear liquid diet v.s NPO, concerning for recurrent GIB. A: 1. Dysphagia with aspiration risk due to endstage liver cirrhosis. P: 1. Continue with mechanical soft diet with aspiration precaution -COLLECTIONS ASSOCIATE to follow up his overall status routinely Kelsey Frank
--- NOTE | 2020-08-16 08:53 | NUR ---
NURSE NOTES: pt in bed, he is blind. Will help pt to eat. pt is not complaining of pain. Pt on quality assurance monitor, shows no signs of cardiac or respiratory distress at this moment. Bed locked and in lowest position, call light within reach. Will continue to monitor pt. Bed alarm set up for safety, educated pt on fall prevention and how to use call light.
[2020-08-16] MEDS: Piperacillin/Tazobactam 3.375 GM in NS 110 ML IVPB SCH ×4 (09:21→16:00)
[2020-08-16] MEDS: Ascorbic Acid 500mg tab ORAL SCH (09:22)
[2020-08-16] MEDS: Multivitamin w/Minerals tab ORAL SCH (09:22)
[2020-08-16] MEDS: Spironolactone 50mg tab ORAL SCH (09:22)
--- NOTE | 2020-08-16 10:45 | NUR ---
NURSE NOTES: paged doctor Shecter to verify if pt should be receiving Lovenox, admitted for upper GI bleed, and today hgb 8.0 and plts 110 labs are trending down. However pt has bilateral DVT, awaiting doctor's response.
--- NOTE | 2020-08-16 11:21 | NUR ---
NURSE NOTES: paged doctor Shecter a 2nd time about Lovenox order. Notify pharmacy that we are waiting on PCP's answer wether he wants pt to received Lovenox.
[2020-08-16 11:43] VITALS: BP 128/65
[2020-08-16] MEDS: Enoxaparin 80mg Inj SUBQ SCH ×2 (12:24→20:18)
--- NOTE | 2020-08-16 13:08 | NUR ---
RD ASSESSMENT & RECOMMENDATIONS SEE CARE ACTIVITY FOR COMPLETE ASSESSMENT DAILY ESTIMATED NEEDS: Needs based on Cirrhosis/ 69.5kg 25-30 kcals/kg 1818-7461 total kcals 1-1.5 g protein/kg 70-104 g total protein 20-25 mL/kg 3620-1497 total fluid mLs NUTRITION DIAGNOSIS: Altered nutrition related lab values R/T cirrhosis and ascites as evidenced by elev T bili (1.8), elev AST, s/p paracentesis,3.8 L removed (08/14), 8.3 L removed (07/28). 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
--- NOTE | 2020-08-16 14:00 | NUR ---
CASE MANAGEMENT:REVIEW 08/16/20 SI: BLE DVT. ASCITES..S/P PARACENTESIS 97.5 72 20 128/65 95% ON 3L/NC H/H-8.0/25.7 PLT-110 BUN+23 CR+1.4 IS: ALDACTONE PO QD LOVENOX SQ Q12 IV ZOSYN Q8HRS IVF@50/HR : TELEMETRY STATUS DCP: FROM [facility]
--- NOTE | 2020-08-16 14:02 | NUR ---
DISCHARGE PLANNING MESSAGE LEFT FOR DR HERNANDEZ REGARDING DISCHARGE PLANNING
--- NOTE | 2020-08-16 14:16 | NUR ---
NURSE NOTES: Skin/Wound assessment:Left buttock pressure ulcer stage 3 2.0x1.4x0.2 60% yellow slough 40% pink granulation tissue scant serosanguineous drainage Thera honey and Optifoam applied ,periwound nonblanchable redness Triad applied.Right buttock pressure ulcer stage 3 0.8x0.4x0.2 50%yellow slough 50% pink granulation tissue scant serosanguineous drainage Thera honey and Optifoam applied ,periwound non blanchable redness triad applied.Bilateral Heels skin intact Optifoam applied and offloaded with pillows for preventative pressure relief measures .Assessment/plan of care discussed with RN taking care of patient.
[2020-08-16 16:00] VITALS: BP 127/58
--- NOTE | 2020-08-16 16:20 | General Progress Note ---
Subjective Allergies: Coded Allergies: No Known Allergies (Verified , 04/05/09) Subjective Obtunded. More alert. Objective Last 24 Hour Vital Signs Date Time Temp Pulse Resp B/P (MAP) Pulse Ox O2 Delivery O2 Flow Rate FiO2 08/16/20 12:00 71 08/16/20 11:43 97.5 72 20 128/65 (86) 95 08/16/20 09:00 Nasal Cannula 3.0 08/16/20 08:00 73 08/16/20 08:00 97.6 81 18 102/56 (71) 96 08/16/20 04:00 77 08/16/20 04:00 97.9 84 16 127/67 (87) 98 08/16/20 00:00 80 08/16/20 00:00 97.0 83 16 116/60 (78) 98 08/15/20 21:00 Nasal Cannula 3.0 08/15/20 20:00 80 08/15/20 20:00 97.9 84 16 126/60 (82) 98 Intake and Output 08/15/20 08/16/20 19:00 07:00 Intake Total 805.5 ml Output Total 200 ml 350 ml Balance 605.5 ml -350 ml Intake Oral 118 ml IV Total 687.5 ml Output Urine Total 200 ml 350 ml # Voids 1 1 # Bowel Movements 1 1 Laboratory Tests 08/16/20 06:56: White Blood Count 7.8, Red Blood Count 2.47L, Hemoglobin 8.0L, Hematocrit 25.7L, Mean Corpuscular Volume 104H, Mean Corpuscular Hemoglobin 32.6H, Mean Corpuscular Hemoglobin Concent 31.3L, Red Cell Distribution Width 15.8H, Platelet Count 110L, Mean Platelet Volume 6.4L, Neutrophils (%) (Auto) 76.6H, Lymphocytes (%) (Auto) 13.9L, Monocytes (%) (Auto) 7.5, Eosinophils (%) (Auto) 1.1, Basophils (%) (Auto) 1.0, Sodium Level 137, Potassium Level 4.2, Chloride Level 107, Carbon Dioxide Level 25, Anion Gap 5, Blood Urea Nitrogen 23H, Creatinine 1.4H, Estimat Glomerular Filtration Rate 57.9, Glucose Level 148H, C alcium Level 7.9L, Magnesium Level 2.0 Height (Feet): 6 Height (Inches): 1.00 Weight (Pounds): 158 Objective Cachectic CV RR Lungs CTA Abd less Ascites E +3 B edema Assessment/Plan Assessment/Plan: B leg DVT - Lovenox Tense Ascites - s/p paracentesis 3.8 L removed. Swallow eval when ascites is drained.To be done soon. Hct drop to 25.7 noted. Patient with hematemesis. Holding Lovenox. To check repeat CBC. Rafaela Lima MD Aug 16, 2020 16:20
--- NOTE | 2020-08-16 19:35 | NUR ---
NURSE NOTES: Report received from Katie BRIDGES. Patient is noted to be awake and alert x 4. patient is noted to be on 3 liters of oxygen via nasal canula. Patient has no complaints of chest pain or shortness of breath at this time. Was endorsed to Nilesh BRIDGES that patient becomes tachycardic when moving in bed. Was endorsed to Nilesh BRIDGES that the patient is legally blind. Patient is noted to have 22 gaga IV access in right AC and 22 robert in left forearm with fluids running per MD orders. Patient is noted to have indwelling Kwan draining dark yellow urine. Was endorsed to Nilesh BRIDGES that patient recently had paracentesis where he had 3.7 liters of fluid removed. Was endorsed to Nilesh BRIDGES that wound nurse came assess patient and updated wound care. Patient has no complaints at this time. Bed is locked, alarmed, and in lowest position. Call light in reach. Will continue to follow plan of care.
--- NOTE | 2020-08-16 19:36 | NUR ---
NURSE HAND-OFF REPORT: Important Events on Shift:pt is blind, and gets tachycardic when moved in bed or reposition. monitor Hgb and plt. they are low. pt gets Lovenox for bilateral DVT. Patient Status: DNR Diet: Soft easy chew Pending Orders: morning labs Pending Results/Labs: Pending MD notification: Latest Vital Signs: Temperature 97.2 , Pulse 76 , B/P 127 /58 , Respiratory Rate 18 , O2 SAT 97 , Nasal Cannula, O2 Flow Rate 4.0 . Vital Sign Comment: EKG Rhythm: SR w BBB Rhythm change?: N MD Notified?: Y -Dr Clarence JUARES Response: No New Orders Received Latest Strauss Fall Score: 55 Fall Risk: High Risk Safety Measures: Call light Within Reach, Bed Alarm Zone 1, Side Rails Side Rails x2, Bed position Low and Locked. Fall Precautions: y Yellow Socks y Yellow Gown y Door Sign Patient Fall Education y Report given to Ronaldo/RN.
--- NOTE | 2020-08-16 19:50 | NUR ---
NURSE NOTES: It is noted that there is an "Other Nursing Order" from Doctor Lima that it is okay to give Lovenox and to continue to monitor hemoglobin, hematocrit, and platelets.
[2020-08-16 20:00] VITALS: BP 129/77
--- NOTE | 2020-08-16 23:15 | NUR ---
NURSE NOTES: Patient stood at bedside with Nilesh BRIDGES to use urinal. Patient requested to ambulate around the room. Nilesh BRIDGES assisted the patient. Patient was able to take small steps and ambulate with a steady gate and took two laps around the room. Patient put safely back in bed. Patient had no complaints of chest pain or shortness of breath after ambulation. Patient was noted to be 90 % on room air. Nilesh BRIDGES placed patient back on oxygen via nasal canula and and left patient with an oxygen saturation of 97 % on 3 liters of oxygen via nasal canula. Addendum: 08/17/20 at 0321 by Nilesh Rodriguez RN Disregard this note. Wrong patient.
[2020-08-17] VITALS: BP 122/72
[2020-08-17] MEDS: Piperacillin/Tazobactam 3.375 GM in NS 110 ML IVPB SCH ×4 (00:35→23:12)
[2020-08-17 04:00] VITALS: BP 129/66
--- NOTE | 2020-08-17 05:29 | NUR ---
NURSE NOTES: Bed bath given to patient. Wound care preformed. Dressing changed, new one in tact and in place.
[2020-08-17 06:57] LABS: ANION GAP 5 mmol/L (5-15); BLOOD UREA NITROGEN 17 mg/dL (7-18); CALCIUM 8.2 MG/DL (8.5-10.1); CARBON DIOXIDE 24 MMOL/L (21-32); CHLORIDE 107 MMOL/L (98-107); CREATININE 1.2 MG/DL (0.55-1.30); POTASSIUM 4.6 MMOL/L (3.5-5.1); SODIUM 136 MMOL/L (136-145)
--- NOTE | 2020-08-17 07:27 | NUR ---
NURSE HAND-OFF REPORT: Important Events on Shift: patient slept through out the shift. endorsed that patient had dark bowel movement this morning and required suctioning. Patient Status: DNR Diet: regular Pending Orders: none Pending Results/Labs:none Pending MD notification:none Latest Vital Signs: Temperature 97.7 , Pulse 71 , B/P 129 /66 , Respiratory Rate 16 , O2 SAT 96 , Nasal Cannula, O2 Flow Rate 3.0 . Vital Sign Comment: within normal limits. EKG Rhythm: SR w BBB Rhythm change?: MD Notified?: MD Response: Latest Strauss Fall Score: 55 Fall Risk: High Risk Safety Measures: Call light Within Reach, Bed Alarm Zone 1, Side Rails Side Rails x2, Bed position Low and Locked. Fall Precautions: Yellow Socks Yellow Gown Door Sign Patient Fall Education Report given to Katie BRIDGES.
[2020-08-17 07:45] LABS: BASOPHILS % (AUTO) 1.2 % (0.0-2.0); EOSINOPHILS % (AUTO) 1.1 % (0.0-3.0); HEMATOCRIT 28.8 % (42.0-52.0); HEMOGLOBIN 9.2 G/DL (14.2-18.0); LYMPHOCYTES % (AUTO) 16.2 % (20.0-45.0); MEAN CORPUSCULAR VOLUME 101 FL (80-99); MONOCYTES % (AUTO) 10.8 % (1.0-10.0); NEUTROPHILS % (AUTO) 70.6 % (45.0-75.0); PLATELET COUNT 114 K/UL (150-450); RED BLOOD COUNT 2.85 M/UL (4.70-6.10); RED CELL DISTRIBUTION WIDTH 15.6 % (11.6-14.8); WHITE BLOOD COUNT 6.3 K/UL (4.8-10.8)
[2020-08-17 08:00] VITALS: BP 145/76
--- NOTE | 2020-08-17 08:09 | NUR ---
NURSE NOTES: pt awake and about to be assisted with breakfast. AOx3-4. Pt is on monitoring specialist no signs of cardiac or respiratory distress. Bed is locked and in lowest position. Pt was just repositioned. pt has a angel and is draining well. Will continue to monitor pt.
[2020-08-17] MEDS: Spironolactone 50mg tab ORAL SCH (08:45)
[2020-08-17] MEDS: Multivitamin w/Minerals tab ORAL SCH (08:45)
[2020-08-17] MEDS: Ascorbic Acid 500mg tab ORAL SCH (08:45)
[2020-08-17] MEDS: Enoxaparin 80mg Inj SUBQ SCH ×2 (08:46→20:36)
--- NOTE | 2020-08-17 11:27 | NUR ---
S: PATIENT CLEARED FOR ST INTERVENTION BY CYRUS PULIDO O: DYSPHAGIA TX/MANAGEMENT VITAL SIGNS: BP: 28971 (99), 3 LIT VIA NC A: PER RD RECOMMENDATIONS: PO Intake Poor (0-49%) PO Intake Comment 20 0 10 5 Additional Comments . Diagnosis Altered nutrition related lab values R/T cirrhosis and ascites as evidenced by elev T bili (1.8), elev AST, s/p paracentesis,3.8 L removed (08/14), 8.3 L removed (07/28). Diet Liberalized regular w/ poor PO (texture per PROFESSOR OF MANAGEMENT) Recommendation #1 * Daily calibrated bedscale wt Recommendation #2 * LOW NA diet w/ PO intake consistently >50% of meals Recommendation #3 * Glucerna TID w/ meals Recommendation #4 * Monitor BGs, need for hypoglycemics (h/o DM) Recommendation #5 * Monitor for hypoglycemia w/ poor PO (h/o DM) Recommendation #6 * Wound healing: continue MVI + Vit C, add ZnSO4 220mg QD x 10 days Recommendation #7 Cristóbal BID as tolerated, rec WC eval for sacral open wound PATIENT GIVEN P.O. TRIALS WITH THIN LIQUID VIA CUP SIP AND SOFT SOLID/CRACKER AFTER REPOSITIONING FOR P.O. PHARYNGEAL PHASE C/B 1X THROAT CLEAR, OTHERWISE, HE TOLERATED ALL TRIALS WITH NO OVERT S/S OF ASPIRATION. PATIENT REQUIRES ASSIST WITH MEALS. HE IS TOLERATING HIS CURRENT DIET WITH NO DIFFICULTY ALTHOUGH INTAKE AMOUNTS ARE VARIABLE AND FREQUENTLY SUBOPTIMAL TO SUPPORT NUTRITION/HYDRATION NEEDS. AT END OF TRIALS, BELCHING X2 NOTED. MEALTIME SUPPLEMENTATION NEEDED TO OFFSET LACK OF INTAKE. P: CONTINUE CURRENT DIET WITH FULL ASSIST WITH MEALS AND ASPIRATION PRECAUTIONS THANK YOU FOR THIS REFERRAL.
[2020-08-17 12:00] VITALS: BP 140/70
[2020-08-17 16:00] VITALS: BP 132/68
[2020-08-17] MEDS: D5 1/2NS w/KCl 20mEq 1,000 ML IV SCH (16:47)
--- NOTE | 2020-08-17 17:24 | General Progress Note ---
Subjective Allergies: Coded Allergies: No Known Allergies (Verified , 04/05/09) Subjective Obtunded. More alert. Objective Last 24 Hour Vital Signs Date Time Temp Pulse Resp B/P (MAP) Pulse Ox O2 Delivery O2 Flow Rate FiO2 08/17/20 09:00 Nasal Cannula 3.0 08/17/20 08:00 74 08/17/20 08:00 97.7 71 20 145/76 (99) 96 08/17/20 04:00 97.7 78 16 129/66 (87) 96 08/17/20 04:00 71 08/17/20 00:00 72 08/17/20 00:00 99.0 78 16 122/72 (89) 96 08/16/20 21:00 Nasal Cannula 3.0 08/16/20 20:00 97.5 83 16 129/77 (94) 95 08/16/20 20:00 73 08/16/20 19:24 97 Nasal Cannula 4.0 36 Intake and Output 08/16/20 08/17/20 19:00 07:00 Intake Total 410 ml 610.0 ml Output Total 350 ml 500 ml Balance 60 ml 110.0 ml Intake Oral 360 ml IV Total 50 ml 610.0 ml Output Urine Total 350 ml 500 ml # Bowel Movements 2 1 Laboratory Tests 08/17/20 05:58: White Blood Count 6.3, Red Blood Count 2.85L, Hemoglobin 9.2L, Hematocrit 28.8L, Mean Corpuscular Volume 101H, Mean Corpuscular Hemoglobin 32.2H, Mean Corpuscular Hemoglobin Concent 31.8L, Red Cell Distribution Width 15.6H, Platelet Count 114L, Mean Platelet Volume 6.7, Neutrophils (%) (Auto) 70.6, Lymphocytes (%) (Auto) 16.2L, Monocytes (%) (Auto) 10.8H, Eosinophils (%) (Auto) 1.1, Basophils (%) (Auto) 1.2, Sodium Level 136, Potassium Level 4.6, Chloride Level 107, Carbon Dioxide Level 24, Anion Gap 5, Blood Urea Nitrogen 17, Creatinine 1.2, Estimat Glomerular Filtration Rate > 60, Glucose Level 141H, Calcium Level 8.2L, Magnesium Level 1.9 Height (Feet): 6 Height (Inches): 1.00 Weight (Pounds): 158 Objective Cachectic CV RR Lungs CTA Abd less Ascites E +3 B edema Assessment/Plan Assessment/Plan: B leg DVT - Lovenox Tense Ascites - s/p paracentesis 3.8 L removed. Swallow eval when ascites is drained.To be done soon. Hct drop to 25.7 noted. Patient with hematemesis. Holding Lovenox. To check repeat CBC. No change in Hct. DC to SNF in am Rafaela Lima MD Aug 17, 2020 17:24
[2020-08-17] MEDS ORDERED: LOVENOX10 M2 SUBQ (17:27)
[2020-08-17] MEDS ORDERED: MULTIVITAMINS1 EAC8 ORAL (17:27)
[2020-08-17] MEDS ORDERED: ALDACTONE50 MG ORAL (17:27)
--- NOTE | 2020-08-17 17:46 | NUR ---
DISCHARGE PLANNING: NOTE DC ORDER NOTED CLINICALS FAXED TO [facility] T: [phone]/F: [phone]
--- NOTE | 2020-08-17 19:03 | NUR ---
NURSE HAND-OFF REPORT: Important Events on Shift:pt is very cranky and does not like to be turned or changed and starts arguing and yelling to nurses, Pt to be DC to SNF tomorrow, SNF prescriptions are on file Patient Status: DNR Diet: Soft easy chew Pending Orders: Pending Results/Labs: Pending MD notification: Latest Vital Signs: Temperature 97.7 , Pulse 75 , B/P 132 /68 , Respiratory Rate 20 , O2 SAT 95 , Nasal Cannula, O2 Flow Rate 3.0 . Vital Sign Comment: EKG Rhythm: SR w BBB Rhythm change?: N Notified?: Y -Dr Clarence JUARES Response: No New Orders Received Latest Strauss Fall Score: 55 Fall Risk: High Risk Safety Measures: Call light Within Reach, Bed Alarm Zone 1, Side Rails Side Rails x2, Bed position Low and Locked. Fall Precautions: y Yellow Socks y Yellow Gown y Door Sign Patient Fall Education Report given to Ai/RN.
--- NOTE | 2020-08-17 19:39 | NUR ---
NURSE NOTES: Patient received from CYRUS Wilson. Patient is A/O x 2. Patient is very cranky and gets easily mad when being touched, turned or when providing care. Patient is on 3 L nasal cannula satting at 96%. Patient is has a 16 nigerian angel, patent and well draining. Patient has a 22 gauge on his Right AC and 22 gauge on left forearm, patent and flushed. Bed is in the lowest position, call light within reach. Will continue to monitor.
[2020-08-17 20:00] VITALS: BP 119/57
--- NOTE | 2020-08-17 20:38 | NUR ---
NURSE NOTES: Patient refused Lovenox. Explained what the medication is for and attempted to administer the medication multiple times but patient still keeps refusing. Patient said I refuse the medication and that he does not need it.
[2020-08-18] VITALS: BP 107/56
[2020-08-18 04:00] VITALS: BP 125/65
--- NOTE | 2020-08-18 07:40 | NUR ---
NURSE HAND-OFF REPORT: Important Events on Shift:[Patient may be discharged] Patient Status: [] Diet: [Soft easy chew diet] Pending Orders: [] Pending Results/Labs:[] Pending MD notification:[] Latest Vital Signs: Temperature 96.8 , Pulse 70 , B/P 125 /65 , Respiratory Rate 20 , O2 SAT 94 , Nasal Cannula, O2 Flow Rate 3.0 . Vital Sign Comment: [] EKG Rhythm: SR with BBB Rhythm change?: N MD Notified?: Y -Dr Clarence JUARES Response: No New Orders Received Latest Strauss Fall Score: 55 Fall Risk: High Risk Safety Measures: Call light Within Reach, Bed Alarm Zone 1, Side Rails Side Rails x2, Bed position Low and Locked. Fall Precautions: Yellow Socks Yellow Gown Door Sign Patient Fall Education Report given to [CYRUS Marin].
--- NOTE | 2020-08-18 07:48 | NUR ---
NURSE NOTES: Report received from Trell Amor RN. Patient asleep but easily rousable, on 3lpm via NC, no signs of distress. PIV on right AC and left forearm patent and infusing IVF as ordered. Kwan cath secured and draining. Bed low and locked, siderails up x3, call light placed within reach and instructed to call nurse for assistance. Will continue with plan of care.
[2020-08-18 08:00] VITALS: BP 117/46
[2020-08-18] MEDS: Piperacillin/Tazobactam 3.375 GM in NS 110 ML IVPB SCH ×2 (09:08→16:00)
[2020-08-18] MEDS: Ascorbic Acid 500mg tab ORAL SCH (09:08)
[2020-08-18] MEDS: Multivitamin w/Minerals tab ORAL SCH (09:08)
[2020-08-18] MEDS: Spironolactone 50mg tab ORAL SCH (09:08)
[2020-08-18] MEDS: Enoxaparin 80mg Inj SUBQ SCH (09:09)
--- NOTE | 2020-08-18 09:23 | NUR ---
DISCHARGE PLANNING CALL RECEIVED FROM [facility] REQUESTING A CURRENT COVID SWAB
--- NOTE | 2020-08-18 11:00 | NUR ---
NURSE NOTES: Patient refused covid swab. Explained risks and benefits, patient still refused. Charge nurse and pillowcase cleaner aware.
[2020-08-18 12:00] VITALS: BP 137/67
--- NOTE | 2020-08-18 14:16 | NUR ---
*-*DISCHARGE PLANNED*-* PATIENT HAS BEEN ACCEPTED AND WILL BE DISCHARGED [facility] P: [phone] FOR NURSE TO NURSE REPORT ROOM# 230.3 SKILLED [facility] FIBER TECHNICIAN IS SET FOR 4PM GRANT [phone]. PLACED A CALL TO PATIENTS FRIEND JOE JACKSON, NO ANSWER, LEFT VOICE MESSAGE.
--- NOTE | 2020-08-18 14:25 | NUR ---
NURSE NOTES: Patient still refusing Covid-19 nasal swab.
[2020-08-18] MEDS: D5 1/2NS w/KCl 20mEq 1,000 ML IV SCH (14:28)
[2020-08-18 16:00] VITALS: BP 131/80
--- NOTE | 2020-08-18 17:05 | NUR ---
NURSE NOTES: Notified that patient will be accepted at [facility] without Covid test.
--- NOTE | 2020-08-18 18:33 | NUR ---
NURSE NOTES: Patient discharged to [facility], AxOx2, not in distress, tolerating room air. Sacral stage 3 noted, photos documented. Wound cleaned and dressed with optifoam. PIV removed and dry dressing placed. Kwan catheter secured and draining. Report given to Ophelia BRIDGES Hand Sole Sewer at [facility]. All discharge instructions and medication list endorsed to ambulance personnel. Belongings checked and accounted for. Patient left via BLS transport accompanied by ambulance personnel.
--- NOTE | 2020-08-18 18:50 | NUR ---
NURSE NOTES: Unable to upload wound photos from camera due to computer not recognizing camera. Photos taken from [employer] camera.
--- NOTE | 2020-08-20 11:55 | Discharge Summary ---
Discharge Summary Discharge Summary _ DATE OF ADMISSION: 08/13/2020 DATE OF DISCHARGE: 08/18/2020 DISCHARGED BY: Dr. Rafaela Lima BRIEF HOSPITAL COURSE: Patient is an 89-year-old -Tongan male from [facility], was brought into the hospital by paramedics. The patient was discharged a week ago from the hospital. 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 He was sent to [facility] after a prolonged admission to the hospital after being stabilized. The patient underwent large volume abdominal paracentesis with removal of more than 8 L of transudate. The patient is blind and demented and unable to give further information. [facility], he has been refusing to take his medications. He also has medical history of type 2 diabetes mellitus, hypertensive ca rdiovascular disease, coronary artery disease, and anemia. Upon evaluation at ED, vital signs were stable. Blood work did not show any leukocytosis. Hemoglobin and hematocrit were stable. Electrolytes were normal. BUN was 22 and creatinine 1.3. Lactic acid was elevated to 3.0. LDH was elevated to 404. CRP was 6.5. D-dimer 9.6. Urinalysis with 3+ leukocyte esterase, 30-40 urine RBC, 20-30 urine WBC and positive nitrite. Chest x-ray showed bilateral pleural effusion. COVID-19 swab was negative. EKG was in normal sinus rhythm with no acute ischemic changes. Patient was admitted due to volume depletion. He was given slow rehydration. Patient has bilateral 3+ lower extremity edema and tense ascites. Venous duplex revealed occlusive thrombus in the right common femoral and deep femoral vein. Nonocclusive thrombus in the right superficial femoral vein. Nonocclusive thrombus in the left superficial femoral vein and distal femoral vein. He was given Lovenox. Abdominal ultrasound showed a small cirrhotic liver, cholelithiasis with under distended gallbladder, with large amount of ascites. On 08/14/2020, he underwent ultrasound-guided paracentesis yielding 3.7 L of fluid. Patient tolerated procedure well without complication. He had a drop of hematocrit to 25.7. Patient had hematemesis. Lovenox was placed on hold. He underwent swallow evaluation. Blood count was monitored. Swallow evaluation was done when patient was more alert. He was recommended to continue with mechanical soft diet. Strict aspiration precaution. There was no further drop in hematocrit. Blood work stable. Patient was cleared for discharge. FINAL DIAGNOSES: Right leg DVT Tense ascites status post paracentesis 3.8 L removed Hematemesis DISPOSITION: Patient was discharged back to [facility]. DISCHARGE MEDICATIONS: Refer to Discharge Medication List. I have been assigned to complete a discharge summary on this account, I was not involved with the patient's management.--ARJUN Shaikh Jacqueline Robles NP Aug 20, 2020 11:55
== END 2020-08-18 18:45 | DRG 433 ==
LOC: EDBD 06:18 → EMR 06:42 → 2E 06:52 → EDBEDREQ 08:39 → 2E 08-18 10:25
PROC: 0W9G3ZZ Drainage of Peritoneal Cavity, Percutaneous Approach (ICD-10-PCS; principal; 2020-08-14)
DX: K70.31 Alcoholic cirrhosis of liver with ascites (principal); K92.2 Gastrointestinal hemorrhage, unspecified; N39.0 Urinary tract infection, site not specified; I82.413 Acute embolism and thrombosis of femoral vein, bilateral; H54.7 Unspecified visual loss; F03.90 Unspecified dementia, unspecified severity, without behavioral disturbance, psychotic disturbance, mood disturbance, and anxiety; E11.9 Type 2 diabetes mellitus without complications; I25.10 Atherosclerotic heart disease of native coronary artery without angina pectoris; I11.9 Hypertensive heart disease without heart failure; D63.8 Anemia in other chronic diseases classified elsewhere; E86.9 Volume depletion, unspecified; K80.20 Calculus of gallbladder without cholecystitis without obstruction; Z66 Do not resuscitate
CPT/HCPCS: 36415; 71045; 76700; 76942; 80048; 80053; 81003; 82248; 82550; 82553; 82728; 83605; 83615; 83690; 83735; 83880; 84484; 85025; 85379; 85610; 85730; 86140; 87040; 87081; 87086; 93970; 96361; 96365; 96375; 96376; 99291; J2405; J7030; U0002

== ENCOUNTER 2020-10-05 15:23 | Inpatient (IN) | payer MEDICARE ==
[~2020-10-05] VITALS: Ht 170.2 cm; Wt 60.8 kg
[~2020-10-05 15:23] MED LIST changes: +GLUCERNA237 ML PO; +LOVENOX10 M2 SUBQ; +MEDIHONEY15 ML TP; +MULTIPLE VITAM1 EAC5 PO; +SPIRONOLACTONE100 MG ORAL; +SPIRONOLACTONE50 MG ORAL; +VITAMIN C500 M1 ORAL; +[UNRECOGNIZED DRUG - OTHER] TOPIC
[2020-10-05 15:35] VITALS: BP 123/75
--- NOTE | 2020-10-05 15:35 | NUR ---
ED Nurse Note: Pt BIBA private ambulance from [facility] c/o SOB. Per EMS, pt was dessating to 86% RA, placed on 10L NRB, O2 improved to 98%. Has hx of pleural effusion. Noted with bilateral lower leg edema. AAOx1, follows simple command. Covid isolation precaution is in place. Pt placed on cardiac surgeon. ERMD at bedside.
--- NOTE | 2020-10-05 15:41 | Emergency Room Report ---
History of Present Illness General Chief Complaint: Dyspnea/Respdistress Source: Medical Record, EMS Present Illness HPI Patient presents with being hypoxemic at the senior care facility. Apparently his oxygen saturation was 86%. He was placed on 100% nonrebreather. He has a history of pleural effusion in the past. The patient has encephalopathy and is unable to answer questions. Patient has a history of cirrhosis and ascites. The patient was admitted August 13 with these discharge diagnoses: Right leg DVT Tense ascites status post paracentesis 3.8 L removed Hematemesis Allergies: Coded Allergies: No Known Allergies (Verified , 04/05/09) COVID-19 Screening Contact w/high risk pt: No Experienced COVID-19 symptoms?: Yes COVID-19 Testing performed RESIDENT INSPECTOR: Yes COVID-19 Screening: Negative COVID-19 COVID-19 Testing Source: 08/30/20 Patient History Limited by: medical condition Past Medical History: see triage record, old chart reviewed Social History: Denies: alcohol use - In the past Social History Narrative [facility] Reviewed Nursing Documentation: PMH: Agreed; PSxH: Agreed Nursing Documentation-PMH Past Medical History: No History, Except For Hx Cardiac Problems: Yes - ISCHEMIC HEART DISEASE Hx Hypertension: Yes Hx Pacemaker: No Hx Asthma: No Hx COPD: No - PLEURAL EFFUSION Hx Diabetes: Yes Hx Cancer: No Hx Gastrointestinal Problems: Yes - DYSPHAGIA, CIRRHOSIS, ASCITES, GERD Hx Dialysis: No Hx Neurological Problems: Yes - METABOLIC ENCEPHALOPATHY Hx Cerebrovascular Accident: No Hx Seizures: No Review of Systems All Other Systems: limited Physical Exam Vital Signs Date Time Temp Pulse Resp B/P (MAP) Pulse Ox O2 Delivery O2 Flow Rate FiO2 10/05/20 15:32 96.4 74 20 123/75 (91) 93 Non-Rebreather 10.0 Sp02 EP Interpretation: reviewed, abnormal - Interpreted as low by me General Appearance: no apparent distress, Chronically Ill Head: normocephalic Eyes: bilateral eye PERRL ENT: dry mucus membranes Neck: supple, no meningismus Respiratory: rhonchi Cardiovascular #1: regular rate, rhythm Cardiovascular #2: 2+ radial (L) Gastrointestinal: non tender, non-distended, decreased bowel sounds Genitourinary: no CVA tenderness Musculoskeletal: back normal, no calf tenderness Neurologic: other - Lethargy, not following commands, spontaneously moves all 4 by with weakness Psychiatric: depressed affect Skin: no rash, warm/dry Medical Decision Making Diagnostic Impression: Primary Impression: Sepsis Qualified Codes: A41.9 - Sepsis, unspecified organism; R65.20 - Severe sepsis without septic shock; G93.40 - Encephalopathy, unspecified Additional Impressions: Pleural effusion Pneumonia due to COVID-19 virus Thrombocytopenia ER Course Patient presents with hypoxia. Differential includes acute myocardial infarction, sepsis, pneumonia, COVID-19, pulmonary embolus amongst others. Patient evaluated with EKG, chest x-ray and labs. Patient placed on a cardiac tech. IV hydration begun judiciously as the patient has a history of ascites in the past. EKG without injury. Chest x-ray with bilateral infiltrates and possible right effusion. Normal white count with left shift. Low platelets. Normal ammonia. Called for elevated lactic acid. Bolus ordered and antibiotics. 1654 sepsis reevaluation. Called for COVID +. Dexamethasone ordered. Discussed with Dr. Lima regarding admission. Mentation unchanged however patient's vital signs improved. Laboratory Tests Test 10/05/20 16:05 10/05/20 17:00 10/05/20 17:47 10/05/20 19:20 Prothrombin Time 14.6 SEC (9.30-11.50) H Prothrombin Time INR 1.4 (0.9-1.1) H Activated Partial Thromboplast Time 42 SEC (23-33) H D-Dimer 3.09 mg/L FEU (0.00-0.49) H Sodium Level 139 MMOL/L (136-145) Potassium Level 3.9 MMOL/L (3.5-5.1) Chloride Level 109 MMOL/L (98-107) H Carbon Dioxide Level 22 MMOL/L (21-32) Anion Gap 8 mmol/L (5-15) Blood Urea Nitrogen 28 mg/dL (7-18) H Creatinine 1.2 MG/DL (0.55-1.30) Estimated Glomerular Filtration Rate > 60 mL/min (>60) Glucose Level 71 MG/DL (74-106) L Lactic Acid Level 2.30 mmol/L (0.4-2.0) H 2.30 mmol/L (0.66-2.22) H Calcium Level 8.9 MG/DL (8.5-10.1) Ferritin 1055 NG/ML (8-388) H Total Bilirubin 1.2 MG/DL (0.2-1.0) H Direct Bilirubin 0.6 MG/DL (0.0-0.3) H Aspartate Amino Transferase (AST) 48 U/L (15-37) H Alanine Aminotransferase (ALT) 17 U/L (12-78) Alkaline Phosphatase 70 U/L (46-116) Ammonia < 10 umol/L (11-32) L Lactate Dehydrogenase 294 U/L (81-234) H Total Creatine Kinase 24 U/L (26-308) L Troponin I 0.041 ng/mL (0.000-0.056) C-Reactive Protein, Quantitative 15.3 mg/dL (0.00-0.90) H Pro-B-Type Natriuretic Peptide 1012 pg/mL (0-125) H Total Protein 6.9 G/DL (6.4-8.2) Albumin 1.4 G/DL (3.4-5.0) L Globulin 5.5 g/dL Albumin/Globulin Ratio 0.3 (1.0-2.7) L Lipase 46 U/L (73-393) L Urine Color Red Urine Appearance Turbid Urine pH 7 (4.5-8.0) Urine Specific [place] 1.010 (1.005-1.035) Urine Protein 4+ (NEGATIVE) H Urine Glucose (UA) Negative (NEGATIVE) Urine Ketones 1+ (NEGATIVE) H Urine Blood 5+ (NEGATIVE) H Urine Nitrite Negative (NEGATIVE) Urine Bilirubin Negative (NEGATIVE) Urine Urobilinogen Normal MG/DL (0.0-1.0) Urine Leukocyte Esterase 3+ (NEGATIVE) H Urine RBC Tntc /HPF (0 - 0) H Urine WBC Tntc /HPF (0 - 0) H Urine Squamous Epithelial Cells None /LPF (NONE/OCC) Urine Bacteria Many /HPF (NONE) H White Blood Count 9.8 K/UL (4.8-10.8) Red Blood Count 3.13 M/UL (4.70-6.10) L Hemoglobin 9.5 G/DL (14.2-18.0) L Hematocrit 29.0 % (42.0-52.0) L Mean Corpuscular Volume 93 FL (80-99) Mean Corpuscular Hemoglobin 30.3 PG (27.0-31.0) Mean Corpuscular Hemoglobin Concent 32.7 G/DL (32.0-36.0) Red Cell Distribution Width 20.2 % (11.6-14.8) H Platelet Count 39 K/UL (150-450) L Mean Platelet Volume 7.7 FL (6.5-10.1) Neutrophils (%) (Auto) % (45.0-75.0) Lymphocytes (%) (Auto) % (20.0-45.0) Monocytes (%) (Auto) % (1.0-10.0) Eosinophils (%) (Auto) % (0.0-3.0) Basophils (%) (Auto) % (0.0-2.0) Differential Total Cells Counted 100 Neutrophils % (Manual) 80 % (45-75) H Lymphocytes % (Manual) 14 % (20-45) L Monocytes % (Manual) 4 % (1-10) Eosinophils % (Manual) 2 % (0-3) Basophils % (Manual) 0 % (0-2) Band Neutrophils 0 % (0-8) Platelet Estimate Decreased L Platelet Morphology Normal Hypochromasia 2+ Anisocytosis 1+ Ovalocytes 1+ Microbiology Date/Time Source Procedure Growth Status 10/05/20 16:05 Nasopharynx SARS-CoV-2 RdRp Gene Assay - Final Complete EKG Diagnostic Results Troponin ordered: Yes Rate: normal Rhythm: NSR ST Segments: no acute changes - RBBB Rhythm Strip Diag. Results EP Interpretation: yes Rhythm: NSR, no PVC's, no ectopy Chest X-Ray Diagnostic Results Chest X-Ray Diagnostic Results : Chest X-Ray Ordered: Yes # of Views/Limited/Complete: 1 View Indication: Shortness of Breath EP Interpretation: Yes Interpretation: no pneumothorax, other - R infiltrate upper lobe, also effusion Impression: Other Electronically Signed by: Electronically signed by Benoit Diaz MD Last Vital Signs Date Time Temp Pulse Resp B/P (MAP) Pulse Ox O2 Delivery O2 Flow Rate FiO2 10/06/20 00:00 69 10/06/20 00:00 97.4 22 111/69 (83) 100 10/05/20 22:12 Non-Rebreather 15.0 Status: improved Disposition: ADMITTED INPATIENT Condition: Serious Benoit Diaz MD Oct 05, 2020 15:41
--- NOTE | 2020-10-05 15:51 | NUR ---
ED Nurse Note: Xray at bedside.
[2020-10-05] MEDS ORDERED: ACETAMINOPHEN325 M1 ORAL (15:59)
[2020-10-05] MEDS ORDERED: CALMOSEPTINE OI71 GM TP (16:02)
--- NOTE | 2020-10-05 16:05 | NUR ---
ED Nurse Note: IV line established. Blood and covid swab sent to lab.
[2020-10-05 16:46] LABS: ANION GAP 8 mmol/L (5-15); BLOOD UREA NITROGEN 28 mg/dL (7-18); CALCIUM 8.9 MG/DL (8.5-10.1); CARBON DIOXIDE 22 MMOL/L (21-32); CHLORIDE 109 MMOL/L (98-107); CREATININE 1.2 MG/DL (0.55-1.30); POTASSIUM 3.9 MMOL/L (3.5-5.1); SODIUM 139 MMOL/L (136-145)
[2020-10-05 16:52] LABS: INR 1.4 (0.9-1.1)
[2020-10-05] MEDS ORDERED: Sodium Chloride 1,900 ML IVLG ONE (17:00)
[2020-10-05] MEDS ORDERED: Azithromycin 500 MG in NS 275 ML IV ONE (17:00)
[2020-10-05] MEDS ORDERED: cefTRIAXone 1 GM in NS 55 ML IVPB ONE (17:00)
--- NOTE | 2020-10-05 17:00 | NUR ---
ED Nurse Note: Urine, MRSA, CRE/ VRE swab sent to lab.
[2020-10-05 17:01] LABS: ALANINE AMINOTRANSFERASE 17 U/L (12-78); ALBUMIN 1.4 G/DL (3.4-5.0); ALBUMIN/GLOBULIN RATIO 0.3 (1.0-2.7); ALKALINE PHOSPHATASE 70 U/L (46-116); ASPARTATE AMINO TRANSFERASE 48 U/L (15-37); BILIRUBIN,TOTAL 1.2 MG/DL (0.2-1.0); CREATINE KINASE 24 U/L (26-308); LACTATE DEHYDROGENASE 294 U/L (81-234)
[2020-10-05 17:05] LABS: BILIRUBIN,DIRECT 0.6 MG/DL (0.0-0.3)
--- NOTE | 2020-10-05 17:10 | Diagnostic Imaging Report ---
Indication: Reason For Exam: DYSPNEA Technique: Single AP view of the chest. Comparison: Chest radiograph Dated 08/13/2020 Findings: The cardiomediastinal silhouette is unchanged in appearance. Demonstration of small bilateral pleural effusions with associated streaky airspace opacities. No new airspace consolidation. Stable pulmonary vascular congestion. No pneumothorax. No acute osseous abnormality. IMPRESSION: 1. Small bilateral pleural effusions with associated streaky airspace opacities which likely represent compressive atelectasis given appearance on prior examinations. 2. Pulmonary vascular congestion.
[2020-10-05] MEDS ORDERED: dexAMETHasone 10mg/ml Inj IV ONE (17:15)
[2020-10-05 17:25] LABS: FERRITIN 1055 NG/ML (8-388)
[2020-10-05 17:47] LABS: APPEARANCE,URINE TURBID; BILIRUBIN, URINE NEGATIVE (NEGATIVE); COLOR,URINE RED; GLUCOSE, URINE (UA) NEGATIVE (NEGATIVE); KETONES,URINE 1+ (NEGATIVE); LEUKOCYTE ESTERASE ,URINE 3+ (NEGATIVE); NITRITE,URINE NEGATIVE (NEGATIVE); PH,URINE 7 (4.5-8.0); PROTEIN,URINE 4+ (NEGATIVE); UROBILINOGEN,URINE NORMAL MG/DL (0.0-1.0)
[2020-10-05 17:58] LABS: HEMOGLOBIN 9.5 G/DL (14.2-18.0); MEAN CORPUSCULAR VOLUME 93 FL (80-99); PLATELET COUNT 39 K/UL (150-450); RED BLOOD COUNT 3.13 M/UL (4.70-6.10); RED CELL DISTRIBUTION WIDTH 20.2 % (11.6-14.8); WHITE BLOOD COUNT 9.8 K/UL (4.8-10.8)
--- NOTE | 2020-10-05 19:15 | NUR ---
ED Nurse Note: Recieved pt awake,a&ox1 , and verbal. pt is on 10L non-rebreather mask. no fever and cough at the moment. safty perc done
[2020-10-05 19:27] VITALS: BP 111/68
--- NOTE | 2020-10-05 19:31 | NUR ---
lactic acid lab sent to the lab
--- NOTE | 2020-10-05 19:50 | NUR ---
Awa miranda in EDM - 10/05/20 at 1951 by MELBA ED Nurse Note: Report given to aden schmitz RN
--- NOTE | 2020-10-05 19:51 | NUR ---
ED Nurse Note: Report given to tele nurse CYRUS schmitz
--- NOTE | 2020-10-05 21:10 | NUR ---
TRANSFER TO FLOOR: Patient transferred to tele 220-1 as ordered, per dr kennedy. Report given to Emre Kumar. 1 Rn and tech transfered pt.
--- NOTE | 2020-10-05 21:14 | Consultation ---
Consult Note Consult Note 89 year old Patient presents brought in with hypoxemia from the [facility] facility. Apparently his oxygen saturation was 86%. He has a history of pleural effusion in the past. Patient unable to give any history. Patient tested COVID positive and now admitted and on isolation. care reviewed. Currently with adequate oxygen saturations Patient has a history of cirrhosis and ascites. Allergies: No Known Allergies (Verified , 04/05/09) Past Medical History: cirrhosis, ascites, ischemic heart disease, hypertension, pleural effusion, diabetes, Ascites, GERD Social History Narrative [facility], nonsmoker Reviewed of systems: unable Physical deferred due to COVID Laboratory Tests 10/05/20 16:05: Prothrombin Time 14.6H, Prothromb Time International Ratio 1.4H, Activated Partial Thromboplast Time 42H, D-Dimer 3.09H, Sodium Level 139, Potassium Level 3.9, Chloride Level 109H, Carbon Dioxide Level 22, Anion Gap 8, Blood Urea Nitrogen 28H, Creatinine 1.2, Estimat Glomerular Filtration Rate > 60, Glucose Level 71L, Lactic Acid Level 2.30H, Calcium Level 8.9, Ferritin 1055H, Total Bilirubin 1.2H, Direct Bilirubin 0.6H, Aspartate Amino Transf (AST/SGOT) 48H, Alanine Aminotransferase (ALT/SGPT) 17, Alkaline Phosphatase 70, Ammonia < 10L, Lactate Dehydrogenase 294H, Total Creatine Kinase 24L, Troponin I 0.041, C- Reactive Protein, Quantitative 15.3H, Pro-B-Type Natriuretic Peptide 1012H, Total Protein 6.9, Albumin 1.4L, Globulin 5.5, Albumin/Globulin Ratio 0.3L, Lipase 46L 10/05/20 17:00: Urine Color Red, Urine Appearance Turbid, Urine pH 7, Urine Specific [place] 1.010, Urine Protein 4+H, Urine Glucose (UA) Negative, Urine Ketones 1+H, Urine Blood 5+H, Urine Nitrite Negative, Urine Bilirubin Negative, Urine Urobilinogen Normal, Urine Leukocyte Esterase 3+H, Urine RBC TntcH, Urine WBC TntcH, Urine Squamous Epithelial Cells None, Urine Bacteria ManyH 10/05/20 17:47: White Blood Count 9.8, Red Blood Count 3.13L, Hemoglobin 9.5L, Hematocrit 29.0L, Mean Corpuscular Volume 93, Mean Corpuscular Hemoglobin 30.3, Mean Corpuscular Hemoglobin Concent 32.7, Red Cell Distribution Width 20.2H, Platelet Count 39L, Mean Platelet Volume 7.7, Neutrophils (%) (Auto) , Lymphocytes (%) (Auto) , Monocytes (%) (Auto) , Eosinophils (%) (Auto) , Basophils (%) (Auto) , Differential Total Cells Counted 100, Neutrophils % (Manual) 80H, Lymphocytes % (Manual) 14L, Monocytes % (Manual) 4, Eosinophils % (Manual) 2, Basophils % (Manual) 0, Band Neutrophils 0, Platelet Estimate DecreasedL, Platelet Morphology Normal, Hypochromasia 2+, Anisocytosis 1+, Ovalocytes 1+ 10/05/20 19:20: Lactic Acid Level 2.30H IMPRESSION COVID pneumonia Acute hypoxemic respiratory failure Cirrhosis anemia Lactic acidemia PLAN ID eval IV decadron IV remdesivir oxygen monitor need for higher level of care DVT prophylaxis SNF meds impression, plan, and exam edited and reviewed in detail care discussed with Isaias Duran MD Oct 05, 2020 21:14
[2020-10-05] MEDS ORDERED: Albuterol/Ipratropium 3ml neb HHN PRN (21:15)
[2020-10-05 21:45] VITALS: BP 133/56
--- NOTE | 2020-10-05 21:45 | NUR ---
NURSE NOTES: Received patient from ED personnel. Pt brought up by 2 ED staff. Patient Aox1, to name. Able to mumble minimal responses. Admitted under the service of Dr. Lima. Skin assessed and noted to have sacral stage I pressure injury; picture taken and optifoam applied. also noted to have bilateral leg edema; bilateral legs elevated. IV site on left FA #20g, saline lock at this time. Oriented to hospital policies. Pt's belongings cross checked and signed. Bed in lowest position, brakes engaged and bed alarm on. Call light placed within reach. Will continue to monitor.
--- NOTE | 2020-10-05 22:04 | NUR ---
NURSE NOTES: Left a message with Dr. Gutierrez regarding patient's lovenox and spironolactone orders. Awaiting call back. Will continue to monitor.
[2020-10-05] MEDS ORDERED: Enoxaparin 40mg Inj SUBQ SCH (23:00)
[2020-10-05] MEDS: 1/2NS w/KCl 20mEq 1000ml 1,000 ML IV SCH (23:27)
[2020-10-06] VITALS: BP 111/69
[2020-10-06 04:00] VITALS: BP 121/67
--- NOTE | 2020-10-06 07:30 | NUR ---
NURSE NOTES: Pt received from William BRIDGES. Pt in bed awake and resting. Non rebreather in place and running at 10 liters . Bed low and locked, call light within reach. no distress noted.
--- NOTE | 2020-10-06 07:40 | NUR ---
NURSE HAND-OFF REPORT: Important Events on Shift:[Admitted tonight. Platelet 39. MDs aware] Patient Status: [DNR/DNI per POLST] Diet: [NPO, Tube Feeding] Pending Orders: [] Pending Results/Labs:[] Pending MD notification:[] Latest Vital Signs: Temperature 97.9 , Pulse 63 , B/P 121 /67 , Respiratory Rate 20 , O2 SAT 99 , Non-Rebreather, O2 Flow Rate 15.0 . Vital Sign Comment: [] EKG Rhythm: SR w/ BBB Rhythm change?: N MD Notified?: - MD Response: Latest Strauss Fall Score: 50 Fall Risk: High Risk Safety Measures: Call light Within Reach, Bed Alarm Zone 1, Side Rails Side Rails x3, Bed position Low and Locked. Fall Precautions: Yellow Socks Yellow Gown Door Sign Patient Fall Education Report given to [CYRUS Be].
[2020-10-06 07:57] LABS: HEMATOCRIT 30.4 % (42.0-52.0); MEAN CORPUSCULAR VOLUME 91 FL (80-99); PLATELET COUNT 31 K/UL (150-450); RED BLOOD COUNT 3.35 M/UL (4.70-6.10); RED CELL DISTRIBUTION WIDTH 18.2 % (11.6-14.8); WHITE BLOOD COUNT 7.7 K/UL (4.8-10.8)
[2020-10-06 08:00] VITALS: BP 125/70
--- NOTE | 2020-10-06 08:06 | NUR ---
RD ASSESSMENT & RECOMMENDATIONS SEE CARE ACTIVITY FOR COMPLETE ASSESSMENT DAILY ESTIMATED NEEDS: Needs based on Cirrhosis, pulmonary/ 61kg 30-35 kcals/kg 8818-3649 total kcals 1.25-1.5 g protein/kg 76-92 g total protein Fluid per MD NUTRITION DIAGNOSIS: Altered nutrition related lab values R/T cirrhosis as evidenced by elev T bili (1.2), elev AST, recent history of paracentesis. CURRENT DIET: NPO at this time PO DIET RECOMMENDATIONS: LOW NA DIET (texture per DRILLING FIELD SPECIALIST or as tolerated) ADDITIONAL RECOMMENDATIONS: * Daily calibrated bedscale wt * LOW NA diet w/ PO intake consistently >50% of meals * Ensure Enlive TID w/ meals * Monitor for hypoglycemia (BG this morning 71) Rec regular accuchecks * Wound healing: add DEV BID .
[2020-10-06 08:10] LABS: ANION GAP 14 mmol/L (5-15); BLOOD UREA NITROGEN 29 mg/dL (7-18); CALCIUM 8.5 MG/DL (8.5-10.1); CARBON DIOXIDE 18 MMOL/L (21-32); CHLORIDE 112 MMOL/L (98-107); POTASSIUM 3.8 MMOL/L (3.5-5.1); SODIUM 144 MMOL/L (136-145)
[2020-10-06] MEDS ORDERED: Enoxaparin 80mg Inj SUBQ SCH (09:00)
[2020-10-06] MEDS: Spironolactone 50mg tab ORAL SCH (09:00)
[2020-10-06] MEDS: Ascorbic Acid 500mg tab ORAL SCH ×2 (09:00→17:37)
[2020-10-06] MEDS ORDERED: Spironolactone 50mg tab ORAL SCH (09:00)
[2020-10-06] MEDS ORDERED: 1/2 NS 1000ml IV ONE (09:59)
--- NOTE | 2020-10-06 10:25 | Pulmonology Progress Note ---
Subjective Allergies: Coded Allergies: No Known Allergies (Verified , 04/05/09) Subjective care noted in bed on NRB Objective Last 24 Hour Vital Signs Date Time Temp Pulse Resp B/P (MAP) Pulse Ox O2 Delivery O2 Flow Rate FiO2 10/06/20 08:00 98.0 75 18 125/70 (88) 98 10/06/20 08:00 64 10/06/20 04:00 97.9 63 20 121/67 (85) 99 10/06/20 04:00 64 10/06/20 00:00 69 10/06/20 00:00 97.4 61 22 111/69 (83) 100 10/05/20 22:12 Non-Rebreather 15.0 10/05/20 21:45 98.1 61 22 133/56 (81) 100 10/05/20 21:13 97.2 65 18 116/72 99 Non-Rebreather 15.0 10/05/20 19:27 97.2 67 19 111/68 100 Non-Rebreather 10.0 10/05/20 15:35 74 20 Non-Rebreather 10.0 10/05/20 15:35 96.4 94 20 123/75 93 Non-Rebreather 10.0 10/05/20 15:32 96.4 74 20 123/75 (91) 93 Non-Rebreather 10.0 Intake and Output 10/05/20 10/06/20 19:00 07:00 Output Total 100 ml Balance -100 ml Output Urine Total 100 ml Objective deferred due to COVID Microbiology Date/Time Source Procedure Growth Status 10/05/20 17:00 Rectum Received 10/05/20 17:00 Urine,Clean Catch Urine Culture - Preliminary Gram Negative Petros Resulted 10/05/20 16:05 Nasopharynx SARS-CoV-2 RdRp Gene Assay - Final Complete Laboratory Tests 10/05/20 16:05: Prothrombin Time 14.6H, Prothromb Time International Ratio 1.4H, Activated Partial Thromboplast Time 42H, D-Dimer 3.09H, Sodium Level 139, Potassium Level 3.9, Chloride Level 109H, Carbon Dioxide Level 22, Anion Gap 8, Blood Urea Nitrogen 28H, Creatinine 1.2, Estimat Glomerular Filtration Rate > 60, Glucose Level 71L, Lactic Acid Level 2.30H, Calcium Level 8.9, Ferritin 1055H, Total Bilirubin 1.2H, Direct Bilirubin 0.6H, Aspartate Amino Transf (AST/SGOT) 48H, Alanine Aminotransferase (ALT/SGPT) 17, Alkaline Phosphatase 70, Ammonia < 10L, Lactate Dehydrogenase 294H, Total Creatine Kinase 24L, Troponin I 0.041, C- Reactive Protein, Quantitative 15.3H, Pro-B-Type Natriuretic Peptide 1012H, Total Protein 6.9, Albumin 1.4L, Globulin 5.5, Albumin/Globulin Ratio 0.3L, Lipase 46L 10/05/20 17:00: Urine Color Red, Urine Appearance Turbid, Urine pH 7, Urine Specific [place] 1.010, Urine Protein 4+H, Urine Glucose (UA) Negative, Urine Ketones 1+H, Urine Blood 5+H, Urine Nitrite Negative, Urine Bilirubin Negative, Urine Urobilinogen Normal, Urine Leukocyte Esterase 3+H, Urine RBC TntcH, Urine WBC TntcH, Urine Squamous Epithelial Cells None, Urine Bacteria ManyH 10/05/20 17:47: White Blood Count 9.8, Red Blood Count 3.13L, Hemoglobin 9.5L, Hematocrit 29.0L, Mean Corpuscular Volume 93, Mean Corpuscular Hemoglobin 30.3, Mean Corpuscular Hemoglobin Concent 32.7, Red Cell Distribution Width 20.2H, Platelet Count 39L, Mean Platelet Volume 7.7, Neutrophils (%) (Auto) , Lymphocytes (%) (Auto) , Monocytes (%) (Auto) , Eosinophils (%) (Auto) , Basophils (%) (Auto) , Differential Total Cells Counted 100, Neutrophils % (Manual) 80H, Lymphocytes % (Manual) 14L, Monocytes % (Manual) 4, Eosinophils % (Manual) 2, Basophils % (Manual) 0, Band Neutrophils 0, Platelet Estimate DecreasedL, Platelet Morphology Normal, Hypochromasia 2+, Anisocytosis 1+, Ovalocytes 1+ 10/05/20 19:20: Lactic Acid Level 2.30H 10/06/20 06:52: White Blood Count 7.7, Red Blood Count 3.35L, Hemoglobin 10.0L, Hematocrit 30.4L , Mean Corpuscular Volume 91, Mean Corpuscular Hemoglobin 29.8, Mean Corpuscular Hemoglobin Concent 32.9, Red Cell Distribution Width 18.2H, Platelet Count 31L, Mean Platelet Volume 6.6, Neutrophils (%) (Auto) , Lymphocytes (%) (Auto) , Monocytes (%) (Auto) , Eosinophils (%) (Auto) , Basophils (%) (Auto) , Neutrophils % (Manual) [Pending], Lymphocytes % (Manual) [Pending], Platelet Estimate [Pending], Platelet Morphology [Pending], D-Dimer 4.12H, Sodium Level 144, Potassium Level 3.8, Chloride Level 112H, Carbon Dioxide Level 18L, Anion Gap 14, Blood Urea Nitrogen 29H, Creatinine 1.0, Estimat Glomerular Filtration Rate > 60, Glucose Level 104, Calcium Level 8.5, Magnesium Level 1.8, Pro-B-Type Natriuretic Peptide 820H Current Medications Medications (Trade) Dose Ordered Sig/Tariq Route PRN Reason Start Time Stop Time Status Last Admin Dose Admin Acetaminophen (Tylenol) 650 mg Q4H PRN ORAL For Pain 10/05/20 21:15 11/04/20 21:14 Albuterol/ Ipratropium (Combivent Respimat) 1 puff Q4H PRN INH Shortness of Breath 10/05/20 21:45 11/04/20 21:44 Ascorbic Acid (Vitamin C) 500 mg TWICE A DAY ORAL 10/06/20 09:00 11/05/20 08:59 Aspirin (ASA) 81 mg DAILY ORAL 10/06/20 09:00 11/20/20 08:59 Dexamethasone Sodium Phosphate (Decadron 4mg/ml vial) 6 mg Q24H IVP 10/06/20 18:00 10/14/20 18:01 Dextrose (Dextrose 50%) 25 ml Q30M PRN IV Hypoglycemia 10/05/20 21:15 01/03/21 21:14 Dextrose (Dextrose 50%) 50 ml Q30M PRN IV Hypoglycemia 10/05/20 21:15 01/03/21 21:14 Enoxaparin Sodium (Lovenox) 40 mg QHS SUBQ 10/05/20 23:00 01/03/21 22:59 Ondansetron HCl (Zofran) 4 mg Q6H PRN IVP Nausea & Vomiting 10/05/20 21:15 11/04/20 21:14 Ondansetron HCl (Zofran) 4 mg Q6H PRN ORAL Nausea & Vomiting 10/05/20 21:15 11/04/20 21:14 Pantoprazole (Protonix) 40 mg DAILY ORAL 10/06/20 09:00 11/05/20 08:59 Sodium 1,000 ml @ 50 mls/hr Q20H IV 10/05/20 22:15 11/04/20 22:14 10/05/20 23:27 Spironolactone (Aldactone) 50 mg DAILY ORAL 10/06/20 09:00 11/05/20 08:59 Assessment/Plan Assessment/Plan IMPRESSION COVID pneumonia Acute hypoxemic respiratory failure Cirrhosis anemia Lactic acidemia PLAN ID eval pending IV decadron IV remdesivir oxygen monitor need for higher level of care DVT prophylaxis SNF meds DNR assess for BIPAP if needed impression, plan, and exam edited and reviewed in detail care discussed with Isaias Duran MD Oct 06, 2020 10:25
--- NOTE | 2020-10-06 11:03 | NUR ---
CASE MANAGEMENT:REVIEW 89 YR OLD FROM [facility] CC; SOB SI:SEPSIS. COVID PNA 96.4 74 20 123/75 93% ON 10L NRB H/H-9.5/29.0 PLT-39 BUN+28 BNP+1012 IS: 1L NS BOLUS X2 IV DECADRON IV AZITHROMYCIN IV ROCEPHIN BLOOD CX CHEST XRAY : TO TELEMETRY DCP; FROM SNF
[2020-10-06] MEDS: Aspirin Baby 81mg ORAL SCH (11:25)
[2020-10-06 12:00] VITALS: BP 120/68
--- NOTE | 2020-10-06 13:00 | Consultation ---
DATE OF CONSULTATION: 10/06/2020 INFECTIOUS DISEASES CONSULTATION CONSULTING PHYSICIAN: Mando Zeng MD. REFERRING PHYSICIAN: Rafaela Lima MD. REASON FOR CONSULTATION: COVID-19 pneumonia. HISTORY OF PRESENTING ILLNESS: This is an 89-year-old gentleman with history of cirrhosis, ascites, hypertension, diabetes, GERD, ischemic heart disease, who comes in from a [facility] facility with hypoxia. He was tested positive for COVID-19 and an Infectious Diseases consultation has been obtained for antibiotics. PAST MEDICAL HISTORY: 1. History of diabetes. 2. Hypertension. 3. Cirrhosis. 4. Ascites. 5. Ischemic heart disease. 6. Pleural effusion. 7. GERD. SOCIAL HISTORY: Unknown. FAMILY HISTORY: Unknown. REVIEW OF SYSTEMS: Unable to obtain currently. MEDICATIONS: As an inpatient, he is on dexamethasone, Protonix, aspirin, spironolactone, ascorbic acid, Lovenox, albuterol ipratropium, Zofran, Tylenol. ALLERGIES: No known drug allergies. PHYSICAL EXAMINATION: VITAL SIGNS: Temperature of 98, T-max of 98.1, pulse of 75, respiratory rate of 18, blood pressure 125/70, O2 saturation of 98% on 15 liters of oxygen. Examination deferred due to COVID-19. LABORATORY AND DIAGNOSTIC DATA: White count of 7.7, hemoglobin 10, hematocrit 30.4, MCV 91, platelet count of 31. Sodium 144, potassium 3.8, chloride 112, bicarb 18, BUN 29, creatinine 1, glucose 104, calcium 8.5, ferritin 1055. Total bilirubin 1.2, direct bilirubin 0.6. AST 48, ALT 17, alkaline phosphatase 70. LDH 294. CK of 24. Troponin 0.04. C-reactive protein 15.3. Beta natriuretic peptide 1012. Total protein 6.9, albumin 1.4. Lipase of 46. UA showing too numerous to count white cells. Urine culture showing gram-negative rods. COVID-19 test was positive. Chest x-ray is showing small bilateral pleural effusions with associated streaky airspace opacities likely represent compressive atelectasis, pulmonary vascular congestion noted. ASSESSMENT: This is an 89-year-old gentleman with history of diabetes, hypertension, coronary artery disease, cirrhosis, who comes in with. 1. COVID-19 pneumonia. He is on 15 liters of oxygen with 98% O2 saturation. 2. Diabetes. 3. Hypertension. 4. Cirrhosis. 5. Gram-negative urinary tract infection. PLAN: 1. Continue Decadron, day #2. 2. We will start the patient on remdesivir. 3. We will start the patient on cefepime. 4. We will follow up cultures and adjust antibiotics accordingly. I would like to thank, Dr. Lima, for this consultation. Mando Zeng M.D. DR: STERLING JOB#: [id number] CC: Rafaela Lima MD.; Fax#: [phone]
--- NOTE | 2020-10-06 13:47 | NUR ---
NURSE NOTES: Dr. Nichole made aware of elevated D-Dimer. NNO. Per MD keep pt NPO, he is aware that pt is tool ethargic to swallow meds at this time.
[2020-10-06] MEDS: Cefepime HCl 1 GM in D5W 55 ML IVPB SCH (14:12)
[2020-10-06] MEDS ORDERED: Loading Dose:Remdesivir 200mg/NS 210ml IV SCH ×2 (15:00)
[2020-10-06 16:00] VITALS: BP 115/70
--- NOTE | 2020-10-06 16:00 | NUR ---
NURSE NOTES:WOUND CARE NOTES:Darker skin tone with scattered areas of hyperpigmentation from previous wounds noted to sacrum. No erythema or induration noted when palpated. DTPI R lateral R Heel(L)5cm x (W)5cm. Base of Pressure Injury is maroon and fluctuant. L Heel is boggy with non-blanchable erythema(L)8cm x (W)9cm. NO other skin concerns noted. Tx.plan:Apply Moisture Barrier Paste to Sacrum. Cover with Optifoam drsg. Change every 3 days and prn. Apply Cavilon Skin Barrier to both heels. Cover each heel with Optifoam drsgs. Change every 7 days and prn. Cover Bony Prominences with Optifoam drsgs as Needed. Reposition at least every 2hours or as tolerated. Place Pillow between knees. Off-load heels with pillow.
--- NOTE | 2020-10-06 16:22 | Consultation ---
History of Present Illness General Date patient seen: Oct 06, 2020 Chief Complaint: Dyspnea/Respdistress Present Illness HPI This is a 89-year-old male nursing facility patient multiple medical committees who presents [facility] with shortness of breath (physician placed on nonrebreather admitted further care and management. On admission identified to have BMI 21 hypoalbuminemia abnormal labs respiratory insufficiency decubitus ulcer surgery called to evaluate assist with care patient seen, patient evaluate, chart reviewed Allergies: Coded Allergies: No Known Allergies (Verified , 04/05/09) Medication History Scheduled Ascorbic Acid* (Vitamin C*), 500 MG ORAL TWICE A DAY, (Reported) Enoxaparin* (Lovenox*), 70 MG SUBQ EVERY 12 HOURS Multivitamin With Minerals (Multivitamins With Minerals*), 1 EA ORAL DAILY Spironolactone (Aldactone), 50 MG ORAL DAILY Spironolactone* (Aldactone*), 100 MG ORAL DAILY, (Reported) Scheduled PRN Acetaminophen* (Acetaminophen 325MG Tablet*), 650 MG ORAL Q4H PRN for For Pain, (Reported) Honey (Medihoney), 15 ML TP for stage 3 pressure, (Reported) Methyl Salicylate/Menthol (Bengay Greaseless Cream), 1 APPLIC TOPIC BID PRN for For Pain, (Reported) Nut.tx.gluc.intoler,Lac-Fr,Soy (Glucerna), 237 ML PO DAILY PRN for SUPPLEMENT, (Reported) Ondansetron* (Zofran*), 4 MG ORAL Q6H PRN for Nausea & Vomiting, (Reported) Miscellaneous Medications Menthol/Zinc Oxide (Calmoseptine Ointment), 71 GM TP, (Reported) Patient History Limited by: medical condition History Provided By: Medical Record, PMD Healthcare decision maker N Resuscitation status Advanced Directive on File Past Medical/Surgical History Past Medical/Surgical History: (1) Vomiting (2) Abdominal pain (3) Cirrhosis (4) SOB (shortness of breath) (5) UGIB (upper gastrointestinal bleed) (6) UTI (urinary tract infection) (7) Upper GI bleed (8) Thrombocytopenia (9) Pleural effusion (10) Pneumonia due to COVID-19 virus (11) Sepsis (12) Pneumonia (13) Multiple injuries due to trauma (14) Diabetes mellitus, type II (15) HTN (hypertension) (16) Femur neck fracture (17) GERD (gastroesophageal reflux disease) (18) Hypertension, accelerated (19) ACS (acute coronary syndrome) (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 Review of Systems All Other Systems: negative except mentioned in HPI ROS Narrative Unable to obtain given patient's baseline medical condition Physical Exam General Appearance: lethargic, mild distress Lines, tubes and drains: peripheral HEENT: normocephalic, atraumatic, anicteric, mucous membranes moist Neck: supple, normal inspection Respiratory/Chest: no respiratory distress, no accessory muscle use, decreased breath sounds Cardiovascular/Chest: normal rate Abdomen: soft, no organomegaly, no mass, feeding tube, other Extremities: normal inspection, slow capillary refill, other Skin Exam: warm/dry Neurologic: unresponsiveness Last 24 Hour Vital Signs Date Time Temp Pulse Resp B/P (MAP) Pulse Ox O2 Delivery O2 Flow Rate FiO2 10/06/20 16:00 97.9 65 18 115/70 (85) 98 10/06/20 16:00 75 10/06/20 12:00 98.0 63 20 120/68 (85) 97 10/06/20 12:00 75 10/06/20 09:00 Non-Rebreather 10.0 10/06/20 08:00 98.0 75 18 125/70 (88) 98 10/06/20 08:00 64 10/06/20 04:00 97.9 63 20 121/67 (85) 99 10/06/20 04:00 64 10/06/20 00:00 69 10/06/20 00:00 97.4 61 22 111/69 (83) 100 10/05/20 22:12 Non-Rebreather 15.0 10/05/20 21:45 98.1 61 22 133/56 (81) 100 10/05/20 21:13 97.2 65 18 116/72 99 Non-Rebreather 15.0 10/05/20 19:27 97.2 67 19 111/68 100 Non-Rebreather 10.0 Intake and Output 10/05/20 10/06/20 19:00 07:00 Output Total 100 ml Balance -100 ml Output Urine Total 100 ml Laboratory Tests Test 10/05/20 17:00 10/05/20 17:47 10/05/20 19:20 10/06/20 06:52 Urine Color Red Urine Appearance Turbid Urine pH 7 (4.5-8.0) Urine Specific [place] 1.010 (1.005-1.035) Urine Protein 4+ (NEGATIVE) H Urine Glucose (UA) Negative (NEGATIVE) Urine Ketones 1+ (NEGATIVE) H Urine Blood 5+ (NEGATIVE) H Urine Nitrite Negative (NEGATIVE) Urine Bilirubin Negative (NEGATIVE) Urine Urobilinogen Normal MG/DL (0.0-1.0) Urine Leukocyte Esterase 3+ (NEGATIVE) H Urine RBC Tntc /HPF (0 - 0) H Urine WBC Tntc /HPF (0 - 0) H Urine Squamous Epithelial Cells None /LPF (NONE/OCC) Urine Bacteria Many /HPF (NONE) H White Blood Count 9.8 K/UL (4.8-10.8) 7.7 K/UL (4.8-10.8) Red Blood Count 3.13 M/UL (4.70-6.10) L 3.35 M/UL (4.70-6.10) L Hemoglobin 9.5 G/DL (14.2-18.0) L 10.0 G/DL (14.2-18.0) L Hematocrit 29.0 % (42.0-52.0) L 30.4 % (42.0-52.0) L Mean Corpuscular Volume 93 FL (80-99) 91 FL (80-99) Mean Corpuscular Hemoglobin 30.3 PG (27.0-31.0) 29.8 PG (27.0-31.0) Mean Corpuscular Hemoglobin Concent 32.7 G/DL (32.0-36.0) 32.9 G/DL (32.0-36.0) Red Cell Distribution Width 20.2 % (11.6-14.8) H 18.2 % (11.6-14.8) H Platelet Count 39 K/UL (150-450) L 31 K/UL (150-450) L Mean Platelet Volume 7.7 FL (6.5-10.1) 6.6 FL (6.5-10.1) Neutrophils (%) (Auto) % (45.0-75.0) % (45.0-75.0) Lymphocytes (%) (Auto) % (20.0-45.0) % (20.0-45.0) Monocytes (%) (Auto) % (1.0-10.0) % (1.0-10.0) Eosinophils (%) (Auto) % (0.0-3.0) % (0.0-3.0) Basophils (%) (Auto) % (0.0-2.0) % (0.0-2.0) Differential Total Cells Counted 100 100 Neutrophils % (Manual) 80 % (45-75) H 95 % (45-75) H Lymphocytes % (Manual) 14 % (20-45) L 4 % (20-45) L Monocytes % (Manual) 4 % (1-10) 1 % (1-10) Eosinophils % (Manual) 2 % (0-3) 0 % (0-3) Basophils % (Manual) 0 % (0-2) 0 % (0-2) Band Neutrophils 0 % (0-8) 0 % (0-8) Platelet Estimate Decreased L Decreased L Platelet Morphology Normal Normal Hypochromasia 2+ 1+ Anisocytosis 1+ 2+ Ovalocytes 1+ 2+ Lactic Acid Level 2.30 mmol/L (0.66-2.22) H D-Dimer 4.12 mg/L FEU (0.00-0.49) H Sodium Level 144 MMOL/L (136-145) Potassium Level 3.8 MMOL/L (3.5-5.1) Chloride Level 112 MMOL/L (98-107) H Carbon Dioxide Level 18 MMOL/L (21-32) L Anion Gap 14 mmol/L (5-15) Blood Urea Nitrogen 29 mg/dL (7-18) H Creatinine 1.0 MG/DL (0.55-1.30) Estimat Glomerular Filtration Rate > 60 mL/min (>60) Glucose Level 104 MG/DL (74-106) Calcium Level 8.5 MG/DL (8.5-10.1) Magnesium Level 1.8 MG/DL (1.8-2.4) Pro-B-Type Natriuretic Peptide 820 pg/mL (0-125) H Test 10/06/20 12:05 Arterial Blood pH 7.429 (7.350-7.450) Arterial Blood Partial Pressure CO2 40.5 mmHg (35.0-45.0) Arterial Blood Partial Pressure O2 65.5 mmHg (75.0-100.0) L Arterial Blood HCO3 26.2 mmol/L (22.0-26.0) H Arterial Blood Oxygen Saturation 93.1 % (95-100) L Arterial Blood Base Excess 1.8 (-2-2) Azar Test Positive Microbiology Date/Time Source Procedure Growth Status 10/05/20 17:00 Rectum Received 10/05/20 17:00 Urine,Clean Catch Urine Culture - Preliminary Gram Negative Petros Resulted Height (Feet): 5 Height (Inches): 7.00 Weight (Pounds): 134 Medications Current Medications Medications (Trade) Dose Ordered Sig/Tariq Route PRN Reason Start Time Stop Time Status Last Admin Dose Admin Acetaminophen (Tylenol) 650 mg Q4H PRN ORAL For Pain 10/05/20 21:15 11/04/20 21:14 Albuterol/ Ipratropium (Combivent Respimat) 1 puff Q4H PRN INH Shortness of Breath 10/05/20 21:45 11/04/20 21:44 Ascorbic Acid (Vitamin C) 500 mg TWICE A DAY ORAL 10/06/20 09:00 11/05/20 08:59 Aspirin (ASA) 81 mg DAILY ORAL 10/06/20 09:00 11/20/20 08:59 Cefepime HCl 1 gm/ Dextrose 55 ml @ 110 mls/hr Q24H IVPB 10/06/20 13:00 10/13/20 12:59 10/06/20 14:12 Dexamethasone Sodium Phosphate (Decadron 4mg/ml vial) 6 mg Q24H IVP 10/06/20 18:00 10/14/20 18:01 Dextrose (Dextrose 50%) 25 ml Q30M PRN IV Hypoglycemia 10/05/20 21:15 01/03/21 21:14 Dextrose (Dextrose 50%) 50 ml Q30M PRN IV Hypoglycemia 10/05/20 21:15 01/03/21 21:14 Ondansetron HCl (Zofran) 4 mg Q6H PRN IVP Nausea & Vomiting 10/05/20 21:15 11/04/20 21:14 Ondansetron HCl (Zofran) 4 mg Q6H PRN ORAL Nausea & Vomiting 10/05/20 21:15 11/04/20 21:14 Pantoprazole (Protonix) 40 mg DAILY IVP 10/07/20 09:00 11/06/20 08:59 Remdesivir 100 mg/ Sodium Chloride 250 ml @ 250 mls/hr Q24H IV 10/07/20 15:00 10/10/20 15:59 Remdesivir 200 mg/ Sodium Chloride 250 ml @ 125 mls/hr ONCE IV 10/06/20 15:00 10/06/20 16:59 10/06/20 15:13 Sodium 1,000 ml @ 50 mls/hr Q20H IV 10/05/20 22:15 11/04/20 22:14 10/05/20 23:27 Spironolactone (Aldactone) 50 mg DAILY ORAL 10/06/20 09:00 11/05/20 08:59 Assessment/Plan Problem List: (1) Thrombocytopenia ICD Codes: D69.6 - Thrombocytopenia, unspecified SNOMED: 210480782 (2) Pleural effusion ICD Codes: J90 - Pleural effusion, not elsewhere classified SNOMED: 85138561 (3) Pneumonia due to COVID-19 virus Assessment & Plan: +++ tx as per ID res support ICD Codes: U07.1 - COVID-19; J12.89 - Other viral pneumonia SNOMED: 259654338405119293 (4) Cirrhosis Assessment & Plan: abnormal lft's likely from liver history cirrhosis currently stable under management monitor abd fluid collection trend labs okay for tf DAILY ESTIMATED NEEDS: Needs based on Cirrhosis, pulmonary/ 61kg 30-35 kcals/kg 0312-8692 total kcals 1.25-1.5 g protein/kg 76-92 g total protein Fluid per MD NUTRITION DIAGNOSIS: Altered nutrition related lab values R/T cirrhosis as evidenced by elev T bili (1.2), elev AST, recent history of paracentesis. CURRENT DIET: NPO at this time PO DIET RECOMMENDATIONS: LOW NA DIET (texture per STE[employer] TURBINE OPERATOR or as tolerated) ADDITIONAL RECOMMENDATIONS: * Daily calibrated bedscale wt * LOW NA diet w/ PO intake consistently >50% of meals * Ensure Enlive TID w/ meals * Monitor for hypoglycemia (BG this morning 71) Rec regular accuchecks * Wound healing: add DEV BID ICD Codes: K74.60 - Unspecified cirrhosis of liver SNOMED: 23086372 (5) SOB (shortness of breath) ICD Codes: R06.02 - Shortness of breath SNOMED: 484251816 (6) Sepsis ICD Codes: A41.9 - Sepsis, unspecified organism SNOMED: 52702701 Qualifiers: Qualified Codes: A41.9 - Sepsis, unspecified organism; R65.20 - Severe sepsis without septic shock; G93.40 - Encephalopathy, unspecified (7) UTI (urinary tract infection) ICD Codes: N39.0 - Urinary tract infection, site not specified SNOMED: 12500259 (8) Abdominal pain Assessment & Plan: abd discomfort from ascites abd exam benign okay to cont diet will follow with recs Darker skin tone with scattered areas of hyperpigmentation from previous wounds noted to sacrum. No erythema or induration noted when palpated. DTPI R lateral R Heel(L)5cm x (W)5cm. Base of Pressure Injury is maroon and fluctuant. L Heel is boggy with non-blanchable erythema(L)8cm x (W)9cm. NO other skin concerns noted. Tx.plan:Apply Moisture Barrier Paste to Sacrum. Cover with Optifoam drsg. Change every 3 days and prn. Apply Cavilon Skin Barrier to both heels. Cover each heel with O ptifoam drsgs. Change every 7 days and prn. Cover Bony Prominences with Optifoam drsgs as Needed. Reposition at least every 2hours or as tolerated. Place Pillow between knees. Off-load heels with pillow. ICD Codes: R10.9 - Unspecified abdominal pain SNOMED: 78994688 (9) Pneumonia ICD Codes: J18.9 - Pneumonia, unspecified organism SNOMED: 804055609 Qualifiers: Qualified Codes: J18.9 - Pneumonia, unspecified organism (10) Vomiting ICD Codes: R11.10 - Vomiting, unspecified SNOMED: 364385069 (11) Upper GI bleed ICD Codes: K92.2 - Gastrointestinal hemorrhage, unspecified SNOMED: 36955681 (12) UGIB (upper gastrointestinal bleed) ICD Codes: K92.2 - Gastrointestinal hemorrhage, unspecified SNOMED: 68913419 (13) Multiple injuries due to trauma ICD Codes: T07.XXXA - Unspecified multiple injuries, initial encounter SNOMED: 017285459 (14) Diabetes mellitus, type II ICD Codes: E11.9 - Type 2 diabetes mellitus without complications SNOMED: 80078595 (15) HTN (hypertension) ICD Codes: I10 - Essential (primary) hypertension SNOMED: 30643349 (16) Femur neck fracture ICD Codes: S72.009A - Fracture of unspecified part of neck of unspecified femur, initial encounter for closed fracture SNOMED: 1382002 (17) GERD (gastroesophageal reflux disease) ICD Codes: K21.9 - GERD (gastroesophageal reflux disease) SNOMED: 915125083 (18) Hypertension, accelerated ICD Codes: I10 - Hypertension, accelerated SNOMED: 60669060 (19) ACS (acute coronary syndrome) ICD Codes: I24.9 - Acute ischemic heart disease, unspecified SNOMED: 900580971 (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
--- NOTE | 2020-10-06 16:33 | History and Physical Report ---
DATE OF ADMISSION: 10/05/2020 CHIEF COMPLAINT: Shortness of breath. HISTORY OF PRESENT ILLNESS: This is a well-known 89-year-old male who was transferred via 911 to this hospital from [facility]. The patient was admitted here several months ago from the same alf. His attending physician, Dr. May Murdock asked me to take care of the patient while he is here. The patient became very short of breath. He tested positive for COVID-19. The patient is DNR. 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 PAST MEDICAL HISTORY: 1. 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 2. Ischemic heart disease. 3. Hypertensive cardiovascular disease. 4. Type 2 diabetes mellitus. 5. Recurrent ascites. 6. Gastroesophageal reflux disease. MEDICATIONS: Tylenol, ascorbic acid, baby aspirin, Decadron, Lovenox, Zofran, multivitamin, spironolactone. ALLERGIES: No known allergies. FAMILY HISTORY: Unable to obtain due to mental status. SOCIAL HISTORY: Unable to obtain due to mental status. REVIEW OF SYSTEMS: Unable to obtain due to mental status. PHYSICAL EXAMINATION: GENERAL: This is an elderly cachectic male, who is extremely short of breath. VITAL SIGNS: Blood pressure 120/68, pulse 63 apical, temperature 98 axillary. HEENT: The head is normocephalic and atraumatic. Pupils are equal, round, and reactive to light. NECK: Supple. Trachea midline. There was no lymphadenopathy or thyromegaly. LUNGS: Bilateral wheezes and rhonchi. HEART: Regular rate and rhythm without rubs, murmurs, or gallops. ABDOMEN: Distended, pendulous. He has ascites. EXTREMITIES: No clubbing, cyanosis, or edema. NEUROLOGICAL: He is obtunded. There were no gross focal findings. LABORATORY AND ANCILLARY DATA: CBC - WBC 7.7, hematocrit 30.4. Chemistry, electrolytes within normal limits. Creatinine 1, BUN 29, magnesium 1.8. Urine has 4+ protein, too numerous to count white blood cells, many bacteria. IMAGING REPORTS: Small bilateral pleural effusions with streaky airspace opacities and pulmonary vascular congestion. ASSESSMENT: 1. COVID-19 pneumonia with respiratory failure. 2. 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 3. Ischemic heart disease. 4. Hypertensive cardiovascular disease. 5. Type 2 diabetes mellitus. 6. Recurrent ascites. 7. Gastroesophageal reflux disease. PLAN: 1. Decadron. 2. Remdesivir. 3. Cefepime. 4. ID and Pulmonary consults. 5. DNR. Rafaela Lima M.D. DR: GISSELL JOB#: [id number] CC:
[2020-10-06] MEDS ORDERED: Sodium Bicarbonate 50ml Carp IV SCH (18:00)
[2020-10-06] MEDS: 1/2NS w/KCl 20mEq 1000ml 1,000 ML IV SCH (18:08)
--- NOTE | 2020-10-06 18:44 | NUR ---
NURSE HAND-OFF REPORT: Important Events on Shift:[Critical low for bicarb, Dr. Gutierrez notfied and bicarb ordered. ] Patient Status: [In bed, stable] Diet: [NPO] Pending Orders: [] Pending Results/Labs:[] Pending MD notification:[] Latest Vital Signs: Temperature 97.9 , Pulse 65 , B/P 115 /70 , Respiratory Rate 18 , O2 SAT 98 , Non-Rebreather, O2 Flow Rate 10.0 . Vital Sign Comment: [] EKG Rhythm: SR w/ BBB Rhythm change?: N MD Notified?: - MD Response: Latest Strauss Fall Score: 50 Fall Risk: High Risk Safety Measures: Call light Within Reach, Bed Alarm Zone 1, Side Rails Side Rails x3, Bed position Low and Locked. Fall Precautions: Yellow Socks Yellow Gown Door Sign Patient Fall Education Report given to [Pending RN assignment]. Addendum: 10/06/20 at 1926 by [place] Mauro RN Report given to José BRIDGES
--- NOTE | 2020-10-06 19:00 | NUR ---
NURSE NOTES: Received report from CYRUS Be; pt noted asleep; arousable but lethargic; on nonrebreather mask @ 10 L/min; in no acute distress; NPO including meds; noted with L forearm 20 gauge IV line; intact and patent; call light within reach; bed locked and in low position; side rails x 2; will continue to monitor.
[2020-10-06 20:00] VITALS: BP 121/69
[2020-10-07] VITALS: BP 123/60
--- NOTE | 2020-10-07 02:40 | NUR ---
NURSE NOTES: Pt received from CYRUS Kumar and CYRUS Hayes alert and oriented x0, garbled speech with no acute s/s of distress noted. IV site asymptomatic and patent on L fa 20g, running to 1/2 NS with 20 mEq of KCl at 50. On 15L NRB, saturating at 100%. Bed in lowest position, bed alarm on. Call light and belongings within reach.
[2020-10-07] MEDS: 1/2NS w/KCl 20mEq 1000ml 1,000 ML IV SCH (02:54)
[2020-10-07 04:00] VITALS: BP 113/71
[2020-10-07 05:55] LABS: HEMATOCRIT 29.1 % (42.0-52.0); HEMOGLOBIN 9.5 G/DL (14.2-18.0); MEAN CORPUSCULAR VOLUME 91 FL (80-99); PLATELET COUNT 29 K/UL (150-450); RED BLOOD COUNT 3.19 M/UL (4.70-6.10); RED CELL DISTRIBUTION WIDTH 18.4 % (11.6-14.8); WHITE BLOOD COUNT 9.2 K/UL (4.8-10.8)
--- NOTE | 2020-10-07 07:10 | NUR ---
NURSE HAND-OFF REPORT: Important Events on Shift: VS WNL. Pt increased to 15L NRB as pt desaturated to 89%, tolerating 99% on 15L NRB Patient Status: Stable Diet: NPO Pending Orders: n/a Pending Results/Labs: n/a Pending MD notification: n/a Latest Vital Signs: Temperature 97.9 , Pulse 64 , B/P 113 /71 , Respiratory Rate 18 , O2 SAT 98 , Non-Rebreather, O2 Flow Rate 10.0 . Vital Sign Comment: WNL EKG Rhythm: SR w/ BBB Rhythm change?: N MD Notified?: - MD Response: Latest Strauss Fall Score: 50 Fall Risk: High Risk Safety Measures: Call light Within Reach, Bed Alarm Zone 1, Side Rails Side Rails x3, Bed position Low and Locked. Fall Precautions: Yellow Socks Yellow Gown Door Sign Patient Fall Education Report given to CYRUS Be.
--- NOTE | 2020-10-07 07:14 | NUR ---
NURSE NOTES: Pt received from Luis E BRIDGES. Pt in bed resting. Non rebreather on at 15 liters. 1/2 ns with 20 meq of K running in left forearm. Bed low and locked. call light within reach.
[2020-10-07 07:16] LABS: ANION GAP 12 mmol/L (5-15); BLOOD UREA NITROGEN 35 mg/dL (7-18); CALCIUM 8.5 MG/DL (8.5-10.1); CARBON DIOXIDE 21 MMOL/L (21-32); CHLORIDE 112 MMOL/L (98-107); CREATININE 1.2 MG/DL (0.55-1.30); POTASSIUM 3.8 MMOL/L (3.5-5.1); SODIUM 145 MMOL/L (136-145)
[2020-10-07] MEDS: Aspirin Baby 81mg ORAL SCH (07:16)
[2020-10-07] MEDS: Spironolactone 50mg tab ORAL SCH (07:16)
[2020-10-07] MEDS: Ascorbic Acid 500mg tab ORAL SCH ×2 (07:16→16:55)
--- NOTE | 2020-10-07 07:17 | NUR ---
NURSE NOTES: Please note that morning PO meds not given because this pt is lethargic and an extreme aspiration risk. Dr Galloway was made aware of this yesterday and know that pt is not getting his PO meds at this time. Pt NPO including medication.
[2020-10-07 07:20] LABS: ALANINE AMINOTRANSFERASE 21 U/L (12-78); ALBUMIN 1.3 G/DL (3.4-5.0); ALBUMIN/GLOBULIN RATIO 0.2 (1.0-2.7); ALKALINE PHOSPHATASE 69 U/L (46-116); ASPARTATE AMINO TRANSFERASE 66 U/L (15-37); BILIRUBIN,DIRECT 0.6 MG/DL (0.0-0.3)
[2020-10-07 08:00] VITALS: BP 128/72
[2020-10-07] MEDS: Pantoprazole Inj IVP SCH (09:41)
--- NOTE | 2020-10-07 11:17 | General Progress Note ---
Subjective Allergies: Coded Allergies: No Known Allergies (Verified , 04/05/09) Subjective Obtunded Objective Last 24 Hour Vital Signs Date Time Temp Pulse Resp B/P (MAP) Pulse Ox O2 Delivery O2 Flow Rate FiO2 10/07/20 09:00 Non-Rebreather 15.0 10/07/20 08:00 65 10/07/20 08:00 97.9 69 20 128/72 (90) 98 10/07/20 04:00 64 10/07/20 04:00 97.9 69 18 113/71 (85) 98 10/07/20 00:00 97.9 65 20 123/60 (81) 97 10/07/20 00:00 66 10/06/20 21:00 Non-Rebreather 10.0 10/06/20 20:00 97.6 69 20 121/69 (86) 97 10/06/20 20:00 61 10/06/20 16:00 97.9 65 18 115/70 (85) 98 10/06/20 16:00 75 10/06/20 12:00 98.0 63 20 120/68 (85) 97 10/06/20 12:00 75 Intake and Output 10/06/20 10/07/20 19:00 07:00 Intake Total 150 ml Output Total 150 ml 200 ml Balance -150 ml -50 ml Intake IV Total 150 ml Output Urine Total 150 ml 200 ml Laboratory Tests 10/06/20 12:05: Arterial Blood pH 7.429, Arterial Blood Partial Pressure CO2 40.5, Arterial Blood Partial Pressure O2 65.5L, Arterial Blood HCO3 26.2H, Arterial Blood Oxygen Saturation 93.1L, Arterial Blood Base Excess 1.8, Azar Test Positive 10/06/20 16:44: Arterial Blood pH 7.376, Arterial Blood Partial Pressure CO2 31.1L, Arterial Blood Partial Pressure O2 80.6, Arterial Blood HCO3 17.8*L, Arterial Blood Oxygen Saturation 95.0, Arterial Blood Base Excess -6.5L, Azar Test Positive 10/07/20 05:00: White Blood Count 9.2, Red Blood Count 3.19L, Hemoglobin 9.5L, Hematocrit 29.1L, Mean Corpuscular Volume 91, Mean Corpuscular Hemoglobin 29.9, Mean Corpuscular Hemoglobin Concent 32.7, Red Cell Distribution Width 18.4H, Platelet Count 29L, Mean Platelet Volume 6.4L, Neutrophils (%) (Auto) , Lymphocytes (%) (Auto) , Monocytes (%) (Auto) , Eosinophils (%) (Auto) , Basophils (%) (Auto) , Differential Total Cells Counted 100, Neutrophils % (Manual) 87H, Lymphocytes % (Manual) 10L, Monocytes % (Manual) 3, Eosinophils % (Manual) 0, Basophils % (Manual) 0, Band Neutrophils 0, Platelet Estimate DecreasedL, Platelet Morphology Normal, Polychromasia 1+, Hypochromasia 1+, Anisocytosis 1+, Ovalocytes 1+ 10/07/20 06:37: Sodium Level 145, Potassium Level 3.8, Chloride Level 112H, Carbon Dioxide Level 21, Anion Gap 12, Blood Urea Nitrogen 35H, Creatinine 1.2, Estimat Glomerular Filtration Rate > 60, Glucose Level 122H, Calcium Level 8.5, Total Bilirubin 1.0, Direct Bilirubin 0.6H, Aspartate Amino Transf (AST/SGOT) 66H, Alanine Aminotransferase (ALT/SGPT) 21, Alkaline Phosphatase 69, Total Protein 6.5, Albumin 1.3L, Globulin 5.2, Albumin/Globulin Ratio 0.2L Height (Feet): 5 Height (Inches): 7.00 Weight (Pounds): 134 Objective CV Tach Lungs B Ronchi Abd Ascites E + edema Assessment/Plan Assessment/Plan: Covid 19 Pneumonia UTI UTI DNR. Poor prognosis. IV Abx, Remdesevir, Dexameth. Per Rafaela Walker MD Oct 07, 2020 11:17
[2020-10-07 12:00] VITALS: BP 118/45
--- NOTE | 2020-10-07 12:31 | Infectious Diseases Prog Note ---
Assessment/Plan Assessment/Plan 1. COVID19 pneumonia. 2. Diabetes. 3. Hypertension. 4. Cirrhosis. 5. Gram-negative urinary tract infection. 6. Hypoxemia 7. Anemia PLAN: 1. Continue Decadron, day #3. 2. Continue Remdesivir. 3. Continue cefepime. 4. We will follow up cultures and adjust antibiotics accordingly. Subjective ROS Limited/Unobtainable: Yes Allergies: Coded Allergies: No Known Allergies (Verified , 04/05/09) Objective Last 24 Hour Vital Signs Date Time Temp Pulse Resp B/P (MAP) Pulse Ox O2 Delivery O2 Flow Rate FiO2 10/07/20 12:00 97.0 62 18 118/45 (69) 100 10/07/20 09:00 Non-Rebreather 15.0 10/07/20 08:00 65 10/07/20 08:00 97.9 69 20 128/72 (90) 98 10/07/20 04:00 64 10/07/20 04:00 97.9 69 18 113/71 (85) 98 10/07/20 00:00 97.9 65 20 123/60 (81) 97 10/07/20 00:00 66 10/06/20 21:00 Non-Rebreather 10.0 10/06/20 20:00 97.6 69 20 121/69 (86) 97 10/06/20 20:00 61 10/06/20 16:00 97.9 65 18 115/70 (85) 98 10/06/20 16:00 75 Height (Feet): 5 Height (Inches): 7.00 Weight (Pounds): 134 General Appearance: no acute distress HEENT: mucous membranes moist Respiratory/Chest: other - oxygen by mask Cardiovascular: normal rate Abdomen: soft, non tender Neurologic/Psychiatric: other - sleeping Microbiology Date/Time Source Procedure Growth Status 10/05/20 17:00 Rectum - Final NO CARBAPENEM-RESISTANT ENTEROBACTERI... Complete 10/05/20 17:00 Rectum VRE Culture - Final NO VANCOMYCIN RESISTANT ENTEROCOCCUS ... Complete 10/05/20 17:00 Urine,Clean Catch Urine Culture - Preliminary Gram Negative Petros Resulted 10/05/20 17:00 Nasal Not Otherwise Specified MRSA Culture - Final NO METHICILLIN RESISTANT STAPH AUREUS... Complete 10/05/20 16:05 Nasopharynx SARS-CoV-2 RdRp Gene Assay - Final Complete 10/05/20 16:05 Blood Blood Culture - Preliminary NO GROWTH AFTER 24 HOURS Resulted 10/05/20 15:50 Blood Blood Culture - Preliminary NO GROWTH AFTER 24 HOURS Resulted Laboratory Tests Test 10/06/20 16:44 10/07/20 05:00 10/07/20 06:37 Arterial Blood pH 7.376 (7.350-7.450) Arterial Blood Partial Pressure CO2 31.1 mmHg (35.0-45.0) L Arterial Blood Partial Pressure O2 80.6 mmHg (75.0-100.0) Arterial Blood HCO3 17.8 mmol/L (22.0-26.0) *L Arterial Blood Oxygen Saturation 95.0 % (95-100) Arterial Blood Base Excess -6.5 (-2-2) L Azar Test Positive White Blood Count 9.2 K/UL (4.8-10.8) Red Blood Count 3.19 M/UL (4.70-6.10) L Hemoglobin 9.5 G/DL (14.2-18.0) L Hematocrit 29.1 % (42.0-52.0) L Mean Corpuscular Volume 91 FL (80-99) Mean Corpuscular Hemoglobin 29.9 PG (27.0-31.0) Mean Corpuscular Hemoglobin Concent 32.7 G/DL (32.0-36.0) Red Cell Distribution Width 18.4 % (11.6-14.8) H Platelet Count 29 K/UL (150-450) L Mean Platelet Volume 6.4 FL (6.5-10.1) L Neutrophils (%) (Auto) % (45.0-75.0) Lymphocytes (%) (Auto) % (20.0-45.0) Monocytes (%) (Auto) % (1.0-10.0) Eosinophils (%) (Auto) % (0.0-3.0) Basophils (%) (Auto) % (0.0-2.0) Differential Total Cells Counted 100 Neutrophils % (Manual) 87 % (45-75) H Lymphocytes % (Manual) 10 % (20-45) L Monocytes % (Manual) 3 % (1-10) Eosinophils % (Manual) 0 % (0-3) Basophils % (Manual) 0 % (0-2) Band Neutrophils 0 % (0-8) Platelet Estimate Decreased L Platelet Morphology Normal Polychromasia 1+ Hypochromasia 1+ Anisocytosis 1+ Ovalocytes 1+ Sodium Level 145 MMOL/L (136-145) Potassium Level 3.8 MMOL/L (3.5-5.1) Chloride Level 112 MMOL/L (98-107) H Carbon Dioxide Level 21 MMOL/L (21-32) Anion Gap 12 mmol/L (5-15) Blood Urea Nitrogen 35 mg/dL (7-18) H Creatinine 1.2 MG/DL (0.55-1.30) Estimat Glomerular Filtration Rate > 60 mL/min (>60) Glucose Level 122 MG/DL (74-106) H Calcium Level 8.5 MG/DL (8.5-10.1) Total Bilirubin 1.0 MG/DL (0.2-1.0) Direct Bilirubin 0.6 MG/DL (0.0-0.3) H Aspartate Amino Transf (AST/SGOT) 66 U/L (15-37) H Alanine Aminotransferase (ALT/SGPT) 21 U/L (12-78) Alkaline Phosphatase 69 U/L (46-116) Total Protein 6.5 G/DL (6.4-8.2) Albumin 1.3 G/DL (3.4-5.0) L Globulin 5.2 g/dL Albumin/Globulin Ratio 0.2 (1.0-2.7) L Current Medications Medications (Trade) Dose Ordered Sig/Tariq Route PRN Reason Start Time Stop Time Status Last Admin Dose Admin Acetaminophen (Tylenol) 650 mg Q4H PRN ORAL For Pain 10/05/20 21:15 11/04/20 21:14 Albuterol/ Ipratropium (Combivent Respimat) 1 puff Q4H PRN INH Shortness of Breath 10/05/20 21:45 11/04/20 21:44 Ascorbic Acid (Vitamin C) 500 mg TWICE A DAY ORAL 10/06/20 09:00 11/05/20 08:59 Aspirin (ASA) 81 mg DAILY ORAL 10/06/20 09:00 11/20/20 08:59 Cefepime HCl 1 gm/ Dextrose 55 ml @ 110 mls/hr Q24H IVPB 10/06/20 13:00 10/13/20 12:59 10/06/20 14:12 Dexamethasone Sodium Phosphate (Decadron 4mg/ml vial) 6 mg Q24H IVP 10/06/20 18:00 10/14/20 18:01 10/06/20 17:37 Dextrose (Dextrose 50%) 25 ml Q30M PRN IV Hypoglycemia 10/05/20 21:15 01/03/21 21:14 Dextrose (Dextrose 50%) 50 ml Q30M PRN IV Hypoglycemia 10/05/20 21:15 01/03/21 21:14 Ondansetron HCl (Zofran) 4 mg Q6H PRN IVP Nausea & Vomiting 10/05/20 21:15 11/04/20 21:14 Ondansetron HCl (Zofran) 4 mg Q6H PRN ORAL Nausea & Vomiting 10/05/20 21:15 11/04/20 21:14 Pantoprazole (Protonix) 40 mg DAILY IVP 10/07/20 09:00 11/06/20 08:59 10/07/20 09:41 Remdesivir 100 mg/ Sodium Chloride 250 ml @ 250 mls/hr Q24H IV 10/07/20 15:00 10/10/20 15:59 Sodium 1,000 ml @ 50 mls/hr Q20H IV 10/05/20 22:15 11/04/20 22:14 10/07/20 02:54 Spironolactone (Aldactone) 50 mg DAILY ORAL 10/06/20 09:00 11/05/20 08:59 Low Mendieta MD Oct 07, 2020 12:31
[2020-10-07] MEDS: Cefepime HCl 1 GM in D5W 55 ML IVPB SCH (13:27)
--- NOTE | 2020-10-07 14:40 | Pulmonology Progress Note ---
Subjective ROS Limited/Unobtainable: No Allergies: Coded Allergies: No Known Allergies (Verified , 04/05/09) Objective Last 24 Hour Vital Signs Date Time Temp Pulse Resp B/P (MAP) Pulse Ox O2 Delivery O2 Flow Rate FiO2 10/07/20 12:00 61 10/07/20 12:00 97.0 62 18 118/45 (69) 100 10/07/20 09:00 Non-Rebreather 15.0 10/07/20 08:00 65 10/07/20 08:00 97.9 69 20 128/72 (90) 98 10/07/20 04:00 64 10/07/20 04:00 97.9 69 18 113/71 (85) 98 10/07/20 00:00 97.9 65 20 123/60 (81) 97 10/07/20 00:00 66 10/06/20 21:00 Non-Rebreather 10.0 10/06/20 20:00 97.6 69 20 121/69 (86) 97 10/06/20 20:00 61 10/06/20 16:00 97.9 65 18 115/70 (85) 98 10/06/20 16:00 75 Intake and Output 0 10/06/20 10/07/20 19:00 07:00 Intake Total 150 ml Output Total 150 ml 200 ml Balance -150 ml -50 ml Intake IV Total 150 ml Output Urine Total 150 ml 200 ml Microbiology Date/Time Source Procedure Growth Status 10/05/20 17:00 Rectum - Final NO CARBAPENEM-RESISTANT ENTEROBACTERI... Complete 10/05/20 17:00 Rectum VRE Culture - Final NO VANCOMYCIN RESISTANT ENTEROCOCCUS ... Complete 10/05/20 17:00 Urine,Clean Catch Urine Culture - Preliminary Gram Negative Petros Resulted 10/05/20 17:00 Nasal Not Otherwise Specified MRSA Culture - Final NO METHICILLIN RESISTANT STAPH AUREUS... Complete 10/05/20 16:05 Nasopharynx SARS-CoV-2 RdRp Gene Assay - Final Complete 10/05/20 16:05 Blood Blood Culture - Preliminary NO GROWTH AFTER 24 HOURS Resulted 10/05/20 15:50 Blood Blood Culture - Preliminary NO GROWTH AFTER 24 HOURS Resulted Laboratory Tests 10/06/20 16:44: Arterial Blood pH 7.376, Arterial Blood Partial Pressure CO2 31.1L, Arterial Blood Partial Pressure O2 80.6, Arterial Blood HCO3 17.8*L, Arterial Blood Oxygen Saturation 95.0, Arterial Blood Base Excess -6.5L, Azar Test Positive 10/07/20 05:00: White Blood Count 9.2, Red Blood Count 3.19L, Hemoglobin 9.5L, Hematocrit 29.1L, Mean Corpuscular Volume 91, Mean Corpuscular Hemoglobin 29.9, Mean Corpuscular Hemoglobin Concent 32.7, Red Cell Distribution Width 18.4H, Platelet Count 29L, Mean Platelet Volume 6.4L, Neutrophils (%) (Auto) , Lymphocytes (%) (Auto) , Monocytes (%) (Auto) , Eosinophils (%) (Auto) , Basophils (%) (Auto) , Differential Total Cells Counted 100, Neutrophils % (Manual) 87H, Lymphocytes % (Manual) 10L, Monocytes % (Manual) 3, Eosinophils % (Manual) 0, Basophils % (Manual) 0, Band Neutrophils 0, Platelet Estimate DecreasedL, Platelet Morphology Normal, Polychromasia 1+, Hypochromasia 1+, Anisocytosis 1+, Ovalo cytes 1+ 10/07/20 06:37: Sodium Level 145, Potassium Level 3.8, Chloride Level 112H, Carbon Dioxide Level 21, Anion Gap 12, Blood Urea Nitrogen 35H, Creatinine 1.2, Estimat Glomerular Filtration Rate > 60, Glucose Level 122H, Calcium Level 8.5, Total Bilirubin 1.0, Direct Bilirubin 0.6H, Aspartate Amino Transf (AST/SGOT) 66H, Alanine Aminotransferase (ALT/SGPT) 21, Alkaline Phosphatase 69, Total Protein 6.5, Albumin 1.3L, Globulin 5.2, Albumin/Globulin Ratio 0.2L Current Medications Medications (Trade) Dose Ordered Sig/Tariq Route PRN Reason Start Time Stop Time Status Last Admin Dose Admin Acetaminophen (Tylenol) 650 mg Q4H PRN ORAL For Pain 10/05/20 21:15 11/04/20 21:14 Albuterol/ Ipratropium (Combivent Respimat) 1 puff Q4H PRN INH Shortness of Breath 10/05/20 21:45 11/04/20 21:44 Ascorbic Acid (Vitamin C) 500 mg TWICE A DAY ORAL 10/06/20 09:00 11/05/20 08:59 Aspirin (ASA) 81 mg DAILY ORAL 10/06/20 09:00 11/20/20 08:59 Cefepime HCl 1 gm/ Dextrose 55 ml @ 110 mls/hr Q24H IVPB 10/06/20 13:00 10/13/20 12:59 10/07/20 13:27 Dexamethasone Sodium Phosphate (Decadron 4mg/ml vial) 6 mg Q24H IVP 10/06/20 18:00 10/14/20 18:01 10/06/20 17:37 Dextrose (Dextrose 50%) 25 ml Q30M PRN IV Hypoglycemia 10/05/20 21:15 01/03/21 21:14 Dextrose (Dextrose 50%) 50 ml Q30M PRN IV Hypoglycemia 10/05/20 21:15 01/03/21 21:14 Ondansetron HCl (Zofran) 4 mg Q6H PRN IVP Nausea & Vomiting 10/05/20 21:15 11/04/20 21:14 Ondansetron HCl (Zofran) 4 mg Q6H PRN ORAL Nausea & Vomiting 10/05/20 21:15 11/04/20 21:14 Pantoprazole (Protonix) 40 mg DAILY IVP 10/07/20 09:00 11/06/20 08:59 10/07/20 09:41 Remdesivir 100 mg/ Sodium Chloride 250 ml @ 250 mls/hr Q24H IV 10/07/20 15:00 10/10/20 15:59 Sodium 1,000 ml @ 50 mls/hr Q20H IV 10/05/20 22:15 11/04/20 22:14 10/07/20 02:54 Spironolactone (Aldactone) 50 mg DAILY ORAL 10/06/20 09:00 11/05/20 08:59 Assessment/Plan Assessment/Plan Pulmonary Progress Note Subjective Allergies: Coded Allergies: No Known Allergies (Verified , 04/05/09) Subjective care noted in bed on O2 Allergies: Coded Allergies: No Known Allergies (Verified , 04/05/09) Objective Vital Signs Noted Height (Feet): 5 Height (Inches): 7.00 Weight (Pounds): 134 Deferred Covid 19 Microbiology noted Laboratory Tests noted Current Medications noted Assessment/Plan IMPRESSION COVID pneumonia Acute hypoxemic respiratory failure Cirrhosis anemia Lactic acidemia PLAN ID following IV decadron IV remdesivir IV AB oxygen monitor need for higher level of care DVT prophylaxis SNF meds DNR assess for BIPAP if needed impression, plan, and exam edited and reviewed in detail care discussed with RN Benoit Olivier MD Oct 07, 2020 14:40
[2020-10-07] MEDS: Maintenance Dose:Remdesivir 100mg/NS 230ml x 4 Doses IV SCH ×2 (15:14)
[2020-10-07] MEDS ORDERED: Tubing IV Secondary IV ONE (15:33)
[2020-10-07 16:00] VITALS: BP 115/52
--- NOTE | 2020-10-07 17:53 | Surgery Progress Note ---
Surgery Progress Note Subjective Additional Comments comfortable stable labs noted no n/v/f/c Objective Last 24 Hour Vital Signs Date Time Temp Pulse Resp B/P (MAP) Pulse Ox O2 Delivery O2 Flow Rate FiO2 10/07/20 16:00 96.7 62 19 115/52 (73) 95 10/07/20 16:00 59 10/07/20 12:00 61 10/07/20 12:00 97.0 62 18 118/45 (69) 100 10/07/20 09:00 Non-Rebreather 15.0 10/07/20 08:00 65 10/07/20 08:00 97.9 69 20 128/72 (90) 98 10/07/20 04:00 64 10/07/20 04:00 97.9 69 18 113/71 (85) 98 10/07/20 00:00 97.9 65 20 123/60 (81) 97 10/07/20 00:00 66 10/06/20 21:00 Non-Rebreather 10.0 10/06/20 20:00 97.6 69 20 121/69 (86) 97 10/06/20 20:00 61 I&O Intake and Output 10/06/20 10/07/20 19:00 07:00 Intake Total 150 ml Output Total 150 ml 200 ml Balance -150 ml -50 ml Intake IV Total 150 ml Output Urine Total 150 ml 200 ml Dressing: saturated Cardiovascular: RSR Respiratory: decreased breath sounds Abdomen: non-tender, present bowel sounds, non-distended Extremities: no edema, no tenderness, no cyanosis Laboratory Tests Test 10/07/20 05:00 10/07/20 06:37 White Blood Count 9.2 K/UL (4.8-10.8) Red Blood Count 3.19 M/UL (4.70-6.10) L Hemoglobin 9.5 G/DL (14.2-18.0) L Hematocrit 29.1 % (42.0-52.0) L Mean Corpuscular Volume 91 FL (80-99) Mean Corpuscular Hemoglobin 29.9 PG (27.0-31.0) Mean Corpuscular Hemoglobin Concent 32.7 G/DL (32.0-36.0) Red Cell Distribution Width 18.4 % (11.6-14.8) H Platelet Count 29 K/UL (150-450) L Mean Platelet Volume 6.4 FL (6.5-10.1) L Neutrophils (%) (Auto) % (45.0-75.0) Lymphocytes (%) (Auto) % (20.0-45.0) Monocytes (%) (Auto) % (1.0-10.0) Eosinophils (%) (Auto) % (0.0-3.0) Basophils (%) (Auto) % (0.0-2.0) Differential Total Cells Counted 100 Neutrophils % (Manual) 87 % (45-75) H Lymphocytes % (Manual) 10 % (20-45) L Monocytes % (Manual) 3 % (1-10) Eosinophils % (Manual) 0 % (0-3) Basophils % (Manual) 0 % (0-2) Band Neutrophils 0 % (0-8) Platelet Estimate Decreased L Platelet Morphology Normal Polychromasia 1+ Hypochromasia 1+ Anisocytosis 1+ Ovalocytes 1+ Sodium Level 145 MMOL/L (136-145) Potassium Level 3.8 MMOL/L (3.5-5.1) Chloride Level 112 MMOL/L (98-107) H Carbon Dioxide Level 21 MMOL/L (21-32) Anion Gap 12 mmol/L (5-15) Blood Urea Nitrogen 35 mg/dL (7-18) H Creatinine 1.2 MG/DL (0.55-1.30) Estimat Glomerular Filtration Rate > 60 mL/min (>60) Glucose Level 122 MG/DL (74-106) H Calcium Level 8.5 MG/DL (8.5-10.1) Total Bilirubin 1.0 MG/DL (0.2-1.0) Direct Bilirubin 0.6 MG/DL (0.0-0.3) H Aspartate Amino Transf (AST/SGOT) 66 U/L (15-37) H Alanine Aminotransferase (ALT/SGPT) 21 U/L (12-78) Alkaline Phosphatase 69 U/L (46-116) Total Protein 6.5 G/DL (6.4-8.2) Albumin 1.3 G/DL (3.4-5.0) L Globulin 5.2 g/dL Albumin/Globulin Ratio 0.2 (1.0-2.7) L Plan Problems: (1) Thrombocytopenia (2) Pleural effusion (3) Pneumonia due to COVID-19 virus Assessment & Plan: +++ tx as per ID res support (4) Cirrhosis Assessment & Plan: abnormal lft's likely from liver history cirrhosis currently stable under management monitor abd fluid collection trend labs okay for tf DAILY ESTIMATED NEEDS: Needs based on Cirrhosis, pulmonary/ 61kg 30-35 kcals/kg 1511-0725 total kcals 1.25-1.5 g protein/kg 76-92 g total protein Fluid per MD NUTRITION DIAGNOSIS: Altered nutrition related lab values R/T cirrhosis as evidenced by elev T bili (1.2), elev AST, recent history of paracentesis. CURRENT DIET: NPO at this time PO DIET RECOMMENDATIONS: LOW NA DIET (texture per VALUE STREAM MANAGER or as tolerated) ADDITIONAL RECOMMENDATIONS: * Daily calibrated bedscale wt * LOW NA diet w/ PO intake consistently >50% of meals * Ensure Enlive TID w/ meals * Monitor for hypoglycemia (BG this morning 71) Rec regular accuchecks * Wound healing: add DEV BID (5) SOB (shortness of breath) (6) Sepsis (7) UTI (urinary tract infection) (8) Abdominal pain Assessment & Plan: abd discomfort from ascites abd exam benign okay to cont diet will follow with recs Darker skin tone with scattered areas of hyperpigmentation from previous wounds noted to sacrum. No erythema or induration noted when palpated. DTPI R lateral R Heel(L)5cm x (W)5cm. Base of Pressure Injury is maroon and fluctuant. L Heel is boggy with non-blanchable erythema(L)8cm x (W)9cm. NO other skin concerns noted. Tx.plan:Apply Moisture Barrier Paste to Sacrum. Cover with Optifoam drsg. Change every 3 days and prn. Apply Cavilon Skin Barrier to both heels. Cover each heel with Optifoam drsgs. Change every 7 days and prn. Cover Bony Prominences with Optifoam drsgs as Needed. Reposition at least every 2hours or as tolerated. Place Pillow between knees. Off-load heels with pillow. 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
--- NOTE | 2020-10-07 18:53 | NUR ---
NURSE HAND-OFF REPORT: Important Events on Shift:[No remarkable events, remdesivir given. pt continues to be lethargic] Patient Status: [In bed lethargic] Diet: [NPO including meds] Pending Orders: [] Pending Results/Labs:[] Pending MD notification:[] Latest Vital Signs: Temperature 96.7 , Pulse 59 , B/P 115 /52 , Respiratory Rate 19 , O2 SAT 95 , Non-Rebreather, O2 Flow Rate 15.0 . Vital Sign Comment: [Now slightly michael 58-59] EKG Rhythm: SB w/ BBB Rhythm change?: Y MD Notified?: N - MD Response: Latest Strauss Fall Score: 50 Fall Risk: High Risk Safety Measures: Call light Within Reach, Bed Alarm Zone 1, Side Rails Side Rails x3, Bed position Low and Locked. Fall Precautions: Yellow Socks Yellow Gown Door Sign Patient Fall Education Report given to [Pending RN assignment]. Addendum: 10/07/20 at 1949 by [place] Mauro RN Report given to Jyoti BRIDGES
--- NOTE | 2020-10-07 19:10 | NUR ---
NURSE NOTES: received report from CYRUS RUSS. Pt in bed awake, eyes open. Non rebreather at 15L/M. 1/2 ns with 20 meq of K running in left forearm. Bed low and locked. Bed alarm on. call light within reach.
[2020-10-07 20:00] VITALS: BP 140/59
[2020-10-08] VITALS: BP 126/68
[2020-10-08 04:00] VITALS: BP 130/70
--- NOTE | 2020-10-08 07:02 | NUR ---
NURSE NOTES: Pt received from Jyoti RN. Pt in bed awake and resting. Non rebreather in place and running at 10 liters . Bed low and locked, call light within reach. no distress noted. Rn endorsed to me that noc pictured not yet uploaded, I will upload once I find camera.
[2020-10-08] MEDS: Spironolactone 50mg tab ORAL SCH (07:08)
[2020-10-08] MEDS: Ascorbic Acid 500mg tab ORAL SCH ×2 (07:09→17:27)
[2020-10-08] MEDS: Aspirin Baby 81mg ORAL SCH (07:09)
--- NOTE | 2020-10-08 07:52 | NUR ---
NURSE HAND-OFF REPORT: Important Events on Shift:[n/a] Patient Status: [stable] Diet: [npo] Pending Orders: [] Pending Results/Labs:[] Pending MD notification:[] Latest Vital Signs: Temperature 96.8 , Pulse 62 , B/P 130 /70 , Respiratory Rate 22 , O2 SAT 100 , Non-Rebreather, O2 Flow Rate 15.0 . Vital Sign Comment: [] EKG Rhythm: SB w/ BBB Rhythm change?: N MD Notified?: N - MD Response: Latest Strauss Fall Score: 50 Fall Risk: High Risk Safety Measures: Call light Within Reach, Bed Alarm Zone 1, Side Rails Side Rails x3, Bed position Low and Locked. Fall Precautions: Yellow Socks Yellow Gown Door Sign Patient Fall Education Report given to [CYRUS RUSS].
[2020-10-08 08:00] VITALS: BP 127/73
[2020-10-08] MEDS: Pantoprazole Inj IVP SCH (08:03)
[2020-10-08] MEDS: 1/2NS w/KCl 20mEq 1000ml 1,000 ML IV SCH (08:05)
--- NOTE | 2020-10-08 10:30 | Surgery Progress Note ---
Surgery Progress Note Subjective Additional Comments no acute events no complaints resting comfortable labs ntoed micro reviewed Objective Last 24 Hour Vital Signs Date Time Temp Pulse Resp B/P (MAP) Pulse Ox O2 Delivery O2 Flow Rate FiO2 10/08/20 09:00 Non-Rebreather 15.0 10/08/20 08:00 96.6 58 22 127/73 (91) 95 10/08/20 08:00 57 10/08/20 04:00 96.8 62 22 130/70 (90) 100 10/08/20 04:00 70 10/08/20 00:00 58 10/08/20 00:00 96.2 62 24 126/68 (87) 95 10/07/20 21:00 Non-Rebreather 15.0 10/07/20 20:00 96.8 59 24 140/59 (86) 95 10/07/20 20:00 61 10/07/20 16:00 96.7 62 19 115/52 (73) 95 10/07/20 16:00 59 10/07/20 12:00 61 10/07/20 12:00 97.0 62 18 118/45 (69) 100 I&O Intake and Output 10/07/20 10/08/20 19:00 07:00 Output Total 100 ml 450 ml Balance -100 ml -450 ml Output Urine Total 100 ml 450 ml # Bowel Movements 1 Dressing: saturated Cardiovascular: RSR Respiratory: decreased breath sounds Abdomen: non-tender, present bowel sounds, non-distended Extremities: no edema, no tenderness, no cyanosis Plan Problems: (1) Thrombocytopenia (2) Pleural effusion (3) Pneumonia due to COVID-19 virus Assessment & Plan: +++ tx as per ID res support (4) Cirrhosis Assessment & Plan: abnormal lft's likely from liver history cirrhosis currently stable under management monitor abd fluid collection trend labs okay for tf DAILY ESTIMATED NEEDS: Needs based on Cirrhosis, pulmonary/ 61kg 30-35 kcals/kg 8915-8280 total kcals 1.25-1.5 g protein/kg 76-92 g total protein Fluid per MD NUTRITION DIAGNOSIS: Altered nutrition related lab values R/T cirrhosis as evidenced by elev T bili (1.2), elev AST, recent history of paracentesis. CURRENT DIET: NPO at this time PO DIET RECOMMENDATIONS: LOW NA DIET (texture per SCREW MACHINE OPERATOR SWISS TYPE or as tolerated) ADDITIONAL RECOMMENDATIONS: * Daily calibrated bedscale wt * LOW NA diet w/ PO intake consistently >50% of meals * Ensure Enlive TID w/ meals * Monitor for hypoglycemia (BG this morning 71) Rec regular accuchecks * Wound healing: add DEV BID (5) SOB (shortness of breath) (6) Sepsis (7) UTI (urinary tract infection) (8) Abdominal pain Assessment & Plan: abd discomfort from ascites abd exam benign okay to cont diet will follow with recs Darker skin tone with scattered areas of hyperpigmentation from previous wounds noted to sacrum. No erythema or induration noted when palpated. DTPI R lateral R Heel(L)5cm x (W)5cm. Base of Pressure Injury is maroon and fluctuant. L Heel is boggy with non-blanchable erythema(L)8cm x (W)9cm. NO other skin concerns noted. Tx.plan:Apply Moisture Barrier Paste to Sacrum. Cover with Optifoam drsg. Change every 3 days and prn. Apply Cavilon Skin Barrier to both heels. Cover each heel with Optifoam drsgs. Change every 7 days and prn. Cover Bony Prominences with Optifoam drsgs as Needed. Reposition at least every 2hours or as tolerated. Place Pillow between knees. Off-load heels with pillow. 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
--- NOTE | 2020-10-08 11:53 | General Progress Note ---
Subjective Allergies: Coded Allergies: No Known Allergies (Verified , 04/05/09) Subjective Obtunded Objective Last 24 Hour Vital Signs Date Time Temp Pulse Resp B/P (MAP) Pulse Ox O2 Delivery O2 Flow Rate FiO2 10/08/20 09:00 Non-Rebreather 15.0 10/08/20 08:00 96.6 58 22 127/73 (91) 95 10/08/20 08:00 57 10/08/20 04:00 96.8 62 22 130/70 (90) 100 10/08/20 04:00 70 10/08/20 00:00 58 10/08/20 00:00 96.2 62 24 126/68 (87) 95 10/07/20 21:00 Non-Rebreather 15.0 10/07/20 20:00 96.8 59 24 140/59 (86) 95 10/07/20 20:00 61 10/07/20 16:00 96.7 62 19 115/52 (73) 95 10/07/20 16:00 59 10/07/20 12:00 61 10/07/20 12:00 97.0 62 18 118/45 (69) 100 Intake and Output 10/07/20 10/08/20 19:00 07:00 Output Total 100 ml 450 ml Balance -100 ml -450 ml Output Urine Total 100 ml 450 ml # Bowel Movements 1 Height (Feet): 5 Height (Inches): 7.00 Weight (Pounds): 134 Objective CV Tach Lungs B Ronchi Abd Ascites E + edema Assessment/Plan Assessment/Plan: Covid 19 Pneumonia UTI UTI DNR. Poor prognosis. IV Abx, Remdesevir, Dexameth. Per Rafaela Walker MD Oct 08, 2020 11:53
[2020-10-08 12:00] VITALS: BP 120/71
[2020-10-08 12:10] LABS: HEMATOCRIT 32.4 % (42.0-52.0); HEMOGLOBIN 10.8 G/DL (14.2-18.0); MEAN CORPUSCULAR VOLUME 90 FL (80-99); PLATELET COUNT 27 K/UL (150-450); RED BLOOD COUNT 3.59 M/UL (4.70-6.10); RED CELL DISTRIBUTION WIDTH 20.8 % (11.6-14.8); WHITE BLOOD COUNT 11.6 K/UL (4.8-10.8)
[2020-10-08 12:35] LABS: ALANINE AMINOTRANSFERASE 33 U/L (12-78); ALBUMIN 1.4 G/DL (3.4-5.0); ALBUMIN/GLOBULIN RATIO 0.3 (1.0-2.7); ALKALINE PHOSPHATASE 71 U/L (46-116); ANION GAP 13 mmol/L (5-15); ASPARTATE AMINO TRANSFERASE 80 U/L (15-37); BILIRUBIN,DIRECT 0.4 MG/DL (0.0-0.3); BLOOD UREA NITROGEN 39 mg/dL (7-18); CARBON DIOXIDE 18 MMOL/L (21-32); CHLORIDE 112 MMOL/L (98-107); POTASSIUM 4.6 MMOL/L (3.5-5.1); SODIUM 143 MMOL/L (136-145)
[2020-10-08 13:19] LABS: CREATININE 1.1 MG/DL (0.55-1.30)
[2020-10-08 13:20] LABS: CALCIUM 8.2 MG/DL (8.5-10.1)
[2020-10-08] MEDS: Cefepime HCl 1 GM in D5W 55 ML IVPB SCH (13:37)
[2020-10-08] MEDS: Maintenance Dose:Remdesivir 100mg/NS 230ml x 4 Doses IV SCH ×2 (14:24)
--- NOTE | 2020-10-08 15:37 | Pulmonology Progress Note ---
Subjective ROS Limited/Unobtainable: No Allergies: Coded Allergies: No Known Allergies (Verified , 04/05/09) Objective Last 24 Hour Vital Signs Date Time Temp Pulse Resp B/P (MAP) Pulse Ox O2 Delivery O2 Flow Rate FiO2 10/08/20 12:00 59 10/08/20 12:00 96.8 58 20 120/71 (87) 96 10/08/20 09:00 Non-Rebreather 15.0 10/08/20 08:00 96.6 58 22 127/73 (91) 95 10/08/20 08:00 57 10/08/20 04:00 96.8 62 22 130/70 (90) 100 10/08/20 04:00 70 10/08/20 00:00 58 10/08/20 00:00 96.2 62 24 126/68 (87) 95 10/07/20 21:00 Non-Rebreather 15.0 10/07/20 20:00 96.8 59 24 140/59 (86) 95 10/07/20 20:00 61 10/07/20 16:00 96.7 62 19 115/52 (73) 95 10/07/20 16:00 59 Intake and Output 0 10/07/20 10/08/20 19:00 07:00 Output Total 100 ml 450 ml Balance -100 ml -450 ml Output Urine Total 100 ml 450 ml # Bowel Movements 1 Microbiology Date/Time Source Procedure Growth Status 10/05/20 17:00 Rectum - Final NO CARBAPENEM-RESISTANT ENTEROBACTERI... Complete 10/05/20 17:00 Rectum VRE Culture - Final NO VANCOMYCIN RESISTANT ENTEROCOCCUS ... Complete 10/05/20 17:00 Urine,Clean Catch Urine Culture - Final Escherichia Coli Proteus Mirabilis Complete 10/05/20 17:00 Nasal Not Otherwise Specified MRSA Culture - Final NO METHICILLIN RESISTANT STAPH AUREUS... Complete 10/05/20 16:05 Nasopharynx SARS-CoV-2 RdRp Gene Assay - Final Complete 10/05/20 16:05 Blood Blood Culture - Preliminary NO GROWTH AFTER 24 HOURS Resulted 10/05/20 15:50 Blood Blood Culture - Preliminary NO GROWTH AFTER 24 HOURS Resulted Laboratory Tests 10/08/20 11:25: White Blood Count 11.6H, Red Blood Count 3.59L, Hemoglobin 10.8L, Hematocrit 32.4L, Mean Corpuscular Volume 90, Mean Corpuscular Hemoglobin 30.0, Mean Corpuscular Hemoglobin Concent 33.2, Red Cell Distribution Width 20.8H, Platelet Count 27L, Mean Platelet Volume 5.8L, Neutrophils (%) (Auto) , Lymphocytes (%) (Auto) , Monocytes (%) (Auto) , Eosinophils (%) (Auto) , Basophils (%) (Auto) , Differential Total Cells Counted 100, Neutrophils % (Manual) 90H, Lymphocytes % (Manual) 8L, Monocytes % (Manual) 2, Eosinophils % (Manual) 0, Basophils % (Manual) 0, Band Neutrophils 0, Platelet Estimate DecreasedL, Platelet Morphology Normal, Hypochromasia 1+, Anisocytosis 2+, Ovalocytes 1+, Sodium Level 143, Potassium Level 4.6, Chloride Level 112H, Carbon Dioxide Level 18L, Anion Gap 13, Blood Urea Nitrogen 39H, Creatinine 1.1, Estimat Glomerular Filtration Rate > 60, Glucose Level 133H, Calcium Level 8.2L, Total Bilirubin 1.0, Direct Bilirubin 0.4H, Aspartate Amino Transf (AST/SGOT) 80H, Alanine Aminotransferase (ALT/SGPT) 33, Alkaline Phosphatase 71, Total Protein 6.2L, Albumin 1.4L, Globulin 4.8, Albumin/Globulin Ratio 0.3L Current Medications Medications (Trade) Dose Ordered Sig/Tariq Route PRN Reason Start Time Stop Time Status Last Admin Dose Admin Acetaminophen (Tylenol) 650 mg Q4H PRN ORAL For Pain 10/05/20 21:15 11/04/20 21:14 Albuterol/ Ipratropium (Combivent Respimat) 1 puff Q4H PRN INH Shortness of Breath 10/05/20 21:45 11/04/20 21:44 Ascorbic Acid (Vitamin C) 500 mg TWICE A DAY ORAL 10/06/20 09:00 11/05/20 08:59 Aspirin (ASA) 81 mg DAILY ORAL 10/06/20 09:00 11/20/20 08:59 Cefepime HCl 1 gm/ Dextrose 55 ml @ 110 mls/hr Q24H IVPB 10/06/20 13:00 10/13/20 12:59 10/08/20 13:37 Dexamethasone Sodium Phosphate (Decadron 4mg/ml vial) 6 mg Q24H IVP 10/06/20 18:00 10/14/20 18:01 10/07/20 17:08 Dextrose (Dextrose 50%) 25 ml Q30M PRN IV Hypoglycemia 10/05/20 21:15 01/03/21 21:14 Dextrose (Dextrose 50%) 50 ml Q30M PRN IV Hypoglycemia 10/05/20 21:15 01/03/21 21:14 Ondansetron HCl (Zofran) 4 mg Q6H PRN IVP Nausea & Vomiting 10/05/20 21:15 11/04/20 21:14 Ondansetron HCl (Zofran) 4 mg Q6H PRN ORAL Nausea & Vomiting 10/05/20 21:15 11/04/20 21:14 Pantoprazole (Protonix) 40 mg DAILY IVP 10/07/20 09:00 11/06/20 08:59 10/08/20 08:03 Remdesivir 100 mg/ Sodium Chloride 250 ml @ 250 mls/hr Q24H IV 10/07/20 15:00 10/10/20 15:59 10/08/20 14:24 Sodium 1,000 ml @ 50 mls/hr Q20H IV 10/05/20 22:15 11/04/20 22:14 10/08/20 08:05 Spironolactone (Aldactone) 50 mg DAILY ORAL 10/06/20 09:00 11/05/20 08:59 Assessment/Plan Assessment/Plan Pulmonary Progress Note Subjective Allergies: Coded Allergies: No Known Allergies (Verified , 04/05/09) Subjective care noted in bed on high FIO2 Allergies: Coded Allergies: No Known Allergies (Verified , 04/05/09) Objective Vital Signs Noted Height (Feet): 5 Height (Inches): 7.00 Weight (Pounds): 134 Deferred Covid 19 Microbiology noted Laboratory Tests noted Current Medications noted Assessment/Plan IMPRESSION COVID pneumonia Acute hypoxemic respiratory failure Cirrhosis anemia Lactic acidemia PLAN ID following IV decadron IV remdesivir IV AB oxygen monitor need for higher level of care DVT prophylaxis SNF meds DNR assess for BIPAP if needed impression, plan, and exam edited and reviewed in detail care discussed with Benoit Shanks MD Oct 08, 2020 15:37
[2020-10-08 16:00] VITALS: BP 125/69
--- NOTE | 2020-10-08 18:24 | NUR ---
NURSE HAND-OFF REPORT: Important Events on Shift:[Pt condition still same, lethargic] Patient Status: [lethargic inbed] Diet: [NPO including meds] Pending Orders: [] Pending Results/Labs:[] Pending MD notification:[] Latest Vital Signs: Temperature 97.0 , Pulse 57 , B/P 125 /69 , Respiratory Rate 22 , O2 SAT 95 , Non-Rebreather, O2 Flow Rate 15.0 . Vital Sign Comment: [] EKG Rhythm: SB w/ BBB Rhythm change?: N MD Notified?: N - MD Response: Latest Strauss Fall Score: 50 Fall Risk: High Risk Safety Measures: Call light Within Reach, Bed Alarm Zone 1, Side Rails Side Rails x3, Bed position Low and Locked. Fall Precautions: Yellow Socks Yellow Gown Door Sign Patient Fall Education Report given to [Pending RN assignment]. Addendum: 10/08/20 at 1936 by Indiana Mauro RN Report given to Logan BRIDGES
--- NOTE | 2020-10-08 19:15 | NUR ---
NURSE NOTES: Pt received from PETRONA BRIDGES. Pt A+Ox0, no acute s/s of distress noted. IV site asymptomatic and patent on L fa 20g w/1/2 NS with 20 mEq of KCl at 50. Pt is on strict NPO incluiding meds per report. Pt has angel 16fr draining to gravity intact and patent. Pt running NSR w/BBB on the electro tech. Pt on 10L nonrebreather satting at 96%. Bed in lowest position, bed alarm on. Call light and belongings within reach. Continue to monitor. Addendum: 10/09/20 at 0055 by Cain Louise RN Pt is still very lethargic in bed Addendum: 10/09/20 at 0125 by Cain Louise RN Pt on 15L NonRebreather Mask
[2020-10-08 20:00] VITALS: BP 123/78
[2020-10-08] MEDS ORDERED: CALMOSEPTINE O3.5 G1 TP (22:25)
[2020-10-09] VITALS: BP 139/66
[2020-10-09 04:00] VITALS: BP 137/70
[2020-10-09] MEDS: 1/2NS w/KCl 20mEq 1000ml 1,000 ML IV SCH (05:45)
--- NOTE | 2020-10-09 07:30 | NUR ---
NURSE HAND-OFF REPORT: Important Events on Shift:[] Patient Status: [STABLE] Diet: [NPO] Pending Orders: [] Pending Results/Labs:[] Pending MD notification:[] Latest Vital Signs: Temperature 98.6 , Pulse 84 , B/P 137 /70 , Respiratory Rate 20 , O2 SAT 95 , Non-Rebreather, O2 Flow Rate 15.0 . Vital Sign Comment: [] EKG Rhythm: SB w/ BBB Rhythm change?: N MD Notified?: N - MD Response: Latest Strauss Fall Score: 50 Fall Risk: High Risk Safety Measures: Call light Within Reach, Bed Alarm Zone 1, Side Rails Side Rails x3, Bed position Low and Locked. Fall Precautions: Yellow Socks Yellow Gown Door Sign Patient Fall Education Report given to [HUMBERTO BRIDGES].
--- NOTE | 2020-10-09 07:35 | NUR ---
NURSE NOTES: Received patient report from CYRUS Barlow. Patient is AO x0. Pt with LFA IV 20G w/1/2 NS with 20 mEq of KCl at 50. Pt has angel 16fr draining to gravity intact and patent. No pain or discomfort noted at this time. Bed in lowest position, locked with side rails x2 up. Call light within reach
[2020-10-09 08:00] VITALS: BP 127/79
--- NOTE | 2020-10-09 08:42 | Pulmonology Progress Note ---
Subjective ROS Limited/Unobtainable: Yes Allergies: Coded Allergies: No Known Allergies (Verified , 04/05/09) Subjective care noted in bed on NRB weekend events noted Objective Last 24 Hour Vital Signs Date Time Temp Pulse Resp B/P (MAP) Pulse Ox O2 Delivery O2 Flow Rate FiO2 10/09/20 04:00 55 10/09/20 04:00 98.6 84 20 137/70 (92) 95 10/09/20 00:00 98.9 83 22 139/66 (90) 95 10/09/20 00:00 56 10/08/20 21:00 Non-Rebreather 15.0 10/08/20 20:31 96 Non-Rebreather 15.0 100 10/08/20 20:00 98.5 98 22 123/78 (93) 95 10/08/20 16:00 57 10/08/20 16:00 97.0 58 22 125/69 (87) 95 10/08/20 12:00 59 10/08/20 12:00 96.8 58 20 120/71 (87) 96 10/08/20 09:00 Non-Rebreather 15.0 Intake and Output 10/08/20 10/09/20 19:00 07:00 Output Total 150 ml 200 ml Balance -150 ml -200 ml Output Urine Total 150 ml 200 ml # Voids 1 # Bowel Movements 1 Objective deferred due to COVID Laboratory Tests 10/08/20 11:25: White Blood Count 11.6H, Red Blood Count 3.59L, Hemoglobin 10.8L, Hematocrit 32.4L, Mean Corpuscular Volume 90, Mean Corpuscular Hemoglobin 30.0, Mean Corpuscular Hemoglobin Concent 33.2, Red Cell Distribution Width 20.8H, Platelet Count 27L, Mean Platelet Volume 5.8L, Neutrophils (%) (Auto) , Lymphocytes (%) (Auto) , Monocytes (%) (Auto) , Eosinophils (%) (Auto) , Basophils (%) (Auto) , Differential Total Cells Counted 100, Neutrophils % (Manual) 90H, Lymphocytes % (Manual) 8L, Monocytes % (Manual) 2, Eosinophils % (Manual) 0, Basophils % (Manual) 0, Band Neutrophils 0, Platelet Estimate DecreasedL, Platelet Morphology Normal, Hypochromasia 1+, Anisocytosis 2+, Ovalocytes 1+, Sodium Level 143, Potassium Level 4.6, Chloride Level 112H, Carbon Dioxide Level 18L, Anion Gap 13, Blood Urea Nitrogen 39H, Creatinine 1.1, Estimat Glomerular Filtration Rate > 60, Glucose Level 133H, Calcium Level 8.2L, Total Bilirubin 1.0, Direct Bilirubin 0.4H, Aspartate Amino Transf (AST/SGOT) 80H, Alanine Aminotransferase (ALT/SGPT) 33, Alkaline Phosphatase 71, Total Protein 6.2L, Albumin 1.4L, Globulin 4.8, Albumin/Globulin Ratio 0.3L Current Medications Medications (Trade) Dose Ordered Sig/Tariq Route PRN Reason Start Time Stop Time Status Last Admin Dose Admin Acetaminophen (Tylenol) 650 mg Q4H PRN ORAL For Pain 10/05/20 21:15 11/04/20 21:14 Albuterol/ Ipratropium (Combivent Respimat) 1 puff Q4H PRN INH Shortness of Breath 10/05/20 21:45 11/04/20 21:44 Ascorbic Acid (Vitamin C) 500 mg TWICE A DAY ORAL 10/06/20 09:00 11/05/20 08:59 Aspirin (ASA) 81 mg DAILY ORAL 10/06/20 09:00 11/20/20 08:59 Cefepime HCl 1 gm/ Dextrose 55 ml @ 110 mls/hr Q24H IVPB 10/06/20 13:00 10/13/20 12:59 10/08/20 13:37 Dexamethasone Sodium Phosphate (Decadron 4mg/ml vial) 6 mg Q24H IVP 10/06/20 18:00 10/14/20 18:01 10/08/20 17:33 Dextrose (Dextrose 50%) 25 ml Q30M PRN IV Hypoglycemia 10/05/20 21:15 01/03/21 21:14 Dextrose (Dextrose 50%) 50 ml Q30M PRN IV Hypoglycemia 10/05/20 21:15 01/03/21 21:14 Ondansetron HCl (Zofran) 4 mg Q6H PRN IVP Nausea & Vomiting 10/05/20 21:15 11/04/20 21:14 Ondansetron HCl (Zofran) 4 mg Q6H PRN ORAL Nausea & Vomiting 10/05/20 21:15 11/04/20 21:14 Pantoprazole (Protonix) 40 mg DAILY IVP 10/07/20 09:00 11/06/20 08:59 10/08/20 08:03 Remdesivir 100 mg/ Sodium Chloride 250 ml @ 250 mls/hr Q24H IV 10/07/20 15:00 10/10/20 15:59 10/08/20 14:24 Sodium 1,000 ml @ 50 mls/hr Q20H IV 10/05/20 22:15 11/04/20 22:14 10/09/20 05:45 Spironolactone (Aldactone) 50 mg DAILY ORAL 10/06/20 09:00 11/05/20 08:59 Assessment/Plan Assessment/Plan IMPRESSION COVID pneumonia Acute hypoxemic respiratory failure Cirrhosis anemia Lactic acidemia PLAN ID eval and recommendations IV decadron IV remdesivir oxygen at александр flow monitor need for higher level of care DVT prophylaxis SNF meds DNR assess for BIPAP if needed impression, plan, and exam edited and reviewed in detail care discussed with Isaias Duran MD Oct 09, 2020 08:42
[2020-10-09] MEDS: Pantoprazole Inj IVP SCH (08:43)
[2020-10-09] MEDS: Aspirin Baby 81mg ORAL SCH (09:00)
[2020-10-09] MEDS: Spironolactone 50mg tab ORAL SCH (09:00)
[2020-10-09] MEDS: Ascorbic Acid 500mg tab ORAL SCH ×2 (09:00→18:22)
--- NOTE | 2020-10-09 09:02 | General Progress Note ---
Subjective Allergies: Coded Allergies: No Known Allergies (Verified , 04/05/09) Subjective Obtunded Objective Last 24 Hour Vital Signs Date Time Temp Pulse Resp B/P (MAP) Pulse Ox O2 Delivery O2 Flow Rate FiO2 10/09/20 04:00 55 10/09/20 04:00 98.6 84 20 137/70 (92) 95 10/09/20 00:00 98.9 83 22 139/66 (90) 95 10/09/20 00:00 56 10/08/20 21:00 Non-Rebreather 15.0 10/08/20 20:31 96 Non-Rebreather 15.0 100 10/08/20 20:00 98.5 98 22 123/78 (93) 95 10/08/20 16:00 57 10/08/20 16:00 97.0 58 22 125/69 (87) 95 10/08/20 12:00 59 10/08/20 12:00 96.8 58 20 120/71 (87) 96 10/08/20 09:00 Non-Rebreather 15.0 Intake and Output 10/08/20 10/09/20 19:02 07:02 Output Total 150 ml 200 ml Balance -150 ml -200 ml Output Urine Total 150 ml 200 ml # Voids 1 # Bowel Movements 1 Laboratory Tests 10/08/20 11:25: White Blood Count 11.6H, Red Blood Count 3.59L, Hemoglobin 10.8L, Hematocrit 32.4L, Mean Corpuscular Volume 90, Mean Corpuscular Hemoglobin 30.0, Mean Corpuscular Hemoglobin Concent 33.2, Red Cell Distribution Width 20.8H, Platelet Count 27L, Mean Platelet Volume 5.8L, Neutrophils (%) (Auto) , Lymphocytes (%) (Auto) , Monocytes (%) (Auto) , Eosinophils (%) (Auto) , Basophils (%) (Auto) , Differential Total Cells Counted 100, Neutrophils % (Manual) 90H, Lymphocytes % (Manual) 8L, Monocytes % (Manual) 2, Eosinophils % (Manual) 0, Basophils % (Manual) 0, Band Neutrophils 0, Platelet Estimate DecreasedL, Platelet Morphology Normal, Hypochromasia 1+, Anisocytosis 2+, Ovalocytes 1+, Sodium Level 143, Potassium Level 4.6, Chloride Level 112H, Carbon Dioxide Level 18L, Anion Gap 13, Blood Urea Nitrogen 39H, Creatinine 1.1, Estimat Glomerular Filtration Rate > 60, Glucose Level 133H, Calcium Level 8.2L, Total Bilirubin 1.0, Direct Bilirubin 0.4H, Aspartate Amino Transf (AST/SGOT) 80H, Alanine Aminotransferase (ALT/SGPT) 33, Alkaline Phosphatase 71, Total Protein 6.2L, Albumin 1.4L, Globulin 4.8, Albumin/Globulin Ratio 0.3L Height (Feet): 5 Height (Inches): 7.00 Weight (Pounds): 134 Objective CV Tach Lungs B Ronchi Abd Ascites E + edema Assessment/Plan Assessment/Plan: Covid 19 Pneumonia UTI UTI DNR. Poor prognosis. IV Abx, Remdesevir, Dexameth. Per Rafaela Walker MD Oct 09, 2020 09:02
--- NOTE | 2020-10-09 11:46 | Infectious Diseases Prog Note ---
"Assessment/Plan Assessment/Plan -[id number]- -:- cefepime remdesivir A 1. COVID-19 pneumonia. on 15 liters of oxygen with 100 % O2 saturation. 2. Diabetes. 3. Hypertension. 4. Cirrhosis. 5. e.coli | proteus urinary tract infection. P 1. Continue Decadron, day #5 2. continue remdesivir day 4 3. continue cefepime 2 more days 4. will follow up cultures Subjective ROS Limited/Unobtainable: Yes Allergies: Coded Allergies: No Known Allergies (Verified , 04/05/09) Objective Last 24 Hour Vital Signs Date Time Temp Pulse Resp B/P (MAP) Pulse Ox O2 Delivery O2 Flow Rate FiO2 10/09/20 08:00 98.9 95 20 127/79 (95) 100 10/09/20 08:00 61 10/09/20 04:00 55 10/09/20 04:00 98.6 84 20 137/70 (92) 95 10/09/20 00:00 98.9 83 22 139/66 (90) 95 10/09/20 00:00 56 10/08/20 21:00 Non-Rebreather 15.0 10/08/20 20:31 96 Non-Rebreather 15.0 100 10/08/20 20:00 98.5 98 22 123/78 (93) 95 10/08/20 16:00 57 10/08/20 16:00 97.0 58 22 125/69 (87) 95 10/08/20 12:00 59 10/08/20 12:00 96.8 58 20 120/71 (87) 96 Height (Feet): 5 Height (Inches): 7.00 Weight (Pounds): 134 Current Medications Medications (Trade) Dose Ordered Sig/Tariq Route PRN Reason Start Time Stop Time Status Last Admin Dose Admin Acetaminophen (Tylenol) 650 mg Q4H PRN ORAL For Pain 10/05/20 21:15 11/04/20 21:14 Albuterol/ Ipratropium (Combivent Respimat) 1 puff Q4H PRN INH Shortness of Breath 10/05/20 21:45 11/04/20 21:44 Ascorbic Acid (Vitamin C) 500 mg TWICE A DAY ORAL 10/06/20 09:00 11/05/20 08:59 10/09/20 09:00 Aspirin (ASA) 81 mg DAILY ORAL 10/06/20 09:00 11/20/20 08:59 10/09/20 09:00 Cefepime HCl 1 gm/ Dextrose 55 ml @ 110 mls/hr Q24H IVPB 10/06/20 13:00 10/13/20 12:59 10/08/20 13:37 Dexamethasone Sodium Phosphate (Decadron 4mg/ml vial) 6 mg Q24H IVP 10/06/20 18:00 10/14/20 18:01 10/08/20 17:33 Dextrose (Dextrose 50%) 25 ml Q30M PRN IV Hypoglycemia 10/05/20 21:15 01/03/21 21:14 Dextrose (Dextrose 50%) 50 ml Q30M PRN IV Hypoglycemia 10/05/20 21:15 01/03/21 21:14 Ondansetron HCl (Zofran) 4 mg Q6H PRN IVP Nausea & Vomiting 10/05/20 21:15 11/04/20 21:14 Ondansetron HCl (Zofran) 4 mg Q6H PRN ORAL Nausea & Vomiting 10/05/20 21:15 11/04/20 21:14 Pantoprazole (Protonix) 40 mg DAILY IVP 10/07/20 09:00 11/06/20 08:59 10/09/20 08:43 Remdesivir 100 mg/ Sodium Chloride 250 ml @ 250 mls/hr Q24H IV 10/07/20 15:00 10/10/20 15:59 10/08/20 14:24 Sodium 1,000 ml @ 50 mls/hr Q20H IV 10/05/20 22:15 11/04/20 22:14 10/09/20 05:45 Spironolactone (Aldactone) 50 mg DAILY ORAL 10/06/20 09:00 11/05/20 08:59 10/09/20 09:00 Mando Zeng MD Oct 09, 2020 11:46"
[2020-10-09 12:00] VITALS: BP 135/61
[2020-10-09] MEDS: Cefepime HCl 1 GM in D5W 55 ML IVPB SCH (13:05)
[2020-10-09] MEDS: Maintenance Dose:Remdesivir 100mg/NS 230ml x 4 Doses IV SCH ×2 (15:20)
[2020-10-09 16:00] VITALS: BP 126/47
--- NOTE | 2020-10-09 16:02 | Surgery Progress Note ---
Surgery Progress Note Subjective Additional Comments ill appearing lethargic no n/v lab snoted Objective Last 24 Hour Vital Signs Date Time Temp Pulse Resp B/P (MAP) Pulse Ox O2 Delivery O2 Flow Rate FiO2 10/09/20 12:00 55 10/09/20 12:00 96.3 57 20 135/61 (85) 94 10/09/20 09:00 Non-Rebreather 15.0 10/09/20 08:00 98.9 95 20 127/79 (95) 100 10/09/20 08:00 61 10/09/20 04:00 55 10/09/20 04:00 98.6 84 20 137/70 (92) 95 10/09/20 00:00 98.9 83 22 139/66 (90) 95 10/09/20 00:00 56 10/08/20 21:00 Non-Rebreather 15.0 10/08/20 20:31 96 Non-Rebreather 15.0 100 10/08/20 20:00 98.5 98 22 123/78 (93) 95 I&O Intake and Output 10/08/20 10/09/20 19:00 07:00 Output Total 150 ml 200 ml Balance -150 ml -200 ml Output Urine Total 150 ml 200 ml # Voids 1 # Bowel Movements 1 Dressing: saturated Cardiovascular: RSR Respiratory: decreased breath sounds Abdomen: non-tender, present bowel sounds Plan Problems: (1) Thrombocytopenia (2) Pleural effusion (3) Pneumonia due to COVID-19 virus Assessment & Plan: +++ tx as per ID res support (4) Cirrhosis Assessment & Plan: abnormal lft's likely from liver history cirrhosis currently stable under management monitor abd fluid collection trend labs okay for tf DAILY ESTIMATED NEEDS: Needs based on Cirrhosis, pulmonary/ 61kg 30-35 kcals/kg [id number] total kcals 1.25-1.5 g protein/kg 76-92 g total protein Fluid per MD NUTRITION DIAGNOSIS: Altered nutrition related lab values R/T cirrhosis as evidenced by elev T bili (1.2), elev AST, recent history of paracentesis. CURRENT DIET: NPO at this time PO DIET RECOMMENDATIONS: LOW NA DIET (texture per GEOPHYSICAL ENGINEER or as tolerated) ADDITIONAL RECOMMENDATIONS: * Daily calibrated bedscale wt * LOW NA diet w/ PO intake consistently >50% of meals * Ensure Enlive TID w/ meals * Monitor for hypoglycemia (BG this morning 71) Rec regular accuchecks * Wound healing: add DEV BID (5) SOB (shortness of breath) (6) Sepsis (7) UTI (urinary tract infection) (8) Abdominal pain Assessment & Plan: abd discomfort from ascites abd exam benign okay to cont diet will follow with recs Darker skin tone with scattered areas of hyperpigmentation from previous wounds noted to sacrum. No erythema or induration noted when palpated. DTPI R lateral R Heel(L)5cm x (W)5cm. Base of Pressure Injury is maroon and fluctuant. L Heel is boggy with non-blanchable erythema(L)8cm x (W)9cm. NO other skin concerns noted. Tx.plan:Apply Moisture Barrier Paste to Sacrum. Cover with Optifoam drsg. Change every 3 days and prn. Apply Cavilon Skin Barrier to both heels. Cover each heel with O ptifoam drsgs. Change every 7 days and prn. Cover Bony Prominences with Optifoam drsgs as Needed. Reposition at least every 2hours or as tolerated. Place Pillow between knees. Off-load heels with pillow. 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
--- NOTE | 2020-10-09 19:15 | NUR ---
NURSE HAND-OFF REPORT: Important Events on Shift:NA Patient Status: NA Diet: NPO except meds and ice chips Pending Orders: NA Pending Results/Labs:NA Pending MD notification:NA Latest Vital Signs: Temperature 96.4 , Pulse 54 , B/P 126 /47 , Respiratory Rate 20 , O2 SAT 97 , Non-Rebreather, O2 Flow Rate 15.0 . Vital Sign Comment: Stable EKG Rhythm: SB w/ BBB Rhythm change?: N MD Notified?: N - MD Response: Latest Strauss Fall Score: 50 Fall Risk: High Risk Safety Measures: Call light Within Reach, Bed Alarm Zone 1, Side Rails Side Rails x3, Bed position Low and Locked. Fall Precautions: Yellow Socks Yellow Gown Door Sign Patient Fall Education Report given to CYRUS Bustamante.
--- NOTE | 2020-10-09 19:30 | NUR ---
NURSE NOTES: Received patient from CYRUS Pederson. Patient AOx0. IV site on left FA #20g running IVF at a prescribed rate. On 15L nonrebreather mask, saturating well. Not in acute distress. With angel catheter, fr 16. Urine noted to be dark dylan with minimal sediments. Noted to have right heel DTI and sacral discoloration / hyperpigmentation. Will continue care plan as ordered. Call light placed within reach. Bed in lowest position, brakes engaged and bed alarm on. Bed rails raised x3. Will continue to monitor.
[2020-10-09 20:00] VITALS: BP 141/61
[2020-10-10] VITALS: BP 124/53
[2020-10-10] MEDS: 1/2NS w/KCl 20mEq 1000ml 1,000 ML IV SCH ×2 (02:35→21:32)
[2020-10-10 04:00] VITALS: BP 125/53
--- NOTE | 2020-10-10 07:20 | NUR ---
NURSE NOTES: Received patient report from CYRUS Kumar. Patient AO xO, responsive to verbal stimuli. Patient with IV site on left FA #20g running IVF at a prescribed rate. On 15L nonrebreather mask, saturating well. Not in acute distress. With angel catheter, fr 16. Urine noted to be dark dylan with minimal sediments.. Bed in lowest position, locked with siderails x3 up. CAll light within reach.
--- NOTE | 2020-10-10 07:41 | NUR ---
NURSE HAND-OFF REPORT: Important Events on Shift:[New IV bag hung during the shift] Patient Status: [DNR/DNI] Diet: [NPO] Pending Orders: [Venous duplex] Pending Results/Labs:[] Pending MD notification:[] Latest Vital Signs: Temperature 97.6 , Pulse 54 , B/P 125 /53 , Respiratory Rate 24 , O2 SAT 100 , Non-Rebreather, O2 Flow Rate 15.0 . Vital Sign Comment: [] EKG Rhythm: SB w/ BBB Rhythm change?: N MD Notified?: N - MD Response: Latest Strauss Fall Score: 50 Fall Risk: High Risk Safety Measures: Call light Within Reach, Bed Alarm Zone 1, Side Rails Side Rails x3, Bed position Low and Locked. Fall Precautions: Yellow Socks Yellow Gown Door Sign Patient Fall Education Report given to [CYRUS Pederson].
[2020-10-10 08:00] VITALS: BP 109/55
[2020-10-10 09:59] LABS: HEMATOCRIT 30.5 % (42.0-52.0); HEMOGLOBIN 10.1 G/DL (14.2-18.0); MEAN CORPUSCULAR VOLUME 90 FL (80-99); PLATELET COUNT 11 K/UL (150-450); RED BLOOD COUNT 3.38 M/UL (4.70-6.10); RED CELL DISTRIBUTION WIDTH 18.7 % (11.6-14.8); WHITE BLOOD COUNT 11.1 K/UL (4.8-10.8)
--- NOTE | 2020-10-10 10:00 | NUR ---
RD ASSESSMENT & RECOMMENDATIONS SEE CARE ACTIVITY FOR COMPLETE ASSESSMENT DAILY ESTIMATED NEEDS: Needs based on Cirrhosis, pulmonary/ 61kg 30-35 kcals/kg 6886-0132 total kcals 1.25-1.5 g protein/kg 76-92 g total protein Fluid per MD mL/kg . total fluid mLs NUTRITION DIAGNOSIS: * Swallowing difficulty R/T dysphagia, lethargy, decreased cognitive fxn, respiratory status as evidenced by pt is NPO, on non-rebreather mask, COVID-19 ++. * Altered nutrition related lab values R/T cirrhosis as evidenced by elev T bili (1.2-> wnl), elev AST, recent history of paracentesis. CURRENT DIET: NPO DAY 5 PO DIET RECOMMENDATIONS: IF SAFE FOR ORAL DIET -> LOW NA DIET (texture per SURGICAL GARMENT INSPECTOR) ENTERAL NUTRITION RECOMMENDATIONS: Glucerna 1.5 @ 50ml/hr x 24 hrs to provide 1200ml, 1800kcal, 99g prot, 911ml free water OBTAIN GI ACCESS IF PART OF POC -> w/ GI access, initiate carb controlled TF of Glucerna 1.5 @ 10ml/hr x 6hrs (h/o DM) -> advance 10ml q 4-6 hrs as tolerated to goal rate. -> HOB over 30 degrees/ water flush per MD ADDITIONAL RECOMMENDATIONS: * Daily calibrated bedscale wt * SURGICAL GARMENT INSPECTOR eval for safety of oral diet * TF REC ABOVE IF NOT SAFE FOR ORAL DIET -> NPO DAY 5 TODAY -> POLST indicates okay for a trial period of nutrition including TF * Wound healing: Continue Vit C, add MVI x 1 * Monitor for hypoglycemia while NPO: consider added D5 IVF
[2020-10-10 10:19] LABS: ALBUMIN 1.3 G/DL (3.4-5.0); ALBUMIN/GLOBULIN RATIO 0.3 (1.0-2.7); BILIRUBIN,DIRECT 0.9 MG/DL (0.0-0.3); BILIRUBIN,TOTAL 1.3 MG/DL (0.2-1.0); CREATININE 1.6 MG/DL (0.55-1.30); POTASSIUM 4.5 MMOL/L (3.5-5.1)
[2020-10-10] MEDS: Pantoprazole Inj IVP SCH (10:20)
[2020-10-10] MEDS: Ascorbic Acid 500mg tab ORAL SCH ×2 (10:20→17:33)
[2020-10-10] MEDS: Aspirin Baby 81mg ORAL SCH (10:20)
[2020-10-10] MEDS: Spironolactone 50mg tab ORAL SCH (10:20)
--- NOTE | 2020-10-10 10:26 | Pulmonology Progress Note ---
Subjective ROS Limited/Unobtainable: Yes Allergies: Coded Allergies: No Known Allergies (Verified , 04/05/09) Subjective care noted in bed on NRB at present Objective Last 24 Hour Vital Signs Date Time Temp Pulse Resp B/P (MAP) Pulse Ox O2 Delivery O2 Flow Rate FiO2 10/10/20 08:16 100 Non-Rebreather 15.0 100 10/10/20 04:00 52 10/10/20 04:00 97.6 54 24 125/53 (77) 100 10/10/20 00:00 52 10/10/20 00:00 97.6 52 20 124/53 (76) 98 10/09/20 21:00 Non-Rebreather 15.0 10/09/20 20:00 97.6 55 20 141/61 (87) 97 10/09/20 20:00 50 10/09/20 16:00 54 10/09/20 16:00 96.4 53 20 126/47 (73) 97 10/09/20 12:00 55 10/09/20 12:00 96.3 57 20 135/61 (85) 94 Intake and Output 10/09/20 10/10/20 18:59 06:59 Output Total 10 ml 400 ml Balance -10 ml -400 ml Output Urine Total 10 ml 400 ml Objective deferred due to COVID Laboratory Tests 10/10/20 09:45: White Blood Count 11.1H, Red Blood Count 3.38L, Hemoglobin 10.1L, Hematocrit 30 .5L, Mean Corpuscular Volume 90, Mean Corpuscular Hemoglobin 29.9, Mean Corpuscular Hemoglobin Concent 33.1, Red Cell Distribution Width 18.7H, Platelet Count 11L, Mean Platelet Volume 4.4L, Neutrophils (%) (Auto) , Lymphocytes (%) (Auto) , Monocytes (%) (Auto) , Eosinophils (%) (Auto) , Basophils (%) (Auto) , Neutrophils % (Manual) [Pending], Lymphocytes % (Manual) [Pending], Platelet Estimate [Pending], Platelet Morphology [Pending], Sodium Level [Pending], Potassium Level [Pending], Chloride Level [Pending], Carbon Dioxide Level [Pending], Blood Urea Nitrogen [Pending], Creatinine [Pending], Estimat Glomerular Filtration Rate [Pending], Glucose Level [Pending], Calcium Level [Pending], Magnesium Level [Pending], Total Bilirubin [Pending], Direct Bilirubin [Pending], Aspartate Amino Transf (AST/SGOT) [Pending], Alanine Aminotransferase (ALT/SGPT) [Pending], Alkaline Phosphatase [Pending], Total Protein [Pending], Albumin [Pending], Globulin [Pending] Current Medications Medications (Trade) Dose Ordered Sig/Tariq Route PRN Reason Start Time Stop Time Status Last Admin Dose Admin Acetaminophen (Tylenol) 650 mg Q4H PRN ORAL For Pain 10/05/20 21:15 11/04/20 21:14 Albuterol/ Ipratropium (Combivent Respimat) 1 puff Q4H PRN INH Shortness of Breath 10/05/20 21:45 11/04/20 21:44 Ascorbic Acid (Vitamin C) 500 mg TWICE A DAY ORAL 10/06/20 09:00 11/05/20 08:59 10/10/20 10:20 Aspirin (ASA) 81 mg DAILY ORAL 10/06/20 09:00 11/20/20 08:59 10/10/20 10:20 Cefepime HCl 1 gm/ Dextrose 55 ml @ 110 mls/hr Q24H IVPB 10/06/20 13:00 10/11/20 23:59 10/09/20 13:05 Dexamethasone Sodium Phosphate (Decadron 4mg/ml vial) 6 mg Q24H IVP 10/06/20 18:00 10/14/20 18:01 10/09/20 18:22 Dextrose (Dextrose 50%) 25 ml Q30M PRN IV Hypoglycemia 10/05/20 21:15 01/03/21 21:14 Dextrose (Dextrose 50%) 50 ml Q30M PRN IV Hypoglycemia 10/05/20 21:15 01/03/21 21:14 Ondansetron HCl (Zofran) 4 mg Q6H PRN IVP Nausea & Vomiting 10/05/20 21:15 11/04/20 21:14 Ondansetron HCl (Zofran) 4 mg Q6H PRN ORAL Nausea & Vomiting 10/05/20 21:15 11/04/20 21:14 Pantoprazole (Protonix) 40 mg DAILY IVP 10/07/20 09:00 11/06/20 08:59 10/10/20 10:20 Remdesivir 100 mg/ Sodium Chloride 250 ml @ 250 mls/hr Q24H IV 10/07/20 15:00 10/10/20 15:59 10/09/20 15:20 Sodium 1,000 ml @ 50 mls/hr Q20H IV 10/05/20 22:15 11/04/20 22:14 10/10/20 02:35 Spironolactone (Aldactone) 50 mg DAILY ORAL 10/06/20 09:00 11/05/20 08:59 10/10/20 10:20 Assessment/Plan Assessment/Plan IMPRESSION COVID pneumonia Acute hypoxemic respiratory failure Cirrhosis anemia Lactic acidemia DNR PLAN ID eval and recommendations noted IV decadron IV remdesivir oxygen at high flow monitor need for higher level of care DVT prophylaxis SNF meds DNR assess for BIPAP if needed; monitor acid base impression, plan, and exam edited and reviewed in detail care discussed with Isaias Druan MD Oct 10, 2020 10:26
--- NOTE | 2020-10-10 10:35 | Infectious Diseases Prog Note ---
Assessment/Plan Assessment/Plan 1. COVID19 pneumonia. 2. Diabetes. 3. Hypertension. 4. Cirrhosis. 5. Gram-negative urinary tract infection. 6. Hypoxemia 7. Anemia PLAN: 1. Continue Decadron, day #6 2. Continue Remdesivir. 3. Continue cefepime X 1 day 4. We will follow up cultures and adjust antibiotics accordingly. 5. DNR, poor prognosis Subjective ROS Limited/Unobtainable: Yes Allergies: Coded Allergies: No Known Allergies (Verified , 04/05/09) Objective Last 24 Hour Vital Signs Date Time Temp Pulse Resp B/P (MAP) Pulse Ox O2 Delivery O2 Flow Rate FiO2 10/10/20 08:16 100 Non-Rebreather 15.0 100 10/10/20 04:00 52 10/10/20 04:00 97.6 54 24 125/53 (77) 100 10/10/20 00:00 52 10/10/20 00:00 97.6 52 20 124/53 (76) 98 10/09/20 21:00 Non-Rebreather 15.0 10/09/20 20:00 97.6 55 20 141/61 (87) 97 10/09/20 20:00 50 10/09/20 16:00 54 10/09/20 16:00 96.4 53 20 126/47 (73) 97 10/09/20 12:00 55 10/09/20 12:00 96.3 57 20 135/61 (85) 94 Height (Feet): 5 Height (Inches): 7.00 Weight (Pounds): 134 HEENT: mucous membranes moist Respiratory/Chest: other - oxygen by rebreathing mask Cardiovascular: normal rate Abdomen: soft, non tender Genitourinary: other - Kwan catheter Extremities: no edema Neurologic/Psychiatric: aphasia Laboratory Tests Test 10/10/20 09:45 White Blood Count 11.1 K/UL (4.8-10.8) H Red Blood Count 3.38 M/UL (4.70-6.10) L Hemoglobin 10.1 G/DL (14.2-18.0) L Hematocrit 30.5 % (42.0-52.0) L Mean Corpuscular Volume 90 FL (80-99) Mean Corpuscular Hemoglobin 29.9 PG (27.0-31.0) Mean Corpuscular Hemoglobin Concent 33.1 G/DL (32.0-36.0) Red Cell Distribution Width 18.7 % (11.6-14.8) H Platelet Count 11 K/UL (150-450) L Mean Platelet Volume 4.4 FL (6.5-10.1) L Neutrophils (%) (Auto) % (45.0-75.0) Lymphocytes (%) (Auto) % (20.0-45.0) Monocytes (%) (Auto) % (1.0-10.0) Eosinophils (%) (Auto) % (0.0-3.0) Basophils (%) (Auto) % (0.0-2.0) Neutrophils % (Manual) Pending Lymphocytes % (Manual) Pending Platelet Estimate Pending Platelet Morphology Pending Sodium Level Pending Potassium Level Pending Chloride Level Pending Carbon Dioxide Level Pending Blood Urea Nitrogen Pending Creatinine Pending Estimat Glomerular Filtration Rate Pending Glucose Level Pending Calcium Level Pending Magnesium Level Pending Total Bilirubin Pending Direct Bilirubin Pending Aspartate Amino Transf (AST/SGOT) Pending Alanine Aminotransferase (ALT/SGPT) Pending Alkaline Phosphatase Pending Total Protein Pending Albumin Pending Globulin Pending Current Medications Medications (Trade) Dose Ordered Sig/Tariq Route PRN Reason Start Time Stop Time Status Last Admin Dose Admin Acetaminophen (Tylenol) 650 mg Q4H PRN ORAL For Pain 10/05/20 21:15 11/04/20 21:14 Albuterol/ Ipratropium (Combivent Respimat) 1 puff Q4H PRN INH Shortness of Breath 10/05/20 21:45 11/04/20 21:44 Ascorbic Acid (Vitamin C) 500 mg TWICE A DAY ORAL 10/06/20 09:00 11/05/20 08:59 10/10/20 10:20 Aspirin (ASA) 81 mg DAILY ORAL 10/06/20 09:00 11/20/20 08:59 10/10/20 10:20 Cefepime HCl 1 gm/ Dextrose 55 ml @ 110 mls/hr Q24H IVPB 10/06/20 13:00 10/11/20 23:59 10/09/20 13:05 Dexamethasone Sodium Phosphate (Decadron 4mg/ml vial) 6 mg Q24H IVP 10/06/20 18:00 10/14/20 18:01 10/09/20 18:22 Dextrose (Dextrose 50%) 25 ml Q30M PRN IV Hypoglycemia 10/05/20 21:15 01/03/21 21:14 Dextrose (Dextrose 50%) 50 ml Q30M PRN IV Hypoglycemia 10/05/20 21:15 01/03/21 21:14 Ondansetron HCl (Zofran) 4 mg Q6H PRN IVP Nausea & Vomiting 10/05/20 21:15 11/04/20 21:14 Ondansetron HCl (Zofran) 4 mg Q6H PRN ORAL Nausea & Vomiting 10/05/20 21:15 11/04/20 21:14 Pantoprazole (Protonix) 40 mg DAILY IVP 10/07/20 09:00 11/06/20 08:59 10/10/20 10:20 Remdesivir 100 mg/ Sodium Chloride 250 ml @ 250 mls/hr Q24H IV 10/07/20 15:00 10/10/20 15:59 10/09/20 15:20 Sodium 1,000 ml @ 50 mls/hr Q20H IV 10/05/20 22:15 11/04/20 22:14 10/10/20 02:35 Spironolactone (Aldactone) 50 mg DAILY ORAL 10/06/20 09:00 11/05/20 08:59 10/10/20 10:20 Low Mendieta MD Oct 10, 2020 10:35
[2020-10-10 12:00] VITALS: BP 101/50
[2020-10-10] MEDS: Cefepime HCl 1 GM in D5W 55 ML IVPB SCH (12:13)
--- NOTE | 2020-10-10 13:23 | Surgery Progress Note ---
Surgery Progress Note Subjective Additional Comments wbc stable renal function worse no n/v ill appearing Objective Last 24 Hour Vital Signs Date Time Temp Pulse Resp B/P (MAP) Pulse Ox O2 Delivery O2 Flow Rate FiO2 10/10/20 08:16 100 Non-Rebreather 15.0 100 10/10/20 08:00 97.2 54 19 109/55 (73) 92 10/10/20 04:00 52 10/10/20 04:00 97.6 54 24 125/53 (77) 100 10/10/20 00:00 52 10/10/20 00:00 97.6 52 20 124/53 (76) 98 10/09/20 21:00 Non-Rebreather 15.0 10/09/20 20:00 97.6 55 20 141/61 (87) 97 10/09/20 20:00 50 10/09/20 16:00 54 10/09/20 16:00 96.4 53 20 126/47 (73) 97 I&O Intake and Output 10/09/20 10/10/20 19:00 07:00 Output Total 10 ml 400 ml Balance -10 ml -400 ml Output Urine Total 10 ml 400 ml Dressing: saturated Cardiovascular: RSR Respiratory: decreased breath sounds Abdomen: non-tender, present bowel sounds Extremities: no tenderness, no cyanosis Laboratory Tests Test 10/10/20 09:45 White Blood Count 11.1 K/UL (4.8-10.8) H Red Blood Count 3.38 M/UL (4.70-6.10) L Hemoglobin 10.1 G/DL (14.2-18.0) L Hematocrit 30.5 % (42.0-52.0) L Mean Corpuscular Volume 90 FL (80-99) Mean Corpuscular Hemoglobin 29.9 PG (27.0-31.0) Mean Corpuscular Hemoglobin Concent 33.1 G/DL (32.0-36.0) Red Cell Distribution Width 18.7 % (11.6-14.8) H Platelet Count 11 K/UL (150-450) L Mean Platelet Volume 4.4 FL (6.5-10.1) L Neutrophils (%) (Auto) % (45.0-75.0) Lymphocytes (%) (Auto) % (20.0-45.0) Monocytes (%) (Auto) % (1.0-10.0) Eosinophils (%) (Auto) % (0.0-3.0) Basophils (%) (Auto) % (0.0-2.0) Differential Total Cells Counted 100 Neutrophils % (Manual) 93 % (45-75) H Lymphocytes % (Manual) 6 % (20-45) L Monocytes % (Manual) 1 % (1-10) Eosinophils % (Manual) 0 % (0-3) Basophils % (Manual) 0 % (0-2) Band Neutrophils 0 % (0-8) Platelet Estimate Decreased L Platelet Morphology Normal Anisocytosis 2+ Ovalocytes 1+ Sodium Level 145 MMOL/L (136-145) Potassium Level 4.5 MMOL/L (3.5-5.1) Chloride Level 112 MMOL/L (98-107) H Carbon Dioxide Level 17 MMOL/L (21-32) L Anion Gap 17 mmol/L (5-15) H Blood Urea Nitrogen 43 mg/dL (7-18) H Creatinine 1.6 MG/DL (0.55-1.30) H Estimat Glomerular Filtration Rate 49.6 mL/min (>60) Glucose Level 156 MG/DL (74-106) H Calcium Level 8.0 MG/DL (8.5-10.1) L Magnesium Level 1.8 MG/DL (1.8-2.4) Total Bilirubin 1.3 MG/DL (0.2-1.0) H Direct Bilirubin 0.9 MG/DL (0.0-0.3) H Aspartate Amino Transf (AST/SGOT) 72 U/L (15-37) H Alanine Aminotransferase (ALT/SGPT) 28 U/L (12-78) Alkaline Phosphatase 72 U/L (46-116) Total Protein 6.2 G/DL (6.4-8.2) L Albumin 1.3 G/DL (3.4-5.0) L Globulin 4.9 g/dL Albumin/Globulin Ratio 0.3 (1.0-2.7) L Plan Problems: (1) Thrombocytopenia (2) Pleural effusion (3) Pneumonia due to COVID-19 virus Assessment & Plan: +++ tx as per ID res support (4) Cirrhosis Assessment & Plan: abnormal lft's likely from liver history cirrhosis currently stable under management monitor abd fluid collection trend labs okay for tf DAILY ESTIMATED NEEDS: Needs based on Cirrhosis, pulmonary/ 61kg 30-35 kcals/kg [id number] total kcals 1.25-1.5 g protein/kg 76-92 g total protein Fluid per MD NUTRITION DIAGNOSIS: Altered nutrition related lab values R/T cirrhosis as evidenced by elev T bili (1.2), elev AST, recent history of paracentesis. CURRENT DIET: NPO at this time PO DIET RECOMMENDATIONS: LOW NA DIET (texture per SUPERVISOR PROP MAKING or as tolerated) ADDITIONAL RECOMMENDATIONS: * Daily calibrated bedscale wt * LOW NA diet w/ PO intake consistently >50% of meals * Ensure Enlive TID w/ meals * Monitor for hypoglycemia (BG this morning 71) Rec regular accuchecks * Wound healing: add DEV BID (5) SOB (shortness of breath) (6) Sepsis (7) UTI (urinary tract infection) (8) Abdominal pain Assessment & Plan: abd discomfort from ascites abd exam benign okay to cont diet will follow with recs Darker skin tone with scattered areas of hyperpigmentation from previous wounds noted to sacrum. No erythema or induration noted when palpated. DTPI R lateral R Heel(L)5cm x (W)5cm. Base of Pressure Injury is maroon and fluctuant. L Heel is boggy with non-blanchable erythema(L)8cm x (W)9cm. NO other skin concerns noted. Tx.plan:Apply Moisture Barrier Paste to Sacrum. Cover with Optifoam drsg. Change every 3 days and prn. Apply Cavilon Skin Barrier to both heels. Cover each heel with Optifoam drsgs. Change every 7 days and prn. Cover Bony Prominences with Optifoam drsgs as Needed. Reposition at least every 2hours or as tolerated. Place Pillow between knees. Off-load heels with pillow. DAILY ESTIMATED NEEDS: Needs based on Cirrhosis, pulmonary/ 61kg 30-35 kcals/kg 4130-7906 total kcals 1.25-1.5 g protein/kg 76-92 g total protein Fluid per MD mL/kg . total fluid mLs NUTRITION DIAGNOSIS: * Swallowing difficulty R/T dysphagia, lethargy, decreased cognitive fxn, respiratory status as evidenced by pt is NPO, on non-rebreather mask, COVID-19 ++. * Altered nutrition related lab values R/T cirrhosis as evidenced by elev T bili (1.2-> wnl), elev AST, recent history of paracentesis. CURRENT DIET: NPO DAY 5 PO DIET RECOMMENDATIONS: IF SAFE FOR ORAL DIET -> LOW NA DIET (texture per SUPERVISOR PROP MAKING) ENTERAL NUTRITION RECOMMENDATIONS: Glucerna 1.5 @ 50ml/hr x 24 hrs to provide 1200ml, 1800kcal, 99g prot, 911ml free water OBTAIN GI ACCESS IF PART OF POC -> w/ GI access, initiate carb controlled TF of Glucerna 1.5 @ 10ml/hr x 6hrs (h/o DM) -> advance 10ml q 4-6 hrs as tolerated to goal rate. -> HOB over 30 degrees/ water flush per MD ADDITIONAL RECOMMENDATIONS: * Daily calibrated bedscale wt * SUPERVISOR PROP MAKING eval for safety of oral diet * TF REC ABOVE IF NOT SAFE FOR ORAL DIET -> NPO DAY 5 TODAY -> POLST indicates okay for a trial period of nutrition including TF * Wound healing: Continue Vit C, add MVI x 1 * Monitor for hypoglycemia while NPO: consider added D5 IVF (9) Pneumonia (10) Vomiting (11) Upper GI bleed (12) UGIB (upper gastrointestinal bleed) (13) Multiple injuries due to trauma (14) Diabetes mellitus, type II (15) HTN (hypertension) (16) Femur neck fracture (17) GERD (gastroesophageal reflux disease) (18) Hypertension, accelerated (19) ACS (acute coronary syndrome) (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
--- NOTE | 2020-10-10 13:28 | General Progress Note ---
Subjective Allergies: Coded Allergies: No Known Allergies (Verified , 04/05/09) Subjective Obtunded Objective Last 24 Hour Vital Signs Date Time Temp Pulse Resp B/P (MAP) Pulse Ox O2 Delivery O2 Flow Rate FiO2 10/10/20 08:16 100 Non-Rebreather 15.0 100 10/10/20 08:00 97.2 54 19 109/55 (73) 92 10/10/20 04:00 52 10/10/20 04:00 97.6 54 24 125/53 (77) 100 10/10/20 00:00 52 10/10/20 00:00 97.6 52 20 124/53 (76) 98 10/09/20 21:00 Non-Rebreather 15.0 10/09/20 20:00 97.6 55 20 141/61 (87) 97 10/09/20 20:00 50 10/09/20 16:00 54 10/09/20 16:00 96.4 53 20 126/47 (73) 97 Intake and Output 10/09/20 10/10/20 19:00 07:00 Output Total 10 ml 400 ml Balance -10 ml -400 ml Output Urine Total 10 ml 400 ml Laboratory Tests 10/10/20 09:45: White Blood Count 11.1H, Red Blood Count 3.38L, Hemoglobin 10.1L, Hematocrit 30.5L, Mean Corpuscular Volume 90, Mean Corpuscular Hemoglobin 29.9, Mean Corpuscular Hemoglobin Concent 33.1, Red Cell Distribution Width 18.7H, Platelet Count 11L, Mean Platelet Volume 4.4L, Neutrophils (%) (Auto) , Lymphocytes (%) (Auto) , Monocytes (%) (Auto) , Eosinophils (%) (Auto) , Basophils (%) (Auto) , Differential Total Cells Counted 100, Neutrophils % (Manual) 93H, Lymphocytes % (Manual) 6L, Monocytes % (Manual) 1, Eosinophils % (Manual) 0, Basophils % (Manual) 0, Band Neutrophils 0, Platelet Estimate DecreasedL, Platelet Morphology Normal, Anisocytosis 2+, Ovalocytes 1+, Sodium Level 145, Potassium Level 4.5, Chloride Level 112H, Carbon Dioxide Level 17L, Anion Gap 17H, Blood Urea Nitrogen 43H, Creatinine 1.6H, Estimat Glomerular Filtration Rate 49.6, Glucose Level 156H, Calcium Level 8.0L, Magnesium Level 1.8, Total Bilirubin 1.3H, Direct Bilirubin 0.9H, Aspartate Amino Transf (AST/SGOT) 72H, Alanine Aminotransferase (ALT/SGPT) 28, Alkaline Phosphatase 72, Total Protein 6.2L, Albumin 1.3L, Globulin 4.9, Albumin/Globulin Ratio 0.3L Height (Feet): 5 Height (Inches): 7.00 Weight (Pounds): 134 Objective CV Tach Lungs B Ronchi Abd Ascites E + edema Assessment/Plan Assessment/Plan: Covid 19 Pneumonia UTI UTI DNR. Poor prognosis. IV Abx, Remdesevir, Dexameth. Per Rafaela Walker MD Oct 10, 2020 13:28
--- NOTE | 2020-10-10 14:21 | Diagnostic Imaging Report ---
Indication: Leg edema and shortness of breath Technique: Grayscale and duplex images of the bilateral lower extremity veins Comparison: none Findings: Bilaterally, grayscale and duplex images demonstrate thrombus within the common femoral and femoral veins. This is incompletely occlusive bilaterally, all results in incomplete compressibility. The popliteal veins are patent. The calf veins and greater saphenous veins are patent. 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
--- NOTE | 2020-10-10 15:03 | NUR ---
NURSE NOTES: Dr Gutierrez notified of patients Venous duplex results. With new order of Eliquis 10mg BID x7 days then 5mg bid. Noted and carried out. Addendum: 10/10/20 at 1843 by Dacia Jones RN Dr Gutierrez and Dr Lima notifed regarding patients venous duplex results. Eliquis D/C'd with no new orders.
[2020-10-10 16:00] VITALS: BP 122/60
[2020-10-10] MEDS ORDERED: Eliquis 5mg tablet ORAL SCH (18:00)
--- NOTE | 2020-10-10 19:23 | NUR ---
NURSE HAND-OFF REPORT: Important Events on Shift:na Patient Status: Lethargic Diet: NPO Pending Orders: na Pending Results/Labs:na Pending MD notification:na Latest Vital Signs: Temperature 97.0 , Pulse 51 , B/P 122 /60 , Respiratory Rate 18 , O2 SAT 96 , Non-Rebreather, O2 Flow Rate 15.0 . Vital Sign Comment: Stable EKG Rhythm: SB w/ BBB Rhythm change?: N MD Notified?: N - MD Response: Latest Strauss Fall Score: 50 Fall Risk: High Risk Safety Measures: Call light Within Reach, Bed Alarm Zone 1, Side Rails Side Rails x3, Bed position Low and Locked. Fall Precautions: Yellow Socks Yellow Gown Door Sign Patient Fall Education Report given to CYRUS Ford.
--- NOTE | 2020-10-10 19:30 | NUR ---
NURSE NOTES: Pt received from Jw BRIDGES. Pt A+Ox0, no acute s/s of distress noted. IV site asymptomatic and patent on L fa 24g w/NS w/20 mEq KCl at 50. Pt is on strict NPO except meds per report. Pt has angel 16fr draining to gravity intact and patent draining dark dylan urine. Pt running NSR/NSB w/BBB on the monitoring coordinator. Pt on 15L nonrebreather satting at 95%. Bed in lowest position, bed alarm on. Call light and belongings within reach. Continue to monitor. Addendum: 10/11/20 at 0139 by Cain Louise RN *1/2NS w/20 mEq KCl at 50
[2020-10-10 20:00] VITALS: BP 91/40
[2020-10-11] VITALS: BP 90/40
--- NOTE | 2020-10-11 | NUR ---
NURSE NOTES: Pt vital signs are all low. HR: 30-50s. BP systolic: 70-90. T: below normal range. Dr. Galloway and Dr. Gutierrez notified. Awaiting callback.
[2020-10-11 04:00] VITALS: BP 90/40
--- NOTE | 2020-10-11 07:45 | NUR ---
NURSE HAND-OFF REPORT: Important Events on Shift:[] Patient Status: [DNR DNI] Diet: [NPO] Pending Orders: [] Pending Results/Labs:[] Pending MD notification:[] Latest Vital Signs: Temperature 95.4 , Pulse 39 , B/P 66 /15 , Respiratory Rate 16 , O2 SAT 92 , Non-Rebreather, O2 Flow Rate 15.0 . Vital Sign Comment: [] EKG Rhythm: SB w/ BBB Rhythm change?: N MD Notified?: N - MD Response: Latest Strauss Fall Score: 50 Fall Risk: High Risk Safety Measures: Call light Within Reach, Bed Alarm Zone 1, Side Rails Side Rails x3, Bed position Low and Locked. Fall Precautions: Yellow Socks Yellow Gown Door Sign Patient Fall Education Report given to [ASHOK BRIDGES].
--- NOTE | 2020-10-11 07:52 | NUR ---
CASE MANAGEMENT:REVIEW 09/1620 SI: SEPSIS. COVID PNA 95.0 50 20 90/40 92% ON 15L/100% NRB IS: COMPLETED REMDESIVIR IV DECADRON Q24 IV CEFEPIME Q24 IV PROTONIX QD ASA PO QD ALDACTONE PO QD : TELEMETRY STATUS DCP: FROM [facility]
--- NOTE | 2020-10-11 08:25 | NUR ---
NURSE NOTES: pt in bed high gross position. pt is NPO. pt on radiographer cardiac catheterization he is bradycardic 29 he is DNR/DNI and Doctor Shecter is aware no new orders at this time. Pt on non debreather 15L O2sat 94-96. Bed is locked and in lowest position. Call light within reach. Will continue to monitor pt.
[2020-10-11 09:00] VITALS: BP 66/15
[2020-10-11] MEDS: Aspirin Baby 81mg ORAL SCH (09:00)
[2020-10-11] MEDS: Pantoprazole Inj IVP SCH (09:00)
[2020-10-11] MEDS: Spironolactone 50mg tab ORAL SCH (09:00)
[2020-10-11] MEDS: Ascorbic Acid 500mg tab ORAL SCH (09:00)
--- NOTE | 2020-10-11 10:10 | NUR ---
Patient is DNR/DNI; noted to be Asystole in monitor. No Palpable Pulse, No Respiration, Pupils Fixed. No B/P. Pronounced . Dr. Lima notified by nurse. next of kin notified.
--- NOTE | 2020-10-11 10:30 | NUR ---
NURSE NOTES: notified doctor Shecter, pt .
--- NOTE | 2020-10-11 11:10 | NUR ---
NURSE NOTES: 1110 notified family member God daughter about pt expiring, se will come to signs record of and sign the release of of remains to the Mortuary. Mortuary's name is [facility]. [address] was called they will not be able to utilize body. [id number] . Family members are aware.
--- NOTE | 2020-10-11 14:59 | Pulmonology Progress Note ---
Subjective ROS Limited/Unobtainable: Yes Allergies: Coded Allergies: No Known Allergies (Verified , 04/05/09) Subjective care noted SEEN EARLIER doing poorly hypotensive and bradycardic unresponsive in bed on NRB at present Objective Last 24 Hour Vital Signs Date Time Temp Pulse Resp B/P (MAP) Pulse Ox O2 Delivery O2 Flow Rate FiO2 10/11/20 09:59 92 Non-Rebreather 15.0 100 10/11/20 08:00 34 10/11/20 04:00 38 10/11/20 04:00 95.0 50 20 90/40 (57) 92 10/11/20 00:00 41 10/11/20 00:00 95.0 55 20 90/40 (57) 92 10/10/20 23:31 97 Non-Rebreather 15.0 100 10/10/20 21:00 Non-Rebreather 15.0 10/10/20 20:00 48 10/10/20 20:00 96.0 91 20 91/40 (57) 95 10/10/20 16:00 51 10/10/20 16:00 97.0 58 18 122/60 (80) 96 Intake and Output 10/10/20 10/11/20 19:00 07:00 Intake Total 55 ml Output Total 350 ml 200 ml Balance -295 ml -200 ml Intake IV Total 55 ml Output Urine Total 350 ml 200 ml Objective deferred due to COVID Assessment/Plan Assessment/Plan IMPRESSION COVID pneumonia Acute hypoxemic respiratory failure Cirrhosis anemia Lactic acidemia DNR PLAN terminal prognosis very poor oxygen at high flow monitor need for higher level of care DVT prophylaxis SNF meds DNR per primary, conservative management discussed impression, plan, and exam edited and reviewed in detail care discussed with Isaias Duran MD Oct 11, 2020 14:59
--- NOTE | 2020-10-11 15:11 | Surgery Progress Note ---
Surgery Progress Note Subjective Additional Comments Late entry. Patient was seen this morning he was declining rapidly. Heart rate was going down respiratory agonal. At time of this note patient states DNR no resuscitation Objective Last 24 Hour Vital Signs Date Time Temp Pulse Resp B/P (MAP) Pulse Ox O2 Delivery O2 Flow Rate FiO2 10/11/20 09:59 92 Non-Rebreather 15.0 100 10/11/20 08:00 34 10/11/20 04:00 38 10/11/20 04:00 95.0 50 20 90/40 (57) 92 10/11/20 00:00 41 10/11/20 00:00 95.0 55 20 90/40 (57) 92 10/10/20 23:31 97 Non-Rebreather 15.0 100 10/10/20 21:00 Non-Rebreather 15.0 10/10/20 20:00 48 10/10/20 20:00 96.0 91 20 91/40 (57) 95 10/10/20 16:00 51 10/10/20 16:00 97.0 58 18 122/60 (80) 96 I&O Intake and Output 10/10/20 10/11/20 19:00 07:00 Intake Total 55 ml Output Total 350 ml 200 ml Balance -295 ml -200 ml Intake IV Total 55 ml Output Urine Total 350 ml 200 ml Plan Problems: (1) Thrombocytopenia (2) Pleural effusion (3) Pneumonia due to COVID-19 virus Assessment & Plan: +++ tx as per ID res support (4) Cirrhosis Assessment & Plan: abnormal lft's likely from liver history cirrhosis currently stable under management monitor abd fluid collection trend labs okay for tf DAILY ESTIMATED NEEDS: Needs based on Cirrhosis, pulmonary/ 61kg 30-35 kcals/kg [id number] total kcals 1.25-1.5 g protein/kg 76-92 g total protein Fluid per MD NUTRITION DIAGNOSIS: Altered nutrition related lab values R/T cirrhosis as evidenced by elev T bili (1.2), elev AST, recent history of paracentesis. CURRENT DIET: NPO at this time PO DIET RECOMMENDATIONS: LOW NA DIET (texture per ACCOUNT CLASSIFICATION CLERK or as tolerated) ADDITIONAL RECOMMENDATIONS: * Daily calibrated bedscale wt * LOW NA diet w/ PO intake consistently >50% of meals * Ensure Enlive TID w/ meals * Monitor for hypoglycemia (BG this morning 71) Rec regular accuchecks * Wound healing: add DEV BID (5) SOB (shortness of breath) (6) Sepsis (7) UTI (urinary tract infection) (8) Abdominal pain Assessment & Plan: abd discomfort from ascites abd exam benign okay to cont diet will follow with recs Darker skin tone with scattered areas of hyperpigmentation from previous wounds noted to sacrum. No erythema or induration noted when palpated. DTPI R lateral R Heel(L)5cm x (W)5cm. Base of Pressure Injury is maroon and fluctuant. L Heel is boggy with non-blanchable erythema(L)8cm x (W)9cm. NO other skin concerns noted. Tx.plan:Apply Moisture Barrier Paste to Sacrum. Cover with Optifoam drsg. Change every 3 days and prn. Apply Cavilon Skin Barrier to both heels. Cover each heel with Optifoam drsgs. Change every 7 days and prn. Cover Bony Prominences with Optifoam drsgs as Needed. Reposition at least every 2hours or as tolerated. Place Pillow between knees. Off-load heels with pillow. DAILY ESTIMATED NEEDS: Needs based on Cirrhosis, pulmonary/ 61kg 30-35 kcals/kg [id number] total kcals 1.25-1.5 g protein/kg 76-92 g total protein Fluid per MD mL/kg . total fluid mLs NUTRITION DIAGNOSIS: * Swallowing difficulty R/T dysphagia, lethargy, decreased cognitive fxn, respiratory status as evidenced by pt is NPO, on non-rebreather mask, COVID-19 ++. * Altered nutrition related lab values R/T cirrhosis as evidenced by elev T bili (1.2-> wnl), elev AST, recent history of paracentesis. CURRENT DIET: NPO DAY 5 PO DIET RECOMMENDATIONS: IF SAFE FOR ORAL DIET -> LOW NA DIET (texture per ACCOUNT CLASSIFICATION CLERK) ENTERAL NUTRITION RECOMMENDATIONS: Glucerna 1.5 @ 50ml/hr x 24 hrs to provide 1200ml, 1800kcal, 99g prot, 911ml free water OBTAIN GI ACCESS IF PART OF POC -> w/ GI access, initiate carb controlled TF of Glucerna 1.5 @ 10ml/hr x 6hrs (h/o DM) -> advance 10ml q 4-6 hrs as tolerated to goal rate. -> HOB over 30 degrees/ water flush per MD ADDITIONAL RECOMMENDATIONS: * Daily calibrated bedscale wt * ACCOUNT CLASSIFICATION CLERK eval for safety of oral diet * TF REC ABOVE IF NOT SAFE FOR ORAL DIET -> NPO DAY 5 TODAY -> POLST indicates okay for a trial period of nutrition including TF * Wound healing: Continue Vit C, add MVI x 1 * Monitor for hypoglycemia while NPO: consider added D5 IVF (9) Pneumonia (10) Vomiting (11) Upper GI bleed (12) UGIB (upper gastrointestinal bleed) (13) Multiple injuries due to trauma (14) Diabetes mellitus, type II (15) HTN (hypertension) (16) Femur neck fracture (17) GERD (gastroesophageal reflux disease) (18) Hypertension, accelerated (19) ACS (acute coronary syndrome) (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
--- NOTE | 2020-10-12 18:03 | Discharge Summary ---
Discharge Summary Discharge Summary _ Date of admission: 10/05/2020 Date of expiration: 10/11/2020 Reason for hospitalization: An 89-year-old male with past medical history of cirrhosis, ascites, ischemic he art disease, hypertension, diabetes, dysphagia, and GERD, metabolic encephalopathy, [facility] hypoxemia [facility] the [facility]. Upon evaluation his oxygen saturation was 86% the ER. He subsequently was placed on 100% nonrebreather mask Patient tested positive for COVID-19 He was admitted for further management and care Consultants: Infectious disease Dr. Mendieta, Dr. Phelps Pulmonology Dr. Gutierrez, Dr. [place] Surgery Dr. Fung Significant finding: EKG showed normal sinus rhythm Chest x-ray showed bilateral infiltrates and possible right effusion. Lab studies showed normal white count with left shift, low hemoglobin, low platelets, normal ammonia. Urinalysis showed signs of urinary tract infection Hospital course/treatment rendered Patient admitted to telemetry floor isolation room. IV hydration was provided as the patient had a history of ascites. Venous duplex scan of bilateral leg showed bilateral common femoral and femoral deep venous thrombosis Patient was provided apixaban. Blood culture was negative MRSA culture was negative Urine culture showed E. coli Antiemetic was on board as needed Supplemental oxygen provided to keep oxygen saturation above 92%. Albuterol provided. Urinary catheter placed Volumes, renal parameters and electrolytes were closely monitored. Anticoagulation with Lovenox provided Patient was on IV fluids Patient received dexamethasone Appropriate antibiotics provided for UTI Remdesivir provided for COVID-19 pneumonia Supplemental oxygen with nonrebreather mask was provided due to hypoxemic respiratory failure Patient was initially put on n.p.o. due to swallowing difficulty related to dysphagia, lethargy, decreased cognitive function. Upon evaluation he was switched to low-sodium diet Patient was DNR, with poor prognosis Patient was noted to be in asystole in monitor without palpable pulse, or respiration, with pupils fixed. 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 I was not involved in the patient's management Turner Parkinson Oct 12, 2020 18:03
[2020-10-17] MEDS ORDERED: Eliquis 5mg tablet ORAL SCH (18:00)
[2020-10-20] MEDS ORDERED: Eliquis 5mg tablet ORAL SCH (18:00)
== END 2020-10-11 14:30 | disposition expired | DRG 871 ==
LOC: EDBD 15:23 → EMR 16:01 → 2E 16:16 → EDBEDREQ 18:40 → 2E 21:22
DX: A41.89 Other specified sepsis (principal); U07.1 COVID-19; J12.89 Other viral pneumonia; G93.41 Metabolic encephalopathy; J96.01 Acute respiratory failure with hypoxia; N39.0 Urinary tract infection, site not specified; K72.90 Hepatic failure, unspecified without coma; K21.9 Gastro-esophageal reflux disease without esophagitis; D69.6 Thrombocytopenia, unspecified; K70.31 Alcoholic cirrhosis of liver with ascites; Z66 Do not resuscitate; I25.9 Chronic ischemic heart disease, unspecified; I11.9 Hypertensive heart disease without heart failure; E11.9 Type 2 diabetes mellitus without complications; D64.9 Anemia, unspecified
CPT/HCPCS: 36415; 71045; 80048; 80053; 81003; 82140; 82248; 82550; 82728; 82803; 83605; 83615; 83690; 83735; 83880; 84484; 85007; 85025; 85379; 85610; 85730; 86140; 87040; 87081; 87086; 87181; 93005; 93970; 96361; 96365; 96367; 96375; 99285; J3490; J7030; U0002